=== PATIENT | male | born 1940 | race Caucasian/White ===

== ENCOUNTER 2017-10-19 13:46 | Observation (INO) ==
[2017-10-19 14:10] LABS: Basophils % 0.5 % (0.1-2.0); Eosinophils # 0.3 K/mm3 (0.0-0.4); Eosinophils % 3.2 % (0.1-12.0); Hematocrit 46.6 % (42.0-52.0); Hemoglobin 15.2 g/dL (14.1-18.0); Lymphocytes # 2.1 K/mm3 (0.7-4.5); Lymphocytes % 26.7 K/mm3 (10-50); Mean Corpuscular HGB Conc 32.6 g/dL (31.8-35.4); Mean Corpuscular Hemoglobin 28.9 pg (27.0-31.2); Mean Corpuscular Volume 88.7 fl (80-94); Mean Platelet Volume 7.9 fl (7.4-10.4); Monocytes # 0.4 K/mm3 (0.1-1.0); Neutrophils # 5.1 K/mm3 (1.8-7.8); Neutrophils % 64.7 % (37.0-80.0); Platelet Count 182 K/mm3 (142-424); Red Blood Count 5.26 M/mm3 (4.60-6.20); Red Cell Distribution Width 13.3 % (11.5-17.5); White Blood Count 7.8 K/mm3 (4.8-10.8)
[2017-10-19 14:19] LABS: Albumin Level 4.1 gm/dL (3.4-5.0); Albumin/Globulin Ratio 1.2 (1.1-1.8); Anion Gap 14.8 mEq/L (5-15); Bilirubin,Total 0.5 mg/dL (0.2-1.0); Globulin 3.3 gm/dl (1.3-3.2); Potassium 3.8 mmoL/L (3.5-5.1); Total Protein,Serum 7.4 gm/dL (6.4-8.2)
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
[2017-10-19 14:46] LABS: Creatine Kinase 159 U/L (39-308)
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
--- NOTE | 2017-10-20 07:27 | Pharmacy Consult Notes ---
[facility] Pharmacy VTE Monitoring - Patient Demographics Admission date: 10/19/17 Report Date: 10/20/17 Time: 07:27 Allergies/Adverse Reactions: Patient Allergies No Known Allergies Allergy (Verified 10/18/17 16:04) Height: 1.78 m Weight: 73.567 kg Patient Problems: Current Active Problems Labyrinthitis (Acute) Vomiting (Acute) Renal insufficiency (Acute) Coronary artery disease (Chronic) - VTE Risk Labs: VTE Related Lab Results Hgb 15.2 g/dL (14.1-18.0) 10/19/17 13:55 Hct 46.6 % (42.0-52.0) 10/19/17 13:55 Plt Count 182 K/mm3 (142-424) 10/19/17 13:55 BUN 25 mg/dL (7-18) H 10/19/17 13:55 Creatinine 1.52 mg/dL (0.70-1.30) H 10/19/17 13:55 Estimated Creat Clear 42 mL/min (0-300) 10/19/17 13:55 Was VTE Risk Assessment Performed: Yes VTE Score: 2 VTE Risk Level: Low Risk Clinical Trial Participant: No - Prophylaxis VTE Prophylaxis Ordered?: Yes Types of VTE Prophylaxis: TEDS Knee High
[2017-10-20 07:51] LABS: Basophils % 0.5 % (0.1-2.0); Eosinophils # 0.2 K/mm3 (0.0-0.4); Eosinophils % 3.5 % (0.1-12.0); Hematocrit 40.4 % (42.0-52.0); Lymphocytes # 1.6 K/mm3 (0.7-4.5); Lymphocytes % 33.5 K/mm3 (10-50); Mean Corpuscular HGB Conc 32.1 g/dL (31.8-35.4); Mean Corpuscular Hemoglobin 29.1 pg (27.0-31.2); Mean Corpuscular Volume 90.8 fl (80-94); Mean Platelet Volume 8.5 fl (7.4-10.4); Monocytes # 0.3 K/mm3 (0.1-1.0); Monocytes % 6.1 % (1.7-9.3); Neutrophils # 2.7 K/mm3 (1.8-7.8); Neutrophils % 56.5 % (37.0-80.0); Platelet Count 128 K/mm3 (142-424); Red Blood Count 4.46 M/mm3 (4.60-6.20); Red Cell Distribution Width 13.5 % (11.5-17.5); White Blood Count 4.7 K/mm3 (4.8-10.8)
--- NOTE | 2017-10-20 07:57 | Progress Note ---
<Reshma Gipson - Last Filed: 10/20/17 08:04> Internal Medicine - PN: Subj *Date: 10/20/17 *Time: 08:04 Interval history: Patient is feeling well today. He denies any pain. States he slept well last night. Did eat all of his breakfast. No dizzy spells. No nausea or vomiting. Exam Vital signs and Labs for Last 24 Hours: Temp Pulse Resp BP Pulse Ox 98.1 F 58 L 20 132/55 97 10/20/17 07:39 10/20/17 07:39 10/20/17 07:39 10/20/17 07:39 10/20/17 07:39 Laboratory Results - last 24 hr 10/19/17 13:55: WBC 7.8, RBC 5.26, Hgb 15.2, Hct 46.6, MCV 88.7, MCH 28.9, MCHC 32.6, RDW 13.3, Plt Count 182, MPV 7.9, Neut % (Auto) 64.7, Lymph % (Auto) 26.7 , Bennett % (Auto) 5.0, Eos % (Auto) 3.2, Baso % (Auto) 0.5, Neut # (Auto) 5.1, Lymph # (Auto) 2.1, Bennett # (Auto) 0.4, Eos # (Auto) 0.3, Baso # (Auto) 0.0 10/19/17 13:55: Sodium 143, Potassium 3.8, Chloride 107, Carbon Dioxide 25, Anion Gap 14.8, BUN 25 H, Creatinine 1.52 H, Estimated Creat Clear 42, Estimated GFR 44 L, Est GFR ( Amer) 54 L, Glucose 101, Calcium 9.0, Total Bilirubin 0.5, AST 26, ALT 32, Alkaline Phosphatase 80, Total Protein 7.4 , Albumin 4.1, Globulin 3.3 H, Albumin/Globulin Ratio 1.2 10/19/17 13:55: Total Creatine Kinase 159, CK-MB (CK-2) 2.9, CK-MB (CK-2) Rel Index 1.8, Troponin I < 0.02 10/20/17 06:04: WBC 4.7 L D, RBC 4.46 L, Hct 40.4 L, MCV 90.8, MCH 29.1, MCHC 32.1, RDW 13.5, Plt Count 128 L D, MPV 8.5, Neut % (Auto) 56.5, Lymph % (Auto) 33.5, Bennett % (Auto) 6.1, Eos % (Auto) 3.5, Baso % (Auto) 0.5, Neut # (Auto) 2.7 , Lymph # (Auto) 1.6, Bennett # (Auto) 0.3, Eos # (Auto) 0.2, Baso # (Auto) 0.0 I & O for Last 24 hours: Intake & Output 10/17/17 10/18/17 10/19/17 10/20/17 11:59 11:59 11:59 11:59 Intake Total 240 / 240 Output Total 200 / 200 Balance 40 / 40 Weight 162 lb 3 oz - Constitutional no acute distress - *Routine Respiratory Exam Present: CTA bilaterally - *Routine Cardiovascular Exam Present: RRR - *Routine Abdominal Exam Present: soft, normoactive bowel sounds. Absent: tenderness - *Routine Extremities Exam Absent: edema Assessment and Plan (1) Labyrinthitis Current visit: Yes Status: Acute Qualifiers: Laterality: bilateral Qualified Code(s): H83.03 - Labyrinthitis, bilateral Category: Medical Code(s): H83.09 - Labyrinthitis, unspecified ear (2) Renal insufficiency Current visit: Yes Status: Acute Category: Medical Code(s): N28.9 - Disorder of kidney and ureter, unspecified (3) Coronary artery disease Current visit: Yes Status: Chronic Category: Medical Code(s): I25.10 - Atherosclerotic heart disease of [place] coronary artery without angina pectoris (4) Vomiting Current visit: Yes Status: Acute Category: Medical Code(s): R11.10 - Vomiting, unspecified (5) Dizzy Current visit: No Status: Acute Category: Medical Code(s): R42 - Dizziness and giddiness - Assessment and plan all Dx Assessment and Plan for all problems:: Patient is doing well this morning has had no more dizzy spells. Possible discharge home today will discuss with Dr. Newby. <Ney Newby - Last Filed: 10/20/17 10:26> Internal Medicine - PN: Subj *Date: 10/20/17 *Time: 10:25 Exam Vital signs and Labs for Last 24 Hours: Temp Pulse Resp BP Pulse Ox 98.1 F 58 L 20 132/55 97 10/20/17 07:39 10/20/17 07:39 10/20/17 07:39 10/20/17 07:39 10/20/17 07:39 Laboratory Results - last 24 hr 10/19/17 13:55: WBC 7.8, RBC 5.26, Hgb 15.2, Hct 46.6, MCV 88.7, MCH 28.9, MCHC 32.6, RDW 13.3, Plt Count 182, MPV 7.9, Neut % (Auto) 64.7, Lymph % (Auto) 26.7 , Bennett % (Auto) 5.0, Eos % (Auto) 3.2, Baso % (Auto) 0.5, Neut # (Auto) 5.1, Lymph # (Auto) 2.1, Bennett # (Auto) 0.4, Eos # (Auto) 0.3, Baso # (Auto) 0.0 10/19/17 13:55: Sodium 143, Potassium 3.8, Chloride 107, Carbon Dioxide 25, Anion Gap 14.8, BUN 25 H, Creatinine 1.52 H, Estimated Creat Clear 42, Estimated GFR 44 L, Est GFR ( Amer) 54 L, Glucose 101, Calcium 9.0, Total Bilirubin 0.5, AST 26, ALT 32, Alkaline Phosphatase 80, Total Protein 7.4 , Albumin 4.1, Globulin 3.3 H, Albumin/Globulin Ratio 1.2 10/19/17 13:55: Total Creatine Kinase 159, CK-MB (CK-2) 2.9, CK-MB (CK-2) Rel Index 1.8, Troponin I < 0.02 10/20/17 06:04: WBC 4.7 L D, RBC 4.46 L, Hgb 13.1 L D, Hct 40.4 L, MCV 90.8, MCH 29.1, MCHC 32.1, RDW 13.5, Plt Count 128 L D, MPV 8.5, Neut % (Auto) 56.5, Lymph % (Auto) 33.5, Bennett % (Auto) 6.1, Eos % (Auto) 3.5, Baso % (Auto) 0.5, Neut # (Auto) 2.7, Lymph # (Auto) 1.6, Bennett # (Auto) 0.3, Eos # (Auto) 0.2, Baso # (Auto) 0.0 10/20/17 06:04: Sodium 144, Potassium 4.5, Chloride 112 H, Carbon Dioxide 24, Anion Gap 12.5, BUN 22 H, Creatinine 1.35 H, Estimated Creat Clear 46, Estimated GFR 51 L, Est GFR ( Amer) 62, Glucose 72 L D I & O for Last 24 hours: Intake & Output 10/17/17 10/18/17 10/19/17 10/20/17 11:59 11:59 11:59 11:59 Intake Total 240 / 240 Output Total 200 / 200 Balance 40 / 40 Weight 162 lb 3 oz Assessment and Plan (1) Labyrinthitis Current visit: Yes Status: Acute Qualifiers: Laterality: bilateral Qualified Code(s): H83.03 - Labyrinthitis, bilateral Category: Medical Code(s): H83.09 - Labyrinthitis, unspecified ear (2) Renal insufficiency Current visit: Yes Status: Acute Category: Medical Code(s): N28.9 - Disorder of kidney and ureter, unspecified (3) Coronary artery disease Current visit: Yes Status: Chronic Category: Medical Code(s): I25.10 - Atherosclerotic heart disease of [place] coronary artery without angina pectoris (4) Vomiting Current visit: Yes Status: Acute Category: Medical Code(s): R11.10 - Vomiting, unspecified (5) Dizzy Current visit: No Status: Acute Category: Medical Code(s): R42 - Dizziness and giddiness - Assessment and plan all Dx Assessment and Plan for all problems:: Patient seen and examined. He is stable for discharge.
[2017-10-20 08:01] LABS: Anion Gap 12.5 mEq/L (5-15); Potassium 4.5 mmoL/L (3.5-5.1)
[2017-10-20 08:07] LABS: Hemoglobin 13.1 g/dL (14.1-18.0)
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
== END 2017-10-20 11:38 | disposition home or self-care (01) ==
LOC: ER 13:46 → 2ND 13:46
PROVIDERS: ADMIT Family Medicine; ATTEND Family Medicine
CPT/HCPCS: 36415; 70450; 72125; 80048; 80053; 82550; 82553; 84484; 85025; 93005; 96365; 99284; G0378; J2405

== ENCOUNTER → 2019-12-14 09:14 | Outpatient (CLI) | payer MEDICARE, SELFPAY ==
[2019-12-14 10:42] LABS: Hemoglobin A1C 5.4 % (4.0-6.0)
[2019-12-14 12:03] LABS: Alanine Aminotransferase 24 U/L (12-78); Albumin Level 4.1 g/dl (3.5-5.0); Albumin/Globulin Ratio 1.5 (1.1-1.8); Alkaline Phosphatase 101 U/L (38-126); Anion Gap 11.9 mEq/L (5-15); Aspartate Amino Transferase 37 U/L (17-59); Bilirubin,Total 0.3 mg/dl (0.2-1.3); Blood Urea Nitrogen 31 mg/dl (9-20); Calcium 9.3 mg/dl (8.4-10.2); Carbon Dioxide 28 mmol/L (22.0-30.0); Chloride 105 mmol/L (98-107); Chol/HDL Ratio 1.5 (1-3.5); Cholesterol 95 mg/dl (140-200); Estimated Glomerular Filt Rate 45 ml/min (>60); GFR (African American) 54 ML/MIN (>60); Globulin 2.7 g/dL (1.3-3.2); Glucose 97 mg/dl (74-100); HDL Cholesterol 63 mg/dl (40-60); Magnesium 1.9 mg/dl (1.6-2.3); Potassium 4.9 mmoL/L (3.5-5.1); Sodium 140 mmol/L (136-145); Total Protein,Serum 6.8 g/dl (6.3-8.2); Triglycerides 38 mg/dl (30-150); VLDL Cholesterol 8 mg/dL (0-40)
[2019-12-14 12:13] LABS: Direct LDL Cholesterol 39.36 mg/dL (100-129)
[2019-12-14 12:36] LABS: Prostate Specific Ag Screen 5.6 ng/ml (0.0-4.0); Thyroid Stimulating Hormone 3.53 uIU/mL (0.465-4.68)
== END ==
PROVIDERS: Visit Provider Family Medicine
DX: I10 Essential (primary) hypertension (principal); E78.5 Hyperlipidemia, unspecified; R25.2 Cramp and spasm; N40.1 Benign prostatic hyperplasia with lower urinary tract symptoms; Z12.5 Encounter for screening for malignant neoplasm of prostate; Z79.899 Other long term (current) drug therapy
CPT/HCPCS: 36415; 80053; 80061; 83036; 83735; 84443; G0103

== ENCOUNTER → 2020-01-31 09:40 | Outpatient (CLI) | payer MEDICARE, SELFPAY ==
--- NOTE | 2020-01-31 09:59 | ECG_ITS ---
APPROVED REPORT Exam: Resting ECG HR:54 bpm ECG Measurements Heart Rate 54 AXES WY 150 P 65 QRSd 76 QRS 22 QT 400 T 14 QTc 379 <Conclusion> Sinus bradycardia Otherwise normal ECG Electronically signed by : Ethan Deleon, 02/03/2020 08:35:20
[2020-01-31 10:15] LABS: Basophils % 0.8 % (0.1-2.0); Eosinophils # 0.2 K/mm3 (0.0-0.4); Eosinophils % 4.5 % (0.1-12.0); Hematocrit 41.3 % (42.0-52.0); Hemoglobin 14.1 g/dL (14.1-18.0); Lymphocytes # 1.3 K/mm3 (0.7-4.5); Lymphocytes % 23.8 % (10-50); Mean Corpuscular HGB Conc 34.1 g/dL (31.8-35.4); Mean Platelet Volume 7.6 fl (7.4-10.4); Monocytes # 0.3 K/mm3 (0.1-1.0); Monocytes % 5.7 % (1.7-9.3); Neutrophils # 3.6 K/mm3 (1.8-7.8); Neutrophils % 65.3 % (37.0-80.0); Platelet Count 150 K/mm3 (142-424); Red Blood Count 4.69 M/mm3 (4.60-6.20); Red Cell Distribution Width 13.7 % (11.5-17.5); White Blood Count 5.5 K/mm3 (4.8-10.8)
[2020-01-31 10:37] LABS: Chloride 109 mmol/L (98-107); Potassium 4.8 mmoL/L (3.5-5.1); Sodium 142 mmol/L (136-145)
[2020-01-31 10:40] LABS: Alanine Aminotransferase 26 U/L (12-78); Albumin Level 3.9 g/dl (3.5-5.0); Albumin/Globulin Ratio 1.6 (1.1-1.8); Alkaline Phosphatase 73 U/L (38-126); Anion Gap 11.8 mEq/L (5-15); Aspartate Amino Transferase 35 U/L (17-59); Bilirubin,Total 0.6 mg/dl (0.2-1.3); Blood Urea Nitrogen 27 mg/dl (9-20); Carbon Dioxide 26 mmol/L (22.0-30.0); Estimated Glomerular Filt Rate 45 ml/min (>60); GFR (African American) 54 ML/MIN (>60); Globulin 2.5 g/dL (1.3-3.2); Total Protein,Serum 6.4 g/dl (6.3-8.2)
[2020-01-31 10:41] LABS: Calcium 8.8 mg/dl (8.4-10.2); Glucose 89 mg/dl (74-100)
[2020-01-31 10:58] LABS: Coronavirus 19 IgG Antibody Negative (Negative); Coronavirus 19 IgM Antibody Negative (Negative)
== END ==
PROVIDERS: Visit Provider Otolaryngology
DX: Z01.818 Encounter for other preprocedural examination (principal); C44.02 Squamous cell carcinoma of skin of lip
CPT/HCPCS: 36415; 80053; 85025; 86328; 93005

== ENCOUNTER 2020-02-01 07:44 | Day surgery (SDC) | payer MEDICARE, SELFPAY ==
[2020-01-30 11:37] VITALS: BMI 23.6
[2020-02-01 08:02] VITALS: BP 180/96; PULSE 83; RESP 18; TEMP 36.1; O2SAT 93
--- NOTE | 2020-02-01 08:25 | P.PN_ITS ---
[facility] Anesthesia Checklist - Patient Identification Patient Identification: Arm Band - Structural Data Admitted From: Home Planned Operative Procedure/s: excision lip lesion Consent for Planned Operative Procedure(s) Verified: Yes Verified Documents: Surgical Consent, History and Physical - NPO Status Verified Time NPO: 00:00 - Additional verifications Anesthesia Reactions: No Hx Blood Transfusions: No Blood Transfusion Reaction: No - Airway Assessment C-Spine Mobility Assessed: Yes (mp2) TMJ Mobility Assessed: Yes Dentition: Edentulous - Neurological Assessment Level of Consciousness: Awake, Alert - Anesthesia Plan Anesthesia Risk discussed: Yes Anesthesia Plan: Verified ASA Class: II Anesthesia Type: MAC [facility] History I have reviewed the patient's past medical history: Yes Medical History: Reports:: Atherosclerotic Heart Disease, Coronary Artery Disease, Gastroesophageal Reflux Disease(GERD), Palpitations Denies:: Cancer, Diabetes Mellitus Type 1, Diabetes Mellitus Type 2, Internal Pacemaker, MRSA, Seizures *Have you ever received a pneumonia vaccine?: No *Have you received a flu vaccine this season?: No Other Medical History: Denies: Blood Transfusion Reaction Anesthesia experience/problems:: nac Other Surgeries: Yes: CABG, Colonoscopy, Open Heart Surgery. No: Pacemaker Amputation: No Fractures: No - *Social History Last grade of school completed: High school graduate Smoking Status: Never smoker Tobacco Type: smokeless tobacco Alcohol Intake: never Substance Use Type: denies use *Occupational Status:: retired Housing: house Household Members: spouse *Travel in the last 8 weeks: None Family Hx:: Coronary Artery Disease
--- NOTE | 2020-02-01 10:26 | P.OP_ITS ---
Date of procedure: 02/01/20 Pre-op Diagnosis:: 1. 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 Excision Of leukoplakia mucosa of left lower lip 2.5 cm with tissue rearrangement repair 2. Excision of leukoplakia left lower red lip 2.5 cm with tissue rearrangement repair Surgeon:: Raheem Jo MD MICROBIOLOGY SOIL SCIENTIST:: Kevin Quan Anesthesia: MAC Estimated blood loss (mL): 9 Operative findings:: same Operative note:: The face was prepped and draped, the eyes were protected with Steri-Strips. The perilesional areas on the lower left lip were infiltrated with a total of 6 cc of 2% lidocaine containing epinephrine. The lesion involving the mucosa of the lower lip on the left side was incised, and excised, it measured 2.5 cm it was submitted. Bleeding was stopped with bipolar cautery. The defect was then repaired with 2-0 Vicryl after superior and inferior incisions were made to provide for adequate tissue for repair. The lesion on the lower left red lip also measured 2.5 cm. The jeramy out was incised and the lesion was excised and submitted. Bleeding was stopped with bipolar cautery, blood loss for all the procedure was less than 10 cc. Superior and inferior incisions were made and a tissue rearrangement geometric plastic repair was done with interrupted Vicryl sutures. Blood loss for all the procedure was less than was 10 cc or less it was stopped completely. The patient tolerated the procedure well and was sent to recovery in good general condition. No dressings were used but Vaseline was applied to the lower lip. There were no complications. Condition: stable Disposition: PACU Complications:: none
[2020-02-01 10:30] VITALS: BP 175/91; PULSE 57; RESP 18; TEMP 36.4; O2SAT 97
[2020-02-01 10:45] VITALS: BP 165/93; PULSE 57; RESP 18; O2SAT 98
[2020-02-01 11:00] VITALS: BP 158/84; PULSE 56; RESP 18; O2SAT 97
== END 2020-02-01 11:00 | disposition home or self-care (01) ==
LOC: OR 07:45
PROVIDERS: PCP Family Medicine; Visit Provider Otolaryngology
PROC: (CPT 14060; principal; 2020-02-01 09:30)
DX: C44.02 Squamous cell carcinoma of skin of lip (principal); L57.0 Actinic keratosis; I25.10 Atherosclerotic heart disease of native coronary artery without angina pectoris; K21.9 Gastro-esophageal reflux disease without esophagitis; R00.2 Palpitations; Z95.1 Presence of aortocoronary bypass graft; M10.9 Gout, unspecified; N28.9 Disorder of kidney and ureter, unspecified; Z79.82 Long term (current) use of aspirin; Z79.899 Other long term (current) drug therapy
CPT/HCPCS: 14060 ×2; 88305; 96374; 96375

== ENCOUNTER → 2020-02-15 09:44 | Outpatient (CLI) | payer MEDICARE, SELFPAY ==
--- NOTE | 2020-02-15 09:46 | CA_ITS ---
APPROVED REPORT EXAM: Comprehensive 2D, Doppler, and color-flow Echocardiogram Auto Striper: Bertha Nation RDCS Ht: 5 ft 8 in Wt: 156lbs BSA: 1.84 BP: 143/52 mmHg Indications: Pre-Op Clearance, Shortness of Breath, CAD 2D Dimensions LVOT 2.13 cm (M/F) 1.5-2.5 M-Mode Dimensions RVDd 2.90 cm (0.9-2.6) LVDd 5.94 cm (3.5-5.7) LVDs 4.79 cm (3.5-5.7) IVSd 0.72 cm (0.6-1.1) PWd 0.93 cm (0.6-1.1) EF (Teich) 39.20% FS 19.40% EDV (Teich) 175.90 mL ESV (Teich) 107.00 mL LV Diastology E/A Ratio 1.37 Mitral Valve MV A Velocity 51.00 (40-130 cm/s) Left Ventricle Left atrium is mildly enlarged, left ventricle is normal size, mild concentric left ventricular hypertrophy, visually estimated ejection fraction 55% with no regional wall motion abnormality, grade 1 diastolic dysfunction seen without tissue Doppler evidence of raise left atrial pressure. Right Ventricle Right atrium and right ventricle are mildly enlarged with normal contractility. Aortic Valve Aortic valve is minimally thickened and fibrosed, there is no aortic stenosis, there is mild aortic insufficiency. Mitral Valve Mitral valve leaflets are minimally thickened, there is mild mitral regurgitation. Tricuspid Valve Tricuspid valve is grossly normal, there is mild tricuspid regurgitation, tricuspid regurgitation jet velocity is inadequate for calculation of the right ventricular systolic pressure. Pulmonic Valve Pulmonic valve is poorly visualized. Great Vessels Aortic root is normal size. Pericardium No significant pericardial effusion noted. Conclusion 1. Mildly enlarged left atrium, normal left ventricular size, mild concentric left ventricular hypertrophy, visually estimated ejection fraction 55% with no regional wall motion abnormality, grade 1 diastolic dysfunction seen without tissue Doppler evidence of raise left atrial pressure. 2. Mildly enlarged right ventricle with normal contractility. 3. Mild aortic, mild mitral and tricuspid regurgitation. 4. No significant pericardial effusion noted. Electronically signed by : Levi Lambert, 02/15/2020 15:50:56
--- NOTE | 2020-02-15 09:49 | US_ITS ---
APPROVED REPORT Exam Type: Lower Extremity Segmental Pressures Marine Resource Economist: Bertha Nation RDCS Indications Rest Pain: History of Smoking CAD Risk Factors Hypertension Hyperlipidemia Cardiac Disease H/O CABG Pressures/Indices Right Indices Left Indices Brachial 165.00 mmHg Brachial 159.00 mmHg Low Thigh 166.00 mmHg 1.01 Low Thigh 188.00 mmHg 1.14 Calf 156.00 mmHg 0.95 Calf 214.00 mmHg 1.30 Ankle(PT) 188.00 mmHg 1.14 Ankle(PT) 231.00 mmHg 1.40 Ankle(DP) 173.00 mmHg 1.05 Ankle(DP) 205.00 mmHg 1.24 Digit 162.00 mmHg 0.98 Digit 172.00 mmHg 1.04 Findings DIMINISHED PULSES AND WAVEFORMS, FEET COLD TO TOUCH R JOHN 1.1 L JOHN 1.4 RTBI 1.0 L TBI 1.0 Conclusion DIMINISHED PULSES AND WAVEFORMS, FEET COLD TO TOUCH R JOHN 1.1 L JOHN 1.4 RTBI 1.0 L TBI 1.0 Elevated left JOHN suggesting vessel hardening Electronically signed by : Gregory Quiñonez MD 02/15/2020 16:51:32
== END ==
PROVIDERS: PCP Family Medicine; Visit Provider Urology
DX: E78.5 Hyperlipidemia, unspecified (principal); I10 Essential (primary) hypertension; I25.10 Atherosclerotic heart disease of native coronary artery without angina pectoris; R06.00 Dyspnea, unspecified; Z01.810 Encounter for preprocedural cardiovascular examination; Z95.1 Presence of aortocoronary bypass graft; I70.213 Atherosclerosis of native arteries of extremities with intermittent claudication, bilateral legs
CPT/HCPCS: 93306; 93923

== ENCOUNTER → 2020-09-06 08:15 | Outpatient (CLI) | payer MEDICARE, SELFPAY ==
[2020-09-06 08:32] LABS: Basophils % 0.7 % (0.1-2.0); Eosinophils # 0.3 K/mm3 (0.0-0.4); Hematocrit 41.4 % (42.0-52.0); Hemoglobin 13.4 g/dL (14.1-18.0); Lymphocytes # 1.3 K/mm3 (0.7-4.5); Mean Corpuscular HGB Conc 32.4 g/dL (31.8-35.4); Mean Corpuscular Hemoglobin 28.7 pg (27.0-31.2); Mean Corpuscular Volume 88.4 fl (80-94); Mean Platelet Volume 7.7 fl (7.4-10.4); Monocytes # 0.4 K/mm3 (0.1-1.0); Monocytes % 7.2 % (1.7-9.3); Neutrophils # 3.3 K/mm3 (1.8-7.8); Neutrophils % 62.1 % (37.0-80.0); Platelet Count 145 K/mm3 (142-424); Red Blood Count 4.68 M/mm3 (4.60-6.20); Red Cell Distribution Width 13.4 % (11.5-17.5); White Blood Count 5.3 K/mm3 (4.8-10.8)
--- NOTE | 2020-09-06 08:36 | ECG_ITS ---
APPROVED REPORT Exam: Resting ECG HR:52 bpm ECG Measurements Heart Rate 52 AXES OR 162 P 61 QRSd 74 QRS 50 QT 398 T 72 QTc 370 Conclusion Sinus bradycardia with sinus arrhythmia RSR' or QR pattern in V1 suggests right ventricular conduction delay Anteroseptal infarct, age undetermined Abnormal ECG Electronically signed by : Ethan Deleon, 09/06/2020 08:50:26
[2020-09-06 09:12] LABS: Chloride 112 mmol/L (98-107); Sodium 141 mmol/L (136-145)
[2020-09-06 09:13] LABS: Potassium 4.6 mmoL/L (3.5-5.1)
[2020-09-06 09:15] LABS: Alanine Aminotransferase 24 U/L (12-78); Anion Gap 9.6 mEq/L (5-15); Aspartate Amino Transferase 37 U/L (17-59); Blood Urea Nitrogen 26 mg/dl (9-20); Carbon Dioxide 24 mmol/L (22.0-30.0); Estimated Glomerular Filt Rate 39 ml/min (>60); GFR (African American) 47 ML/MIN (>60)
[2020-09-06 09:16] LABS: Albumin Level 3.9 g/dl (3.5-5.0); Albumin/Globulin Ratio 1.4 (1.1-1.8); Alkaline Phosphatase 71 U/L (38-126); Bilirubin,Total 0.8 mg/dl (0.2-1.3); Calcium 9.1 mg/dl (8.4-10.2); Globulin 2.8 g/dL (1.3-3.2); Glucose 102 mg/dl (74-100); Total Protein,Serum 6.7 g/dl (6.3-8.2)
== END ==
PROVIDERS: Visit Provider Otolaryngology
DX: Z01.818 Encounter for other preprocedural examination (principal)
CPT/HCPCS: 36415; 80053; 85025; 93005

== ENCOUNTER 2020-09-17 23:18 | Emergency (ER) | payer MEDICARE, SELFPAY ==
[2020-09-17 23:19] VITALS: BP 202/101; PULSE 79; RESP 14; TEMP 36.8; O2SAT 96; BMI 29.2
[2020-09-17 23:38] LABS: Microscopic, Urine URINE MICROSCOPIC (MICROSCOPIC)
[2020-09-17 23:39] LABS: Appearance,Urine CLEAR (Clear); Bilirubin,Urine Negative (Negative); Blood, Urine 1+ (Negative); Color,Urine YELLOW (Yellow); Glucose,Urine (UA) Negative (Negative); Ketones,Urine Negative (Negative); Leukocyte Esterase,Urine Negative (Negative); Nitrate,Urine Negative (Negative); Protein,Urine 1+ (Negative); Specific Gravity, Urine 1.025 (1.005-1.030); Urobilinogen,Urine 0.2 EU/dl (0.2)
--- NOTE | 2020-09-17 23:39 | HMH.EDUROGM ---
ED Disposition Clinical Impression: Acute retention of urine Disposition: Home, Self-Care Condition on Discharge: Good Instructions: How to Care for Your Cervantes Catheter -- Male, DI for Urinary Retention in Men Additional Instructions: call pcp and urologist for follow up Referrals: Milind Corona MD [Primary Care Provider] - - Critical Care Critical Care Time: No Attestation: On , the high probability of a clinically significant, sudden or life threatening deterioration of the following system(s) required my full and direct attention, intervention and personal management. The time I documented below is in addition to time spent performing reported procedures but includes the following listed in this critical care notation. Medical Decision Making - Medical Records Medical records reviewed: Yes: I reviewed the patient's medical records. - Mayito Inquiry Pt receiving controlled substance: No Vital Signs: 09/17/20 23:19 Temperature 98.3 F Temperature Source Oral Pulse Rate [Right] 79 Respiratory Rate 14 Blood Pressure [Right Arm] 202/101 H Blood Pressure Mean [Right Arm] 134 02 Sat by Pulse Oximetry 96 - Lab Data Lab results reviewed: Yes: I reviewed the patient's lab results. Orders (Tests/Meds): ORDERS Category Date Time Status Urinalysis and Microscopic Stat Lab 09/17/20 23:30 Received Medical Decision Narrative: acute urinary retention after surg with hx of prostate dis Male Urogenital HPI - General Chief complaint: Urogenital-Male Stated complaint: Has surgery today,unable to urinate Time Seen by Provider: 09/17/20 23:30 Mode of Arrival: Ambulatory Source of Information: Patient, Medical Record Limitations: No Limitations Description of Symptoms (Recalled from ER Triage Doc. by RN): pt states had surgery for a biposy on face today and has been unable to urinate since then - History of Present Illness HPI Narrative: unable to urinate after surg today Complaint: other (urinary retention ) Onset (ago): hour(s) Location: abdomen Severity: moderate Reports: urinary retention - Related Data Home Medications Medication Instructions Recorded Confirmed Aspirin [Aspir 81] 81 mg PO DAILY 10/18/17 02/13/20 Atorvastatin Calcium [Lipitor 20mg 20 mg PO HS 10/18/17 02/13/20 Tab] Metoprolol Tartrate [Lopressor 25 mg PO BID 10/18/17 02/13/20 25mg tablet] lisinopriL [Lisinopril 2.5mg Tab] 2.5 mg PO HS 10/18/17 02/13/20 Tamsulosin HCl 0.4 mg PO DAILY 01/02/19 02/13/20 famotidine 40 mg tablet 40 mg PO DAILY tab 09/10/20 09/10/20 Allergies Allergy/AdvReac Type Severity Reaction Status Date / Time No Known Allergies Allergy Verified 09/10/20 13:25 [facility] History - Hepatitis A Screen Drug use history?: No High risk sexual behaviors?: No History of sexually transmitted infection?: No Currently employed?: No Childcare worker?: No Do you have indoor plumbing?: Yes Do you have electricity?: Yes Attestation statement:: This patient has been screened for Hepatitis A risk factors. I have reviewed the patient's past medical history: Yes Medical History: Reports:: Atherosclerotic Heart Disease, Cancer, Coronary Artery Disease, Gastroesophageal Reflux Disease(GERD), Hyperlipidemia, Hypertension, Palpitations Denies:: Diabetes Mellitus Type 1, Diabetes Mellitus Type 2, Internal Pacemaker, MRSA, Seizures Other Medical History: Denies: Blood Transfusion Reaction Other Surgeries: Yes: CABG, Colonoscopy, Open Heart Surgery. No: Pacemaker Amputation: No Fractures: No Comment: Colonoscopy with polypectomy with negative path in 2003; circumcision per Dr. Agustin in 2012; CABG in 04/2013 - Social History Smoking Status: Never smoker Tobacco Type: smokeless tobacco Alcohol Intake: never Substance Use Type: denies use Occupational Status: disabled Housing: house Household Members: spouse Family Hx:: Coronary Artery Disease ROS Obtained: Yes All systems reviewed &
[2020-09-17 23:53] VITALS: BP 186/84; PULSE 76; RESP 18; TEMP 36.8; O2SAT 97
[2020-09-17 23:56] LABS: Bacteria,Urine 1+ /lpf; Mucus,Urine 1+ /lpf; Squamous Epithelial Cell,Urine Occasional #/hpf (0-5); WBC,Urine Occasional #/hpf (0-3)
== END 2020-09-17 23:55 | disposition home or self-care (01) ==
LOC: ER 23:52
PROVIDERS: Emergency Provider Emergency Medicine; PCP Family Medicine
DX: R33.0 Drug induced retention of urine (principal); I25.10 Atherosclerotic heart disease of native coronary artery without angina pectoris; I10 Essential (primary) hypertension; K21.9 Gastro-esophageal reflux disease without esophagitis; E78.5 Hyperlipidemia, unspecified; R00.2 Palpitations; Z79.899 Other long term (current) drug therapy
CPT/HCPCS: 81001; 99282

== ENCOUNTER → 2020-09-25 15:58 | Outpatient (CLI) | payer MEDICARE, SELFPAY | LOC: COVID.OUT 16:02 → LAB 16:08 | PROVIDERS: PCP Family Medicine; Visit Provider Otolaryngology | DX: Z01.812 Encounter for preprocedural laboratory examination (principal); Z20.822 Contact with and (suspected) exposure to COVID-19; C44.02 Squamous cell carcinoma of skin of lip; T81.30XA Disruption of wound, unspecified, initial encounter | CPT/HCPCS: U0003 ==

== ENCOUNTER → 2020-11-01 07:55 | Outpatient (CLI) | payer MEDICARE, SELFPAY | PROVIDERS: Visit Provider Urology | DX: Z20.822 Contact with and (suspected) exposure to COVID-19 (principal) | CPT/HCPCS: U0003 ==

== ENCOUNTER 2020-11-04 09:05 | Day surgery (SDC) | payer MEDICARE, SELFPAY ==
[2020-11-04 10:15] VITALS: BP 169/68; PULSE 72; RESP 18; TEMP 36.2; O2SAT 97
--- NOTE | 2020-11-04 10:40 | P.PN_ITS ---
[facility] Anesthesia Checklist - Patient Identification Patient Identification: Arm Band - Structural Data Admitted From: Home Planned Operative Procedure/s: Prostate Bx Consent for Planned Operative Procedure(s) Verified: Yes Verified Documents: Surgical Consent, History and Physical - NPO Status Verified Time NPO: 00:00 - Additional verifications Anesthesia Reactions: No (states difficulty s/p recieving gas after dental procedure) Hx Blood Transfusions: No Blood Transfusion Reaction: No - Airway Assessment C-Spine Mobility Assessed: Yes (mp2) TMJ Mobility Assessed: Yes Dentition: Good Dentition - Neurological Assessment Level of Consciousness: Awake, Alert - Anesthesia Plan Anesthesia Risk discussed: Yes Anesthesia Plan: Verified ASA Class: III Anesthesia Type: MAC [facility] History I have reviewed the patient's past medical history: Yes Medical History: Reports:: Atherosclerotic Heart Disease, BPH, Cancer (LIP/MOUTH), Coronary Artery Disease, Gastroesophageal Reflux Disease(GERD), Hyperlipidemia, Hypertension, Kidney Stones, Palpitations Denies:: Diabetes Mellitus Type 1, Diabetes Mellitus Type 2, Internal Pacemaker, MRSA, Seizures *Have you ever received a pneumonia vaccine?: No *Have you received a flu vaccine this season?: No Other Medical History: Denies: Blood Transfusion Reaction Anesthesia experience/problems:: nac Other Surgeries: Yes: CABG, Colonoscopy, Open Heart Surgery. No: Pacemaker Amputation: No Fractures: No - *Social History Last grade of school completed: High school graduate Smoking Status: Never smoker Tobacco Type: smokeless tobacco Alcohol Intake: never Alcohol Intake Frequency:: holidays/special occasions only Substance Use Type: denies use *Occupational Status:: retired Housing: house Household Members: spouse *Travel in the last 8 weeks: None Family Hx:: Coronary Artery Disease, Cancer
[2020-11-04 12:00] VITALS: BP 110/57; PULSE 67; RESP 20; TEMP 36.6; O2SAT 94
[2020-11-04 12:10] VITALS: BP 121/73; PULSE 59; RESP 20; TEMP 36.6; O2SAT 94
[2020-11-04 12:20] VITALS: BP 139/83; PULSE 61; RESP 20; TEMP 36.6; O2SAT 95
[2020-11-04 12:35] VITALS: BP 136/74; PULSE 53; RESP 20; TEMP 36.6; O2SAT 96
--- NOTE | 2020-11-04 12:54 | HMH.OPNOTE ---
Date of procedure: 11/04/20 Pre-op Diagnosis:: Elevated PSA Post-op Diagnosis:: Elevated PSA Procedure performed:: Prostate biopsy with transrectal ultrasound guidance Surgeon:: Vincenzo Tellez MD ASSOCIATE PROFESSOR OF MEDICINE:: Wilber Inman Anesthesia: MAC Estimated blood loss (mL): 0 Clinical Note:: Patient is an 80-year-old white male with with elevated PSA to 8. CLEMENTINA shows some firmness at the prostate apex bilaterally. Patient presents for prostate biopsy. Operative findings:: Prostate measured at 39.6 cm. There was a hypoechoic lesion noted in the left side of the prostate laterally. No calcifications were noted. 13 biopsies were taken. Operative note:: Patient taken to the operating room after informed consent was obtained. He was placed on the operating table in the left lateral decubitus position and monitored anesthesia care administered. His legs were placed in the position. The transrectal ultrasound probe was placed into the rectum and the prostate easily visualized. Was measured at 39.6 cm. There was a hypoechoic area noted in the left side of the prostate. Local anesthetic placed into each neurovascular bundle and 13 biopsies then taken with 2 through the left lateral apex. The probe removed and patient tolerated procedure well. Condition: stable Disposition: same day Specimens:: Prostate biopsy x13 Complications:: None
[2020-11-04 13:10] VITALS: BP 163/76; PULSE 60; RESP 20; TEMP 36.6; O2SAT 96
== END 2020-11-04 13:10 | disposition home or self-care (01) ==
LOC: OR 09:06
PROVIDERS: PCP Family Medicine; Visit Provider Urology
DX: C61 Malignant neoplasm of prostate (principal); N42.32 Atypical small acinar proliferation of prostate; Z85.819 Personal history of malignant neoplasm of unspecified site of lip, oral cavity, and pharynx; I25.10 Atherosclerotic heart disease of native coronary artery without angina pectoris; K21.9 Gastro-esophageal reflux disease without esophagitis; E78.5 Hyperlipidemia, unspecified; I10 Essential (primary) hypertension; R00.2 Palpitations; Z87.442 Personal history of urinary calculi; Z82.49 Family history of ischemic heart disease and other diseases of the circulatory system; Z80.9 Family history of malignant neoplasm, unspecified; Z79.899 Other long term (current) drug therapy
CPT/HCPCS: 55700; 76942; 88305

== ENCOUNTER → 2020-11-21 09:26 | Outpatient (CLI) | payer MEDICARE, SELFPAY ==
--- NOTE | 2020-11-21 09:27 | CT_ITS ---
PROCEDURE: CT ABDOMEN PELVIS WO CON CLINICAL INDICATION: prostate cancer No symptoms COMPARISON: CT ABDPELW/O CT ABD PELVIS W/O CONTRAST from 12/30/[address] abdomen pelvis wo con from 01/02/2019 TECHNIQUE: Axial images obtained with sagittal and coronal reformats. All CT scans at the facility use one or more dose reduction, viz: automated exposure control, ma/kV adjustment per patient size (including targeted exams where dose is matched to indication, i.e. head), or iterative reconstruction technique. FINDINGS: LOWER THORAX: Coronary artery calcifications are noted. There has been a prior CABG. ABDOMEN & PELVIS: The liver, spleen, adrenal glands, pancreas, and kidneys have an unremarkable appearance. There is a small left renal cyst at 12 mm. Cholelithiasis noted. No intestinal obstruction or free air. No evidence of appendicitis. There is colonic diverticulosis but no evidence of diverticulitis. There is mild thickening of the GE junction which is nonspecific. There is a tiny umbilical hernia containing fat. The prostate gland is enlarged at 4.6 x 4.6 cm not significantly changed. There is sclerosis of the SI joints superiorly on both sides. The sclerotic area in the left ilium medially at the SI joint is slightly more prominent.. IMPRESSION: Slight increase in sclerosis involving the medial aspect of the left ilium at the SI joint area superiorly. This may merely be related to worsening sacroiliitis. One cannot exclude the possibility of a bony metastatic focus. Suggest correlation with PSA levels. Short-term CT follow-up may also be of further value. Cholelithiasis. Otherwise negative Dictated by: Gregory Quiñonez MD 11/22/2020 09:28 Gregory Quiñonez MD in [place] 11/22/2020 09:28
== END ==
PROVIDERS: PCP Family Medicine; Visit Provider Urology
DX: C61 Malignant neoplasm of prostate (principal)
CPT/HCPCS: 74176

== ENCOUNTER → 2020-11-26 08:59 | Outpatient (CLI) | payer MEDICARE, SELFPAY ==
--- NOTE | 2020-11-26 08:59 | NM_ITS ---
PROCEDURE: NM BONE SCAN WHOLE BODY CLINICAL INDICATION: prostate cancer COMPARISON: CT CT ABDOMEN PELVIS WO CON from 11/21/2020 TECHNIQUE: Dose 25.7 mCi technetium MDP FINDINGS: Focal increased activity involves the right 9th rib laterally and left 10th rib laterally. Review of previous CT shows old rib fractures at these areas. The CT also demonstrated increasing sclerosis involving the medial aspect of the left ilium. There is some asymmetric increased activity at the left SI joint region but not as intense as 1 would expect for a blastic metastatic focus. Sacroiliitis is considered. Slight increased activity involves the right aspect of the T10 vertebral body. There is a mildly prominent osteophyte in this region on the previous CT scan. No other significant abnormalities are evident. IMPRESSION: No convincing evidence of metastatic disease. Increased activity in the right 9th and left 10th ribs consistent with old fractures. There is slight increased activity in the left SI joint not as intense as what 1 would expect for metastatic disease. Sacroiliitis is considered. Dictated by: Gregory Quiñonez MD 11/28/2020 07:50 Gregory Quiñonez MD in [place] 11/28/2020 07:50
== END ==
PROVIDERS: PCP Family Medicine; Visit Provider Urology
DX: C61 Malignant neoplasm of prostate (principal); Z03.89 Encounter for observation for other suspected diseases and conditions ruled out
CPT/HCPCS: 78306; A9503

== ENCOUNTER → 2021-01-01 13:16 | Outpatient (CLI) | payer MEDICARE, SELFPAY | PROVIDERS: Visit Provider Urology | DX: C61 Malignant neoplasm of prostate (principal); Z01.812 Encounter for preprocedural laboratory examination; Z20.822 Contact with and (suspected) exposure to COVID-19 | CPT/HCPCS: U0003 ==

== ENCOUNTER 2021-01-03 09:40 | Day surgery (SDC) | payer MEDICARE, SELFPAY ==
[2020-12-31 11:47] VITALS: BMI 22.9
[2021-01-03 10:04] VITALS: BP 111/54; PULSE 56; RESP 18; TEMP 36.8; O2SAT 99
[2021-01-03 11:35] VITALS: BP 136/70; PULSE 63; RESP 18; TEMP 36.5; O2SAT 97
[2021-01-03 11:50] VITALS: BP 136/70; PULSE 63; RESP 18; O2SAT 97
--- NOTE | 2021-01-03 13:53 | HMH.OPNOTE ---
Date of procedure: 01/03/21 Pre-op Diagnosis:: Prostate cancer Post-op Diagnosis:: Prostate cancer Procedure performed:: Gold fiducial placement with transrectal ultrasound Surgeon:: Vincenzo Tellez MD Anesthesia: local Estimated blood loss (mL): 0 Clinical Note:: Patient is an 80-year-old white male with recently diagnosed prostate cancer. Imaging is shown no evidence of metastatic disease. He is going to undergo radiation therapy Buddhismlinda Lackey presents today for placement of gold fiducials. Operative findings:: 4 gold fiducials were placed without difficulty. Operative note:: Patient taken to the operating suite and placed on the operating table in the left lateral decubitus position. Had performed preoperative oral antibiotic and enema. The transrectal ultrasound probe was placed into the rectum and the prostate was easily visualized. Local anesthetic was placed into each neurovascular bundle and 4 gold markers were then placed 1 at the right base left base right apex and left apex. There is good visualization of the seeds after placement. Patient tolerated the procedure well no complications. Condition: stable Disposition: same day Specimens:: None Complications:: None
== END 2021-01-03 11:50 | disposition home or self-care (01) ==
LOC: OR 09:42
PROVIDERS: PCP Family Medicine; Visit Provider Urology
DX: C61 Malignant neoplasm of prostate (principal); I25.10 Atherosclerotic heart disease of native coronary artery without angina pectoris; I10 Essential (primary) hypertension
CPT/HCPCS: 55876

== ENCOUNTER 2021-03-13 03:42 | Emergency (ER) | payer MEDICARE, SELFPAY ==
[2021-03-13 03:43] VITALS: BP 172/62; PULSE 56; RESP 22; TEMP 36.4; O2SAT 97; BMI 22.9
--- NOTE | 2021-03-13 03:55 | XR_ITS ---
PROCEDURE INFORMATION: Exam: XR Chest Exam date and time: 03/13/2021 3:55 AM Age: 80 years old Clinical indication: Shortness of breath; Prior surgery; Surgery type: Open heart-2012; Patient HX: SOA, open hearts SX 2012 TECHNIQUE: Imaging protocol: XR of the chest. Views: 2 views. COMPARISON: CR CXR CHEST(2 VIEWS-NOT PORTABLE) 03/03/2017 2:56 PM FINDINGS: Lungs: Unremarkable. No consolidation. Pleural spaces: Unremarkable. No pleural effusion. No pneumothorax. Heart/Mediastinum: Unremarkable. No cardiomegaly. Bones/joints: There are median sternotomy wires in place. IMPRESSION: No acute findings.
--- NOTE | 2021-03-13 03:58 | ECG_ITS ---
APPROVED REPORT Exam: Resting ECG HR:48 bpm ECG Measurements Heart Rate 48 AXES AK 162 P 94 QRSd 70 QRS 16 QT 402 T 38 QTc 359 Conclusion Marked sinus bradycardia with premature supraventricular complexes Septal infarct, age undetermined Abnormal ECG Electronically signed by : Ethan Deleon MD 03/14/2021 16:47:08
--- NOTE | 2021-03-13 03:58 | HMH.EDGENADL ---
ED Disposition Clinical Impression: Nasal congestion, Diaphoresis Chronic kidney disease Qualifiers: Chronic kidney disease stage: unspecified stage Qualified Code(s): N18.9 - Chronic kidney disease, unspecified Disposition: Home, Self-Care Condition on Discharge: Good Additional Instructions: You may use Afrin spray, 1 spray in each nostril every 12 hours for a maximum of 3 days for nasal congestion. See Dr. Corona today as scheduled. Have Dr. Corona review your labs from your emergency department visit tonight. Drink 2 large glasses of water when you go home tonight. Make sure that you drink adequate fluids every day, 6 to 8 glasses of water. Referrals: Milind Corona MD [Primary Care Provider] - - Critical Care Critical Care Time: No Attestation: On , the high probability of a clinically significant, sudden or life threatening deterioration of the following system(s) required my full and direct attention, intervention and personal management. The time I documented below is in addition to time spent performing reported procedures but includes the following listed in this critical care notation. Medical Decision Making - Mayito Inquiry Pt receiving controlled substance: No Vital Signs: 03/13/21 03:43 Temperature 97.6 F Temperature Source Oral Pulse Rate [Right] 56 L Respiratory Rate 22 Blood Pressure [Right Arm] 172/62 H Blood Pressure Mean [Right Arm] 98 02 Sat by Pulse Oximetry 97 Oxygen Delivery Method Room Air - Lab Data Lab Results 03/13/21 03:50: WBC 4.3 L, RBC 4.52 L, Hgb 13.0 L, Hct 42.0, MCV 92.8, MCH 28.7, MCHC 31.0 L, RDW 13.4, Plt Count 136 L, MPV 7.9, Neut % (Auto) 47.3, Lymph % (Auto) 35.4, [place] % (Auto) 9.1, Eos % (Auto) 7.4, Baso % (Auto) 0.8, Neut # (Auto) 2.0, Lymph # (Auto) 1.5, [place] # (Auto) 0.4, Eos # (Auto) 0.3, Baso # (Auto) 0.0 03/13/21 03:50: Sodium 144, Potassium 4.9, Chloride 110 H, Carbon Dioxide 25, Anion Gap 13.9, BUN 42 H, Creatinine 2.10 H, Estimated Creat Clear 28, Estimated GFR 30 L, Est GFR ( Amer) 37 L, Glucose 93, Calcium 8.8, Total Bilirubin 0.3, AST 32, ALT 26, Alkaline Phosphatase 108, Troponin I < 0.01, C-Reactive Protein < 0.3, Total Protein 6.8, Albumin 4.1, Globulin 2.7, Albumin/Globulin Ratio 1.5 03/13/21 03:50: Lactate < 0.5 L 03/13/21 03:50: SARS-CoV-2 (PCR) Not detected, Influenza A Untype (PCR) Not detected, Influenza Type B (PCR) Not detected Result diagrams: 03/13/21 03:50 03/13/21 03:50 Orders (Tests/Meds): ED MEDICATIONS Discontinued Medications Generic Name Dose Route Start Last Admin Trade Name Freq PRN Reason Stop Dose Admin Oxymetazoline HCl 1 ml 03/13/21 04:20 03/13/21 04:24 Oxymetazoline Nasal [place] 0.05% 15ml NS 03/13/21 04:21 1 ml ONCE ONE Administration ORDERS Category Date Time Status Chest XR 2 view (NOT portable) [XR chest 2V] Stat Exams 03/13/21 03:55 Taken Troponin I Q3H Lab 03/13/21 07:00 Ordered Troponin I Q3H Lab 03/13/21 10:00 Ordered Blood Culture Stat Micro 03/13/21 03:59 Received - Radiology Data #1 Image(s): Chest Image Reviewed: Yes I reviewed the patient's radiology image Prior sternotomy/CABG, no acute process - ECG Data Tracing #1 EKG interpreted by Ricky Kee MD: Rhythm: sinus bradycardia Rate: 48 [place]: normal Ectopy: none Conduction: normal ST Segment Changes: none T Wave Changes: none Q Waves: none No evidence of acute ischemia or injury Prior electrocardiagrams reviewed. No significant change from prior tracings. - Reevaluation(s) Time: 05:20 Reevaluation #1: States he feels great. The Afrin spray opened up his nares and he can breathe great now. Ready to go home. Discussed BUN and creatinine results. He admits he does not drink enough fluids. Offered to give him IV fluids, but he says he will just drink some fluids when he goes home. General Adult HPI - General Chief complaint: Shortness of Breath/Dyspnea Stated c
[2021-03-13 04:30] LABS: Coronavirus 19, PCR Not Detected (NotDetected); Influenza A, PCR Not Detected (NotDetected); Influenza B, PCR Not Detected (NotDetected)
[2021-03-13 04:34] LABS: Basophils % 0.8 % (0.1-2.0); Eosinophils # 0.3 K/mm3 (0.0-0.4); Eosinophils % 7.4 % (0.1-12.0); Lymphocytes # 1.5 K/mm3 (0.7-4.5); Lymphocytes % 35.4 % (10-50); Mean Corpuscular Hemoglobin 28.7 pg (27.0-31.2); Mean Corpuscular Volume 92.8 fl (80-94); Mean Platelet Volume 7.9 fl (7.4-10.4); Monocytes # 0.4 K/mm3 (0.1-1.0); Monocytes % 9.1 % (1.7-9.3); Neutrophils % 47.3 % (37.0-80.0); Platelet Count 136 K/mm3 (142-424); Red Blood Count 4.52 M/mm3 (4.60-6.20); Red Cell Distribution Width 13.4 % (11.5-17.5); White Blood Count 4.3 K/mm3 (4.8-10.8)
[2021-03-13 04:41] LABS: Alanine Aminotransferase 26 U/L (12-78); Albumin Level 4.1 g/dl (3.5-5.0); Albumin/Globulin Ratio 1.5 (1.1-1.8); Alkaline Phosphatase 108 U/L (38-126); Anion Gap 13.9 mEq/L (5-15); Aspartate Amino Transferase 32 U/L (17-59); Bilirubin,Total 0.3 mg/dl (0.2-1.3); Blood Urea Nitrogen 42 mg/dl (9-20); Calcium 8.8 mg/dl (8.4-10.2); Carbon Dioxide 25 mmol/L (22.0-30.0); Chloride 110 mmol/L (98-107); Creatinine Clearance Estimated 28 mL/min (50-200); Estimated Glomerular Filt Rate 30 ml/min (>60); GFR (African American) 37 ML/MIN (>60); Globulin 2.7 g/dL (1.3-3.2); Glucose 93 mg/dl (74-100); Potassium 4.9 mmoL/L (3.5-5.1); Sodium 144 mmol/L (136-145); Total Protein,Serum 6.8 g/dl (6.3-8.2)
[2021-03-13 04:44] LABS: Lactic Acid < 0.5 mmol/L (0.7-2.1)
[2021-03-13 05:01] LABS: C-Reactive Protein < 0.3 mg/L (0-4); Troponin I < 0.01 ng/ml (0.00-0.034)
[2021-03-13 05:33] VITALS: BP 151/76; PULSE 61; RESP 18; TEMP 36.4; O2SAT 97
== END 2021-03-13 05:34 | disposition home or self-care (01) ==
PROVIDERS: Emergency Provider Emergency Medicine; PCP Family Medicine
DX: R09.81 Nasal congestion (principal); R61 Generalized hyperhidrosis; N18.9 Chronic kidney disease, unspecified
CPT/HCPCS: 71046; 80053; 83605; 84484; 85025; 86140; 87040; 93005; 99284; C9803; U0003; U0005

== ENCOUNTER → 2021-03-15 09:12 | Outpatient (CLI) | payer MEDICARE, SELFPAY ==
[2021-03-15 10:22] LABS: Anion Gap 12.2 mEq/L (5-15); Blood Urea Nitrogen 27 mg/dl (9-20); Calcium 8.7 mg/dl (8.4-10.2); Carbon Dioxide 24 mmol/L (22.0-30.0); Chloride 110 mmol/L (98-107); Estimated Glomerular Filt Rate 39 ml/min (>60); GFR (African American) 47 ML/MIN (>60); Glucose 137 mg/dl (74-100); Phosphorous 3.3 mg/dl (2.5-4.5); Potassium 5.2 mmoL/L (3.5-5.1); Sodium 141 mmol/L (136-145)
[2021-03-15 10:33] LABS: Intact Parathyroid Hormone 104.7 pg/mL (7.5-53.5)
[2021-03-15 10:49] LABS: Basophils % 0.8 % (0.1-2.0); Eosinophils # 0.2 K/mm3 (0.0-0.4); Eosinophils % 5.3 % (0.1-12.0); Lymphocytes # 1.1 K/mm3 (0.7-4.5); Lymphocytes % 24.5 % (10-50); Mean Corpuscular HGB Conc 31.6 g/dL (31.8-35.4); Mean Corpuscular Hemoglobin 29.3 pg (27.0-31.2); Mean Corpuscular Volume 92.9 fl (80-94); Mean Platelet Volume 7.8 fl (7.4-10.4); Monocytes # 0.2 K/mm3 (0.1-1.0); Monocytes % 4.7 % (1.7-9.3); Neutrophils # 2.9 K/mm3 (1.8-7.8); Neutrophils % 64.7 % (37.0-80.0); Platelet Count 136 K/mm3 (142-424); Red Blood Count 4.42 M/mm3 (4.60-6.20); Red Cell Distribution Width 13.4 % (11.5-17.5); White Blood Count 4.5 K/mm3 (4.8-10.8)
== END ==
PROVIDERS: Visit Provider Family Medicine
DX: N18.32 Chronic kidney disease, stage 3b (principal)
CPT/HCPCS: 36415; 80048; 83970; 84100; 85025

== ENCOUNTER → 2021-04-08 08:50 | Outpatient (CLI) | payer MEDICARE, SELFPAY ==
--- NOTE | 2021-04-08 09:13 | ECG_ITS ---
APPROVED REPORT Exam: Resting ECG HR:61 bpm ECG Measurements Heart Rate 61 AXES UT 174 P 25 QRSd 78 QRS 8 QT 398 T 35 QTc 400 Conclusion Poor data quality, interpretation may be adversely affected Sinus rhythm with occasional premature ventricular complexes Otherwise normal ECG Electronically signed by : Ethan Deleon MD 04/09/2021 21:21:44
== END ==
PROVIDERS: PCP Family Medicine; Visit Provider Otolaryngology
DX: Z01.818 Encounter for other preprocedural examination (principal); I10 Essential (primary) hypertension
CPT/HCPCS: 93005

== ENCOUNTER → 2021-04-21 10:13 | Outpatient (CLI) | payer MEDICARE, SELFPAY | PROVIDERS: Visit Provider Otolaryngology | DX: Z01.818 Encounter for other preprocedural examination (principal); Z11.52 Encounter for screening for COVID-19 | CPT/HCPCS: C9803; U0003; U0005 ==

== ENCOUNTER 2021-04-22 16:11 | Emergency (ER) | payer MEDICARE, SELFPAY ==
[2021-04-22 16:12] VITALS: BP 162/95; PULSE 79; RESP 16; TEMP 36.7; O2SAT 96; BMI 25.2
--- NOTE | 2021-04-22 16:49 | HMH.EDGENADL ---
ED Disposition Clinical Impression: Acute urinary obstruction Disposition: Home, Self-Care Condition on Discharge: Good Referrals: Milind Corona MD [Primary Care Provider] - Vincenzo Tellez MD [Staff Physician] - - Critical Care Critical Care Time: No Attestation: On 04/22/21, the high probability of a clinically significant, sudden or life threatening deterioration of the following system(s) required my full and direct attention, intervention and personal management. The time I documented below is in addition to time spent performing reported procedures but includes the following listed in this critical care notation. Medical Decision Making - Medical Records Medical records reviewed: Yes: I reviewed the patient's medical records. - Mayito Inquiry Pt receiving controlled substance: No Vital Signs: 04/22/21 16:12 04/22/21 17:02 Temperature 98.1 F Temperature Source Oral Pulse Rate 61 Pulse Rate [Right Radial] 79 Respiratory Rate 16 16 Blood Pressure 124/60 Blood Pressure [Right Arm] 162/95 H Blood Pressure Mean [Right Arm] 117 Blood Pressure Source [Right Arm] Automatic Cuff Blood Pressure Position [Right Arm] Sitting 02 Sat by Pulse Oximetry 96 94 L Oxygen Delivery Method Room Air Room Air - Lab Data Lab Results 04/22/21 16:37: Urine Color Yellow, Urine Appearance Clear, Urine pH 5.5, Ur Specific [place] 1.025, Urine Protein Negative, Urine Glucose (UA) Negative, Urine Ketones Negative, Urine Blood Trace-i, Urine Nitrate Negative, Urine Bilirubin Negative, Urine Urobilinogen 0.2, Ur Leukocyte Esterase Negative Orders (Tests/Meds): ORDERS Category Date Time Status Urinalysis and Microscopic Stat Lab 04/22/21 16:37 Results Medical Decision Narrative: Patient is an 80-year-old male presenting to the ED today for urinary obstruction. Patient is well-appearing on initial evaluation in no acute distress and vital signs are stable. Patient has had a Cervantes placed by nursing staff, with over 500 mL out, this is consistent with acute urinary obstruction, there is no blood obvious in the urine but will test for urinary tract infection as this is a common cause of urinary obstruction, although patient did receive anesthesia which is also a nidus for obstruction. Urinalysis no evidence of infection, have ordered follow-up with urology, patient also can follow-up with his primary care. Given a leg bag pillow precautions, return precautions return to the ED with any new or worsening symptoms is verbalized understanding this plan. General Adult HPI - General Stated complaint: post op [facility] 04/22/21, unable to urinate Time Seen by Provider: 04/22/21 16:30 - History of Present Illness HPI narrative: Patient is an 80-year-old male presents the ED today with urinary obstruction. 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 Patient follows with Dr. Tellez and Dr. Corona as his primary. Patient has suprapubic abdominal tenderness on initial evaluation, states that he takes medicine for an enlarged prostate at home, states that he wore a Cervantes last time for 1 day took it out at home and did not have any problems after that. - Related Data Home Medications Medication Instructions Recorded Confirmed Aspirin [Aspir 81] 81 mg PO DAILY 10/18/17 03/13/21 Atorvastatin Calcium [Lipitor 20mg 20 mg PO HS 10/18/17 03/13/21 Tab] Metoprolol Tartrate [Lopressor 25 mg PO BID 10/18/17 03/13/21 25mg tablet] lisinopriL [Lisinopril 2.5mg Tab] 2.5 mg PO HS 10/18/17 03/13/21 Tamsulosin HCl 0.4 mg PO DAILY 01/02/19 03/13/21 famotidine 40 mg tablet 40 mg PO DAILY tab 09/10/20 03/13/21 Meloxicam 7.5 mg PO DAILY 03/13/21 03/13/21 Allergies Allergy/AdvReac Type Severity Reaction Status Date / Jerry
[2021-04-22 17:02] VITALS: BP 124/60; PULSE 61; RESP 16; O2SAT 94
[2021-04-22 17:03] LABS: Microscopic, Urine URINE MICROSCOPIC (MICROSCOPIC)
[2021-04-22 17:05] LABS: Appearance,Urine CLEAR (Clear); Bilirubin,Urine Negative (Negative); Blood, Urine TRACE-I (Negative); Color,Urine YELLOW (Yellow); Glucose,Urine (UA) Negative (Negative); Ketones,Urine Negative (Negative); Leukocyte Esterase,Urine Negative (Negative); Nitrate,Urine Negative (Negative); PH,Urine 5.5 (5.0-8.5); Protein,Urine Negative (Negative); Specific Gravity, Urine 1.025 (1.005-1.030); Urobilinogen,Urine 0.2 EU/dl (0.2)
[2021-04-22 17:22] LABS: Bacteria,Urine Trace /lpf; RBC,Urine Occasional #/hpf (0-3)
[2021-04-22 17:39] VITALS: BP 124/60; PULSE 71; RESP 17; TEMP 36.7; O2SAT 96
== END 2021-04-22 17:39 | disposition home or self-care (01) ==
PROVIDERS: Emergency Provider Student in an Organized Health Care Education/Training Program; PCP Family Medicine
DX: N13.9 Obstructive and reflux uropathy, unspecified (principal); I10 Essential (primary) hypertension; K21.9 Gastro-esophageal reflux disease without esophagitis; Z87.442 Personal history of urinary calculi; E78.5 Hyperlipidemia, unspecified; I25.10 Atherosclerotic heart disease of native coronary artery without angina pectoris; Z79.899 Other long term (current) drug therapy
CPT/HCPCS: 81001; 99283

== ENCOUNTER → 2021-05-06 10:54 | Outpatient (CLI) | payer MEDICARE, SELFPAY ==
[2021-05-06 13:48] LABS: Prostate Specific Ag, Diagnost 4.41 ng/ml (0.0-4.0)
== END ==
PROVIDERS: Visit Provider Urology
DX: C61 Malignant neoplasm of prostate (principal)
CPT/HCPCS: 36415; 84153

== ENCOUNTER → 2021-05-26 08:33 | Outpatient (CLI) | payer MEDICARE, SELFPAY ==
[2021-05-26 08:36] LABS: Microscopic, Urine URINE MICROSCOPIC (MICROSCOPIC)
[2021-05-26 09:20] LABS: Basophils % 0.7 % (0.1-2.0); Eosinophils # 0.2 K/mm3 (0.0-0.4); Eosinophils % 5.3 % (0.1-12.0); Hemoglobin 12.9 g/dL (14.1-18.0); Lymphocytes # 1.2 K/mm3 (0.7-4.5); Lymphocytes % 31.7 % (10-50); Mean Corpuscular Hemoglobin 29.3 pg (27.0-31.2); Mean Corpuscular Volume 88.8 fl (80-94); Mean Platelet Volume 7.9 fl (7.4-10.4); Monocytes # 0.3 K/mm3 (0.1-1.0); Neutrophils # 2.1 K/mm3 (1.8-7.8); Neutrophils % 55.3 % (37.0-80.0); Platelet Count 158 K/mm3 (142-424); Red Blood Count 4.39 M/mm3 (4.60-6.20); Red Cell Distribution Width 13.5 % (11.5-17.5); White Blood Count 3.7 K/mm3 (4.8-10.8)
[2021-05-26 09:22] LABS: Appearance,Urine CLEAR (Clear); Bilirubin,Urine Negative (Negative); Blood, Urine 1+ (Negative); Color,Urine YELLOW (Yellow); Glucose,Urine (UA) Negative (Negative); Ketones,Urine Negative (Negative); Leukocyte Esterase,Urine Negative (Negative); Nitrate,Urine Negative (Negative); Protein,Urine Negative (Negative); Urobilinogen,Urine 0.2 EU/dl (0.2)
[2021-05-26 09:40] LABS: Albumin Level 3.9 g/dl (3.5-5.0); Blood Urea Nitrogen 33 mg/dl (9-20); Carbon Dioxide 26 mmol/L (22.0-30.0); Chloride 112 mmol/L (98-107); Estimated Glomerular Filt Rate 39 ml/min (>60); GFR (African American) 47 ML/MIN (>60); Phosphorous 3.3 mg/dl (2.5-4.5)
[2021-05-26 09:41] LABS: Anion Gap 9.9 mEq/L (5-15); Calcium 8.7 mg/dl (8.4-10.2); Glucose 105 mg/dl (74-100); Potassium 4.9 mmoL/L (3.5-5.1); Sodium 143 mmol/L (136-145)
[2021-05-26 09:45] LABS: Creatinine,Urine Random 100 mg/dL (Not Estab.)
[2021-05-26 09:52] LABS: Intact Parathyroid Hormone 120.5 pg/mL (7.5-53.5)
[2021-05-26 09:57] LABS: 25-OH Vitamin D, Total 51.5 ng/mL (30-100)
== END ==
PROVIDERS: Visit Provider Internal Medicine Nephrology
DX: N18.30 Chronic kidney disease, stage 3 unspecified (principal)
CPT/HCPCS: 36415; 80069; 81001; 82306; 82570; 83970; 84155; 85025

== ENCOUNTER → 2021-06-02 15:10 | Outpatient (POV) | payer MEDICARE, SELFPAY | PROVIDERS: Visit Provider Internal Medicine Nephrology | DX: Z00.00 Encounter for general adult medical examination without abnormal findings (principal) ==

== ENCOUNTER → 2021-08-25 08:33 | Outpatient (CLI) | payer MEDICARE, SELFPAY ==
[2021-08-25 08:41] LABS: Microscopic, Urine URINE MICROSCOPIC (MICROSCOPIC)
[2021-08-25 08:57] LABS: Hematocrit 40.5 % (42.0-52.0); Mean Corpuscular HGB Conc 32.2 g/dL (31.8-35.4); Mean Corpuscular Hemoglobin 28.7 pg (27.0-31.2); Mean Corpuscular Volume 89.1 fl (80-94); Platelet Count 205 K/mm3 (142-424); Red Blood Count 4.54 M/mm3 (4.60-6.20); Red Cell Distribution Width 13.3 % (11.5-17.5); White Blood Count 5.9 K/mm3 (4.8-10.8)
[2021-08-25 10:25] LABS: Chloride 104 mmol/L (98-107); Sodium 134 mmol/L (136-145)
[2021-08-25 10:26] LABS: Albumin Level 4.1 g/dl (3.5-5.0); Potassium 4.9 mmoL/L (3.5-5.1)
[2021-08-25 10:28] LABS: Blood Urea Nitrogen 33 mg/dl (9-20); Estimated Glomerular Filt Rate 36 ml/min (>60); GFR (African American) 44 ML/MIN (>60)
[2021-08-25 10:29] LABS: Anion Gap 10.9 mEq/L (5-15); Calcium 8.3 mg/dl (8.4-10.2); Carbon Dioxide 24 mmol/L (22.0-30.0); Glucose 93 mg/dl (74-100); Phosphorous 2.9 mg/dl (2.5-4.5)
[2021-08-25 10:35] LABS: Appearance,Urine CLEAR (Clear); Bilirubin,Urine Negative (Negative); Blood, Urine 1+ (Negative); Color,Urine YELLOW (Yellow); Glucose,Urine (UA) Negative (Negative); Ketones,Urine Negative (Negative); Leukocyte Esterase,Urine Negative (Negative); Nitrate,Urine Negative (Negative); PH,Urine 5.5 (5.0-8.5); Protein,Urine Negative (Negative); Specific Gravity, Urine 1.015 (1.005-1.030); Urobilinogen,Urine 0.2 EU/dl (0.2)
[2021-08-25 10:46] LABS: Creatinine,Urine Random 94 mg/dL (Not Estab.)
[2021-08-25 10:50] LABS: Bacteria,Urine Trace /lpf; RBC,Urine Occasional #/hpf (0-3); Squamous Epithelial Cell,Urine Occasional #/hpf (0-5); WBC,Urine Occasional #/hpf (0-3)
== END ==
PROVIDERS: Visit Provider Internal Medicine Nephrology
DX: N18.30 Chronic kidney disease, stage 3 unspecified (principal)
CPT/HCPCS: 36415; 80069; 81001; 82570; 84155; 85014; 85018; 85048; 85049

== ENCOUNTER → 2021-08-28 15:42 | Outpatient (POV) | payer MEDICARE, SELFPAY | PROVIDERS: Visit Provider Internal Medicine Nephrology | DX: Z00.00 Encounter for general adult medical examination without abnormal findings (principal) ==

== ENCOUNTER 2021-10-01 19:57 | Emergency (ER) | payer MEDICARE, SELFPAY ==
[2021-10-01 20:05] VITALS: BP 141/86; PULSE 62; RESP 22; TEMP 36.8; O2SAT 96; BMI 24.3
--- NOTE | 2021-10-01 20:23 | HMH.EDUTC ---
[facility] Disposition Clinical Impression: Upper respiratory infection Qualifiers: URI type: unspecified URI Qualified Code(s): J06.9 - Acute upper respiratory infection, unspecified Disposition: Home, Self-Care Condition on Discharge: Good Instructions: Sore Throat, DI for Sinusitis, DI for Cough -- Adult Additional Instructions: *Monitor Temp, Over the counter Motrin or Tylenol as directed/as needed Tylenol every 4 hours and Motrin every 6 hours (as long as your family doctor has told you that you can take it) for fever or pain. and straight to ER if unable to lower temp less than 101.0 after medication given *Warm salt water gargles may help to soothe the throat *Throat Lozenges *Warm fluids like tea with honey may help to soothe the throat *Sleep elevated *Humidifier/Vaporizer Take your Antacid medication as you was prescribed Follow up with your Family Doctor if no improvement or any worsening of symptoms Follow up IMMEDIATELY for new or worsening symptoms or no Noticeable improvement over the next 48-72 hours. 911 for difficulty breathing or swallowing Straight to ER if any life threating symptoms like chest pain, shortness of breath etc Prescriptions: Benzonatate [Benzonatate 100mg cap] 100 mg PO Q8HP PRN #15 cap PRN Reason: Cough Transmission Status: Received by [facility] Cefdinir [Omnicef 300mg Capsule] 300 mg PO BID #6 cap Transmission Status: Received by [facility] Referrals: Milind Corona MD [Primary Care Provider] - As needed Time of Disposition: 20:54 Medical Decision Making - Mayito Inquiry Pt receiving controlled substance: No Mayito was queried for this patient: No Vital Signs: 10/01/21 20:05 10/01/21 20:58 Temperature 98.3 F 98.3 F Temperature Source Oral Pulse Rate 62 Pulse Rate [Right Brachial] 62 Respiratory Rate 22 22 Blood Pressure 141/86 H Blood Pressure [Right Arm] 141/86 H Blood Pressure Mean [Right Arm] 104 Blood Pressure Source [Right Arm] Automatic Cuff Blood Pressure Position [Right Arm] Sitting 02 Sat by Pulse Oximetry 96 Oxygen Delivery Method Room Air Orders (Tests/Meds): ED MEDICATIONS Discontinued Medications Generic Name Dose Route Start Last Admin Trade Name Freq PRN Reason Stop Dose Admin Belladonna Alkaloids 60 ml 10/01/21 20:48 10/01/21 20:52 Gi Cocktail 60ml Udc PO 10/01/21 20:49 60 ml ONCE ONE Administration Medical Decision Narrative: Medication discussed and dosed per pharmacy [facility] HPI - General Stated complaint: COUGH FOR 5 DAYS Time Seen by Provider: 10/01/21 20:23 Mode of Arrival: Ambulatory Source of Information: Patient Limitations: No Limitations Description of Symptoms (Recalled from Triage Doc. by RN): PATEINT C/O COUGH X 1 MONTH. RECENTLY JUST FINISHED CEFDINIR HEENT Symptoms (Recalled from RN notes): No Resp Symptoms (Recalled from RN notes): Yes Skin Symptoms (Recalled from RN notes): No MS Symptoms (Recalled from RN notes): No Functional Status (Recalled from RN notes): WNL - History of Present Illness Provider Complaint: Patient states that he has had cough on and off for about a month States that he was recently on Cefdinir and it was helping with cough and infection but he is out of it and still having pressure in his sinuses and cough States that he wanted to get a little more antibiotic because it was working States htat also he has a history of GERD and he eat a [employer] earlier and has belly rumbling and burning a little and worried that when he lays down tonight it will cause heart burn States that he is on medcation for that but not been taking like he is suppose to - Related Data Home Medications Medication Instructions Recorded Confirmed Aspirin [Aspir 81] 81 mg PO DAILY 10/18/17 05/06/21 Atorvastatin Calcium [Lipitor 20mg 20 mg PO HS 10/18/17 05/06/21 Tab] Metoprolol Tartrate [Lopressor 25 mg PO BID 10/18/17 05/06/21 25mg tablet] lisinopr
[2021-10-01 20:58] VITALS: BP 141/86; PULSE 62; RESP 22; TEMP 36.8; O2SAT 96
== END 2021-10-01 21:03 | disposition home or self-care (01) ==
PROVIDERS: Emergency Provider Nurse Practitioner; PCP Family Medicine
DX: J06.9 Acute upper respiratory infection, unspecified (principal); R00.2 Palpitations; I25.10 Atherosclerotic heart disease of native coronary artery without angina pectoris; K21.9 Gastro-esophageal reflux disease without esophagitis; E78.5 Hyperlipidemia, unspecified; C80.1 Malignant (primary) neoplasm, unspecified; N40.0 Benign prostatic hyperplasia without lower urinary tract symptoms; F17.290 Nicotine dependence, other tobacco product, uncomplicated; Z79.51 Long term (current) use of inhaled steroids; Z79.52 Long term (current) use of systemic steroids; Z79.82 Long term (current) use of aspirin; Z79.899 Other long term (current) drug therapy; Z95.1 Presence of aortocoronary bypass graft; Z85.46 Personal history of malignant neoplasm of prostate; Z87.442 Personal history of urinary calculi; Z87.898 Personal history of other specified conditions; Z82.49 Family history of ischemic heart disease and other diseases of the circulatory system
CPT/HCPCS: 99213; G0463

== ENCOUNTER 2022-02-01 17:53 | Emergency (ER) | payer MEDICARE, SELFPAY ==
[2022-02-01] VITALS (10 sets, daily range): BP systolic 118–162; BP diastolic 57–84; PULSE 54–74; RESP 14–24; TEMP 36.6–36.8; O2SAT 92–100; BMI 23.9
--- NOTE | 2022-02-01 18:15 | ECG_ITS ---
APPROVED REPORT Exam: Resting ECG HR:65 bpm ECG Measurements Heart Rate 65 AXES QRSd 78 QRS 28 QT 385 T 40 QTc 397 Conclusion ATRIAL FIBRILLATION ABNORMAL RHYTHM ECG UNCONFIRMED REPORT Electronically signed by : Ethan Deleon MD 02/02/2022 13:59:32
--- NOTE | 2022-02-01 18:15 | XR_ITS ---
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 Very hot outside. ; Additional info: SOB TECHNIQUE: Imaging protocol: Radiologic exam of the chest. Views: 1 view. COMPARISON: CR XR CHEST 2V 03/13/21 03:55 AM FINDINGS: Lungs: Unremarkable. No consolidation. Pleural spaces: Unremarkable. No pleural effusion. No pneumothorax. Heart/Mediastinum: CABG. Bones/joints: Unremarkable. IMPRESSION: No acute cardiopulmonary findings.
[2022-02-01 18:40] LABS: Coronavirus 19, PCR Not Detected (NotDetected); Influenza A, PCR Not Detected (NotDetected); Influenza B, PCR Not Detected (NotDetected)
[2022-02-01 18:43] LABS: Basophils % 0.7 % (0.1-2.0); Eosinophils # 0.3 K/mm3 (0.0-0.4); Eosinophils % 5.9 % (0.1-12.0); Hematocrit 37.6 % (42.0-52.0); Hemoglobin 11.6 g/dL (14.1-18.0); Lymphocytes % 23.5 % (10-50); Mean Corpuscular Hemoglobin 29.4 pg (27.0-31.2); Mean Platelet Volume 8.2 fl (7.4-10.4); Monocytes # 0.3 K/mm3 (0.1-1.0); Monocytes % 6.8 % (1.7-9.3); Neutrophils # 2.8 K/mm3 (1.8-7.8); Neutrophils % 63.1 % (37.0-80.0); Platelet Count 151 K/mm3 (142-424); Red Blood Count 3.96 M/mm3 (4.60-6.20); Red Cell Distribution Width 15.1 % (11.5-17.5); White Blood Count 4.4 K/mm3 (4.8-10.8)
[2022-02-01 18:52] LABS: Alanine Aminotransferase 39 U/L (12-78); Albumin Level 3.6 g/dl (3.5-5.0); Albumin/Globulin Ratio 1.3 (1.1-1.8); Alkaline Phosphatase 115 U/L (38-126); Aspartate Amino Transferase 41 U/L (17-59); Blood Urea Nitrogen 43 mg/dl (9-20); Calcium 8.4 mg/dl (8.4-10.2); Carbon Dioxide 21 mmol/L (22.0-30.0); Chloride 114 mmol/L (98-107); Creatinine Clearance Estimated 29 mL/min (50-200); Estimated Glomerular Filt Rate 32 ml/min (>60); GFR (African American) 39 ML/MIN (>60); Globulin 2.8 g/dL (1.3-3.2); Glucose 99 mg/dl (74-100); Sodium 142 mmol/L (136-145); Total Protein,Serum 6.4 g/dl (6.3-8.2)
[2022-02-01 18:55] LABS: Bilirubin,Total < 0.1 mg/dl (0.2-1.3)
[2022-02-01 19:00] LABS: NT Pro Brain Natriuretic Pep. 5090 pg/mL (0-450)
[2022-02-01 19:04] LABS: Troponin I 0.03 ng/ml (0.00-0.034)
--- NOTE | 2022-02-01 20:27 | PC.NURSE ---
Patient sitting at the side of the bed. Advised patient I was going to be giving him a steroid injection. Patient verbalized understanding. Patient tolerated IV injection well.
[2022-02-01 22:08] LABS: Troponin I 0.02 ng/ml (0.00-0.034)
--- NOTE | 2022-02-01 22:35 | PC.NURSE ---
Pt ambulatory to bathroom with no assistance.
--- NOTE | 2022-02-01 23:11 | PC.NURSE ---
currently speaking to for pt.
--- NOTE | 2022-02-01 23:54 | PC.NURSE ---
Itzel paged for ED doctor
--- NOTE | 2022-02-01 23:55 | HMH.EDGENADL ---
ED Disposition Clinical Impression: COPD exacerbation Afib Qualifiers: Atrial fibrillation type: unspecified chronic Qualified Code(s): I48.20 - Chronic atrial fibrillation, unspecified Chest pain Qualifiers: Chest pain type: unspecified Qualified Code(s): R07.9 - Chest pain, unspecified Disposition: Left Against Medical Advice Condition on Discharge: Undetermined Additional Instructions: Follow-up with Dr. Bergeron for atrial fibrillation and for high risk chest pain seen in the emergency department and please take Eliquis as prescribed in the interim. Please also follow-up with your primary care physician and take doxycycline as prescribed and use albuterol as needed for shortness of breath. Return to the emergency department with new or worsening symptoms including fainting, chest pain, persistent shortness of breath or any other new or concerning symptoms. Prescriptions: Albuterol Sulfate [Proventil-HFA 90mcg/puff Inh] 1 - 2 puffs IH Q4HP PRN #1 each PRN Reason: Shortness Of Breath Or Wheezing Transmission Status[facility] Doxycycline Hyclate [Doxycycline Hyclate 100mg Tablet] 100 mg PO BID #10 tab Transmission Status: Pending to [facility] Apixaban [Eliquis 2.5mg tab] 2.5 mg PO BID 30 Days #60 tab Transmission Status: Pending to [facility] Referrals: Ney Newby MD [Primary Care Provider] - - Critical Care Critical Care Time: No Attestation: On 02/01/22, the high probability of a clinically significant, sudden or life threatening deterioration of the following system(s) required my full and direct attention, intervention and personal management. The time I documented below is in addition to time spent performing reported procedures but includes the following listed in this critical care notation. Medical Decision Making - Mayito Inquiry Pt receiving controlled substance: No Vital Signs: 02/01/22 17:53 02/01/22 18:20 02/01/22 19:00 Temperature 98 F Temperature Source Oral Pulse Rate 70 60 Pulse Rate [Radial] 61 Respiratory Rate 22 21 Blood Pressure 152/77 H 155/84 H Blood Pressure [Right Arm] 138/67 Blood Pressure Mean 127 107 Blood Pressure Mean [Right Arm] 90 Blood Pressure Position [Right Arm] Sitting 02 Sat by Pulse Oximetry 96 97 100 Oxygen Delivery Method Room Air 02/01/22 19:31 02/01/22 20:01 02/01/22 20:31 Temperature Temperature Source Pulse Rate 74 57 L 55 L Pulse Rate [Radial] Respiratory Rate 14 15 21 Blood Pressure 162/80 H 148/65 H 118/68 Blood Pressure [Right Arm] Blood Pressure Mean Blood Pressure Mean [Right Arm] Blood Pressure Position [Right Arm] 02 Sat by Pulse Oximetry 94 L 92 L 96 Oxygen Delivery Method Room Air Room Air Room Air 02/01/22 21:00 02/01/22 21:31 02/01/22 22:01 Temperature Temperature Source Pulse Rate 54 L 58 L 68 Pulse Rate [Radial] Respiratory Rate 22 17 24 Blood Pressure 128/57 L 149/71 H 162/75 H Blood Pressure [Right Arm] Blood Pressure Mean Blood Pressure Mean [Right Arm] Blood Pressure Position [Right Arm] 02 Sat by Pulse Oximetry 98 97 95 Oxygen Delivery Method Room Air Room Air Room Air - Lab Data Lab Results 02/01/22 18:30: WBC 4.4 L, RBC 3.96 L, Hgb 11.6 L, Hct 37.6 L, MCV 95.0 H, MCH 29.4, MCHC 31.0 L, RDW 15.1, Plt Count 151, MPV 8.2, Neut % (Auto) 63.1, Lymph % (Auto) 23.5, [place] % (Auto) 6.8, Eos % (Auto) 5.9, Baso % (Auto) 0.7, Neut # (Auto) 2.8, Lymph # (Auto) 1.0, [place] # (Auto) 0.3, Eos # (Auto) 0.3, Baso # (Auto) 0.0 02/01/22 18:30: Sodium 142, Potassium 5.0, Chloride 114 H, Carbon Dioxide 21 L, Anion Gap 12.0, BUN 43 H, Creatinine 2.00 H, Estimated Creat Clear 29, Estimated GFR 32 L, Est GFR ( Amer) 39 L, Glucose 99, Calcium 8.4, Total Bilirubin < 0.1 L, AST 41, ALT 39, Alkaline Phosphatase 115, Troponin I 0.03, Total Protein 6.4, Albumin 3.6, Globulin 2.8, Albumin/Globulin Ratio 1.3 02/01
--- NOTE | 2022-02-01 23:57 | PC.NURSE ---
Md on phone with nightwatch related to dosing of eliquis and renal function.
--- NOTE | 2022-02-02 00:15 | PC.NURSE ---
Called patient and informed him that three prescriptions have been called in to [facility] for him and he should pick them up tomorrow and start them.
== END 2022-02-01 23:57 | disposition left against medical advice (07) ==
PROVIDERS: Emergency Provider Student in an Organized Health Care Education/Training Program; PCP Family Medicine
DX: J44.1 Chronic obstructive pulmonary disease with (acute) exacerbation (principal); I48.20 Chronic atrial fibrillation, unspecified; Z53.29 Procedure and treatment not carried out because of patient's decision for other reasons; I25.2 Old myocardial infarction; I12.9 Hypertensive chronic kidney disease with stage 1 through stage 4 chronic kidney disease, or unspecified chronic kidney disease; N18.9 Chronic kidney disease, unspecified; Z95.1 Presence of aortocoronary bypass graft; Z20.822 Contact with and (suspected) exposure to COVID-19
CPT/HCPCS: 71045; 80053; 83880; 84484; 85025; 93005; 99284; C9803; U0003; U0005

== ENCOUNTER → 2022-02-11 06:05 | Outpatient (CLI) | payer MEDICARE, SELFPAY ==
--- NOTE | 2022-02-11 06:06 | CA_ITS ---
APPROVED REPORT Exam: Pharmacologic Technologist: Mary Jo Lyle, Ht: 5 ft 8 in Wt: 165 lbs BSA: 1.88 m2 HR: 53 bpm BP: 130/54 mmHg Rhythm: AFIB, SLOW VENT RESPONSE Indications: Afib, CAD Medical History Medical History: HTN, Hyperlipidemia Medications: Lisinopril,,,,, Asa,,,,, Atorvastatin,,,,, Albuterol,,,,, MeLOXICAM,,,,, Famotidine,,,,, TAMUSULOSIN,,,,, DOxycycline,,,,, Apixaban,,,,, CaNAGLIFLOZIN,,,,, Maetoprolol,,,,, Allergies: No known drug allergies Cardiac Risk Factors: HTN, Hyperlipidemia Stress Test Details Test: LEXISCAN HR Resting HR: 57 bpm Max Heart Rate (APMHR): 137.800347 bpm Max HR Achieved: 85 bpm Target HR (85% APMHR): 116.937323 bpm % of APMHR: 62.04 Recovery HR: 72 bpm BP Resting BP: 130/54 mmHg Max BP: 152/56 mmHg Recovery BP: 152.0/56.0 mmHg ECG Resting ECG: AFIB, SLOW VENT RESPONSE Clinical Exercise duration: 04:01 min Highest Stage Achieved: Exercise capacity: 1.0 METs Stress ECG Conclusion PT HAD MILD SOA, DIZZINESS, MILD STOMACH DISCOMFORT. NO CP. AFIB THROUGH OUT NO SIGNIFICANT CHANGES. UNREMARKABLE LEXISCAN STRESS. MYOVIEW IMAGES REPORTED SEPARATELY. Electronically signed by : Levi Lambert MD 02/12/2022 06:41:08
--- NOTE | 2022-02-11 06:06 | NM_ITS ---
APPROVED REPORT Exam: Nuclear Stress Test Indication: SOB, CAD, CABG, HTN, High cholesterol, Family history Patient Location: Outpatient Stress Tech: Mary Jo Lyle [place] Tech:Carol Patrick, ARRT, RT (R)(N) Ht: 5 ft 10 in Wt: 160 lbs HR: 57 bpm BP: 130/54 mmHg BSA: 1.90 m2 TID: 1.01 BMI: 22.9 History: SOB, CAD, CABG, HTN, High cholesterol, Family history Procedure: Patient received a 0.4 mg of intravenous Lexiscan, resting heart rate 57 bpm, resting blood pressure 130/54 mmHg, with Lexiscan maximum heart rate achived was PHYSICAL EXAMINATION: VITAL SIGNS: Reviewed. GENERAL: Nontoxic. Well developed and well nourished. Appears well hydrated. No respiratory distress. HEAD: No signs of head trauma. EYES: Pupils are equal. Extraocular motions intact. EARS: Hearing grossly intact, external ears normal. MOUTH: Oropharynx normal. NECK: Supple, nontender, no masses. Full range of motion without pain. No meningismus. CHEST: Chest nontender to palpation, with clear breath sounds bilaterally and no wheezes, rales, or rhonchi. CARDIOVASCULAR: Regular rate and rhythm. S1 and S2, without murmurs or extra heart sounds. Peripheral pulses normal and equal in all extremities. Central capillary refill normal. ABDOMEN: Soft without detectable tenderness or masses. No signs of distention. No rebound or guarding. Bowel Sounds normal MUSCULOSKELETAL: Normal Range of motion. No deformity. NEUROLOGIC EXAM: Alert. No focal sensory or strength deficits. Age appropriate, active, moving all extremities well. SKIN: No rash or lesions. Palpation normal. No petechiae. 85 bpm which is % of the maximum predicted heart rate and blood pressure was 152/56 mmHg. With Lexiscan, patient denied any complaint of chest pain. Electrocardiogram Resting electrocardiogram shows atrial fibrillation, with Lexiscan there is less than 1.[address] segment depression noted from the baseline EKG. The EKG portion of the Lexiscan is nondiagnostic. Cardiac Stress and Resting SPECT Images: Cardiac Stress and Resting SPECT images were obtained using technetium 99m Myoview 32.1 mCi stress and 10.33 mCi at rest. Gated SPECT for analysis of segmental wall motion and calculation of the ejection fraction also done. Prone images were also obtained. Cardiac stress analysis potential uniform myocardial activity without segmental perfusion abnormality, computer derived ejection fraction is 64% with no regional wall motion abnormality, right ventricle is normal size and contractility. Conclusion: 1. The EKG portion of the Lexiscan is nondiagnostic. 2. No scintigraphic evidence of reversible ischemia seen, computer derived ejection fraction is 64% with no regional wall motion abnormality, right ventricle is normal size and contractility. 3. Normal Lexiscan Myoview study. Electronically signed by : Levi Lambert MD 02/12/2022 06:44:12
--- NOTE | 2022-02-11 06:06 | CA_ITS ---
APPROVED REPORT EXAM: Comprehensive 2D, Doppler, and color-flow Echocardiogram Mold Repairer: Irene Jackson RT(R) Ht: 5 ft 8 in Wt: 165lbs BSA: 1.88 BP: 153/84 mmHg Indications: atypical CP, CAD, AFIB, palpitations, HALL, hyperlipidemia, hx CABG. 2D Dimensions LVOT 1.97 cm (M/F) 1.5-2.5 LA Volume 39.50 mL LA Volume Index 21.01 mL/m2 (M/F) 16-34 M-Mode Dimensions RVDd 4.28 cm (0.9-2.6) LA Diam 4.41 cm (1.9-4.0) LVDd 4.21 cm (3.5-5.7) Ao Diam 3.12 cm (2.0-3.7) LVDs 3.03 cm (3.5-5.7) IVSd 0.86 cm (0.6-1.1) PWd 1.00 cm (0.6-1.1) EF (Teich) 54.60% FS 28.00% EDV (Teich) 79.00 mL ESV (Teich) 35.90 mL Left Ventricle Left atrium is mildly enlarged left ventricle is normal size mild concentric left ventricular hypertrophy, estimated ejection fraction 55% with no regional wall motion abnormality, diastolic parameters are inconclusive. Right Ventricle Right atrium and right ventricle are mildly enlarged with normal contractility. Aortic Valve Aortic valve is minimally thickened and fibrosed, there is no aortic stenosis, there is mild aortic insufficiency. Mitral Valve Mitral valve is minimally thickened, there is mild mitral regurgitation. Tricuspid Valve Tricuspid valve grossly normal, there is mild tricuspid regurgitation, tricuspid regurgitation jet velocity is inadequate for calculation of the right ventricular systolic pressure. Pulmonic Valve Pulmonic valve is poorly visualized. Great Vessels Aortic root is normal size. Inferior vena cava is poorly visualized. Pericardium No significant pericardial effusion noted. Conclusion 1. Biatrial enlargement, normal left ventricular size, mild concentric left ventricular hypertrophy, estimated ejection fraction 55% with no regional wall motion abnormality, diastolic parameters are inconclusive. 2. Mildly enlarged right ventricle with normal contractility. 3. Mild aortic, mitral and tricuspid regurgitation. 4. No significant pericardial effusion. 5. Inferior vena cava is poorly visualized. Electronically signed by : Levi Lambert MD 02/12/2022 06:37:58
--- NOTE | 2022-02-11 08:20 | HMH.ITSHM ---
Current Home Medications as stated by this patient [place] or international account representative. []SPIRONOLACTONE LISINOPRIL FUROSEMIDE FAMOTIDINE DAPAGLIFLOZIN CANAGLIFLOZIN ALBUTEROL TAMSULOSIN METOPROLOL MELOXICAM ASA DOXYCYCLINE ATORVASTATIN APIXABAN
[2022-02-11 10:34] LABS: Anion Gap 10.8 mEq/L (5-15); Blood Urea Nitrogen 45 mg/dl (9-20); Calcium 8.7 mg/dl (8.4-10.2); Carbon Dioxide 23 mmol/L (22.0-30.0); Chloride 111 mmol/L (98-107); Estimated Glomerular Filt Rate 26 ml/min (>60); GFR (African American) 31 ML/MIN (>60); Glucose 121 mg/dl (74-100); Potassium 4.8 mmoL/L (3.5-5.1); Sodium 140 mmol/L (136-145)
== END ==
PROVIDERS: PCP Family Medicine; Visit Provider Physician Assistant
DX: E78.2 Mixed hyperlipidemia (principal); I10 Essential (primary) hypertension; I48.20 Chronic atrial fibrillation, unspecified; R06.00 Dyspnea, unspecified; Z95.1 Presence of aortocoronary bypass graft; I25.708 Atherosclerosis of coronary artery bypass graft(s), unspecified, with other forms of angina pectoris
CPT/HCPCS: 36415; 78452; 80048; 93017; 93306; A9502; J2785

== ENCOUNTER → 2022-02-23 08:28 | Outpatient (CLI) | payer MEDICARE, SELFPAY ==
[2022-02-23 08:35] LABS: Microscopic, Urine URINE MICROSCOPIC (MICROSCOPIC)
[2022-02-23 08:50] LABS: Appearance,Urine CLEAR (Clear); Bilirubin,Urine Negative (Negative); Blood, Urine 1+ (Negative); Color,Urine YELLOW (Yellow); Glucose,Urine (UA) 1+ (Negative); Hematocrit 39.1 % (42.0-52.0); Ketones,Urine Negative (Negative); Leukocyte Esterase,Urine Negative (Negative); Mean Corpuscular HGB Conc 30.6 g/dL (31.8-35.4); Mean Corpuscular Hemoglobin 29.6 pg (27.0-31.2); Mean Corpuscular Volume 96.8 fl (80-94); Nitrate,Urine Negative (Negative); Platelet Count 158 K/mm3 (142-424); Protein,Urine TRACE (Negative); Red Blood Count 4.04 M/mm3 (4.60-6.20); Red Cell Distribution Width 14.6 % (11.5-17.5); Urobilinogen,Urine 0.2 EU/dl (0.2); White Blood Count 4.5 K/mm3 (4.8-10.8)
[2022-02-23 09:06] LABS: Creatinine,Urine Random 121 mg/dL (Not Estab.)
[2022-02-23 09:16] LABS: Bacteria,Urine Trace /lpf; Squamous Epithelial Cell,Urine Occasional #/hpf (0-5); WBC,Urine Occasional #/hpf (0-3)
[2022-02-23 10:05] LABS: Albumin Level 3.7 g/dl (3.5-5.0); Anion Gap 7.9 mEq/L (5-15); Blood Urea Nitrogen 36 mg/dl (9-20); Calcium 8.9 mg/dl (8.4-10.2); Carbon Dioxide 26 mmol/L (22.0-30.0); Chloride 113 mmol/L (98-107); Estimated Glomerular Filt Rate 34 ml/min (>60); GFR (African American) 41 ML/MIN (>60); Glucose 101 mg/dl (74-100); Potassium 4.9 mmoL/L (3.5-5.1); Sodium 142 mmol/L (136-145)
== END ==
PROVIDERS: PCP Family Medicine; Visit Provider Internal Medicine Nephrology
DX: N18.32 Chronic kidney disease, stage 3b (principal)
CPT/HCPCS: 36415; 80069; 81001; 82570; 84155; 85014; 85018; 85048; 85049

== ENCOUNTER → 2022-02-26 15:34 | Outpatient (POV) | payer MEDICARE, SELFPAY | PROVIDERS: Visit Provider Internal Medicine Nephrology | DX: Z00.00 Encounter for general adult medical examination without abnormal findings (principal) ==

== ENCOUNTER → 2022-03-04 16:47 | Outpatient (CLI) | payer MEDICARE, SELFPAY | PROVIDERS: PCP Family Medicine; Visit Provider Internal Medicine Pulmonary Disease | DX: R06.02 Shortness of breath (principal) ==

== ENCOUNTER → 2022-03-05 09:06 | Outpatient (CLI) | payer MEDICARE, SELFPAY ==
[2022-03-11 18:24] LABS: D001-IgE D pteronyssinus 4.08 kU/L (Class IV); D002-IgE D farinae 4.01 kU/L (Class IV); E001-IgE Cat Dander <0.10 kU/L (Class 0); E005-IgE Dog Dander 0.69 kU/L (Class II); E072-IgE Mouse Urine <0.10 kU/L (Class 0); G002-IgE Bermuda Grass <0.10 kU/L (Class 0); G006-IgE Timothy Grass 0.12 kU/L (Class 0/I); I006-IgE Cockroach, German 0.66 kU/L (Class II); Immunoglobulin E, Total 4252 IU/mL (6-495); M001-IgE Penicillium chrysogen 5.55 kU/L (Class IV); M002-IgE Cladosporium herbarum 1.16 kU/L (Class II); M003-IgE Aspergillus fumigatus 0.78 kU/L (Class II); M006-IgE Alternaria alternata 0.36 kU/L (Class I); T001-IgE Maple/Box Elder 0.11 kU/L (Class 0/I); T003-IgE Common Silver Birch <0.10 kU/L (Class 0); T007-IgE Oak, White <0.10 kU/L (Class 0); T008-IgE Elm, American 0.14 kU/L (Class 0/I); T011-IgE Maple Leaf Sycamore 0.25 kU/L (Class 0/I); T014-IgE Cottonwood 0.14 kU/L (Class 0/I); T015-IgE Ash, White 0.11 kU/L (Class 0/I); T022-IgE Pecan, Hickory <0.10 kU/L (Class 0); T070-IgE White Mulberry 0.12 kU/L (Class 0/I); W001-IgE Ragweed, Short 0.12 kU/L (Class 0/I); W018-IgE Sheep Sorrel 0.11 kU/L (Class 0/I)
== END ==
PROVIDERS: PCP Family Medicine; Visit Provider Internal Medicine Pulmonary Disease
DX: J30.89 Other allergic rhinitis (principal)
CPT/HCPCS: 36415; 82785; 86003

== ENCOUNTER → 2022-04-06 12:26 | Outpatient (CLI) | payer MEDICARE, SELFPAY ==
[2022-04-06 13:40] VITALS: PULSE 55; PULSE 57
== END ==
PROVIDERS: PCP Family Medicine; Visit Provider Internal Medicine Pulmonary Disease
DX: R06.09 Other forms of dyspnea (principal)
CPT/HCPCS: 94060; 94618; 94640; 94727; 94729; 94762

== ENCOUNTER 2022-04-13 00:12 | Emergency (ER) | payer MEDICARE, SELFPAY ==
[2022-04-13 00:13] VITALS: BP 167/77; PULSE 54; RESP 18; TEMP 36.2; O2SAT 95; BMI 19.5
--- NOTE | 2022-04-13 00:38 | ECG_ITS ---
APPROVED REPORT Exam: Resting ECG HR:46 bpm ECG Measurements Heart Rate 46 AXES QRSd 79 QRS 49 QT 432 T 39 QTc 393 Conclusion ATRIAL FIBRILLATION WITH SLOW VENTRICULAR RESPONSE SEPTAL MYOCARDIAL INFARCTION , PROBABLY OLD [40+ ms Q WAVE IN V1/V2] ABNORMAL ECG UNCONFIRMED REPORT Electronically signed by : Ethan Deleon MD 04/13/2022 21:23:40
--- NOTE | 2022-04-13 00:51 | HMH.EDSOB ---
Discharge Plan Disposition Patient Disposition: Home, Self-Care Chief Complaint: Shortness of Breath/Dyspnea Prescriptions Prescriptions: No Action albuterol sulfate 90 mcg/actuation HFA aerosol inhaler INHALATION Invokana 100 mg tablet 100 mg PO Farxiga 5 mg tablet 5 mg PO furosemide [Lasix] 20 mg tablet 20 mg PO Q OTHER DAY Qty: 15 3RF spironolactone 25 mg tablet 25 mg PO Q OTHER DAY Qty: 15 3RF azelastine 137 mcg (0.1 %) aerosol,spray 1 spray intranasal BID 90 Days Qty: 90 3RF Rx Instructions: administer into each nostril fluticasone propionate 50 mcg/actuation spray,suspension 1 spray intranasal BID 90 Days Qty: 15.8 3RF Rx Instructions: administer into each nostril famotidine 40 mg tablet 40 mg PO DAILY albuterol sulfate 90 mcg/actuation HFA aerosol inhaler 2 inh IH Q4HP PRN (Reason: Shortness Of Breath Or Wheezing) Qty: 1 6RF fluticasone propion-salmeterol [Wixela Inhub] 250-50 mcg/dose blister with device 1 inh inhalation BID 90 Days Qty: 60 3RF atorvastatin 20 MG tablet 20 mg PO HS aspirin 81 MG tablet,delayed release (DR/EC) 81 mg PO DAILY lisinopril 2.5 MG tablet 2.5 mg PO HS metoprolol tartrate 25 MG tablet 25 mg PO BID tamsulosin 0.4 MG capsule 0.4 mg PO DAILY meloxicam 7.5 MG tablet 7.5 mg PO DAILY apixaban 2.5 MG tablet 2.5 mg PO BID 30 Days Qty: 60 0RF doxycycline hyclate 100 MG tablet,delayed release (DR/EC) 100 mg PO BID Qty: 10 0RF Referrals Follow up/Referrals: Milind Corona MD [Primary Care Provider] - See instructions Clinical Impressions Clinical Impression: History of coronary artery bypass graft, Dyspnea, Chronic kidney disease, Congestive heart failure, Acute exacerbation of chronic obstructive airways disease Instructions Patient Instructions: DI for Shortness of Breath, DI for Chronic Obstructive Pulmonary Disease, Heart Failure Discharge ED Provider: Max Comer Resp/SOB HPI General Chief Complaint: Shortness of Breath/Dyspnea Stated Complaint: SOA Time Seen by Provider: 04/13/22 00:51 Mode of Arrival: Ambulatory Source of Information: Patient, Spouse and Medical Record Limitations: No Limitations Description of Symptoms (Recalled from ER Triage Doc. by RN): pt states short of air the pt stated that he went to a lung dr and he has been able to breathe but now has had a head ache and gotten dizzy since he ran out of his nasal spray. 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 History of Present Illness has sob with hx of chf and copd - has seen card and pul med- MD Complaint: shortness of breath Onset (ago): day(s) Severity: moderate Known history of: COPD and congestive heart failure Associated symptoms: denies other symptoms Related Data Home oxygen amount: none Home Medications Medication Instructions Recorded Confirmed aspirin 81 mg tablet,delayed 81 mg PO DAILY HEART HEALTH 10/18/17 04/01/22 release atorvastatin 20 mg tablet 20 mg PO HS Cholesterol 10/18/17 04/01/22 lisinopril 2.5 mg tablet 2.5 mg PO HS BLOOD PRESSURE 10/18/17 04/01/22 metoprolol tartrate 25 mg tablet 25 mg PO BID Hypertension 10/18/17 04/01/22 tamsulosin 0.4 mg capsule 0.4 mg PO DAILY prostate 01/02/19 04/01/22 famotidine 40 mg tablet 40 mg PO DAILY ACID REFLUX 09/10/20 04/01/22 meloxicam 7.5 mg tablet 7.5 mg PO DAILY . 03/13/21 04/01/22 albuterol sulfate 90 mcg/actuation inhalation 10/09/21 04/01/22 aerosol inhaler canagliflozin 100 mg tablet 100 mg PO 10/09/21 04/01/22 (Invokana) dapagliflozin 5 mg tablet (Farxiga) 5 mg PO 10/09/21 04/01/22 Previous Rx's Medication Instructions Recorded apixaban 2.5 mg tablet 2.5 mg PO BID 30 days #60 tabs 02/02/22 doxycycline hyclate 100 mg 100 mg PO BID #10 tabs 02/02/22 tablet,delayed release furosemide
[2022-04-13 01:29] LABS: Basophils # 0.1 K/mm3 (0-0.2); Basophils % 0.8 % (0.1-2.0); Eosinophils # 0.2 K/mm3 (0.0-0.4); Eosinophils % 4.2 % (0.1-12.0); Hematocrit 37.7 % (42.0-52.0); Hemoglobin 12.2 g/dL (14.1-18.0); Lymphocytes # 1.4 K/mm3 (0.7-4.5); Lymphocytes % 25.5 % (10-50); Mean Corpuscular HGB Conc 32.2 g/dL (31.8-35.4); Mean Corpuscular Hemoglobin 29.2 pg (27.0-31.2); Mean Corpuscular Volume 90.5 fl (80-94); Mean Platelet Volume 8.9 fl (7.4-10.4); Monocytes # 0.4 K/mm3 (0.1-1.0); Monocytes % 7.4 % (1.7-9.3); Neutrophils # 3.5 K/mm3 (1.8-7.8); Neutrophils % 61.9 % (37.0-80.0); Platelet Count 183 K/mm3 (142-424); Red Blood Count 4.17 M/mm3 (4.60-6.20); Red Cell Distribution Width 13.8 % (11.5-17.5); White Blood Count 5.6 K/mm3 (4.8-10.8)
[2022-04-13 01:30] VITALS: BP 160/73; PULSE 54; O2SAT 95
[2022-04-13 01:34] LABS: Alanine Aminotransferase 39 U/L (12-78); Albumin Level 3.5 g/dl (3.5-5.0); Albumin/Globulin Ratio 1.3 (1.1-1.8); Alkaline Phosphatase 101 U/L (38-126); Anion Gap 14.4 mEq/L (5-15); Aspartate Amino Transferase 48 U/L (17-59); Bilirubin,Total 0.5 mg/dl (0.2-1.3); Blood Urea Nitrogen 30 mg/dl (9-20); Calcium 8.2 mg/dl (8.4-10.2); Carbon Dioxide 22 mmol/L (22.0-30.0); Chloride 110 mmol/L (98-107); Creatinine Clearance Estimated 28 mL/min (50-200); Estimated Glomerular Filt Rate 41 ml/min (>60); GFR (African American) 50 ML/MIN (>60); Globulin 2.7 g/dL (1.3-3.2); Glucose 109 mg/dl (74-100); Potassium 4.4 mmoL/L (3.5-5.1); Sodium 142 mmol/L (136-145); Total Protein,Serum 6.2 g/dl (6.3-8.2)
--- NOTE | 2022-04-13 01:44 | CT_ITS ---
PROCEDURE INFORMATION: Exam: CTA Chest With Contrast Exam date and time: 04/13/2022 1:56 AM Age: 81 years old Clinical indication: Shortness of breath; Additional info: SOA TECHNIQUE: Imaging protocol: Computed tomographic angiography of the chest with contrast. 3D rendering (Not supervised by radiologist): MIP and/or 3D reconstructed images were created by the technologist. Radiation optimization: All CT scans at this facility use at least one of these dose optimization techniques: automated exposure control; mA and/or kV adjustment per patient size (includes targeted exams where dose is matched to clinical indication); or iterative reconstruction. Contrast material: ISOVUE; Contrast volume: 70 ml; Contrast route: INTRAVENOUS (IV); COMPARISON: CR XR CHEST PORTABLE 02/01/2022 6:30 PM FINDINGS: Pulmonary arteries: Normal. No pulmonary emboli. Aorta: Unremarkable. No aortic aneurysm. No aortic dissection. Lungs: Mild bronchial wall thickening and interlobular septal thickening at the lung bases. No airspace disease. Pleural spaces: Moderate bilateral pleural effusions without evidence of loculation. Heart: Mediastinal surgical clips and vascular markers suggest prior myocardial revascularization. Heart size is normal. Lymph nodes: Low volume mediastinal lymph nodes are likely reactive. Diaphragm: Small hiatal hernia. Gallbladder and bile ducts: Cholelithiasis. Contracted postprandial gallbladder. Bones/joints: Unremarkable. No acute fracture. Soft tissues: Unremarkable. IMPRESSION: 1. No findings of acute pulmonary embolism. 2. Pleural effusions, interlobular septal thickening, and peribronchial thickening are concerning for mild heart failure and pulmonary edema.
[2022-04-13 01:46] LABS: NT Pro Brain Natriuretic Pep. 4040 pg/mL (0-450); Troponin I 0.01 ng/ml (0.00-0.034)
[2022-04-13 02:04] LABS: Thyroid Stimulating Hormone 5.27 uIU/mL (0.465-4.68)
[2022-04-13 02:45] VITALS: PULSE 86
[2022-04-13 02:55] VITALS: PULSE 87
[2022-04-13 03:06] VITALS: BP 160/61; PULSE 55; RESP 18; TEMP 36.4; O2SAT 97
== END 2022-04-13 03:10 | disposition home or self-care (01) ==
PROVIDERS: Emergency Provider Emergency Medicine; PCP Family Medicine
DX: J44.1 Chronic obstructive pulmonary disease with (acute) exacerbation (principal); I13.10 Hypertensive heart and chronic kidney disease without heart failure, with stage 1 through stage 4 chronic kidney disease, or unspecified chronic kidney disease; N18.9 Chronic kidney disease, unspecified; I50.9 Heart failure, unspecified; Z95.1 Presence of aortocoronary bypass graft; I25.10 Atherosclerotic heart disease of native coronary artery without angina pectoris; C06.9 Malignant neoplasm of mouth, unspecified; Z79.82 Long term (current) use of aspirin; Z79.899 Other long term (current) drug therapy
CPT/HCPCS: 71275; 80053; 83880; 84443; 84484; 85025; 93005; 94640; 99284; Q9967

== ENCOUNTER 2022-05-02 03:24 | Emergency (ER) | payer MEDICARE, SELFPAY ==
[2022-05-02] VITALS (10 sets, daily range): BP systolic 117–155; BP diastolic 65–87; PULSE 68–85; RESP 14–21; TEMP 36.6–36.9; O2SAT 97–100; BMI 25.0
--- NOTE | 2022-05-02 03:23 | ECG_ITS ---
APPROVED REPORT Exam: Resting ECG HR:89 bpm ECG Measurements Heart Rate 89 AXES QRSd 84 QRS 27 QT 336 T 63 QTc 382 Conclusion ATRIAL FIBRILLATION POSSIBLE RIGHT VENTRICULAR CONDUCTION DELAY [RSR (QR) IN V1/V2] ABNORMAL RHYTHM ECG UNCONFIRMED REPORT Electronically signed by : Ethan Deleon MD 05/02/2022 08:42:15
--- NOTE | 2022-05-02 03:34 | XR_ITS ---
PROCEDURE INFORMATION: Exam: XR Chest Exam date and time: 05/02/2022 3:36 AM Age: 81 years old Clinical indication: Sternal or substernal pain; Additional info: Chest pain TECHNIQUE: Imaging protocol: Radiologic exam of the chest. Views: 2 views. COMPARISON: CR XR CHEST PORTABLE 02/01/2022 6:30 PM FINDINGS: Lungs: Unremarkable. No consolidation. Pleural spaces: Unremarkable. No pleural effusion. No pneumothorax. Heart/Mediastinum: Changes of prior CABG. Bones/joints: Unremarkable. IMPRESSION: No acute cardiopulmonary abnormality.
--- NOTE | 2022-05-02 03:41 | PC.NURSE ---
relayed to patient the need to collect urine or stool specimen if he can produce while he is here.
[2022-05-02 03:43] LABS: Basophils # 0.1 K/mm3 (0-0.2); Basophils % 1.1 % (0.1-2.0); Eosinophils # 0.2 K/mm3 (0.0-0.4); Eosinophils % 3.7 % (0.1-12.0); Hematocrit 45.5 % (42.0-52.0); Lymphocytes # 1.9 K/mm3 (0.7-4.5); Lymphocytes % 30.6 % (10-50); Mean Corpuscular HGB Conc 30.9 g/dL (31.8-35.4); Mean Corpuscular Hemoglobin 28.6 pg (27.0-31.2); Mean Corpuscular Volume 92.6 fl (80-94); Mean Platelet Volume 8.2 fl (7.4-10.4); Monocytes # 0.5 K/mm3 (0.1-1.0); Monocytes % 7.4 % (1.7-9.3); Neutrophils # 3.5 K/mm3 (1.8-7.8); Neutrophils % 57.2 % (37.0-80.0); Platelet Count 196 K/mm3 (142-424); Red Blood Count 4.91 M/mm3 (4.60-6.20); Red Cell Distribution Width 13.5 % (11.5-17.5); White Blood Count 6.1 K/mm3 (4.8-10.8)
--- NOTE | 2022-05-02 03:43 | PC.NURSE ---
Pt going to xray at this time
[2022-05-02 03:47] LABS: Chloride 109 mmol/L (98-107)
[2022-05-02 03:48] LABS: Potassium 5.2 mmoL/L (3.5-5.1); Sodium 139 mmol/L (136-145)
--- NOTE | 2022-05-02 03:48 | PC.NURSE ---
pt back in room at this time
[2022-05-02 03:50] LABS: Blood Urea Nitrogen 65 mg/dl (9-20); Creatinine Clearance Estimated 25 mL/min (50-200); Estimated Glomerular Filt Rate 26 ml/min (>60); GFR (African American) 31 ML/MIN (>60)
[2022-05-02 03:51] LABS: Anion Gap 20.2 mEq/L (5-15); Calcium 9.7 mg/dl (8.4-10.2); Carbon Dioxide 15 mmol/L (22.0-30.0); Glucose 99 mg/dl (74-100)
[2022-05-02 04:00] LABS: NT Pro Brain Natriuretic Pep. 1020 pg/mL (0-450)
[2022-05-02 04:19] LABS: Troponin I < 0.01 ng/ml (0.00-0.034)
--- NOTE | 2022-05-02 04:47 | PC.NURSE ---
ER speaking with pt at this time
--- NOTE | 2022-05-02 05:20 | HMH.EDGENADL ---
Discharge Plan Disposition Patient Disposition: Home, Self-Care Condition: Good Prescriptions Prescriptions: New furosemide [Lasix] 20 mg tablet 20 mg PO DAILY Qty: 7 0RF Continued albuterol sulfate 90 mcg/actuation HFA aerosol inhaler 1 inh INHALATION QID Invokana 100 mg tablet 100 mg PO DAILY Farxiga 5 mg tablet 5 mg PO DAILY famotidine 40 mg tablet 40 mg PO DAILY albuterol sulfate 90 mcg/actuation HFA aerosol inhaler 2 inh IH Q4HP PRN (Reason: Shortness Of Breath Or Wheezing) Qty: 1 6RF atorvastatin 20 MG tablet 20 mg PO HS aspirin 81 MG tablet,delayed release (DR/EC) 81 mg PO DAILY lisinopril 2.5 MG tablet 2.5 mg PO HS metoprolol tartrate 25 MG tablet 25 mg PO BID tamsulosin 0.4 MG capsule 0.4 mg PO DAILY meloxicam 7.5 MG tablet 7.5 mg PO DAILY fluticasone propion-salmeterol [Wixela Inhub] 250-50 mcg/dose blister with device 1 inh inhalation BID azelastine 137 mcg (0.1 %) aerosol,spray 1 spray intranasal BID Rx Instructions: administer into each nostril fluticasone propionate 50 mcg/actuation spray,suspension 1 spray intranasal BID Rx Instructions: administer into each nostril apixaban 2.5 MG tablet 2.5 mg PO BID Discontinued spironolactone 25 mg tablet 25 mg PO Q OTHER DAY Referrals Follow up/Referrals: Milind Corona MD [Primary Care Provider] - See instructions Activity Restrictions/Add. Instructions Additional Instructions/Restrictions: Stop taking spironolactone. Take Lasix. Follow-up PCP on Wednesday. Return to ER for chest pain, shortness of breath. Clinical Impressions Clinical Impression: CELSA (acute kidney injury), Acute hyperkalemia Instructions Patient Instructions: Heartburn -- Overview Discharge ED Provider: Dave Chan Adult [facility] General Chief complaint: Chest Pain Stated complaint: Chest Pain Time Seen by Provider: 05/02/22 04:32 Mode of Arrival: Family Vehicle Source of Information: Patient Limitations: No Limitations Description of Symptoms (Recalled from ER Triage Doc. by RN): 81 yo male presents with chief complaint midsternal discomfort that has been ongoing since he developed diarrhea wednesday night. Patient states my whole family is sick . Denies vomiting, but does indicate that he feels pressure in the epigastric area. PMH: 2012 triple bypass by cardiology in [facility] without complication, denies any additional cardiac issues. possible kidney failure secondary to diuretic use ( what i was told ). NKA. Former smoker, denies etoh or street drugs. History of Present Illness HPI narrative: 81yo M with past medical history of CAD status post three-vessel bypass 2012 and CKD presents to the emergency department secondary to subxiphoid pain that has woken him every morning since Wednesday. Reports symptoms improved with sitting up. States he feels as though he needs to belch but is unable to. No fever but notes recent diarrheal illness. States his family has been sick with the same ailment. Has no radiation of his chest pain. Has no worsening shortness of breath beyond his chronic disease. Reports his symptoms have dissipated since arrival. Patient reports he was taking Pepto-Bismol secondary to epigastric pain and upon stopping, he developed these symptoms. Denies history of EGD for further diagnostic work-up. Related Data Home Medications Medication Instructions Recorded Confirmed aspirin 81 mg tablet,delayed 81 mg PO DAILY HEART HEALTH 10/18/17 05/02/22 release atorvastatin 20 mg tablet 20 mg PO HS Cholesterol 10/18/17 05/02/22 lisinopril 2.5 mg tablet 2.5 mg PO HS BLOOD PRESSURE 10/18/17 05/02/22 metoprolol tartrate 25 mg tablet 25 mg PO BID Hypertension 10/18/17 05/02/22 tamsulosin 0.4 mg capsule 0.4 mg PO DAILY prostate 01/02/19 05/02/22 famotidine 40 mg tablet 40 mg PO DAILY ACID REFLUX 09/10/20 05/02/22 meloxicam 7.5 mg tablet 7.
[2022-05-02 06:16] LABS: Appearance,Urine CLEAR (Clear); Bilirubin,Urine Negative (Negative); Blood, Urine 1+ (Negative); Color,Urine YELLOW (Yellow); Glucose,Urine (UA) Negative (Negative); Ketones,Urine Negative (Negative); Leukocyte Esterase,Urine Negative (Negative); Microscopic, Urine URINE MICROSCOPIC (MICROSCOPIC); Nitrate,Urine Negative (Negative); PH,Urine 5.5 (5.0-8.5); Protein,Urine TRACE (Negative); Specific Gravity, Urine 1.025 (1.005-1.030); Urobilinogen,Urine 0.2 EU/dl (0.2)
[2022-05-02 06:19] LABS: Amorphous Sediment,Urine Trace /lpf; Squamous Epithelial Cell,Urine Occasional #/hpf (0-5)
[2022-05-02 07:05] LABS: Troponin I < 0.01 ng/ml (0.00-0.034)
[2022-05-02 07:13] LABS: Albumin Level 4.2 g/dl (3.5-5.0); Anion Gap 18.2 mEq/L (5-15); Blood Urea Nitrogen 64 mg/dl (9-20); Calcium 9.1 mg/dl (8.4-10.2); Carbon Dioxide 14 mmol/L (22.0-30.0); Chloride 113 mmol/L (98-107); Creatinine Clearance Estimated 27 mL/min (50-200); Estimated Glomerular Filt Rate 29 ml/min (>60); GFR (African American) 35 ML/MIN (>60); Glucose 93 mg/dl (74-100); Phosphorous 3.5 mg/dl (2.5-4.5); Potassium 5.2 mmoL/L (3.5-5.1); Sodium 140 mmol/L (136-145)
--- NOTE | 2022-05-02 07:14 | PC.NURSE ---
MD wanted to have RFP completed after 2nd bolus, lab notified of this and asked to collect red top tube. This was completed.
--- NOTE | 2022-05-02 07:29 | PC.NURSE ---
dr. menezes speaking with dr. sandoval
[2022-05-02 07:38] LABS: Albumin Level 3.5 g/dl (3.5-5.0); Anion Gap 16.3 mEq/L (5-15); Blood Urea Nitrogen 64 mg/dl (9-20); Calcium 8.6 mg/dl (8.4-10.2); Carbon Dioxide 14 mmol/L (22.0-30.0); Chloride 114 mmol/L (98-107); Creatinine Clearance Estimated 28 mL/min (50-200); Estimated Glomerular Filt Rate 30 ml/min (>60); GFR (African American) 37 ML/MIN (>60); Glucose 86 mg/dl (74-100); Phosphorous 3.5 mg/dl (2.5-4.5); Potassium 5.3 mmoL/L (3.5-5.1); Sodium 139 mmol/L (136-145)
== END 2022-05-02 08:10 | disposition home or self-care (01) ==
PROVIDERS: Emergency Provider Family Medicine; PCP Family Medicine
DX: N17.9 Acute kidney failure, unspecified (principal); E87.5 Hyperkalemia; Z79.82 Long term (current) use of aspirin; Z79.899 Other long term (current) drug therapy; I10 Essential (primary) hypertension; K21.9 Gastro-esophageal reflux disease without esophagitis; J45.909 Unspecified asthma, uncomplicated; I25.10 Atherosclerotic heart disease of native coronary artery without angina pectoris
CPT/HCPCS: 71046; 80048; 80069; 81001; 83880; 84484; 85025; 93005; 96365; 99284; C9803; U0003; U0005

== ENCOUNTER → 2022-05-14 09:13 | Outpatient (CLI) | payer MEDICARE, SELFPAY ==
--- NOTE | 2022-05-14 09:16 | CA_ITS ---
FINAL REPORT CLINICAL HISTORY: .Afib, Bruit, Blurred vision, dizziness FINDINGS: An ultrasound of the carotid arteries was performed. Duplex Doppler evaluation with spectral analysis was performed. The peak systolic velocity of the right common carotid artery is 89 cm/s. The peak systolic velocity of the right internal carotid artery is 121 cm/s and end diastolic velocity 31 cm/s. A xbos-[id number] amount of plaque is present. The right external carotid artery is patent. The right vertebral artery is patent with antegrade flow. ICA/CCA ratio: 1.68 The peak systolic velocity of the left common carotid artery is 90 cm/s. The peak systolic velocity of the left internal carotid artery is 120 cm/s and end diastolic velocity 27 cm/s. A moderate amount of plaque is present. The left external carotid artery is patent. The left vertebral artery is patent with antegrade flow. ICA/CCA ratio: 1.43 Bilateral patent vertebral arteries with antegrade flow. IMPRESSION: Less than 50% bilateral carotid stenosis. Reviewed, Interpreted and Dictated by Mykel Chambers MD Transcribed by Jos Garvin Authenticated and [facility]
== END ==
PROVIDERS: PCP Family Medicine; Visit Provider Nurse Practitioner Family
DX: R09.89 Other specified symptoms and signs involving the circulatory and respiratory systems (principal)
CPT/HCPCS: 93880

== ENCOUNTER → 2022-08-14 09:11 | Outpatient (CLI) | payer MEDICARE, SELFPAY ==
[2022-08-14 09:19] LABS: MANUAL DIFFERENTIAL MANUAL DIFFERENTIAL (MANUAL DIFF)
[2022-08-14 10:01] LABS: Basophils # 0.1 K/mm3 (0-0.2); Basophils % 1.2 % (0.1-2.0); Eosinophils # 0.3 K/mm3 (0.0-0.4); Eosinophils % 5.7 % (0.1-12.0); Hemoglobin 13.1 g/dL (14.1-18.0); Lymphocytes # 1.4 K/mm3 (0.7-4.5); Mean Corpuscular HGB Conc 32.7 g/dL (31.8-35.4); Mean Corpuscular Hemoglobin 29.4 pg (27.0-31.2); Mean Corpuscular Volume 89.8 fl (80-94); Mean Platelet Volume 8.4 fl (7.4-10.4); Monocytes # 0.3 K/mm3 (0.1-1.0); Monocytes % 5.9 % (1.7-9.3); Neutrophils # 2.4 K/mm3 (1.8-7.8); Neutrophils % 55.3 % (37.0-80.0); Platelet Count 167 K/mm3 (142-424); Red Blood Count 4.45 M/mm3 (4.60-6.20); Red Cell Distribution Width 14.4 % (11.5-17.5); White Blood Count 4.4 K/mm3 (4.8-10.8)
[2022-08-14 10:27] LABS: Alanine Aminotransferase 19 U/L (12-78); Albumin/Globulin Ratio 1.6 (1.1-1.8); Alkaline Phosphatase 80 U/L (38-126); Anion Gap 9.1 mEq/L (5-15); Aspartate Amino Transferase 27 U/L (17-59); Bilirubin,Total 0.7 mg/dl (0.2-1.3); Blood Urea Nitrogen 41 mg/dl (9-20); Calcium 8.4 mg/dl (8.4-10.2); Carbon Dioxide 23 mmol/L (22.0-30.0); Chloride 117 mmol/L (98-107); Estimated Glomerular Filt Rate 34 ml/min (>60); GFR (African American) 41 ML/MIN (>60); Globulin 2.5 g/dL (1.3-3.2); Glucose 97 mg/dl (74-100); Potassium 5.1 mmoL/L (3.5-5.1); Sodium 144 mmol/L (136-145); Total Protein,Serum 6.5 g/dl (6.3-8.2)
[2022-08-14 10:40] LABS: Eosinophils % 5 % (0-3); Lymphocytes % 40 % (10-50); Monocytes % 7 % (2-9); Neutrophils % 48 % (42-76); Platelet Estimate Normal; RBC Morphology Normal; Total Cells Counted 100
== END ==
PROVIDERS: PCP Family Medicine; Visit Provider Otolaryngology
DX: K13.70 Unspecified lesions of oral mucosa (principal); Z01.812 Encounter for preprocedural laboratory examination
CPT/HCPCS: 36415; 80053; 85007; 85014; 85018; 85048; 85049

== ENCOUNTER 2022-08-19 06:55 | Day surgery (SDC) | payer MEDICARE, SELFPAY ==
[2022-08-19] VITALS (9 sets, daily range): BP systolic 130–158; BP diastolic 52–79; PULSE 50–96; RESP 16–18; TEMP 36.1–43; O2SAT 95–98; BMI 25.0
--- NOTE | 2022-08-19 08:25 | ECG_ITS ---
APPROVED REPORT Exam: Resting ECG HR:48 bpm ECG Measurements Heart Rate 48 AXES QRSd 81 QRS 17 QT 438 T 23 QTc 404 Conclusion ATRIAL FIBRILLATION WITH SLOW VENTRICULAR RESPONSE POSSIBLE RIGHT VENTRICULAR CONDUCTION DELAY [RSR (QR) IN V1/V2] ABNORMAL RHYTHM ECG UNCONFIRMED REPORT Electronically signed by : Ethan Deleon MD 08/19/2022 14:12:32
--- NOTE | 2022-08-19 09:33 | P.PN_ITS ---
[facility] Disclaimer: The information contained in this section may have been updated after the patient was seen, as this information can be updated by other users. Medical History Allergic rhinitis Chronic cough Coronary artery disease Cough variant asthma Dyspnea on exertion Dyspnea on exertion History of lip cancer History of smoking 30 or more pack years HTN (hypertension) Mouth lesion Shortness of Breath Stopped smoking with greater than 30 pack year history Surgical History History of open heart surgery History of prostate surgery Family History Family/Other Heart disease Social History Smoking Status: Former smoker second hand exposure: No alcohol intake: never substance use type: denies use current occupational status: other Travel in the last 8 weeks: None household members: spouse housing: house marital status: education level: high school service: Yes current occupational exposures/hazards: No caffeine: Yes special elizabeth needs: No agree to transfusion: No do you feel safe at home: Yes victim of physical abuse: No victim of emotional abuse: No victim of sexual abuse: No would you like helpful sources: No [facility] Anesthesia Checklist Patient Identification Patient Identification: Arm Band Structural Data Admitted From: Home Planned Operative Procedure/s: Excision of Right Alveolar Ridge Lesion Consent for Planned Operative Procedure(s) Verified: Yes Verified Documents: Surgical Consent and History and Physical NPO Status Verified Time NPO: 00:00 Additional verifications Anesthesia Reactions: No (states difficulty s/p recieving gas after dental procedure) Hx Blood Transfusions: No Blood Transfusion Reaction: No Airway Assessment C-Spine Mobility Assessed: Yes TMJ Mobility Assessed: Yes Dentition: Edentulous Neurological Assessment Level of Consciousness: Awake and Alert Anesthesia Plan Anesthesia Risk discussed: Yes Anesthesia Plan: Verified ASA Class: III Anesthesia Type: General Preoperative Comments Pre-Operative Comments: Pt has known hx of Afib and is on superintendent container terminal anticoagulation with Eliquis. Last seen cardiology ~6 months ago. Normal EF on Echo. Pt states that he was cleared for surgery by Dr. Corona ~ 1 week ago and has held [employer] for 3-4 days.
--- NOTE | 2022-08-19 10:43 | SUR.OPER ---
1043- Dr aRymundo speaking to Dr Fu, path at this time
--- NOTE | 2022-08-19 11:04 | EXP.OP.NOTE ---
Date of procedure: 08/19/22 Pre-op Diagnosis:: Right floor of mouth and alveolar lesion Post-op Diagnosis:: Right floor of mouth and alveolar lesion Procedure performed:: Wide excision of 2-1/2 x 1 and half centimeter right floor of mouth and alveolar lesion with frozen section and complex multilayer closure Surgeon:: Sam Raymundo MD SALES PLANNING MANAGER:: Other Anesthesia: GETA Estimated blood loss (mL): 10 Operative findings:: 2-1/2 x 1-1/2 cm hypertrophic squamous lesion on frozen section with no definitive evidence of malignancy Operative note:: The patient was brought to the operating room and after adequate general anesthesia, 1% lidocaine with epinephrine was used to locally infiltrate the right floor of mouth and alveolus and then the 2-1/2 x 1 and half centimeter verrucous looking lesion was excised with 2 mm margins down to the underlying periosteum of the alveolus. Hemostasis was established with electrocautery. The wound was infiltrated with half percent Marcaine with epinephrine. Frozen section showed no definitive cancer. Closure was then accomplished by repeat right summating the subcutaneous layer with 3-0 chromic and the mucosal edges with 4-0 chromic and the procedure concluded. All counts correct. Blood loss minimal and patient was sent recovery in stable condition. Condition: stable Disposition: PACU Complications:: None
--- NOTE | 2022-08-20 12:47 | EXP.ANES.II ---
[facility] Anesthesia Record Part II Anesthesia Record Part II Discharge Time: 11:34 Destination: Surgical Day Care (OP Surgery) PACU nurse assessment reviewed?: Yes Patient Condition:: Good Anesthesia Complications:: None Swallowing reflex intact?: Yes Cyanosis?: No Blood Pressure: 152/79 Pulse Rate: 96 Temperature: 97.8 F Mental Status: Alert & Oriented Pain level:: 0 Nausea and/or vomitting:: None Intake, IV Amount: 0
[2022-08-20 12:48] VITALS: BP 152/79; PULSE 96; TEMP 36.6
== END 2022-08-19 12:15 | disposition home or self-care (01) ==
PROVIDERS: PCP Family Medicine; Visit Provider Otolaryngology
DX: C04.9 Malignant neoplasm of floor of mouth, unspecified (principal); Z79.899 Other long term (current) drug therapy
CPT/HCPCS: 41116; 88305; 88331; 93005; 96374; J2405

== ENCOUNTER → 2022-08-31 09:34 | Outpatient (CLI) | payer MEDICARE, SELFPAY ==
[2022-08-31 10:06] LABS: Microscopic, Urine URINE MICROSCOPIC (MICROSCOPIC)
[2022-08-31 10:30] LABS: Appearance,Urine CLEAR (Clear); Bilirubin,Urine Negative (Negative); Blood, Urine 2+ (Negative); Color,Urine YELLOW (Yellow); Glucose,Urine (UA) Negative (Negative); Ketones,Urine Negative (Negative); Leukocyte Esterase,Urine Negative (Negative); Nitrate,Urine Negative (Negative); PH,Urine 5.5 (5.0-8.5); Protein,Urine TRACE (Negative); Specific Gravity, Urine 1.025 (1.005-1.030); Urobilinogen,Urine 0.2 EU/dl (0.2)
[2022-08-31 10:43] LABS: Creatinine,Urine Random 102 mg/dL (Not Estab.)
[2022-08-31 10:50] LABS: Hematocrit 42.1 % (42.0-52.0); Hemoglobin 13.4 g/dL (14.1-18.0); Mean Corpuscular HGB Conc 31.9 g/dL (31.8-35.4); Mean Corpuscular Hemoglobin 28.6 pg (27.0-31.2); Mean Corpuscular Volume 89.7 fl (80-94); Platelet Count 183 K/mm3 (142-424); White Blood Count 5.3 K/mm3 (4.8-10.8)
[2022-08-31 11:04] LABS: Albumin Level 3.8 g/dl (3.5-5.0); Anion Gap 9.4 mEq/L (5-15); Blood Urea Nitrogen 42 mg/dl (9-20); Calcium 8.7 mg/dl (8.4-10.2); Carbon Dioxide 23 mmol/L (22.0-30.0); Chloride 113 mmol/L (98-107); Estimated Glomerular Filt Rate 32 ml/min (>60); GFR (African American) 39 ML/MIN (>60); Glucose 101 mg/dl (74-100); Phosphorous 3.4 mg/dl (2.5-4.5); Potassium 5.4 mmoL/L (3.5-5.1); Sodium 140 mmol/L (136-145)
[2022-08-31 11:08] LABS: Bacteria,Urine Trace /lpf; Squamous Epithelial Cell,Urine Occasional #/hpf (0-5); WBC,Urine Occasional #/hpf (0-3)
[2022-08-31 11:16] LABS: Intact Parathyroid Hormone 82.2 pg/mL (7.5-53.5)
[2022-08-31 11:21] LABS: Free T4 (Free Thyroxine) 0.91 ng/dl (0.78-2.19)
[2022-08-31 11:22] LABS: 25-OH Vitamin D, Total 35.5 ng/mL (30-100)
[2022-08-31 11:35] LABS: Thyroid Stimulating Hormone 3.35 uIU/mL (0.465-4.68)
== END ==
PROVIDERS: PCP Family Medicine; Visit Provider Internal Medicine Nephrology
DX: N18.32 Chronic kidney disease, stage 3b (principal); R79.89 Other specified abnormal findings of blood chemistry; Z79.899 Other long term (current) drug therapy
CPT/HCPCS: 36415; 80069; 81001; 82306; 82570; 83970; 84155; 84439; 84443; 85014; 85018; 85048; 85049

== ENCOUNTER → 2022-12-01 09:12 | Outpatient (CLI) | payer MEDICARE, SELFPAY ==
[2022-12-01 10:46] LABS: Anion Gap 15.3 mEq/L (5-15); Blood Urea Nitrogen 42 mg/dl (9-20); Calcium 8.9 mg/dl (8.4-10.2); Carbon Dioxide 22 mmol/L (22.0-30.0); Chloride 111 mmol/L (98-107); Estimated Glomerular Filt Rate 34 ml/min (>60); GFR (African American) 41 ML/MIN (>60); Glucose 89 mg/dl (74-100); Phosphorous 3.4 mg/dl (2.5-4.5); Potassium 5.3 mmoL/L (3.5-5.1); Sodium 143 mmol/L (136-145)
[2022-12-06 04:10] LABS: D001-IgE D pteronyssinus 6.58 kU/L (Class IV); D002-IgE D farinae 4.99 kU/L (Class IV); E001-IgE Cat Dander <0.10 kU/L (Class 0); E005-IgE Dog Dander <0.10 kU/L (Class 0); E072-IgE Mouse Urine <0.10 kU/L (Class 0); G002-IgE Bermuda Grass <0.10 kU/L (Class 0); G006-IgE Timothy Grass 0.15 kU/L (Class 0/I); Immunoglobulin E, Total 3762 IU/mL (6-495); M001-IgE Penicillium chrysogen 4.66 kU/L (Class IV); M002-IgE Cladosporium herbarum 2.06 kU/L (Class III); M003-IgE Aspergillus fumigatus 2.14 kU/L (Class III); M006-IgE Alternaria alternata 0.42 kU/L (Class I); T001-IgE Maple/Box Elder 0.14 kU/L (Class 0/I); T003-IgE Common Silver Birch <0.10 kU/L (Class 0); T006-IgE Cedar, Mountain 0.34 kU/L (Class I); T007-IgE Oak, White 0.14 kU/L (Class 0/I); T008-IgE Elm, American 0.14 kU/L (Class 0/I); T010-IgE Walnut 0.23 kU/L (Class 0/I); T011-IgE Maple Leaf Sycamore 0.14 kU/L (Class 0/I); T014-IgE Cottonwood 0.16 kU/L (Class 0/I); T015-IgE Ash, White 0.11 kU/L (Class 0/I); T022-IgE Pecan, Hickory 0.15 kU/L (Class 0/I); T070-IgE White Mulberry 0.11 kU/L (Class 0/I); W001-IgE Ragweed, Short 0.14 kU/L (Class 0/I); W011-IgE Thistle, Russian 0.14 kU/L (Class 0/I); W014-IgE Pigweed, Common <0.10 kU/L (Class 0); W018-IgE Sheep Sorrel <0.10 kU/L (Class 0)
== END ==
PROVIDERS: Internal Medicine Pulmonary Disease; PCP Family Medicine; Visit Provider Internal Medicine Nephrology
DX: J30.9 Allergic rhinitis, unspecified (principal)
CPT/HCPCS: 36415; 80069; 82785; 86003

== ENCOUNTER → 2022-12-07 16:45 | Outpatient (POV) | payer MEDICARE, SELFPAY | PROVIDERS: Visit Provider Internal Medicine Nephrology | DX: Z00.00 Encounter for general adult medical examination without abnormal findings (principal) ==

== ENCOUNTER → 2023-04-30 08:09 | Outpatient (CLI) | payer MEDICARE, SELFPAY ==
--- NOTE | 2023-04-30 | CA_ITS ---
APPROVED REPORT EXAM: Comprehensive 2D, Doppler, and color-flow Echocardiogram First Breaker Feeder: Irene Jackson RT(R) Ht: 5 ft 8 in Wt: 163lbs BSA: 1.87 BP: 93/49 mmHg Indications: CP, palpitations, HTN, SOB, hyperlipidemia, CABG, CAD, AFIB 2D Dimensions LVOT 1.96 cm (M/F) 1.5-2.5 LA Volume 65.60 mL LA Volume Index 34.89 mL/m2 (M/F) 16-34 M-Mode Dimensions RVDd 3.93 cm (0.9-2.6) LA Diam 4.54 cm (1.9-4.0) LVDd 5.03 cm (3.5-5.7) Ao Diam 2.71 cm (2.0-3.7) LVDs 3.71 cm (3.5-5.7) IVSd 0.64 cm (0.6-1.1) PWd 0.61 cm (0.6-1.1) EF (Teich) 51.20% FS 26.20% EDV (Teich) 119.90 mL ESV (Teich) 58.50 mL Tricuspid Valve TR P. Velocity 323.00 cm/s RAP Estimate 10.00 mmHg RVSP 51.60 mmHg Left Ventricle The left ventricle is normal size. The left ventricular systolic function is normal. The left ventricular ejection fraction is within the normal range. There is increased LV wall thickness. There is normal LV segmental wall motion. Diastolic function is indeterminate due to atrial fibrillation. LVEF is 60%. Right Ventricle Right ventricle is mildly dilated. The right ventricular systolic function is normal. Atria Left atrium is mildly dilated. Right atrium is mildly dilated. There is no Doppler evidence of interatrial shunt. Aortic Valve The aortic valve is mildly thickened. There is no aortic valvular stenosis. Mild aortic regurgitation. Mitral Valve The mitral valve leaflets are mildly thickened. No evidence of mitral valve stenosis. Moderate to severe mitral regurgitation. The MR jet is eccentric and is posteriorly directed. Tricuspid Valve The tricuspid valve leaflets are thin and pliable. Mild tricuspid regurgitation. RVSP is 41 mmHg + RA pressure. Pulmonic Valve The pulmonary valve is normal in structure. Mild pulmonic regurgitation. Great Vessels The aortic root is normal in size. The ascending aorta is normal in size. The IVC is not well visualized. Pericardium There is no pericardial effusion. Other Information Study Quality: Fair Conclusion Normal biventricular systolic function. Mildly dilated RV Biatrial dilation. Moderate to severe MR. Mild AI, mild TR Elevated RVSP 41 mmHg + RA pressure. Further evaluation of moderate to severe MR is recommended with HUGO. Electronically signed by : Lita Santillan MD 05/02/2023 22:00:21
== END ==
PROVIDERS: PCP Family Medicine; Visit Provider Physician Assistant
DX: R06.02 Shortness of breath (principal)
CPT/HCPCS: 93306

== ENCOUNTER 2023-06-30 13:26 | Outpatient (CLI) | payer MEDICARE, SELFPAY ==
[2023-06-30 13:35] LABS: Microscopic, Urine URINE MICROSCOPIC (MICROSCOPIC)
[2023-06-30 13:59] LABS: Appearance,Urine CLEAR (Clear); Bilirubin,Urine Negative (Negative); Blood, Urine TRACE-I (Negative); Color,Urine YELLOW (Yellow); Glucose,Urine (UA) 3+ (Negative); Ketones,Urine Negative (Negative); Leukocyte Esterase,Urine Negative (Negative); Nitrate,Urine Negative (Negative); PH,Urine 5.5 (5.0-8.5); Protein,Urine Negative (Negative); Urobilinogen,Urine 0.2 EU/dl (0.2)
[2023-06-30 14:15] LABS: Bacteria,Urine Trace /lpf; RBC,Urine Occasional #/hpf (0-3)
[2023-06-30 14:15] LABS: Albumin Level 3.6 g/dl (3.5-5.0); Anion Gap 8.8 mEq/L (5-15); Blood Urea Nitrogen 43 mg/dl (9-20); Carbon Dioxide 22 mmol/L (22.0-30.0); Chloride 113 mmol/L (98-107); Estimated Glomerular Filt Rate 27 ml/min (>60); GFR (African American) 33 ML/MIN (>60); Glucose 114 mg/dl (74-100); Phosphorous 3.7 mg/dl (2.5-4.5); Potassium 4.8 mmoL/L (3.5-5.1); Sodium 139 mmol/L (136-145)
[2023-06-30 14:16] LABS: Amorphous Sediment,Urine Trace /lpf; Sperm,Urine OCC /lpf; Yeast,Urine Occasional /lpf
[2023-06-30 14:26] LABS: Hematocrit 42.2 % (42.0-52.0); Hemoglobin 13.6 g/dL (14.1-18.0); Intact Parathyroid Hormone 116.9 pg/mL (7.5-53.5); Mean Corpuscular HGB Conc 32.1 g/dL (31.8-35.4); Mean Corpuscular Hemoglobin 29.8 pg (27.0-31.2); Mean Corpuscular Volume 92.9 fl (80-94); Platelet Count 163 K/mm3 (142-424); Red Blood Count 4.55 M/mm3 (4.60-6.20); White Blood Count 4.8 K/mm3 (4.8-10.8)
[2023-06-30 14:32] LABS: 25-OH Vitamin D, Total 37.4 ng/mL (30-100)
[2023-06-30 19:05] LABS: Creatinine,Urine Random 146 mg/dL (Not Estab.)
== END 2023-06-30 23:59 ==
LOC: LAB 13:28
PROVIDERS: PCP Family Medicine; Visit Provider Internal Medicine Nephrology
DX: N18.32 Chronic kidney disease, stage 3b (principal)
CPT/HCPCS: 36415; 80069; 81001; 82306; 82570; 83970; 84155; 85014; 85018; 85048; 85049

== ENCOUNTER 2023-09-06 10:26 | Outpatient (CLI) | payer MEDICARE, SELFPAY ==
[2023-09-06 10:35] LABS: Microscopic, Urine URINE MICROSCOPIC (MICROSCOPIC)
[2023-09-06 10:59] LABS: Hemoglobin 12.9 g/dL (14.1-18.0); Mean Corpuscular HGB Conc 32.3 g/dL (31.8-35.4); Mean Corpuscular Hemoglobin 30.1 pg (27.0-31.2); Mean Corpuscular Volume 93.3 fl (80-94); Platelet Count 178 K/mm3 (142-424); Red Blood Count 4.28 M/mm3 (4.60-6.20); Red Cell Distribution Width 13.9 % (11.5-17.5); White Blood Count 4.9 K/mm3 (4.8-10.8)
[2023-09-06 11:01] LABS: Appearance,Urine CLEAR (Clear); Bilirubin,Urine Negative (Negative); Blood, Urine 1+ (Negative); Color,Urine YELLOW (Yellow); Glucose,Urine (UA) 3+ (Negative); Ketones,Urine Negative (Negative); Leukocyte Esterase,Urine Negative (Negative); Nitrate,Urine Negative (Negative); PH,Urine 5.5 (5.0-8.5); Protein,Urine TRACE (Negative); Urobilinogen,Urine 0.2 EU/dl (0.2)
[2023-09-06 11:07] LABS: Creatinine,Urine Random 82 mg/dL (Not Estab.)
[2023-09-06 11:16] LABS: Bacteria,Urine Trace /lpf; WBC,Urine Occasional #/hpf (0-3)
[2023-09-06 11:17] LABS: Squamous Epithelial Cell,Urine Occasional #/hpf (0-5)
[2023-09-06 11:39] LABS: Alanine Aminotransferase 20 U/L (12-78); Albumin Level 3.8 g/dl (3.5-5.0); Albumin/Globulin Ratio 1.4 (1.1-1.8); Alkaline Phosphatase 95 U/L (38-126); Anion Gap 11.3 mEq/L (5-15); Aspartate Amino Transferase 27 U/L (17-59); Bilirubin,Total 0.4 mg/dl (0.2-1.3); Blood Urea Nitrogen 47 mg/dl (9-20); Calcium 8.5 mg/dl (8.4-10.2); Carbon Dioxide 24 mmol/L (22.0-30.0); Chloride 112 mmol/L (98-107); Chol/HDL Ratio 2.3 (1-3.5); Cholesterol 97 mg/dl (140-200); Estimated Glomerular Filt Rate 27 ml/min (>60); GFR (African American) 33 ML/MIN (>60); Globulin 2.7 g/dL (1.3-3.2); Glucose 97 mg/dl (74-100); HDL Cholesterol 43 mg/dl (40-60); Phosphorous 4.1 mg/dl (2.5-4.5); Potassium 5.3 mmoL/L (3.5-5.1); Sodium 142 mmol/L (136-145); Total Protein,Serum 6.5 g/dl (6.3-8.2); Triglycerides 39 mg/dl (30-150); VLDL Cholesterol 8 mg/dL (0-40)
[2023-09-06 11:50] LABS: Direct LDL Cholesterol 43.97 mg/dL (100-129); Intact Parathyroid Hormone 212.9 pg/mL (7.5-53.5)
[2023-09-06 12:09] LABS: Thyroid Stimulating Hormone 4.25 uIU/mL (0.465-4.68)
[2023-09-06 14:03] LABS: 25-OH Vitamin D, Total 33.2 ng/mL (30-100)
== END 2023-09-06 23:59 ==
LOC: LAB 10:27
PROVIDERS: PCP Family Medicine; Visit Provider Internal Medicine Nephrology
DX: N18.32 Chronic kidney disease, stage 3b (principal); E78.5 Hyperlipidemia, unspecified; I10 Essential (primary) hypertension; Z79.899 Other long term (current) drug therapy
CPT/HCPCS: 36415; 80053; 80061; 81001; 82043; 82306; 82570; 83970; 84100; 84155; 84443; 85014; 85018; 85048; 85049

== ENCOUNTER 2023-09-30 12:39 | Outpatient (POV) | payer MEDICARE, SELFPAY | END 2023-09-30 23:59 | disposition home or self-care (01) | LOC: SC 12:39 | PROVIDERS: Visit Provider Internal Medicine Nephrology | DX: Z00.00 Encounter for general adult medical examination without abnormal findings (principal) ==

== ENCOUNTER 2023-10-26 10:29 | Outpatient (CLI) | payer MEDICARE, SELFPAY ==
--- NOTE | 2023-10-26 10:59 | ECG_ITS ---
APPROVED REPORT Exam: Resting ECG HR:35 bpm ECG Measurements Heart Rate 35 AXES QRSd 80 QRS 43 QT 420 T 3 QTc 323 Conclusion ATRIAL FIBRILLATION WITH SLOW VENTRICULAR RESPONSE POSSIBLE RIGHT VENTRICULAR CONDUCTION DELAY [RSR (QR) IN V1/V2] CRITICAL TEST RESULT UNCONFIRMED REPORT Electronically signed by : Ethan Deleon MD 10/26/2023 20:38:04
[2023-10-26 11:02] LABS: Basophils # 0.1 K/mm3 (0-0.2); Basophils % 1.6 % (0.1-2.0); Eosinophils # 0.2 K/mm3 (0.0-0.4); Eosinophils % 6.4 % (0.1-12.0); Hematocrit 42.1 % (42.0-52.0); Hemoglobin 13.2 g/dL (14.1-18.0); Lymphocytes # 1.1 K/mm3 (0.7-4.5); Lymphocytes % 28.3 % (10-50); Mean Corpuscular HGB Conc 31.3 g/dL (31.8-35.4); Mean Corpuscular Hemoglobin 29.5 pg (27.0-31.2); Mean Corpuscular Volume 94.5 fl (80-94); Mean Platelet Volume 8.9 fl (7.4-10.4); Monocytes # 0.3 K/mm3 (0.1-1.0); Monocytes % 8.3 % (1.7-9.3); Neutrophils % 55.3 % (37.0-80.0); Platelet Count 129 K/mm3 (142-424); Red Blood Count 4.46 M/mm3 (4.60-6.20); Red Cell Distribution Width 14.5 % (11.5-17.5); White Blood Count 3.7 K/mm3 (4.8-10.8)
[2023-10-26 11:48] LABS: Alanine Aminotransferase 19 U/L (12-78); Albumin Level 3.8 g/dl (3.5-5.0); Albumin/Globulin Ratio 1.5 (1.1-1.8); Alkaline Phosphatase 77 U/L (38-126); Anion Gap 8.3 mEq/L (5-15); Aspartate Amino Transferase 28 U/L (17-59); Bilirubin,Total 0.7 mg/dl (0.2-1.3); Blood Urea Nitrogen 39 mg/dl (9-20); Calcium 8.7 mg/dl (8.4-10.2); Carbon Dioxide 25 mmol/L (22.0-30.0); Chloride 114 mmol/L (98-107); Estimated Glomerular Filt Rate 27 ml/min (>60); GFR (African American) 33 ML/MIN (>60); Globulin 2.5 g/dL (1.3-3.2); Glucose 91 mg/dl (74-100); Potassium 5.3 mmoL/L (3.5-5.1); Sodium 142 mmol/L (136-145); Total Protein,Serum 6.3 g/dl (6.3-8.2)
== END 2023-10-26 23:59 | disposition home or self-care (01) ==
PROVIDERS: PCP Family Medicine; Visit Provider Otolaryngology
DX: K13.70 Unspecified lesions of oral mucosa (principal); C04.9 Malignant neoplasm of floor of mouth, unspecified; Z01.818 Encounter for other preprocedural examination
CPT/HCPCS: 36415; 80053; 85025; 93005

== ENCOUNTER 2023-11-05 06:44 | Outpatient (CLI) | payer MEDICARE, SELFPAY ==
--- NOTE | 2023-11-05 | CA_ITS ---
APPROVED REPORT Exam: Pharmacologic Technologist: Mary Jo Lyle, Ht: 5 ft 8 in Wt: 161 lbs BSA: 1.86 m2 HR: 40 bpm BP: 128/62 mmHg Rhythm: AFIB, MARKED BRADYCARDIA, INFERIOR T WAVE ABN, CANNOT R/O OLD ANTERIOR MO Indications: PreOp, CAD Medical History Medical History: HTN, Hyperlipidemia, Smoking Medications: Lisinopril,,,,, Metoprolol,,,,, Atorvastatin,,,,, XaRELTO,,,,, MeLOXICAM,,,,, Famotidine,,,,, OxYbutynin,,,,, INvOKANA,,,,, JaRDiance,,,,, CHloride,,,,, Furosemide,,,,, Allergies: No known drug allergies Cardiac Risk Factors: HTN, Hyperlipidemia, FHX of CAD, Smoking Stress Test Details Test: LEXISCAN HR Resting HR: 49 bpm Max Heart Rate (APMHR): 135 bpm Max HR Achieved: 73 bpm Target HR (85% APMHR): 115 bpm % of APMHR: 54 Recovery HR: 52 bpm BP Resting BP: 128/62 mmHg Max BP: 148/71 mmHg Recovery BP: 148.0/71.0 mmHg ECG Resting ECG: AFIB, MARKED BRADYCARDIA, INFERIOR T WAVE ABN, CANNOT R/O OLD ANTERIOR MO Stress ECG: No significant ST changes Arrhythmia: None Clinical Exercise duration: 04:01 min Highest Stage Achieved: Exercise capacity: 1.0 METs Stress ECG Conclusion PT HAD SOA, HEAD DISCOMFORT AND STOMACH CRAMPS NO CP 2.4 SECOND PAUSE POST LEXISCAN INJECTION AFIB THROUGHOUT NO SIGNIFICANT ST CHANGES CONCLUSION INCIDENTAL OBSERVATION OF BRADYCARDIA PRETEST UNREMARKABLE LEXISCAN STRESS MYOVIEW IMAGES REPORTED SEPARATELY Test Summary REST 05:42 . . 49 . 128/ 62 . . Stage 1 01:00 . . 54 . . . . Stage 2 01:00 . . 67 . 124/ 64 . . Stage 3 01:00 . . 62 . . . . Stage 4 01:00 . . 49 . 127/ 64 . . Stage 4 01:01 . . 55 . 127/ 64 . Stop exercise at 04:01 RECOVERY 01:00 . . 50 . 145/ 74 . . RECOVERY 02:00 . . 50 . 145/ 74 . . RECOVERY 02:45 . . 52 . 148/ 71 . . Electronically signed by : Lita Santillan MD 11/08/2023 12:57:07
--- NOTE | 2023-11-05 06:53 | NM_ITS ---
APPROVED REPORT Exam: Nuclear Stress Test Indication: CAD, H/O OH, CABG X3, HTN, HYPERLIPIDEMIA, FM HX, SOB Patient Location: Outpatient Stress Tech: [facility] Tech:Rukhsana RivasDENILSON RT (R)(N)(M) Ht: 5 ft 8 in Wt: 161 lbs HR: 40 bpm BP: 128/62 mmHg BSA: 1.86 m2 TID: 1.12 BMI: 24.4 History: CAD, H/O OH, CABG X3, HTN, HYPERLIPIDEMIA, FM HX, SOB Procedure: Patient received 0.0 mg of intravenous Lexiscan, resting heart rate 40 bpm, resting blood pressure 128/62 mmHg, with Lexiscan maximum heart rate achieved was 64 bpm which is % of the maximum predicted heart rate and blood pressure was 124/64 mmHg. With Lexiscan, patient denied any complaint of chest pain. Cardiac Stress and Resting SPECT Images: Cardiac Stress and Resting SPECT images were obtained using technetium 99m Myoview 10.82 mCi stress and 32.9 mCi at rest. Resting and stress imaging in supine and prone positions demonstrate a medium sized, moderate, partially reversible perfusion defect in the basal to mid inferior LV wall. Gated imaging demonstrates low normal global LV systolic function. There is mild hypokinesis of the basal LV wall. LVEF is calculated at 52%. Conclusion: Medium sized, moderate, partially reversible perfusion defect in the basal to mid inferior LV wall. Findings are suggestive of partial reversible ischemia. Gated imaging demonstrates low normal global LV systolic function. There is mild hypokinesis of the basal LV wall. LVEF is calculated at 52%. Electronically signed by : Lita Santillan MD 11/08/2023 12:58:28
[2023-11-05] MEDS: SODIUM CHLORIDE 0.9% 10ML SYR (RAD ONLY) 10 ML IV ×2 (07:00→08:20)
[2023-11-05] MEDS: REGADENOSON 0.4MG/5ML SYRINGE 0.400000000000000022 MG IV (08:20)
[2023-11-05] MEDS: ISOTOPE MYOVIEW (PER STUDY) 1 DOSE IV (10:07)
== END 2023-11-05 23:59 | disposition home or self-care (01) ==
PROVIDERS: PCP Family Medicine; Visit Provider Nurse Practitioner Family
DX: R06.09 Other forms of dyspnea (principal); R93.1 Abnormal findings on diagnostic imaging of heart and coronary circulation; I34.0 Nonrheumatic mitral (valve) insufficiency; I10 Essential (primary) hypertension; I48.20 Chronic atrial fibrillation, unspecified; Z01.810 Encounter for preprocedural cardiovascular examination; Z95.1 Presence of aortocoronary bypass graft; E78.2 Mixed hyperlipidemia; I25.708 Atherosclerosis of coronary artery bypass graft(s), unspecified, with other forms of angina pectoris
CPT/HCPCS: 78452; 93017; 93018; A9502; J2785

== ENCOUNTER 2023-11-10 07:40 | Day surgery (SDC) | payer MEDICARE, SELFPAY ==
[2023-11-10] VITALS (8 sets, daily range): BP systolic 80–152; BP diastolic 43–64; PULSE 47–64; RESP 18; TEMP 36.3–36.4; O2SAT 95–96; BMI 24.5
--- NOTE | 2023-11-10 08:16 | CA_ITS ---
APPROVED REPORT EXAM: Comprehensive 2D, Doppler, and color-flow Echocardiogram Smelting Engineer: RT Orlin(R) Ht: 5 ft 8 in Wt: 161lbs BSA: 1.86 BP: 157/98 mmHg Indications: AFIB, CAD, HALL, ex smoker, hx oral cancer Left Ventricle The left ventricle is normal size. The left ventricular systolic function is normal. The left ventricular ejection fraction is within the normal range. There is increased LV wall thickness. There is normal LV segmental wall motion. LVEF is 55%. Right Ventricle The right ventricle is mildly dilated. The right ventricular systolic function is normal. Atria The left atrium is mildly dilated. No thrombus is visualized in the left atrium or appendage. The right atrium is mildly dilated. Interatrial septum is intact without evidence of ASD or PFO. Aortic Valve The aortic valve is mildly thickened. There is no aortic valvular stenosis. Mild aortic regurgitation. Mitral Valve The mitral valve is normal in structure. No evidence of mitral valve stenosis. Mild mitral regurgitation. Tricuspid Valve The tricuspid valve leaflets are thin and pliable. Mild tricuspid regurgitation. RVSP is 15 mmHg + RA pressure. Pulmonic Valve The pulmonary valve is normal in structure. Trace pulmonic regurgitation. Great Vessels The aortic root is normal in size. The ascending aorta is normal in size. Pericardium There is no pericardial effusion. Other Information Study Quality: Fair Conclusion Normal biventricular systolic function. Mild RV dilation. Mild biatrial dilation. Mild MR, mild TR, mild AI. Once HUGO demonstrated no thrombus, the patient underwent successful DCCV with 150 J, after which he converted successfully to normal sinus rhythm after 1 shock. Post procedurally, he recovered well, and was eventually discharged in stable condition. Electronically signed by : Lita Santillan MD 11/11/2023 00:32:54
--- NOTE | 2023-11-10 08:38 | ECG_ITS ---
APPROVED REPORT Exam: Resting ECG HR:43 bpm ECG Measurements Heart Rate 43 AXES QRSd 79 QRS 16 QT 426 T 32 QTc 370 Conclusion ATRIAL FIBRILLATION WITH SLOW VENTRICULAR RESPONSE POSSIBLE RIGHT VENTRICULAR CONDUCTION DELAY [RSR (QR) IN V1/V2] PROBABLE SEPTAL MYOCARDIAL INFARCTION , PROBABLY OLD [35 ms Q WAVE IN V1/V2] ABNORMAL ECG UNCONFIRMED REPORT Electronically signed by : Ethan Deleon MD 11/12/2023 12:25:34
[2023-11-10 09:01] LABS: Basophils # 0.1 K/mm3 (0-0.2); Basophils % 0.8 % (0.1-2.0); Eosinophils # 0.3 K/mm3 (0.0-0.4); Eosinophils % 5.4 % (0.1-12.0); Hematocrit 47.6 % (42.0-52.0); Lymphocytes # 1.7 K/mm3 (0.7-4.5); Lymphocytes % 27.6 % (10-50); Mean Corpuscular HGB Conc 31.5 g/dL (31.8-35.4); Mean Corpuscular Hemoglobin 29.6 pg (27.0-31.2); Mean Platelet Volume 8.8 fl (7.4-10.4); Monocytes # 0.4 K/mm3 (0.1-1.0); Neutrophils # 3.7 K/mm3 (1.8-7.8); Neutrophils % 60.1 % (37.0-80.0); Platelet Count 145 K/mm3 (142-424); Red Blood Count 5.06 M/mm3 (4.60-6.20); Red Cell Distribution Width 14.3 % (11.5-17.5); White Blood Count 6.1 K/mm3 (4.8-10.8)
[2023-11-10 09:11] LABS: Activated Partial Thrombo Time 28.7 seconds (22.8-30.6); Prothrombin Time 11.8 seconds (10.1-12.5)
[2023-11-10 09:18] LABS: Anion Gap 15.3 mEq/L (5-15); Blood Urea Nitrogen 53 mg/dl (9-20); Calcium 9.4 mg/dl (8.4-10.2); Carbon Dioxide 22 mmol/L (22.0-30.0); Chloride 110 mmol/L (98-107); Creatinine Clearance Estimated 24 mL/min (50-200); Estimated Glomerular Filt Rate 27 ml/min (>60); GFR (African American) 33 ML/MIN (>60); Glucose 98 mg/dl (74-100); Potassium 5.3 mmoL/L (3.5-5.1); Sodium 142 mmol/L (136-145)
--- NOTE | 2023-11-10 09:48 | P.PNANES_ITS ---
[facility] Disclaimer: The information contained in this section may have been updated after the patient was seen, as this information can be updated by other users. Medical History Chronic kidney disease Afib Coronary artery disease HLD (hyperlipidemia) Bradycardia Verrucous carcinoma of floor of mouth Difficulty swallowing Stopped smoking with greater than 30 pack year history Dyspnea on exertion Cough variant asthma Shortness of Breath Chronic cough Allergic rhinitis History of smoking 30 or more pack years History of lip cancer Dyspnea on exertion Coronary artery disease HTN (hypertension) Surgical History History of coronary artery bypass graft History of prostate surgery History of open heart surgery Family History Family/Other Heart disease Social History (Updated 11/10/23 @ 08:46 by Lana Wan) Smoking Status: Former smoker tobacco type: smokeless tobacco second hand exposure: No alcohol intake: never substance use type: denies use current occupational status: retired and other Travel in the last 8 weeks: None household members: spouse housing: house marital status: education level: high school service: Yes current occupational exposures/hazards: No caffeine: No special elizabeth needs: No agree to transfusion: No do you feel safe at home: Yes victim of physical abuse: No victim of emotional abuse: No victim of sexual abuse: No would you like helpful sources: No [facility] Anesthesia Checklist Patient Identification Patient Identification: Arm Band Structural Data Admitted From: Home Planned Operative Procedure/s: HUGO/Cardioversion Consent for Planned Operative Procedure(s) Verified: Yes Verified Documents: Surgical Consent and History and Physical NPO Status Verified Time NPO: 00:00 Additional verifications Anesthesia Reactions: No (states difficulty s/p recieving gas after dental procedure) Hx Blood Transfusions: No Blood Transfusion Reaction: No Airway Assessment Mallampati Score:: Class II C-Spine Mobility Assessed: Yes TMJ Mobility Assessed: Yes Dentition: Edentulous Neurological Assessment Level of Consciousness: Awake and Alert Anesthesia Plan Anesthesia Risk discussed: Yes Anesthesia Plan: Verified ASA Class: III Anesthesia Type: MAC
[2023-11-10] MEDS: RIVAROXABAN 15MG TABLET 15 MG PO (09:59)
--- NOTE | 2023-11-10 11:05 | SUR.OPER ---
1105- cardioversion-shock delivered at 150jules, pt shocked into sinus rhythm complete at 1106
--- NOTE | 2023-11-10 11:27 | ECG_ITS ---
APPROVED REPORT Exam: Resting ECG HR:53 bpm ECG Measurements Heart Rate 53 AXES MD 230 P 105 QRSd 83 QRS 18 QT 423 T 41 QTc 407 Conclusion SINUS BRADYCARDIA WITH FIRST DEGREE AV BLOCK ABNORMAL ECG UNCONFIRMED REPORT Electronically signed by : Ethan Deleon MD 11/12/2023 12:25:28
--- NOTE | 2023-11-10 12:01 | SUR.PHASEII ---
1123 RT at bedside for Post HUGO EKG and Duoneb.
[2023-11-10 14:23] LABS: POC Glucose,Bedside 88 (70-110)
== END 2023-11-10 12:06 | disposition home or self-care (01) ==
PROVIDERS: PCP Family Medicine; Visit Provider Internal Medicine
DX: I48.20 Chronic atrial fibrillation, unspecified (principal); Z95.1 Presence of aortocoronary bypass graft; E78.2 Mixed hyperlipidemia; I25.708 Atherosclerosis of coronary artery bypass graft(s), unspecified, with other forms of angina pectoris; I34.0 Nonrheumatic mitral (valve) insufficiency; R93.1 Abnormal findings on diagnostic imaging of heart and coronary circulation; Z79.899 Other long term (current) drug therapy; Z79.01 Long term (current) use of anticoagulants; I25.118 Atherosclerotic heart disease of native coronary artery with other forms of angina pectoris; I10 Essential (primary) hypertension
CPT/HCPCS: 80048; 82962; 85025; 85610; 85730; 92960; 93005; 93270; 93312; 93319

== ENCOUNTER 2023-11-25 15:33 | Outpatient (CLI) | payer MEDICARE, SELFPAY ==
[2023-11-25 16:09] LABS: Basophils # 0.1 K/mm3 (0-0.2); Basophils % 1.4 % (0.1-2.0); Eosinophils # 0.4 K/mm3 (0.0-0.4); Eosinophils % 7.3 % (0.1-12.0); Hematocrit 41.3 % (42.0-52.0); Hemoglobin 13.1 g/dL (14.1-18.0); Lymphocytes # 1.7 K/mm3 (0.7-4.5); Lymphocytes % 29.1 % (10-50); Mean Corpuscular HGB Conc 31.8 g/dL (31.8-35.4); Mean Corpuscular Hemoglobin 29.6 pg (27.0-31.2); Mean Corpuscular Volume 93.1 fl (80-94); Mean Platelet Volume 8.5 fl (7.4-10.4); Monocytes # 0.4 K/mm3 (0.1-1.0); Monocytes % 6.8 % (1.7-9.3); Neutrophils # 3.2 K/mm3 (1.8-7.8); Neutrophils % 55.4 % (37.0-80.0); Platelet Count 165 K/mm3 (142-424); Red Blood Count 4.43 M/mm3 (4.60-6.20); Red Cell Distribution Width 14.2 % (11.5-17.5); White Blood Count 5.8 K/mm3 (4.8-10.8)
[2023-11-25 17:55] LABS: Alanine Aminotransferase 22 U/L (12-78); Albumin Level 3.8 g/dl (3.5-5.0); Alkaline Phosphatase 83 U/L (38-126); Aspartate Amino Transferase 29 U/L (17-59); Bilirubin,Direct 0.2 mg/dl (0.0-0.4); Bilirubin,Indirect 0.2 mg/dL (0.0-0.9); Bilirubin,Total 0.4 mg/dl (0.2-1.3); Bilirubin,Unconjugated 0.3 mg/dL (0.0-1.1); Blood Urea Nitrogen 45 mg/dl (9-20); Calcium 8.8 mg/dl (8.4-10.2); Carbon Dioxide 21 mmol/L (22.0-30.0); Chloride 111 mmol/L (98-107); Chol/HDL Ratio 1.9 (1-3.5); Cholesterol 104 mg/dl (140-200); Estimated Glomerular Filt Rate 26 ml/min (>60); GFR (African American) 31 ML/MIN (>60); Glucose 83 mg/dl (74-100); HDL Cholesterol 55 mg/dl (40-60); Magnesium 1.7 mg/dl (1.6-2.3); Sodium 143 mmol/L (136-145); Total Protein,Serum 6.5 g/dl (6.3-8.2); Triglycerides 92 mg/dl (30-150); VLDL Cholesterol 18 mg/dL (0-40)
[2023-11-25 18:08] LABS: Direct LDL Cholesterol 47.96 mg/dL (100-129)
[2023-11-25 18:16] LABS: Free T4 (Free Thyroxine) 1.06 ng/dl (0.78-2.19)
[2023-11-25 18:29] LABS: Thyroid Stimulating Hormone 2.96 uIU/mL (0.465-4.68)
== END 2023-11-25 23:59 | disposition home or self-care (01) ==
LOC: LAB 15:34
PROVIDERS: PCP Family Medicine; Visit Provider Internal Medicine
DX: E78.2 Mixed hyperlipidemia (principal); R93.1 Abnormal findings on diagnostic imaging of heart and coronary circulation; N18.9 Chronic kidney disease, unspecified; I25.708 Atherosclerosis of coronary artery bypass graft(s), unspecified, with other forms of angina pectoris; R00.1 Bradycardia, unspecified; R53.83 Other fatigue; Z79.899 Other long term (current) drug therapy
CPT/HCPCS: 36415; 80048; 80061; 80076; 83735; 84439; 84443; 85025

== ENCOUNTER 2023-12-20 05:33 | Emergency (ER) | payer MEDICARE, SELFPAY ==
[2023-12-20] VITALS (11 sets, daily range): BP systolic 121–185; BP diastolic 63–84; PULSE 49–62; RESP 16–20; TEMP 36.7; O2SAT 95–97; BMI 23.9
--- NOTE | 2023-12-20 05:35 | ECG_ITS ---
APPROVED REPORT Exam: Resting ECG HR:56 bpm ECG Measurements Heart Rate 56 AXES ME 215 P 8 QRSd 89 QRS 12 QT 390 T 15 QTc 381 Conclusion SINUS BRADYCARDIA WITH FIRST DEGREE AV BLOCK ABNORMAL ECG UNCONFIRMED REPORT Electronically signed by : PAVEL SEN, 12/20/2023 06:49:19
--- NOTE | 2023-12-20 05:40 | XR_ITS ---
PROCEDURE INFORMATION: Exam: XR Chest Exam date and time: 12/20/2023 5:46 AM Age: 83 years old Clinical indication: Shortness of breath; Additional info: SOA TECHNIQUE: Imaging protocol: Radiologic exam of the chest. Views: 1 view. COMPARISON: CR XR CHEST 2V 05/02/2022 3:36 AM FINDINGS: Lungs: Lungs are well aerated without a focal area of consolidation. Pleural spaces: Unremarkable. No pleural effusion. No pneumothorax. Heart/Mediastinum: Unremarkable. No cardiomegaly. Bones/joints: prior sternotomy. IMPRESSION: Lungs are well aerated without a focal area of consolidation.
--- NOTE | 2023-12-20 05:40 | ED_ITS ---
Discharge Plan Disposition Patient Disposition: Home, Self-Care Chief Complaint: Shortness of Breath/Dyspnea Prescriptions Prescriptions: No Action Invokana 100 mg tablet 100 mg PO DAILY Jardiance 25 mg tablet 25 mg PO DAILY oxybutynin chloride 10 mg tablet extended release 24hr 10 mg PO DAILY Patient Comments: TAKE 1 TABLET BY MOUTH ONCE DAILY famotidine 40 mg tablet 40 mg PO BID Qty: 60 2RF furosemide 20 mg tablet 20 mg PO DAILY Xarelto 15 mg tablet 15 mg PO DAILY Qty: 90 2RF Rx Instructions: must administer with evening meal atorvastatin 20 MG tablet 20 mg PO HS lisinopril 2.5 MG tablet 2.5 mg PO HS metoprolol tartrate 25 MG tablet 25 mg PO BID tamsulosin 0.4 MG capsule 0.4 mg PO DAILY meloxicam 7.5 MG tablet 7.5 mg PO DAILY Referrals Follow up/Referrals: Milind Corona MD [Primary Care Provider] - See instructions Activity Restrictions/Add. Instructions Additional Instructions/Restrictions: Follow-up with cardiology regarding this visit to the emergency department. Call your family doctor to establish care for this visit to the emergency department and schedule follow-up within 48 hours to ensure improvement. If you have any worsening of your condition or any other concerning signs or symptoms, return to the emergency department or your primary care doctor for further evaluation. Clinical Impressions Clinical Impression: Shortness of breath Discharge ED Provider: Aime Ludwig General Adult HPI <Mychal Doran MD - Last Filed: 12/20/23 06:48> General Chief complaint: Shortness of Breath/Dyspnea Stated complaint: Dyspnea Time Seen by Provider: 12/20/23 05:40 History of Present Illness HPI narrative: 83-year-old male with history of chronic kidney disease, heart failure, A-fib, coronary artery disease, hypertension hyperlipidemia presents for shortness of breath. He reports it was relatively sudden onset, approximately 1 hour prior to arrival. He reports he felt normal yesterday. He used to smoke but quit several decades ago. He denies any recent fever or illness, denies any cough. Denies any chest pain at this time. Denies any lung history. No recent weight gain. Related Data Home Medications Medication Instructions Recorded Confirmed atorvastatin 20 mg tablet 20 mg PO HS Cholesterol 10/18/17 11/25/23 lisinopril 2.5 mg tablet 2.5 mg PO HS BLOOD PRESSURE 10/18/17 11/25/23 metoprolol tartrate 25 mg tablet 25 mg PO BID Hypertension 10/18/17 11/25/23 tamsulosin 0.4 mg capsule 0.4 mg PO DAILY prostate 01/02/19 11/25/23 meloxicam 7.5 mg tablet 7.5 mg PO DAILY Pain 03/13/21 11/25/23 canagliflozin 100 mg tablet 100 mg PO DAILY heart health 10/09/21 11/25/23 (Invokana) empagliflozin 25 mg tablet 25 mg PO DAILY 09/22/23 11/25/23 (Jardiance) oxybutynin chloride 10 mg 10 mg PO DAILY 09/22/23 11/25/23 tablet,extended release 24 hr furosemide 20 mg tablet 20 mg PO DAILY 11/01/23 11/25/23 Previous Rx's Medication Instructions Recorded famotidine 40 mg tablet 40 mg PO BID #60 tabs 09/22/23 rivaroxaban 15 mg tablet (Xarelto) 15 mg PO DAILY #90 tabs 11/25/23 Allergies Allergy/AdvReac Type Severity Reaction Status Date / Time No Known Allergies Allergy Verified 11/25/23 14:42 [facility] <Mychal Doran MD - Last Filed: 12/20/23 06:48> [facility] Disclaimer: The information contained in this section may have been updated after the patient was seen, as this information can be updated by other users. Medical History (Updated 12/20/23 @ 09:43 by Aime Ludwig MD) Fatigue Abnormal findings on diagnostic imaging of heart and coronary circulation Chronic kidney disease Afib Coronary artery disease HLD (hyperlipidemia) Bradycardia Verrucous carcinoma of floor of mouth Difficulty swallowing Stopped smoking with greater than 30 pack year history Dyspnea on exertion Cough variant asthma Shortness of Breath Chronic cough Allergic rhinitis History of smoking 30 or more pack years History of lip cancer Dyspnea on exertion Coronary artery disease HTN (hypertension) Surgical History History of coronary artery bypass graft History of prostate surgery History of open heart surgery Family History Family/Other Heart disease Social History Smoking Status: Former smoker tobacco type: smokeless tobacco second hand exposure: No alcohol intake: never substance use type: denies use current occupational status: retired and other Travel in the last 8 weeks: None household members: spouse housing: house marital status: education level: high school service: Yes current occupational exposures/hazards: No caffeine: No special elizabeth needs: No agree to transfusion: No do you feel safe at home: Yes victim of physical abuse: No victim of emotional abuse: No victim of sexual abuse: No would you like helpful sources: No <Mychal Doran MD - Last Filed: 12/20/23 06:48> ROS Obtained: Yes All systems reviewed & no additional complaints except as documented Physical Exam <Mychal Doran MD - Last Filed: 12/20/23 06:48> General General appearance: alert and in no apparent distress Head Head exam: atraumatic and normocephalic Eye Eye exam: Present normal appearance, PERRL and EOMI ENT ENT exam: Present normal oropharynx and normal external ear exam Neck Neck exam: Present normal inspection and full ROM Chest Chest inspection: Present normal inspection and symmetric chest wall rise; Absent tenderness Respiratory Respiratory exam: Present normal lung sounds bilaterally; Absent respiratory distress Cardiovascular Cardiovascular exam: Present regular rate and normal rhythm Abdominal Exam Abdominal exam: Present soft; Absent distention, tenderness or guarding Extremities Exam Extremities exam: Present normal inspection; Absent edema or joint swelling Back Exam Back exam: Present normal inspection; Absent tenderness Neurological Exam Neurological exam: Present alert and oriented X3; Absent motor sensory deficit Psychiatric Psychiatric exam: Present normal affect and normal mood Skin Skin exam: Present warm, dry and normal color Lymphatic Lymphatic Findings: no adenopathy Medical Decision Making <Mychal Doran MD - Last Filed: 12/20/23 06:48> Medical Records Medical records reviewed: Yes I reviewed the patient's medical records. Mayito Inquiry Pt receiving controlled substance: No Mayito was queried for this patient: No Vital Signs: 12/20/23 05:33 12/20/23 05:35 12/20/23 06:01 Temperature 98.1 F Temperature Source Oral Pulse Rate 55 L 54 L Pulse Rate [Left] 56 L Respiratory Rate 16 20 18 Blood Pressure 185/84 H 141/71 H Blood Pressure [Right Arm] 185/84 H Blood Pressure Mean Blood Pressure Mean [Right Arm] 117 02 Sat by Pulse Oximetry 96 97 97 Oxygen Delivery Method Room Air Room Air Room Air 12/20/23 06:30 12/20/23 07:01 12/20/23 07:30 Temperature Temperature Source Pulse Rate 62 49 L 51 L Pulse Rate [Left] Respiratory Rate Blood Pressure 132/63 Blood Pressure [Right Arm] Blood Pressure Mean 86 Blood Pressure Mean [Right Arm] 02 Sat by Pulse Oximetry 95 96 95 Oxygen Delivery Method 12/20/23 08:00 12/20/23 08:30 Temperature Temperature Source Pulse Rate 53 L 51 L Pulse Rate [Left] Respiratory Rate Blood Pressure 121/65 127/65 Blood Pressure [Right Arm] Blood Pressure Mean Blood Pressure Mean [Right Arm] 02 Sat by Pulse Oximetry 96 95 Oxygen Delivery Method Room Air Room Air Lab Data Lab results reviewed: Yes I reviewed the patient's lab results. Lab Results 12/20/23 05:45: WBC 4.2 L, RBC 4.50 L, Hgb 13.3 L, Hct 42.6, MCV 94.7 H, MCH 29.5, MCHC 31.1 L, RDW 14.0, Plt Count 122 L, MPV 8.2, Neut % (Auto) 51.7, Lymph % (Auto) 32.9, Cavalier % (Auto) 6.6, Eos % (Auto) 7.8, Baso % (Auto) 1.1, Neut # (Auto) 2.2, Lymph # (Auto) 1.4, [place]alier # (Auto) 0.3, Eos # (Auto) 0.3, Baso # (Auto) 0.1, D-Dimer < 0.25, Sodium 141, Potassium 5.6 H, Chloride 112 H, Carbon Dioxide 21 L, Anion Gap 13.6, BUN 59 H, Creatinine 2.30 H, Estimated Creat Clear 24, Estimated GFR 27 L, Est GFR ( Amer) 33 L, Glucose 94, Calcium 9.0, Total Bilirubin 0.6, AST 38, ALT 19, Alkaline Phosphatase 79, Troponin I < 0.01, Total Protein 7.0, Albumin 4.1, Globulin 2.9, Albumin/Globulin Ratio 1.4 12/20/23 08:31: Troponin I < 0.01 12/20/23 05:45 12/20/23 05:45 Orders (Tests/Meds): ED MEDICATIONS Discontinued Medications Generic Name Dose Route Start Last Admin Trade Name Zen PRN Reason Stop Dose Admin Lactated Ringer's 500 mls @ 999 mls/hr 12/20/23 07:49 12/20/23 08:42 Lactated Ringer's 500ml IV 12/20/23 08:19 999 mls/hr .Q31M ONE Administration ORDERS Category Date Time Status CXR --portable [XR chest portable] Stat Exams 12/20/23 05:40 Taken CBC w/Auto Diff [Complete Blood Count Auto Diff] Stat Lab 12/20/23 05:45 Completed CMP [Comprehensive Metabolic Panel] Stat Lab 12/20/23 05:45 Completed D-Dimer Stat Lab 12/20/23 05:45 Completed Troponin I Q3H Lab 12/20/23 05:45 Completed Troponin I Q3H Lab 12/20/23 08:31 Completed ECG Data Tracing #1: I reviewed this ECG and interpreted as documented below: Sinus rhythm, bradycardia with rate of 56, first-degree AV block noted, no significant ST or T wave changes. ECG initial impression date: 12/20/23 ECG initial impression time: 05:35 HEART Score History (anamnesis): Moderately suspicious ECG: Normal Age: >65 years Risk factors: Atherosclerosis history Troponin: </= normal limit HEART Score: 5 Medical Decision Narrative: 83-year-old male with history of hypertension hyperlipidemia coronary artery disease status post CABG and stents presents for shortness of breath. History was obtained interactive discussion with patient, family, chart review. On arrival, patient is [afebrile, hemodynamically stable, satting appropriately, alert, oriented x4, GCS 15], moving all extremities spontaneously. Full physical exam performed and significant for no significant physical exam abnormalities, clear lungs bilaterally. Differential includes but is not limited to pneumothorax, pneumonia, PE, ACS, heart failure. Workup initiated including CBC CMP troponin D-dimer chest x-ray EKG. On re-evaluation, patient [remains afebrile, HD stable.] Reports complete symptomatic resolution without intervention. Laboratory workup independently interpreted by me and significant for negative D-dimer, negative initial troponin, mild pancytopenia, creatinine 2.3, stable from baseline. Mild hyperkalemia. Imaging independently interpreted by me and significant for clear lungs bilaterally without focal opacity or pneumothorax. See radiology read for full review of final results. EKG independently interpreted by me and significant for sinus bradycardia with first-degree AV block, consistent with prior. At this time care was handed off to oncoming physician pending repeat troponin. <Aime Ludwig MD - Last Filed: 12/20/23 09:44> Vital Signs: 12/20/23 05:33 12/20/23 05:35 12/20/23 06:01 Temperature 98.1 F Temperature Source Oral Pulse Rate 55 L 54 L Pulse Rate [Left] 56 L Respiratory Rate 16 20 18 Blood Pressure 185/84 H 141/71 H Blood Pressure [Right Arm] 185/84 H Blood Pressure Mean Blood Pressure Mean [Right Arm] 117 02 Sat by Pulse Oximetry 96 97 97 Oxygen Delivery Method Room Air Room Air Room Air 12/20/23 06:30 12/20/23 07:01 12/20/23 07:30 Temperature Temperature Source Pulse Rate 62 49 L 51 L Pulse Rate [Left] Respiratory Rate Blood Pressure 132/63 Blood Pressure [Right Arm] Blood Pressure Mean 86 Blood Pressure Mean [Right Arm] 02 Sat by Pulse Oximetry 95 96 95 Oxygen Delivery Method 12/20/23 08:00 12/20/23 08:30 Temperature Temperature Source Pulse Rate 53 L 51 L Pulse Rate [Left] Respiratory Rate Blood Pressure 121/65 127/65 Blood Pressure [Right Arm] Blood Pressure Mean Blood Pressure Mean [Right Arm] 02 Sat by Pulse Oximetry 96 95 Oxygen Delivery Method Room Air Room Air Lab Data Lab Results 12/20/23 05:45: WBC 4.2 L, RBC 4.50 L, Hgb 13.3 L, Hct 42.6, MCV 94.7 H, MCH 29.5, MCHC 31.1 L, RDW 14.0, Plt Count 122 L, MPV 8.2, Neut % (Auto) 51.7, Lymph % (Auto) 32.9, [place] % (Auto) 6.6, Eos % (Auto) 7.8, Baso % (Auto) 1.1, Neut # (Auto) 2.2, Lymph # (Auto) 1.4, [place] # (Auto) 0.3, Eos # (Auto) 0.3, Baso # (Auto) 0.1, D-Dimer < 0.25, Sodium 141, Potassium 5.6 H, Chloride 112 H, Carbon Dioxide 21 L, Anion Gap 13.6, BUN 59 H, Creatinine 2.30 H, Estimated Creat Clear 24, Estimated GFR 27 L, Est GFR ( Amer) 33 L, Glucose 94, Calcium 9.0, Total Bilirubin 0.6, AST 38, ALT 19, Alkaline Phosphatase 79, Troponin I < 0.01, Total Protein 7.0, Albumin 4.1, Globulin 2.9, Albumin/Globulin Ratio 1.4 12/20/23 08:31: Troponin I < 0.01 Orders (Tests/Meds): ED MEDICATIONS Discontinued Medications Generic Name Dose Route Start Last Admin Trade Name Freq PRN Reason Stop Dose Admin Lactated Ringer's 500 mls @ 999 mls/hr 12/20/23 07:49 12/20/23 08:42 Lactated Ringer's 500ml IV 12/20/23 08:19 999 mls/hr .Q31M ONE Administration ORDERS Category Date Time Status CXR --portable [XR chest portable] Stat Exams 12/20/23 05:40 Taken CBC w/Auto Diff [Complete Blood Count Auto Diff] Stat Lab 12/20/23 05:45 Completed CMP [Comprehensive Metabolic Panel] Stat Lab 12/20/23 05:45 Completed D-Dimer Stat Lab 12/20/23 05:45 Completed Troponin I Q3H Lab 12/20/23 05:45 Completed Troponin I Q3H Lab 12/20/23 08:31 Completed HEART Score HEART Score: 5 Medical Decision Narrative: 83-year-old male with history of hypertension hyperlipidemia coronary artery disease status post CABG and stents presents for shortness of breath. History was obtained interactive discussion with patient, family, chart review. On arrival, patient is afebrile, hemodynamically stable, satting appropriately, alert, oriented x4, GCS 15, moving all extremities spontaneously. Full physical exam performed and significant for no significant physical exam abnormalities, clear lungs bilaterally. Differential includes but is not limited to pneumothorax, pneumonia, PE, ACS, heart failure. Workup initiated including CBC CMP troponin D-dimer chest x-ray EKG. On re-evaluation, patient remains afebrile, HD stable. Reports complete symptomatic resolution without intervention. Laboratory workup independently interpreted by me and significant for negative D-dimer, negative initial troponin, mild pancytopenia, creatinine 2.3, stable from baseline. Mild hyperkalemia. Imaging independently interpreted by me and significant for clear lungs bilaterally without focal opacity or pneumothorax. See radiology read for full review of final results. EKG independently interpreted by me and significant for sinus bradycardia with first-degree AV block, consistent with prior. At this time care was handed off to oncoming physician pending repeat troponin. Vani: I assumed primary responsibility for this patient after signout from previous physician. Independent interpretation of workup demonstrates mild leukopenia thrombocytopenia both new from about a month prior. Stable anemia about 13.3. CMP with hyperkalemia 5.6, CELSA in setting of CKD with creatinine 2.3 and BUN 59. Patient given 500 mL LR bolus for this. D-dimer negative and undetectable. Initial troponin undetectably low. Chest x-ray without acute cardiopulmonary airspace disease. Patient was placed in observation beginning at 7 AM in order to rule out evolving CT with delta troponin and determine need for admission versus home-going. The patient was provided cardiac monitoring, serial exams while awaiting results. Initial blood pressure on media monitor 132/63, pulse 51, oxygen saturation 95% on room air on continuous pulse oximetry. Independent interpretation of follow-up results demonstrated negative delta troponin. On reevaluation, patient still asymptomatic. At this time, I feel patient is appropriate for discharge and outpatient management. Total observation time 3 hours. Because patient at baseline without signs or symptoms of clinical decompensation, deemed appropriate for discharge. Results were relayed to patient who voiced understanding and were agreeable to outpatient management and follow up. I discussed my clinical impression with patient and answered all questions. At this time, the evidence for any other entities in the differential is insufficient to warrant any further testing or ED observation. This was explained as well. Advisory was given that persistent or worsening symptoms require further evaluation. I confirmed the understanding of this discussion. Procedures <Mychal Doran MD - Last Filed: 12/20/23 06:48> Risk/Benefits of Procedure(s) Were Explained: Yes Critical Care <Mychal Doran MD - Last Filed: 12/20/23 06:48> Critical Care Time Critical Care Time: No
[2023-12-20 06:00] LABS: Basophils # 0.1 K/mm3 (0-0.2); Basophils % 1.1 % (0.1-2.0); Eosinophils # 0.3 K/mm3 (0.0-0.4); Eosinophils % 7.8 % (0.1-12.0); Hematocrit 42.6 % (42.0-52.0); Hemoglobin 13.3 g/dL (14.1-18.0); Lymphocytes # 1.4 K/mm3 (0.7-4.5); Lymphocytes % 32.9 % (10-50); Mean Corpuscular HGB Conc 31.1 g/dL (31.8-35.4); Mean Corpuscular Hemoglobin 29.5 pg (27.0-31.2); Mean Corpuscular Volume 94.7 fl (80-94); Mean Platelet Volume 8.2 fl (7.4-10.4); Monocytes # 0.3 K/mm3 (0.1-1.0); Monocytes % 6.6 % (1.7-9.3); Neutrophils # 2.2 K/mm3 (1.8-7.8); Neutrophils % 51.7 % (37.0-80.0); Platelet Count 122 K/mm3 (142-424); White Blood Count 4.2 K/mm3 (4.8-10.8)
[2023-12-20 06:01] LABS: Chloride 112 mmol/L (98-107); Potassium 5.6 mmoL/L (3.5-5.1); Sodium 141 mmol/L (136-145)
[2023-12-20 06:04] LABS: Alanine Aminotransferase 19 U/L (12-78); Albumin Level 4.1 g/dl (3.5-5.0); Albumin/Globulin Ratio 1.4 (1.1-1.8); Alkaline Phosphatase 79 U/L (38-126); Anion Gap 13.6 mEq/L (5-15); Aspartate Amino Transferase 38 U/L (17-59); Bilirubin,Total 0.6 mg/dl (0.2-1.3); Blood Urea Nitrogen 59 mg/dl (9-20); Carbon Dioxide 21 mmol/L (22.0-30.0); Creatinine Clearance Estimated 24 mL/min (50-200); Estimated Glomerular Filt Rate 27 ml/min (>60); GFR (African American) 33 ML/MIN (>60); Globulin 2.9 g/dL (1.3-3.2)
[2023-12-20 06:05] LABS: Glucose 94 mg/dl (74-100)
[2023-12-20 06:14] LABS: D-Dimer < 0.25 ug/mL (0.0-0.5)
[2023-12-20 06:17] LABS: Troponin I < 0.01 ng/ml (0.00-0.034)
[2023-12-20] MEDS: RINGERS SOLUTION,LACTATED 500 ML 999 ML IV (08:42)
[2023-12-20 09:38] LABS: Troponin I < 0.01 ng/ml (0.00-0.034)
--- NOTE | 2023-12-20 09:42 | PC.NURSE ---
Dr. Ludwig notified of negative 2nd troponin
== END 2023-12-20 10:06 | disposition home or self-care (01) ==
PROVIDERS: Emergency Medicine; Emergency Provider Emergency Medicine; PCP Family Medicine
DX: R06.02 Shortness of breath (principal); E87.6 Hypokalemia; I44.0 Atrioventricular block, first degree; R00.1 Bradycardia, unspecified; N18.9 Chronic kidney disease, unspecified; E78.5 Hyperlipidemia, unspecified; I11.9 Hypertensive heart disease without heart failure; I25.10 Atherosclerotic heart disease of native coronary artery without angina pectoris; Z87.891 Personal history of nicotine dependence; Z95.1 Presence of aortocoronary bypass graft
CPT/HCPCS: 71045; 80053; 84484; 85025; 85378; 93005; 99284; J7120

== ENCOUNTER 2024-01-03 08:47 | Day surgery (SDC) | payer MEDICARE, SELFPAY ==
[2024-01-03] VITALS (19 sets, daily range): BP systolic 140–169; BP diastolic 66–89; PULSE 51–67; RESP 14–20; TEMP 36.6; O2SAT 93–99; BMI 24.3
--- NOTE | 2024-01-03 07:17 | IR_ITS ---
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 COMPLICATIONS NONE Estimated Blood Loss: LESS THAN 10 ML TECHNIQUE One percent lidocaine was used to anesthetize the right groin. The right femoral artery was accessed via the Seldinger technique. A 5 Kyrgyz and 7 egyptian sheath was placed in the right femoral artery and vein respectfully. A 7 Kyrgyz sheath was introduced and a Bauxite-Adam catheter was floated using hemodynamic waveforms in the pulmonary artery, right ventricle , and right atrium. Saturations were obtained in the pulmonary artery and the right atrium. The JR-4 and JL-4 catheter was also used to perform left heart catheterization, left ventriculography and selective coronary angiogram. JR4 catheter was used to perform left internal mammary angiography as well as selective engagement of the saphenous vein graft to the right coronary artery and saphenous vein graft to the circumflex artery. Because the creatinine was 2.6 patient had vascular disease bilateral selective renal angiography was performed. At the end of the procedure the patient was transferred to the post-op holding area in stable condition for arterial sheath removal. ANGIOGRAPHIC RESULTS The left main artery Normal The left anterior descending artery Is proximally patent with 30% stenoses in the mid vessel 50% stenosis. A large first diagonal artery has a concentric proximal 50% stenosis The circumflex artery Proximally occluded The right coronary artery Proximally occluded The BURNS ventriculogram reveals Preserved at 55% The left ventricular end-diastolic pressure Less than 10 mmHg LINDSAY is small with slow flow but appears to be patent to the left coronary artery which was not specifically identified Saphenous to obtuse marginal artery patent Saphenous to right coronary arteries posterior descending artery patent Right renal artery singular normal Left renal artery singular normal Right atrial pressure 7 mmHg Pulmonary pressure 28/15 mmHg Pulmonary artery occlusion pressure 10 mmHg Right atrial saturation 76% Pulmonary artery saturation 79% Hemoglobin 14.2 Cardiac output 2.8 Cardiac index 1.5 IMPRESSION Adequate surgical revascularization as described above Inferior basal defect is not explained by the above anatomy Preserved ejection fraction Effectively normal pulmonary pressures Normal renal arteries PLAN 1. Continue medical management with risk factor modification Electronically signed by : Rishi Bergeron MD 01/03/2024 11:12:36
[2024-01-03 09:20] LABS: Basophils # 0.1 K/mm3 (0-0.2); Eosinophils # 0.4 K/mm3 (0.0-0.4); Eosinophils % 6.5 % (0.1-12.0); Hematocrit 43.5 % (42.0-52.0); Hemoglobin 14.2 g/dL (14.1-18.0); Lymphocytes # 1.8 K/mm3 (0.7-4.5); Lymphocytes % 30.7 % (10-50); Mean Corpuscular HGB Conc 32.8 g/dL (31.8-35.4); Mean Corpuscular Volume 91.6 fl (80-94); Mean Platelet Volume 8.4 fl (7.4-10.4); Monocytes # 0.4 K/mm3 (0.1-1.0); Monocytes % 7.8 % (1.7-9.3); Neutrophils # 3.1 K/mm3 (1.8-7.8); Platelet Count 148 K/mm3 (142-424); Red Blood Count 4.75 M/mm3 (4.60-6.20); Red Cell Distribution Width 14.3 % (11.5-17.5); White Blood Count 5.7 K/mm3 (4.8-10.8)
[2024-01-03 09:25] LABS: Chloride 117 mmol/L (98-107); Potassium 5.5 mmoL/L (3.5-5.1); Sodium 141 mmol/L (136-145)
[2024-01-03 09:28] LABS: Anion Gap 8.5 mEq/L (5-15); Blood Urea Nitrogen 60 mg/dl (9-20); Carbon Dioxide 21 mmol/L (22.0-30.0); Creatinine Clearance Estimated 21 mL/min (50-200); Estimated Glomerular Filt Rate 24 ml/min (>60); GFR (African American) 29 ML/MIN (>60)
[2024-01-03 09:29] LABS: Calcium 9.3 mg/dl (8.4-10.2); Glucose 98 mg/dl (74-100)
[2024-01-03] MEDS: diphenhydrAMINE 50MG/ML VIAL 50 MG IV (10:28)
[2024-01-03] MEDS: LIDOCAINE 1% 10ML MDV 20 ML IJ (10:28)
[2024-01-03] MEDS: MIDAZOLAM HCL 1MG/1ML 5ML VIAL 1 MG IV (10:29)
[2024-01-03] MEDS: 0.9 % SODIUM CHLORIDE 500 ML 25 ML IV (10:29)
[2024-01-03] MEDS: FENTANYL 100MCG/2ML VIAL 50 MCG IV (10:29)
[2024-01-03] MEDS: HEPARIN 1,000 UNITS/500ML NS (CATH LAB) 3000 UNIT IV (10:29)
--- NOTE | 2024-01-03 11:06 | SUR.PHASEII ---
spoke with Meka regarding getting pt a sleep study per Dr. Bergeron request.
[2024-01-03] MEDS: IOPAMIDOL-370 (76%);100ML BOTTLE 30 ML IV (11:19)
[2024-01-03 11:26] LABS: CATHL Arterial O2 SAT 79 % (90-100); CATHL Venous O2 SAT 76 % (75-80)
--- NOTE | 2024-01-03 14:18 | SUR.PHASEII ---
spoke with sleep lab, pt's information has been faxed for preauthorization. Informed to let patient know he will get a call from a [employer] code in the next couple of days.
== END 2024-01-03 14:35 | disposition home or self-care (01) ==
PROVIDERS: PCP Family Medicine; Visit Provider Internal Medicine
DX: R06.02 Shortness of breath (principal); R93.1 Abnormal findings on diagnostic imaging of heart and coronary circulation; Z95.1 Presence of aortocoronary bypass graft; I70.1 Atherosclerosis of renal artery; N18.9 Chronic kidney disease, unspecified; I27.20 Pulmonary hypertension, unspecified; Z79.899 Other long term (current) drug therapy; I48.91 Unspecified atrial fibrillation; I12.9 Hypertensive chronic kidney disease with stage 1 through stage 4 chronic kidney disease, or unspecified chronic kidney disease; Z87.891 Personal history of nicotine dependence; I34.0 Nonrheumatic mitral (valve) insufficiency; E78.5 Hyperlipidemia, unspecified; I25.10 Atherosclerotic heart disease of native coronary artery without angina pectoris
CPT/HCPCS: 36252; 80048; 82810; 85025; 93461; 99152; 99153; C1725; C1769; C1894; J1644; J2250; J3010; Q9967

== ENCOUNTER 2024-01-05 07:46 | Day surgery (SDC) | payer MEDICARE, SELFPAY ==
[2023-10-29 11:21] VITALS: BMI 23.3
[2024-01-05] VITALS (9 sets, daily range): BP systolic 118–170; BP diastolic 55–94; PULSE 57–90; RESP 16–18; TEMP 36.2–36.3; O2SAT 95–99
[2024-01-05] MEDS: LACTATED RINGERS 1000ML 1,000 ML 25 ML IV (09:06)
[2024-01-05 09:11] LABS: POC Glucose,Bedside 101 (70-110)
[2024-01-05] MEDS: CEFAZOLIN SODIUM 1GM ADV 1 GM IV (09:49)
[2024-01-05] MEDS: LIDOCAINE 1% W/EPI 1:100,000 20ML VIAL 20 ML (10:10)
--- NOTE | 2024-01-05 10:20 | EXP.OP.NOTE ---
Date of procedure: 01/05/24 Pre-op Diagnosis:: Floor of mouth lesion right side Post-op Diagnosis:: Floor of mouth lesion right side Procedure performed:: Excision of floor of mouth lesion Surgeon:: Sam Raymundo MD WILDLIFE REMOVAL SPECIALIST:: Wilber Inman Anesthesia: GETA Estimated blood loss (mL): 0 Operative findings:: 1.5 cm verrucous lesion on the floor of mouth right side over the alveolar ridge with no obvious invasion of underlying tissue Operative note:: The patient was brought to the operating room and after adequate general anesthesia the mouth was draped in the usual sterile fashion and a self-retaining retractor applied. 1% lidocaine with epinephrine was then used to locally infiltrate the area surrounding the verruca's lesion. Then the lesion was elliptically excised down to the underlying periosteum leaving a 2 cm elliptical defect. The specimen was sent for permanent section analysis. The wound was closed in simple interrupted fashion with 4-0 chromic and the procedure concluded. All counts correct and blood loss was minimal Condition: stable Disposition: PACU Complications:: No complications
--- NOTE | 2024-01-05 10:25 | EXP.ANES.CKL ---
[facility] Disclaimer: The information contained in this section may have been updated after the patient was seen, as this information can be updated by other users. Medical History Fatigue Abnormal findings on diagnostic imaging of heart and coronary circulation Chronic kidney disease Afib Coronary artery disease HLD (hyperlipidemia) Bradycardia Verrucous carcinoma of floor of mouth Difficulty swallowing Stopped smoking with greater than 30 pack year history Dyspnea on exertion Cough variant asthma Shortness of Breath Chronic cough Allergic rhinitis History of smoking 30 or more pack years History of lip cancer Dyspnea on exertion Coronary artery disease HTN (hypertension) Surgical History History of coronary artery bypass graft History of prostate surgery History of open heart surgery Family History Family/Other Heart disease Social History Smoking Status: Former smoker tobacco type: smokeless tobacco second hand exposure: No alcohol intake: never substance use type: denies use current occupational status: other Travel in the last 8 weeks: None household members: spouse housing: house marital status: education level: high school service: Yes current occupational exposures/hazards: No caffeine: No special elizabeth needs: No agree to transfusion: No do you feel safe at home: Yes victim of physical abuse: No victim of emotional abuse: No victim of sexual abuse: No would you like helpful sources: No [facility] Anesthesia Checklist Patient Identification Patient Identification: Arm Band Structural Data Admitted From: Home Planned Operative Procedure/s: Excision of Floor of Mouth Lesion Consent for Planned Operative Procedure(s) Verified: Yes Verified Documents: Surgical Consent and History and Physical NPO Status Verified Time NPO: 00:00 Additional verifications Anesthesia Reactions: No (states difficulty s/p recieving gas after dental procedure) Hx Blood Transfusions: No Blood Transfusion Reaction: No Airway Assessment Mallampati Score:: Class II C-Spine Mobility Assessed: Yes TMJ Mobility Assessed: Yes Dentition: Edentulous Neurological Assessment Level of Consciousness: Awake, Alert and Appropriate Anesthesia Plan Anesthesia Risk discussed: Yes Anesthesia Plan: Verified ASA Class: III Anesthesia Type: General
--- NOTE | 2024-01-05 10:26 | P.PNANES_ITS ---
[facility] Anesthesia Record Part I Anesthesia Record I Intake, IV Amount: 200 Hydration: Adequate Estimated blood loss (mL): 5 Urine output (mL): 0 Blood Products used (#): none Blood Pressure: 133/60 SaO2: 96 Pulse Rate: 60 Airway Patency: Patent Respiratory Rate: 16 Temperature: 97.3 F Patient is:: Drowsy and Stable Stable to PACU at:: 10:20
--- NOTE | 2024-01-06 07:24 | EXP.ANES.II ---
[facility] Anesthesia Record Part II Anesthesia Record Part II Discharge Time: 10:50 Destination: Surgical Day Care (OP Surgery) PACU nurse assessment reviewed?: Yes Patient Condition:: Good Anesthesia Complications:: None Swallowing reflex intact?: Yes Airway Patency: Patent Cyanosis?: No Blood Pressure: 119/57 SaO2: 62 Respiratory Rate: 16 Pulse Rate: 62 Temperature: 97.3 F Mental Status: Alert & Oriented Pain level:: 0 Nausea and/or vomitting:: None Intake, IV Amount: 0 Hydration: Adequate
[2024-01-06 07:25] VITALS: BP 119/57; PULSE 62; RESP 16; TEMP 36.3; O2SAT 62
== END 2024-01-05 11:21 | disposition home or self-care (01) ==
PROVIDERS: PCP Family Medicine; Visit Provider Otolaryngology
PROC: (CPT 41116; principal; 2024-01-05 09:30)
DX: C04.9 Malignant neoplasm of floor of mouth, unspecified (principal); Z87.891 Personal history of nicotine dependence
CPT/HCPCS: 41116; 82962; 88305; 96374; J3490; J0690; J1100; J2405; J3010; J7120

== ENCOUNTER → 2024-02-07 10:48 | Outpatient (CLI) | payer MEDICARE, SELFPAY | LOC: SL 02-08 10:49 | PROVIDERS: PCP Family Medicine; Visit Provider Internal Medicine | DX: G47.33 Obstructive sleep apnea (adult) (pediatric) (principal) | CPT/HCPCS: G0399 ==

== ENCOUNTER 2024-02-14 07:36 | Outpatient (CLI) | payer MEDICARE, SELFPAY ==
[2024-02-14 08:35] VITALS: PULSE 68; PULSE 70
[2024-02-14] MEDS: ALBUTEROL 0.083% 2.5 MG/3 ML NEB IH (08:35)
== END 2024-02-14 23:59 | disposition home or self-care (01) ==
LOC: RT 07:36
PROVIDERS: PCP Family Medicine; Visit Provider Physician Assistant
DX: R06.02 Shortness of breath (principal)
CPT/HCPCS: 94060; 94640; 94727; 94729; J7613

== ENCOUNTER 2024-03-03 08:10 | Outpatient (CLI) | payer MEDICARE, SELFPAY ==
[2024-03-03 08:21] LABS: Microscopic, Urine URINE MICROSCOPIC (MICROSCOPIC)
[2024-03-03 08:35] LABS: Hematocrit 38.8 % (42.0-52.0); Hemoglobin 12.2 g/dL (14.1-18.0); Mean Corpuscular HGB Conc 31.5 g/dL (31.8-35.4); Mean Corpuscular Hemoglobin 30.7 pg (27.0-31.2); Mean Corpuscular Volume 97.6 fl (80-94); Platelet Count 149 K/mm3 (142-424); Red Blood Count 3.98 M/mm3 (4.60-6.20); Red Cell Distribution Width 14.4 % (11.5-17.5)
[2024-03-03 10:40] LABS: Albumin Level 3.8 g/dl (3.5-5.0); Chloride 116 mmol/L (98-107); Potassium 5.2 mmoL/L (3.5-5.1); Sodium 143 mmol/L (136-145)
[2024-03-03 10:43] LABS: Anion Gap 10.2 mEq/L (5-15); Blood Urea Nitrogen 43 mg/dl (9-20); Carbon Dioxide 22 mmol/L (22.0-30.0); Estimated Glomerular Filt Rate 26 ml/min (>60); GFR (African American) 31 ML/MIN (>60); Phosphorous 3.3 mg/dl (2.5-4.5)
[2024-03-03 10:44] LABS: Calcium 8.4 mg/dl (8.4-10.2); Glucose 98 mg/dl (74-100)
[2024-03-03 13:24] LABS: Appearance,Urine CLEAR (Clear); Bilirubin,Urine Negative (Negative); Blood, Urine TRACE-I (Negative); Color,Urine YELLOW (Yellow); Glucose,Urine (UA) 3+ (Negative); Ketones,Urine Negative (Negative); Leukocyte Esterase,Urine Negative (Negative); Nitrate,Urine Negative (Negative); Protein,Urine Negative (Negative); Urobilinogen,Urine 0.2 EU/dl (0.2)
[2024-03-03 13:34] LABS: Bacteria,Urine Trace /lpf; Squamous Epithelial Cell,Urine Occasional #/hpf (0-5); WBC,Urine Occasional #/hpf (0-3)
[2024-03-03 13:43] LABS: Creatinine,Urine Random 95 mg/dL (Not Estab.)
== END 2024-03-03 23:59 | disposition home or self-care (01) ==
LOC: LAB 08:12
PROVIDERS: PCP Family Medicine; Visit Provider Internal Medicine Nephrology
DX: N18.32 Chronic kidney disease, stage 3b (principal)
CPT/HCPCS: 36415; 80069; 81001; 82570; 84156; 85027

== ENCOUNTER 2024-03-03 13:35 | Outpatient (POV) | payer MEDICARE, SELFPAY | END 2024-03-03 23:59 | disposition home or self-care (01) | LOC: SC 13:36 | PROVIDERS: Visit Provider Student in an Organized Health Care Education/Training Program | DX: Z00.00 Encounter for general adult medical examination without abnormal findings (principal) ==

== ENCOUNTER 2024-06-12 10:10 | Outpatient (CLI) | payer MEDICARE, SELFPAY ==
[2024-06-12 10:24] LABS: Microscopic, Urine URINE MICROSCOPIC (MICROSCOPIC)
[2024-06-12 10:56] LABS: Hematocrit 36.2 % (42.0-52.0); Hemoglobin 11.9 g/dL (14.1-18.0); Mean Corpuscular Hemoglobin 30.2 pg (27.0-31.2); Mean Corpuscular Volume 91.7 fl (80-94); Platelet Count 130 K/mm3 (142-424); Red Blood Count 3.95 M/mm3 (4.60-6.20); Red Cell Distribution Width 13.8 % (11.5-17.5); White Blood Count 3.7 K/mm3 (4.8-10.8)
[2024-06-12 11:27] LABS: Appearance,Urine CLEAR (Clear); Bilirubin,Urine Negative (Negative); Blood, Urine 1+ (Negative); Color,Urine YELLOW (Yellow); Glucose,Urine (UA) Negative (Negative); Ketones,Urine Negative (Negative); Leukocyte Esterase,Urine Negative (Negative); Nitrate,Urine Negative (Negative); Protein,Urine 1+ (Negative); Urobilinogen,Urine 0.2 EU/dl (0.2)
[2024-06-12 11:58] LABS: Creatinine,Urine Random 96 mg/dL (Not Estab.)
[2024-06-12 12:01] LABS: Bacteria,Urine Trace /lpf; RBC,Urine Occasional #/hpf (0-3); Squamous Epithelial Cell,Urine Occasional #/hpf (0-5); WBC,Urine Occasional #/hpf (0-3)
[2024-06-12 16:19] LABS: 25-OH Vitamin D, Total 33.2 ng/mL (30-100)
[2024-06-12 16:37] LABS: Albumin Level 3.8 g/dl (3.5-5.0); Anion Gap 11.5 mEq/L (5-15); Blood Urea Nitrogen 50 mg/dl (9-20); Calcium 8.9 mg/dl (8.4-10.2); Carbon Dioxide 22 mmol/L (22.0-30.0); Chloride 113 mmol/L (98-107); Estimated Glomerular Filt Rate 32 ml/min (>60); GFR (African American) 39 ML/MIN (>60); Glucose 114 mg/dl (74-100); Potassium 5.5 mmoL/L (3.5-5.1); Sodium 141 mmol/L (136-145)
[2024-06-12 16:49] LABS: Intact Parathyroid Hormone 121.5 pg/mL (7.5-53.5)
== END 2024-06-12 23:59 | disposition home or self-care (01) ==
LOC: LAB 10:11
PROVIDERS: PCP Family Medicine; Visit Provider Student in an Organized Health Care Education/Training Program
DX: N18.32 Chronic kidney disease, stage 3b (principal); E83.9 Disorder of mineral metabolism, unspecified; M89.9 Disorder of bone, unspecified
CPT/HCPCS: 36415; 80069; 81001; 82306; 82570; 83970; 84156; 85027

== ENCOUNTER 2024-09-25 09:53 | Outpatient (CLI) | payer MEDICARE, SELFPAY ==
[2024-09-25 09:58] LABS: Microscopic, Urine URINE MICROSCOPIC (MICROSCOPIC)
[2024-09-25 10:12] LABS: Hemoglobin 12.7 g/dL (14.1-18.0); Mean Corpuscular HGB Conc 31.8 g/dL (31.8-35.4); Mean Corpuscular Hemoglobin 28.9 pg (27.0-31.2); Mean Corpuscular Volume 91.1 fl (80-94); Platelet Count 130 K/mm3 (142-424); Red Blood Count 4.39 M/mm3 (4.60-6.20); Red Cell Distribution Width 13.7 % (11.5-17.5); White Blood Count 4.3 K/mm3 (4.8-10.8)
[2024-09-25 10:22] LABS: Appearance,Urine CLEAR (Clear); Bilirubin,Urine Negative (Negative); Blood, Urine 1+ (Negative); Color,Urine YELLOW (Yellow); Glucose,Urine (UA) Negative (Negative); Ketones,Urine Negative (Negative); Leukocyte Esterase,Urine Negative (Negative); Nitrate,Urine Negative (Negative); Protein,Urine 1+ (Negative); Urobilinogen,Urine 0.2 EU/dl (0.2)
[2024-09-25 10:27] LABS: Albumin Level 3.9 g/dl (3.5-5.0); Chloride 108 mmol/L (98-107); Potassium 4.9 mmoL/L (3.5-5.1); Sodium 139 mmol/L (136-145)
[2024-09-25 10:30] LABS: Anion Gap 8.9 mEq/L (5-15); Blood Urea Nitrogen 34 mg/dl (9-20); Carbon Dioxide 27 mmol/L (22.0-30.0); Estimated Glomerular Filt Rate 38 ml/min (>60); GFR (African American) 46 ML/MIN (>60); Phosphorous 2.7 mg/dl (2.5-4.5)
[2024-09-25 10:31] LABS: Calcium 8.6 mg/dl (8.4-10.2); Glucose 103 mg/dl (74-100)
[2024-09-25 10:46] LABS: WBC,Urine Occasional #/hpf (0-3)
[2024-09-25 10:50] LABS: Creatinine,Urine Random 66 mg/dL (Not Estab.)
== END 2024-09-25 23:59 | disposition home or self-care (01) ==
LOC: LAB 09:54
PROVIDERS: PCP Family Medicine; Visit Provider Student in an Organized Health Care Education/Training Program
DX: N18.32 Chronic kidney disease, stage 3b (principal); E87.5 Hyperkalemia
CPT/HCPCS: 36415; 80069; 81001; 82570; 84156; 85027

== ENCOUNTER 2024-11-06 07:18 | Emergency (ER) | payer MEDICARE, SELFPAY ==
[2024-11-06] VITALS (9 sets, daily range): BP systolic 109–148; BP diastolic 57–97; PULSE 48–64; RESP 12–20; TEMP 36.6; O2SAT 94–96; BMI 24.3
--- NOTE | 2024-11-06 07:28 | ECG_ITS ---
APPROVED REPORT Exam: Resting ECG HR:59 bpm ECG Measurements Heart Rate 59 AXES QRSd 85 QRS 30 QT 389 T 45 QTc 389 Conclusion ATRIAL FIBRILLATION WITH SLOW VENTRICULAR RESPONSE POSSIBLE RIGHT VENTRICULAR CONDUCTION DELAY [RSR (QR) IN V1/V2] POSSIBLE SEPTAL MYOCARDIAL INFARCTION , PROBABLY OLD [30 ms Q WAVE IN V1/V2] ABNORMAL RHYTHM ECG UNCONFIRMED REPORT Electronically signed by : PAVEL SEN, 11/07/2024 01:45:48
--- NOTE | 2024-11-06 07:28 | PC.NURSE ---
DR WYNN AT BEDSIDE
--- NOTE | 2024-11-06 07:35 | XR_ITS ---
FINAL REPORT CLINICAL HISTORY: cough COMPARISON: 12/20/2023 FINDINGS: 2 views of the chest were obtained . Patient is status post median sternotomy. The heart is normal in size. The mediastinum is within normal limits. There are mild chronic changes. The lungs are otherwise clear. There is no pneumothorax. Osseous structures are unremarkable. IMPRESSION: No acute cardiopulmonary process. Reviewed, Interpreted and Dictated by Mykel Chambers MD Transcribed by Una Cristina Authenticated and [facility]
[2024-11-06 07:45] LABS: Basophils % 0.4 % (0.1-2.0); Eosinophils # 0.1 Kmm3 (0.0-0.4); Eosinophils % 2.5 % (0.1-12.0); Hematocrit 39.7 % (42.0-52.0); Hemoglobin 12.9 g/dL (14.1-18.0); Immature Granulocytes # 0.01 10^3uL; Immature Granulocytes % 0.2 %; Lymphocytes # 1.5 K/mm3 (0.7-4.5); Lymphocytes % 28.7 % (10-50); Mean Corpuscular HGB Conc 32.5 g/dL (31.8-35.4); Mean Corpuscular Hemoglobin 28.8 pg (27.0-31.2); Mean Corpuscular Volume 88.6 fl (80-94); Mean Platelet Volume 9.8 fl (7.4-10.4); Monocytes # 0.6 K/mm3 (0.1-1.0); Monocytes % 11.1 % (1.7-9.3); Neutrophils # 2.9 K/mm3 (1.8-7.8); Neutrophils % 57.1 % (37.0-80.0); Nucleated Red Blood Cells # 0 10^3/uL; Nucleated Red Blood Cells % 0 %; Platelet Count 148 K/mm3 (142-424); Red Blood Count 4.48 M/mm3 (4.60-6.20); Red Cell Distribution Width 14.1 % (11.5-17.5); Red Cell Distribution Width-SD 45.9 fL; White Blood Count 5.2 K/mm3 (4.8-10.8)
[2024-11-06 07:46] LABS: Coronavirus 19, PCR Not Detected (NotDetected); Influenza A, PCR Not Detected (NotDetected); Influenza B, PCR Not Detected (NotDetected)
--- NOTE | 2024-11-06 07:54 | ED_ITS ---
Discharge Plan Disposition Patient Disposition: Home, Self-Care Chief Complaint: Upper Respiratory Infection Prescriptions Prescriptions: No Action Invokana 100 mg tablet 100 mg PO DAILY Jardiance 25 mg tablet 25 mg PO DAILY famotidine 40 mg tablet 40 mg PO BID Qty: 60 2RF furosemide 20 mg tablet 20 mg PO DAILY Xarelto 15 mg tablet 15 mg PO DAILY Trelegy Ellipta 100-62.5-25 mcg blister with device inhalation fluticasone propionate 50 mcg/actuation spray,suspension intranasal Patient Comments: USE 1 SPRAY(S) IN EACH NOSTRIL ONCE DAILY albuterol sulfate 90 mcg/actuation HFA aerosol inhaler inhalation Patient Comments: INHALE 1 PUFF BY MOUTH EVERY 4 HOURS NEEDED atorvastatin 20 MG tablet 20 mg PO HS lisinopril 2.5 MG tablet 2.5 mg PO HS metoprolol tartrate 25 MG tablet 25 mg PO BID tamsulosin 0.4 MG capsule 0.4 mg PO DAILY Referrals Follow up/Referrals: Milind Corona MD [Primary Care Provider] - See instructions Activity Restrictions/Add. Instructions Additional Instructions/Restrictions: Follow-up with your primary care physician. If you develop any new or worsening symptoms, or if you become concerned for your health for any reason, return to the emergency department for evaluation Clinical Impressions Clinical Impression: Cough Print Language Print Language: Gibraltarian Discharge ED Provider: [place] Adult HPI General Chief complaint: Upper Respiratory Infection Stated complaint: Cough, SOB, Fainting, Dizzy Time Seen by Provider: 11/06/24 07:27 Mode of Arrival: Wheelchair Source of Information: Patient Description of Symptoms (Recalled from ER Triage Doc. by RN): PT REPORTS COUGH X 5 DAYS, COUGHING CAUSING NEAR SYNCOPE. NON-PRODUCTIVE. DENIES FEVER. REPORTS SHORTNESS OF BREATH History of Present Illness HPI narrative: 83-year-old male with history of chronic kidney disease, heart failure, A-fib, coronary artery disease, hypertension hyperlipidemia who presents to the emergency department for complaints of shortness of breath and cough. Patient states that over the last week, he has had a dry cough and some shortness of breath associated with it. 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 He also reports feeling weak and like he nearly passed out. He denies any chest pain. His notes that when he is sleeping in his chair, he will oftentimes mumble in his sleep and they describe this as hallucinating. Patient denies any leg swelling or fever. Related Data Home Medications ?Medication ?Instructions ?Recorded ?Confirmed atorvastatin 20 mg tablet 20 mg PO HS Cholesterol 10/18/17 10/04/24 lisinopril 2.5 mg tablet 2.5 mg PO HS BLOOD PRESSURE 10/18/17 10/04/24 metoprolol tartrate 25 mg tablet 25 mg PO BID Hypertension 10/18/17 10/04/24 tamsulosin 0.4 mg capsule 0.4 mg PO DAILY prostate 01/02/19 10/04/24 canagliflozin 100 mg tablet 100 mg PO DAILY heart health 10/09/21 10/04/24 (Invokana) empagliflozin 25 mg tablet 25 mg PO DAILY 09/22/23 10/04/24 (Jardiance) furosemide 20 mg tablet 20 mg PO DAILY 11/01/23 10/04/24 albuterol sulfate 90 mcg/actuation inhalation 03/22/24 10/04/24 aerosol inhaler fluticasone fur. 100 mcg-umeclid inhalation 03/22/24 10/04/24 62.5 mcg-vilant 25 mcg inhalat.powder (Trelegy Ellipta) fluticasone propionate 50 intranasal 03/22/24 10/04/24 mcg/actuation nasal spray,suspension rivaroxaban 15 mg tablet (Xarelto) 15 mg PO DAILY 03/22/24 10/04/24 Previous Rx's ?Medication ?Instructions ?Recorded famotidine 40 mg tablet 40 mg PO BID #60 tabs 09/22/23 Allergies Allergy/AdvReac Type Severity Reaction Status Date / Time No Known Allergies Allergy Verified 10/04/24 13:31 [facility] Disclaimer: The information contained in this section may have been updated after the patient was seen, as this information can be updated by other users. Medical History Hyperkeratotic oral lesion Fatigue Abnormal findings on diagnostic imaging of heart and coronary circulation Chronic kidney disease Afib Coronary artery disease HLD (hyperlipidemia) Bradycardia Verrucous carcinoma of floor of mouth Difficulty swallowing Stopped smoking with greater than 30 pack year history Dyspnea on exertion Cough variant asthma Shortness of Breath Chronic cough Allergic rhinitis History of smoking 30 or more pack years History of lip cancer Dyspnea on exertion Coronary artery disease HTN (hypertension) Surgical History History of oral surgery History of coronary artery bypass graft History of prostate surgery History of open heart surgery Family History Family/Other Heart disease Social History Smoking Status: Former smoker tobacco type: smokeless tobacco second hand exposure: No alcohol intake: never substance use type: denies use current occupational status: other Travel in the last 8 weeks?: None household members: spouse housing: house marital status: education level: high school service: Yes current occupational exposures/hazards: No caffeine: No special elizabeth needs: No agree to transfusion: No do you feel safe at home: Yes victim of physical abuse: No victim of emotional abuse: No victim of sexual abuse: No would you like helpful sources: No Have you lived/traveled outside [place] in past 30 days?: No Contact w/someone who lives/traveled outside US past 30 days?: No Exposure to someone with infectious disease in past 14 days?: No Do you have a fever (greater than 100.4 F or 38 C)?: No Have you tested positive for COVID-19?: No Exposed to someone with COVID-19 in past 14 days?: No Do you have a sore throat?: No Do you have a cough?: Yes Do you have any weakness?: No Do you have any diarrhea?: No Are you experiencing any unusual bleeding?: No Do you have any muscle aches/pain?: No Do you have any abdominal pain?: No Are you experiencing loss of taste or smell?: No Other Medical History Have you received the Flu Vaccine for this season: No Have you received the Pneumonia Vaccine: No ROS Obtained: Yes Systems reviewed as appropriate & no additional complaints except as documented Physical Exam General General appearance: alert and in no apparent distress Head Head exam: atraumatic Eye Eye exam: Present normal appearance ENT ENT exam: Present normal external ear exam Neck Neck exam: Present full ROM Chest Chest inspection: Present symmetric chest wall rise Respiratory Respiratory exam: Present normal lung sounds bilaterally and other (Active dry cough); Absent respiratory distress, wheezes or stridor Cardiovascular Cardiovascular exam: Present regular rate and normal rhythm Abdominal Exam Abdominal exam: Present soft; Absent tenderness or guarding exam: Present deferred Extremities Exam Extremities exam: Present normal inspection; Absent edema Back Exam Back exam: Present normal inspection Neurological Exam Neurological exam: Present alert and oriented X3 Psychiatric Psychiatric exam: Present normal affect Skin Skin exam: Present warm and dry Medical Decision Making Medical Records Screening: Per USPSTF and CDC recommendations, given the prevalence of disease in our region, it is our hospital?s policy to screen for HIV and viral Hepatitis for all patients aged 18 and over and those with ongoing risk factors. Mayito Inquiry Pt receiving controlled substance: No Vital Signs: 11/06/24 07:28 11/06/24 08:01 11/06/24 08:31 Temperature 97.8 F Temperature Source Oral Pulse Rate 54 L 64 Pulse Rate [Apical] 64 Respiratory Rate 18 20 14 Blood Pressure 135/97 H 109/57 L Blood Pressure [Left Arm] 148/76 H Blood Pressure Mean [Left Arm] 100 Blood Pressure Source [Left Arm] Automatic Cuff Blood Pressure Position [Left Arm] Sitting 02 Sat by Pulse Oximetry 96 96 94 L Oxygen Delivery Method Room Air Room Air Room Air 11/06/24 09:00 11/06/24 09:30 11/06/24 10:01 Temperature Temperature Source Pulse Rate 53 L 50 L 48 L Pulse Rate [Apical] Respiratory Rate 20 12 20 Blood Pressure 116/61 129/74 119/87 Blood Pressure [Left Arm] Blood Pressure Mean [Left Arm] Blood Pressure Source [Left Arm] Blood Pressure Position [Left Arm] 02 Sat by Pulse Oximetry 96 95 94 L Oxygen Delivery Method Room Air Room Air 11/06/24 10:31 11/06/24 11:00 Temperature Temperature Source Pulse Rate Pulse Rate [Apical] Respiratory Rate 18 16 Blood Pressure 115/70 Blood Pressure [Left Arm] Blood Pressure Mean [Left Arm] Blood Pressure Source [Left Arm] Blood Pressure Position [Left Arm] 02 Sat by Pulse Oximetry Oxygen Delivery Method Lab Data Lab Results 11/06/24 07:39: WBC 5.2, RBC 4.48 L, Hgb 12.9 L, Hct 39.7 L, MCV 88.6, MCH 28.8, MCHC 32.5, RDW 14.1, Plt Count 148, MPV 9.8, Neut % (Auto) 57.1, Lymph % (Auto) 28.7, [place] % (Auto) 11.1 H, Eos % (Auto) 2.5, Baso % (Auto) 0.4, Neut # (Auto) 2.9, Lymph # (Auto) 1.5, [place] # (Auto) 0.6, Eos # (Auto) 0.1, Baso # (Auto) 0.0, D-Dimer 0.71 H, Sodium 137, Potassium 4.8, Chloride 111 H, Carbon Dioxide 21 L, Anion Gap 9.8, BUN 37 H, Creatinine 2.00 H, Estimated Creat Clear 27, Estimated GFR 32 L, Est GFR ( Amer) 39 L, Glucose 98, Calcium 8.5, Total Bilirubin 0.8, AST 36, ALT 18, Alkaline Phosphatase 89, Troponin I 0.02, Total Protein 6.7, Albumin 3.8, Globulin 2.9, Albumin/Globulin Ratio 1.3, HCV Ab NISHA w/Rflx PCR Qn Negative, HIV Ag/Ab Combo Qual Negative 11/06/24 07:42: SARS-CoV-2 (PCR) Not detected, Influenza A Untype (PCR) Not detected, Influenza Type B (PCR) Not detected 11/06/24 09:53: Troponin I 0.02 11/06/24 07:39 11/06/24 07:39 Orders (Tests/Meds): ORDERS Category Date Time Status CXR 2 view (NOT portable) [XR chest 2V] Stat Exams 11/06/24 07:35 Completed CBC w/Auto Diff [Complete Blood Count Auto Diff] Stat Lab 11/06/24 07:39 Completed CMP [Comprehensive Metabolic Panel] Stat Lab 11/06/24 07:39 Completed D-Dimer Stat Lab 11/06/24 07:39 Completed HIV Combo Stat Lab 11/06/24 07:39 Completed Hepatitis C Ab Qual. W/ RFX Stat Lab 11/06/24 07:39 Completed Rapid PCR Covid and Flu A/B Stat Lab 11/06/24 07:42 Completed Troponin I Q3H Lab 11/06/24 09:53 Completed Troponin I Q3H Lab 11/06/24 13:45 Ordered Troponin I Stat Lab 11/06/24 07:39 Completed ECG Data Tracing #1: I reviewed this ECG and interpreted as documented below: EKG interpreted by me at 07 35. Atrial fibrillation with ventricular rate of 59 bpm. Patient is noted to have A-fib and bradycardia on previous documentation and EKGs. No ST elevation or depression. No T wave inversions. QTc normal at 389 Medical Decision Narrative: 83-year-old male with history of chronic kidney disease, heart failure, A-fib, coronary artery disease, hypertension hyperlipidemia who presents to the emergency department for complaints of shortness of breath and cough. Patient states that over the last week, he has had a dry cough and some shortness of breath associated with it. 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 He also reports feeling weak and like he nearly passed out. He denies any chest pain. His notes that when he is sleeping in his chair, he will oftentimes mumble in his sleep and they describe this as hallucinating. Patient denies any leg swelling or fever. On arrival, patient is mildly hypertensive with blood pressure 148/76, heart rate within normal limits at 64 bpm, breathing 18 times a minute with oxygen saturation at 96% on room air. Afebrile. Physical exam, stated above, reveals an overall well-appearing male in no distress. He is alert and oriented and answering my questions appropriately. He has an active dry cough but lung sounds are clear bilaterally. No murmurs are appreciated. Abdomen is soft, nontender nondistended. He does not have any peripheral edema in his lower extremities. Chart review reports that he has a history of chronic shortness of breath and had a right heart cath that was overall reassuring approximately 1 year ago. Differential diagnosis includes, but is not limited to: Pneumonia, bronchitis, pulmonary embolism, pneumothorax, ACS, viral respiratory illness, dehydration, among others. Patient's workup in the emergency department included: 2 view chest x-ray, EKG, troponin, D-dimer, CBC, CMP, COVID/flu swab Patient's workup showed D-dimer mildly elevated at 0.71, however when adjusted for age, this is negative. No leukocytosis. Mild anemia with hemoglobin 12.9 and hematocrit of 39.7 (this appears to be patient's baseline). Platelets normal at 148. Patient's creatinine and BUN are elevated at 2.0 and 37 respectively, however this appears to be patient's baseline based on previous labs. No significant electrolyte derangement. Liver enzymes within normal limits. Negative flu and COVID testing. Repeat troponin unchanged at 0.02 X-ray interpreted by me personally. No focal consolidation, no pneumothorax, no widening of the mediastinum. Unremarkable chest x-ray. See radiology report for details. On reassessment, patient remains stable condition. He has continued to be bradycardic but has chronic bradycardia according to chart review. Ch[place]is that no additional workup is indicated at this time as this seems to be a chronic issue that patient states that has not been solved. Will have patient follow-up with his primary care physician. All questions were answered. He demonstrated understanding and was in agreement with this plan. He was then discharged from the emergency department in stable condition. Critical Care Critical Care Time Critical Care Time: No
--- NOTE | 2024-11-06 08:00 | PC.NURSE ---
PT RETURNED FROM XR
[2024-11-06 08:07] LABS: Alanine Aminotransferase 18 U/L (12-78); Albumin Level 3.8 g/dl (3.5-5.0); Albumin/Globulin Ratio 1.3 (1.1-1.8); Alkaline Phosphatase 89 U/L (38-126); Anion Gap 9.8 mEq/L (5-15); Aspartate Amino Transferase 36 U/L (17-59); Bilirubin,Total 0.8 mg/dl (0.2-1.3); Blood Urea Nitrogen 37 mg/dl (9-20); Calcium 8.5 mg/dl (8.4-10.2); Carbon Dioxide 21 mmol/L (22.0-30.0); Chloride 111 mmol/L (98-107); Creatinine Clearance Estimated 27 mL/min (50-200); Estimated Glomerular Filt Rate 32 ml/min (>60); GFR (African American) 39 ML/MIN (>60); Globulin 2.9 g/dL (1.3-3.2); Glucose 98 mg/dl (74-100); Potassium 4.8 mmoL/L (3.5-5.1); Sodium 137 mmol/L (136-145); Total Protein,Serum 6.7 g/dl (6.3-8.2)
[2024-11-06 08:11] LABS: D-Dimer 0.71 ug/mL (0.0-0.5)
[2024-11-06 08:20] LABS: Troponin I 0.02 ng/ml (0.00-0.034)
--- NOTE | 2024-11-06 08:38 | PC.NURSE ---
ROUNDED ON PT, RESTING WITH EYES CLOSED. CALL LIGHT WITHIN REACH. NO NEEDS AT THIS TIME
[2024-11-06 09:08] LABS: HIV Combo NEGATIVE (Negative)
[2024-11-06 09:15] LABS: Hepatitis C Ab Qual. W/ RFX NEGATIVE (Negative)
--- NOTE | 2024-11-06 09:55 | PC.NURSE ---
Patients 2nd Troponin was just sent to lab.
[2024-11-06 10:53] LABS: Troponin I 0.02 ng/ml (0.00-0.034)
== END 2024-11-06 11:41 | disposition home or self-care (01) ==
PROVIDERS: Emergency Provider Student in an Organized Health Care Education/Training Program; PCP Family Medicine
DX: R06.02 Shortness of breath (principal); I48.91 Unspecified atrial fibrillation; R05.1 Acute cough; I25.10 Atherosclerotic heart disease of native coronary artery without angina pectoris; I10 Essential (primary) hypertension; E78.5 Hyperlipidemia, unspecified; Z87.891 Personal history of nicotine dependence; Z11.59 Encounter for screening for other viral diseases; Z11.4 Encounter for screening for human immunodeficiency virus [HIV]
CPT/HCPCS: 71046; 80053; 84484; 85025; 85378; 86803; 87389; 87636; 93005; 99284

== ENCOUNTER 2024-11-06 17:55 | Outpatient (CLI) | payer MEDICARE, SELFPAY | END 2024-11-06 23:59 | disposition home or self-care (01) | LOC: LAB.DROPOF 11-07 13:47 | PROVIDERS: PCP Student in an Organized Health Care Education/Training Program; Visit Provider Student in an Organized Health Care Education/Training Program | DX: N39.0 Urinary tract infection, site not specified (principal) | CPT/HCPCS: 87086 ==

== ENCOUNTER 2024-11-08 12:32 | Outpatient (CLI) | payer MEDICARE, SELFPAY ==
[2024-11-08 12:36] LABS: Adenovirus,PCR Not Detected (NotDetected); Bordetella Pertussis Not Detected (NotDetected); Chlamydophila Pneumoniae, PCR Not Detected (NotDetected); Coronavirus 19, PCR Not Detected (NotDetected); Coronavirus 229E Not Detected (NotDetected); Coronavirus NL63 Not Detected (NotDetected); Coronavirus OC43 Not Detected (NotDetected); Coronovirus HKU1,PCR Not Detected (NotDetected); Human Metapneumovirus Not Detected (NotDetected); Influenza A, PCR Not Detected (NotDetected); Influenza AH1, 2009 Not Detected (NotDetected); Influenza AH1, PCR Not Detected (NotDetected); Influenza AH3,PCR Not Detected (NotDetected); Influenza B, PCR Not Detected (NotDetected); Mycoplasma Pneumoniae, PCR Not Detected (NotDetected); Parainfluenza 1, PCR Not Detected (NotDetected); Parainfluenza 2, PCR Not Detected (NotDetected); Parainfluenza 4, PCR Not Detected (NotDetected); Respiratory Syncytial Virus Not Detected (NotDetected); Rhinovirus/Enterovirus Not Detected (NotDetected)
[2024-11-08 16:37] LABS: Parainfluenza 3, PCR Detected (NotDetected)
== END 2024-11-08 23:59 | disposition home or self-care (01) ==
LOC: LAB 12:33
PROVIDERS: PCP Physician Assistant; Visit Provider Physician Assistant
DX: J40 Bronchitis, not specified as acute or chronic (principal); Z87.891 Personal history of nicotine dependence
CPT/HCPCS: 87633

== ENCOUNTER 2025-04-04 06:46 | Emergency (ER) | payer MEDICARE, SELFPAY ==
--- OUTSIDE RECORDS SUMMARY | 2024-02-03 09:15 | XMS_ITS ---
Author Organization [facility] Address [address] [place] [id number] Care Team Providers Care Control Systems Developer Name Role Phone Milind Corona Primary Care Provider [phone] Reshma Gipson Unavailable [phone] Allergies No Known Allergies Results Component Value [...] 25 Performing Lab: Notes/Report: Test performed by [facility], [facility] [address] [place] [address] , [address], [place] [address] Bob Boone MD, Poultry Tender CLIA: [id number] Sodium 137 135-145 mmol/L Potassium 5.1 3.5-5.3 [...] Interpretation:Normal Performing Lab: Notes/Report: Test performed by [facility], [address] , [facility], [place] [address] Bob Boone MD, Poultry Tender CLIA: [id number] Magnesium 1.9 1.6-2.4 mg/dL Pulmonary Function Complete [...] times a day 02/03/2024 Active Vital Signs Weight 156.2 lbs 02/03/2024 Blood pressure systolic 116 mm Hg 02/03/20 24 Blood pressure diastolic 64 mm Hg 024 Heart Rate 64 /min 02/03/2024 Height 70 in 02/03/2024 BMI 22.41 kg/m2 02/03/2024 Encounters Encounter Location Date Provider Diagnosis [facility] 1210 [facility] [address] [place] [id number] 02/03/2024 Reshma Crowdy Bronchitis J40 ; Non-recurrent [...] test results, Reason: Provider Name:Milind Hanley ry, 04/05/2025 11:15:00 AM, [address], [address], [place], [id number], Progress Notes * JOANA CORTESDOB: 8 (84 yo M)Acc No.[id number]:02/03/2024 Progress Notes Patient: JOANA BORREGO Provider: SILVA Luque :1940 A ge:83 Y S ex:Male Date:02/03/2024 Address:[address] [place] [address] [place], [id number] Pcp:Milind Corona Subjective: * Chief Complaints: * [...] Hospitalization/Major Diagno stic Procedure: B ack Pain- [facility] 04/09/2012, Heart Attack- [place] 05/08/2013, Kidney Stones , Dizziness- [facility] 10/18/2017, Dizziness- [facility] 10/19-, Unable to Urinate- Foly Cath- [facility] 08/20/2020, Unable to Urinate- Foly Fath- [facility] 04/22/2021. * Family History: F [...] AM > no auth required; CPT code 44061; faxed to Reshma Gonzalez 03/01/2024 8:53:38 AM > see TE * Procedure Codes: 9 4760 [place], [address] CAPILLARY BLOOD DRAW, 86[address] CBC WITH AUTO DIFF * Follow Up: v ia phone to report test results * Images: Billing Information: * Visit Code: 44093 Office Visit, Est Pt., Level 3. * Procedure Codes: [address] [place]. [address] CAPILLARY BLOOD DRAW. 15900 CBC WITH AUTO DIFF. * Electronic signature of SILVA Elizabeth on 04/04/2025 at 06:59 AM EDT Sign off status: Pending * Provider: SILVA Luque Date: 0 02/03/2024 Generated for Printi ng/Faxing/eTransmitting on: 1 06:59 AM EDT History and Physical Notes * [...]
--- OUTSIDE RECORDS SUMMARY | 2024-03-08 05:00 | XMS_ITS ---
Author Organization [facility] Address [address] [facility] [address] [facility] [address] [place] [phone] Care Team Providers Care Motor Vehicle Clerk Name Role Phone Milind Corona Primary Care Provider Allergies No Known Allergies REASON FOR VISIT 6 month check Encounters Encounter Location Date Provider Diagnosis [place] [address] [facility] [address] [place] [phone] 03/08/2024 Milind Corona Plan Of Treatment Next Appt Details Provider Name:Milind Hanley ry, 04/05/2025 11:15:00 AM, [address], [address], [place], [phone], Progress Notes * HERMINIA COYSinDOB: 8 (84 yo M)Acc No.[id number]:03/08/2024 Progress Notes Patient: JOANA BORREGO Provider: Gonzalo Corona M.D. :1940 A ge:83 Y S ex:Male Date:03/08/2024 Address:[place], [id number] Subjective: * Chief Complaints: * 1 . 6 month check. * HPI: C ardiology: 83 year old male presents with c/o Blood Pressure Elevated P t here for 6 mo f/u on hypertension, states he is doing well and does not have any concerns. c/o Hyperlipidemia P t is fasting today. * ROS: D ERMATOLOGY: no R sohpy. n o H alex. G ASTROENTEROLOGY: no [...] C-Scope, Normal/ Dr. Rm 11/2010, Circumcision- Dr. gAustin 09/2012, Coronary Artery Bypass Graft - 3 Vessels 04/2013, Lip Skin Cancer Biopsy Biopsy 09/17/2020, Buccal Mass Removal 04/22/2021, Cyst removal from mouth 08/19/2022. * Hospitalization/Major Diagno stic Procedure: B ack Pain- [facility] 04/09/2012, Heart Attack- [place] 05/08/2013, Kidney Stones , Dizziness- [facility] 10/18/2017, Dizziness- [facility] 10/19-, Unable to Urinate- Foly Cath- [facility] 08/20/2020, Unable to Urinate- Foly Fath- [facility] 04/22/2021. * Family History: F [...] Electronic signature of Janeth Corona MD on 04/04/2025 at 07:00 AM EDT Sign off status: Pending * Provider: Gonzalo Corona M.D. Date: 0 03/08/2024 Generated for Mehdi brown/Ramsey/Abdirahman on: 1 07:00 AM EDT History and Physical Notes * HPI (History of Present Illness) Category Sub-Category Detail Notes Category Not es Cardiology Blood Pressure Elevated Pt here for 6 mo f/u on hypertension, states he is doing well and does not have any concerns Hyperlipidemia Pt is fasting today
--- OUTSIDE RECORDS SUMMARY | 2024-08-28 07:00 | XMS_ITS ---
Author Organization [facility] Address [address] [facility] [address] [place] [phone] Care Team Providers Care Physical Director Name Role Phone Milind Corona Primary Care [...] orally once a day Active Vital Signs Weight 156.4 lbs 08/28/2024 Blood pressure systolic 90 mm Hg 08/29/19 25 Blood pressure diastolic 60 mm Hg 025 Heart Rate 91 /min 08/28/2024 Height 70 in 08/28/2024 BMI 22.44 kg/m2 08/28/2024 Encounters Encounter Location Date Provider Diagnosis [facility] [address] [facility] [address] [place], [place] [phone] 08/28/2024 Milind Corona Acute URI J06.9 Assessments [...] Up: prn, Reason: Provider Name:Milind Hanley ry, 04/05/2025 11:15:00 AM, [address], [address] , [place], [place], [phone], Progress Notes * JOANA COYDOB: [birth year] (84 yo M)Acc No.[id number]:08/28/2024 Progress Notes Patient: JOANA BORREGO Provider: Gonzalo Corona M.D. :1940 A ge:84 Y S ex:Male Date:08/28/2024 Address:[address] [place], [place] [address]-[id number] Subjective: * Chief Complaints: * 1 . [...] Diagno stic Procedure: B ack Pain- [facility] 04/09/2012, Heart Attack- [place] 05/08/2013, Kidney Stones , Dizziness- [facility] 10/18/2017, Dizziness- [facility] 10/19-, Unable to Urinate- Foly Cath- [facility] 08/20/2020, Unable to Urinate- Foly Fath- [facility] 04/22/2021. * Family History: F [...] G 2211 Complex e/[place], [address] [place], [address] CAPILLARY BLOOD DRAW, 322[address] CBC WITH AUTO DIFF, 3074F SYST BP LT 130 MM HG, 3078F DIAST BP < 80 MM HG * Follow Up: p rn * Images: Billing Information: * Visit Code: 03669 Office Visit, Est Pt., Level 3. * Procedure Codes: G2211 Complex e/[place]. [address] [place]. [address] CAPILLARY BLOOD DRAW. 89250 CBC WITH AUTO DIFF. 3074F SYST BP LT 130 MM HG. 3078F DIAST BP < 80 MM HG. * Electronic signature of Janeth Corona MD on 04/04/2025 at 06:59 AM EDT Sign off status: Pending * Provider: Gonzalo Corona M.D. Date: 0 08/28/2024 Generated for Mehdi brown/Ramsey/eTransmitting on: 1 06:59 AM EDT History and [...]
--- OUTSIDE RECORDS SUMMARY | 2024-11-08 07:30 | XMS_ITS ---
Author Organization [facility] Address [address] [facility] [address] [place] [address] [place] [id number] Care Team Providers Care Electronic Publisher Name Role Phone Milind Corona Primary Care Provider Reshma Gipson Unavailable [phone] Allergies No Known Allergies Results Component Value [...] employed in healthcare? No Is patient an [facility] employee? N Is patient currently hospitalized? No Is patient currently in ICU? No Date of Symptom onset Is patient a resident in a congregate care setting? No ADENOQIA Not Detected NotDetected CORONAHKU1 Not Detected NotDetected MSZEKMTS12 Not Detected NotDetected QSHUP580C Not Detected NotDetected CLXFLEY06 Not Detected NotDetected METAPNEUMO Not Detected NotDetected RHINOENTER Not Detected NotDetected INFLUAPCR Not Detected NotDetected FLUAH1 Not Detected NotDetected NLIIPIX20114 Not Detected NotDetected INFLUAH3 Not Detected NotDetected [...] Not Detected NotDetected MYCOPLASM Not Detected NotDetected P-Comprehensive Metabolic Pa keaton (CMP) Reviewed date:11/09/2024 03:25:45 PM Interpretation:K 5.4, CO2 21, BUN 50, Creat 2.49, eGFR 24 Performing Lab: Notes/Report: Test performed by [employer] [address] [place] [address] , [address], [place] [address] Bob Boone MD, Principal Java Software Engineer CLIA: [id number] Sodium 139 135-145 mmol/L Potassium 5.4 3.5-5.3 [...] Growth Performing Lab: Notes/Report: Test performed by [employer] [address] [place] [address] , [place] [address] Bob Boone MD, Principal Java Software Engineer CLIA: [id number] Specimen Source Urine - Void Culture, Urine See Below Final Report : No growth B-Type Natriuretic Peptide Reviewed date:11/09/2024 03:25:45 PM Interpretation:245.0 Performing Lab: Notes/Report: Test performed by [employer] [address] [place] [address] , [address], [place] [address] Bob Boone MD, Principal Java Software Engineer CLIA: [id number] B-Type Natriuretic Peptide 245.0 <2.0-100.0 pg/ mL REASON FOR VISIT f/u [facility] er Medications Medication SIG (Take, [...] Orally every 4 hrs Active Vital Signs Weight 149.6 lbs 11/08/2024 Blood pressure systolic 118 mm Hg 11/09/19 25 Blood pressure diastolic 50 mm Hg 025 Heart Rate 49 /min 11/08/2024 Height 70 in 11/08/2024 BMI 21.46 kg/m2 11/08/2024 Encounters Encounter Location Date Provider Diagnosis [facility] [address] [facility] [address] [place], [place] [id number] 11/08/2024 Reshma Gipson Bronchitis J40 ; Confusion R41.0 ; [...] as needed Inhalation every 4 hrs, prn Pending Test Test Name Order Date P-BNP (Brain Natriuretic Peptide) 2024 Next Appt Details Follow Up: via phone to repo rt test results, Reason: Provider Name:Milind Hanley , 04/05/2025 11:15:00 AM, [address] [facility] [address] [facility], [address] , [place], [id number], Progress Notes * JOANA COYDOB: [birth year] (84 yo M)Acc No.[id number]:11/08/2024 Patient: JOANA BORREGO Provider: SILVA Luque :1940 A ge:84 Y S ex:Male Date:11/08/2024 Address:[address] [place] [address] [place], [id number] Pcp:Milind Corona Subjective: * Chief Complaints: * 1 . F/u [facility] er. * HPI: H PI: HPI narrative from [facility] ER visit: 11/06/2024: 83-year-old male with history [...] has chronic bradycardia according to chart review. [place] that no additional workup is indicated at this time as this seems to be a chronic issue that patient states that has not been solved. Will have patient follow-up with his primary care physician. All questions were answered. He demonstrated understanding and was in agreement with this plan. He was then discharged from the emergency department in stable condition. Lab results from [facility] ER visit: 11/06/24 07:39: WBC 5.2, RBC 4.48 L, Hgb 12.9 L, Hct 39.7 L, MCV 88.6, MCH 28.8, MCHC 32.5, RDW 14.1, Plt Count 148, MPV 9.8, Neut % (Auto) 57.1, Lymph % (Auto) 28.7, [place] % (Auto) 11.1 H, Eos % (Auto) 2.5, Baso % (Auto) 0.4, Neut # (Auto) 2.9, Lymph # (Auto) 1.5, [place] # (Auto) 0.6, Eos # (Auto) 0.1, [...] Troponin I 0.02 CXR FINDINGS : from [facility] ER visit 2 views of the chest [...] is here today for a f/u from [facility] ER. Pt was seen at the ER [...] Hospitalization/Major Diagno stic Procedure: B ack Pain- [facility] ER 04/09/2012, Heart Attack- [place] 05/08/2013, Kidney Stones , Dizziness- [facility] 10/18/2017, Dizziness- [facility] 10/19-, Unable to Urinate- Foly Cath- [facility] ER 08/20/2020, Unable to Urinate- Foly Fath- [facility] ER 04/22/2021. * Family History: F ather: [...] ssential hypertension - I10 9 . B [place] 21.0-21.9, adult - Z68.21 ? Plan: * Treatment: Value Reference Range A DENOQIA Not Detected NotDetected - * C ORONAHKU1 Not Detected NotDetected - * C YFPFRWW13 Not Detected NotDetected - * C HVKH656M Not Detected NotDetected - * C WOJMWG81 Not Detected NotDetected - * M ETAPNEUMO Not Detected NotDetected - * R HINOENTER Not Detected NotDetected - * I NFLUAPCR Not Detected NotDetected - * F LUAH1 Not Detected NotDetected - * I [id number] Not Detected NotDetected - * I NFLUAH3 [...] encounter 3.?Shortness of breath?LAB: P-BNP (Brain Natriuretic Peptide)4.?Hematuria?LAB: P-Culture, Urine (Collection Date & Time - 11/08/2024 11:27 AM)?No Growth* Value Reference Range C ulture, Urine See Below - * S pecimen Source Urine - Void - * Reshma Gipson 11/12/2024 11 :25:10 PM > Please let patient know this showed no growth. Will need to recheck in a week to make sure the blood has resolvedGoprakash Madhavi 11/17/2024 01:21:28 PM > left message for return callGoMadhavi randall 11/29/2024 04:39:12 PM EDT > pt informed * Labs: * L ab: B-Type Natriuretic Peptide (Collection Date & Time - 11/08/2024 11:27 AM) 2 45.0 Value Reference Range B -Type Natriuretic Peptide 245.0 H <2.0-100.0 - p g/mL * [facility], IT support 11/09/2024 07:25:05 : This order was created by the Interface. KevMadhavi 11/09/2024 03:25:38 PM > See phone encounter * Procedure Codes: G 2211 Complex e/[place], [address] CAPILLARY BLOOD DRAW, 22071 CBC WITH AUTO DIFF, 25547 Urinalysis, no micro, 3074F SYST BP LT 130 MM HG, 3078F DIAST BP < 80 MM HG * Follow Up: v ia phone to report test results * Images: Billing Information: * Visit Code: 37013 Office Visit, Est Pt., Level 4. * Procedure Codes: G2211 Complex e/[place]. [address] CAPILLARY BLOOD DRAW. 57959 CBC WITH AUTO DIFF. 24035 Urinalysis, no micro. 3074F SYST BP LT 130 MM HG. 3078F DIAST BP < 80 MM HG. * Electronic signature of SILVA Elizabeth on 04/04/2025 at 06:59 AM EDT Sign off status: Pending * Provider: SILVA Luque Date: 0 11/08/2024 Generated for Gildai ng/Fadestinyg/eTransmitting on: 1 06:59 AM EDT History and Physical Notes * HPI (History of Present Illness) Category Sub-Category Detail Notes Category Not es ENT/respiratory Short of Breath Pts daughter als o sts that pt has had SOB HPI Here for follow up on: Pt is her e today for a f/u from [facility] ER. Pt was seen at the ER [...]
--- OUTSIDE RECORDS SUMMARY | 2024-11-10 11:45 | XMS_ITS ---
Author Organization [facility] Address [address] [place] [id number] Care Team Providers Care Translator And Interpreter Name Role Phone Milind Corona Primary Care Provider Reshma Gipson Unavailable [phone] Allergies No Known Allergies REASON FOR VISIT [...] every 4 hrs, prn Active Vital Signs Weight 149.4 lbs 11/10/2024 Blood pressure systolic 130 mm Hg 11/11/19 25 Blood pressure diastolic 70 mm Hg 025 Heart Rate 62 /min 11/10/2024 Height 70 in 11/10/2024 BMI 21.43 kg/m2 11/10/2024 Encounters Encounter Location Date Provider Diagnosis A-Arnaud 1210 [facility] [address] [place] [id number] 11/10/2024 Reshma Gipson Acute URI J06.9 and [...] [address], [address], [place], [id number], Progress Notes * JOANA CORTESDOB: 8 (84 yo M)Acc No.[id number]:11/10/2024 Patient: JONAA BORREGO Provider: SILVA Luque :1940 A ge:84 Y S ex:Male Date:11/10/2024 Address:[facility] [place], [id number] Pcp:Milind Corona Subjective: * Chief Complaints: * [...] stic Procedure: B ack Pain- [facility] ER 04/09/2012, Heart Attack- [place] 05/08/2013, Kidney Stones , Dizziness- [facility] 10/18/2017, Dizziness- [facility] 10/19-, Unable to Urinate- Foly Cath- [facility] ER 08/20/2020, Unable to Urinate- Foly Fath- [facility] ER 04/22/2021. * Family History: [...] * Images: Billing Information: * Visit Code: 77621 Office Visit, Est Pt., Level 3. * Procedure Codes: G2211 Complex e/m visit add on. * Electronic signature of SILAV Elizabeth on 04/04/2025 at 06:59 AM EDT Sign off status: Pending * Provider: SILVA Luque Date: 0 11/10/2024 Generated for Mehdi brown/Ramsey/Amyitting on: 1 06:59 AM EDT History and [...]
[2025-04-04] VITALS (7 sets, daily range): BP systolic 123–172; BP diastolic 67–103; PULSE 56–65; RESP 15–23; TEMP 36.6–36.7; O2SAT 93–98; BMI 22.0
--- OUTSIDE RECORDS SUMMARY | 2025-04-04 06:59 | XMS_ITS | Patient Health Record ---
[facility] [address] [place] [id number] Care Team Providers Care Correctional Officer Chief Name Role Phone Cj Milind Primary Care Provider [phone] Reshma Gipson Unavailable [phone] Allergies No Known Allergies Results Component Value [...] - 38 plat 123 100 - 400 Urinalysis - Inhouse Reviewed date:11/09/2024 03:25:45 PM [...] patient currently hospitalized? No Is patient an [facility] employee? N Is the patient employed in healthcare? No Does the patient have COVID symptoms? Yes Is this the 1st COVID test for the patient? No No ADENOQIA Not Detected NotDetected CORONAHKU1 Not Detected NotDetected [id number] Not Detected NotDetected [id number] Not Detected NotDetected QXCMEJN16 Not Detected NotDetected METAPNEUMO Not Detected NotDetected RHINOENTER Not Detected NotDetected INFLUAPCR Not Detected NotDetected FLUAH1 Not Detected NotDetected [id number] Not Detected NotDetected INFLUAH3 Not Detected NotDetected [...] 2.49, eGFR 24 Performing Lab: Notes/Report: CLIA: [id number] Bob Boone MD, [employer] [address] [place] [address] [place] [address] Test performed by [facility] Sodium 139 135-145 mmol/L Potassium 5.4 3.5-5.3 [...] PM Interpretation:No Growth Performing Lab: Notes/Report: CLIA: [id number] Bob Boone MD, [employer] [address] [place] [address] [place] [address] Test performed by [facility]utta Specimen Source Urine - Void Culture, Urine See Below Final Report : No growth B-Type Natriuretic Peptide Reviewed date:11/09/2024 03:25:45 PM Interpretation:245.0 Performing Lab: Notes/Report: Test performed by [facility] [address] [place] [address] [place] [address] Bob Boone MD, [employer] Consult[employer] CLIA: [id number] B-Type Natriuretic Peptide 245.0 <2.0-100.0 pg/ mL Reason For Referral No Information Medications Medication SIG (Take, Route, Frequency, Duration) Notes Start Date End Date Status Jardiance 25 MG 1 tablet Orally Once a day; Duration: 7 days 04/21/2023 Active Metamucil Smooth Texture 58.6 % as directed orally once a day OTC 08/18/2021 Not-Taking Xarelto 15 MG 1 tablet with food Orally Once a day; Duration: 7 days 07/21/2023 Active Loratadine 10 MG 1 tablet Orally Once a day; Duration: 30 day(s) 04/21/2023 Not-Taking Lisinopril 2.5 MG 1 tab(s) orally once a day; Duration: 90 days Active Trelegy Ellipta 100-62.5-25 MCG/ACT 1 puff Inhalation Once a day 03/01/2024 Active Montelukast Sodium 10 MG 1 tablet Orally Once a day; Duration: 30 day(s) 04/21/2023 Not-Taking Atorvastatin Calcium 20 MG 1 tablet Orally Once a day; Duration: 90 days Active oxyBUTYnin Chloride ER 10 MG 1 tablet Orally Once a day; Duration: 90 days 07/16/2023 Not-Takin g Benzonatate 200 MG 1 capsule Orally Thr ee times a day, prn for cough; Duration: 30 days Active Metoprolol Tartrate 25 MG 1 tab(s) orall y 2 times a day; Duration: 90 days Active Furosemide 20 MG 1 tab(s) orally once a day as needed; Duration: 90 days Active guaiFENesin 400 MG 1 tablet as needed Orally every 4 hrs Active Famotidine 40 MG 1 tab(s) orally once a day (at bedtime); Duration: 90 days Active Tamsulosin HCl 0.4 MG 1 cap(s) orally tw ice a day; Duration: 90 days Active Albuterol Sulfate 108 (90 Base) MCG/ACT 1 puff as needed Inhalation every 4 hrs Active Fluticasone Propionate 50 MCG/ACT 1 spray in each nostril Nasally Twice a day Active Invokana 100 MG 1 tablet before the first meal of the day Orally Once a day Active Multiple Vitamin - 1 cap(s) orally once a day Active Albuterol Sulfate HFA 108 (90 Base) MCG/ACT 1 puff as needed Inhalation every 4 hrs, prn Active Immunizations Vaccine Route Administration Date Status Comme nts Prevnar (PCV13) IM Intramuscular 11/06/2014 Administered PNEUMOVAX 23 VACCINE IM Intramuscular 04/28/2016 Administe red Fluzone High Dose (65yr and older) IM Intramuscular 04/06/2014 Administered Fluzone High Dose (65yr and older) IM Intramuscular 04/29/2015 Administered Fluzone High Dose (65yr and older) IM Intramuscular 04/28/2016 Administered DT, 7 YEARS OR OLDER Unknown 08/29/1996 Administered COVID 19 Moderna Unknown 08/07/2020 Administered COVID 19 Moderna Unknown 09/04/2020 Administered Problems Problem Type SNOMED Code ICD Code Onset Dates Problem Status W/U Status Risk Notes Problem Gastroesophageal reflux disease (068799201) GERD (gastroesophageal reflux disease) (K21.9) Active confirmed Problem Essential hypertension (29588151) Essential hypertension (I10) Active confirmed Problem Cramp in lower leg associated with rest (765288379) Nocturnal leg cramps (G47.62) Active confirmed Problem Congestive heart failure (57826465) CHF (congestive heart failure) (I50.9) Active confirmed Problem Constipation (90947865) Constipation, unspecified constipation type (K59.00) Active confirmed Problem Hyperlipidemia (32575178) Hyperlipidemia, unspecified hyperlipidemia (E78.5) Active confirmed Problem Renal insufficiency (578704680) Renal insufficiency (N28.9) Active confirmed Problem Atherosclerotic heart disease of alutiiq coronary artery without angina pectoris (041432241426105) Coronary artery disease involving alutiiq coronary artery of alutiiq heart without angina pectoris (I25.10) Active confirmed Problem Gastroesophageal reflux disease (767226815) Gastroesophageal reflux disease, esophagitis presence not specified (K21.9) Active confirmed Problem Atrial fibrillation (12758404) Atrial fibrillation, unspecified type (I48.91) Active confirmed Problem Seasonal allergic rhinitis (916226327) Seasonal rhinitis (J30.2) Active confirmed Problem Long-term current use of anticoagulant (850814586) Current use of jail anticoagulation (Z79.01) Active confirmed Problem Nephrolithiasis (61877894) Nephrolithiasis (N20.0) Active confirmed Problem Chronic gouty arthritis (65366232) Idiopathic chronic gout without tophus, unspecified site (M1A.00X0) Active confirmed Problem Lower urinary tract symptoms due to benign prostatic hypertrophy (79217000097059) Benign prostatic hyperplasia with lower urinary tract symptoms (N40.1) Active confirmed Problem Urge incontinence of urine (66597671) Urge incontinence of urine (N39.41) Active confirmed Problem Allergic rhinitis (74878999) Allergic rhinitis, unspecified seasonality, unspecified trigger (J30.9) Active confirmed Problem Persistent atrial fibrillation (070561976) Persistent atrial fibrillation (I48.19) Active confirmed Problem Chronic kidney disease stage 3B (disorder) (149327892) 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) Active confirmed Problem Chronic kidney disease stage 3A (652667628) Stage 3a chronic kidney disease (N18.31) Active confirmed Problem 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, 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 Vital Signs Heart Rate 62 /min 11/10/2024 Blood pressure diastolic 70 mm Hg 11/10/2024 Height 70 in 11/10/2024 Blood pressure systolic 130 mm Hg 11/10/2024 Weight 149.4 lbs 11/10/2024 BMI 21.43 kg/m2 11/10/2024 Encounters Encounter Location Date Provider Diagnosis [facility] [address] [facility] [place], [place] [id number] 08/28/2024 Milind [place] Acute URI J06.9 [facility] [address] [place], [place] [id number] 11/08/2024 Reshma Crowdy Bronchitis J40 ; Confusion R41.0 ; Shortness of breath R06.02 ; Hematuria R31.9 ; Persistent atrial fibrillation I48.19 ; Stage 3b chronic kidney disease N18.32 ; Hyperlipidemia, unspecified hyperlipidemia E78.5 ; Essential hypertension I10 and BMI 21.0-21.9, adult Z68.21 [facility] [address] [facility] [place], [place] [id number] 11/10/2024 Reshma Crowdy Acute URI J06.9 and Bronchitis J40 [facility] [address] [facility] [place] [id number] 04/05/2024 Milind [place] [facility] [address] [facility] [place] [id number] 05/18/2024 Milind [place] Benign prostatic hyperplasia with lower urinary tract symptoms N40.1 [facility] [address] [facility] [place] [id number] 07/25/2024 Milind [place] [facility] [address] [facility] [place] [id number] 09/25/2024 Milind [place] [facility] [address] [facility] [place] [id number] 11/09/2024 Reshma Gipson [facility] [address] [place], [place] [id number] 11/13/2024 Milind [place] Benign prostatic hyperplasia with lower urinary tract symptoms N40.1 [facility] [address] [place] [id number] 12/01/2024 Milind [place] Bronchitis J40 [facility] [address] [place] [id number] 12/15/2024 Milind [place] [facility] [address] [place] [id number] 12/27/2024 Milind [place] [facility] [address] [place] [id number] 12/27/2024 Milind [place] [facility] [address] [place], [place] [id number] 04/03/2025 Milind [place] Assessments Encounter Date Diagnosis (ICD Code) Assessment Notes Treatment Notes Treatment Clinical Notes Section Notes 12/01/2024 Bronchitis (ICD-10 - J40) 11/13/2024 Benign prostatic hyperplasia with lower urinary tract symptoms (ICD-10 - N40.1) 11/10/2024 Bronchitis (ICD-10 - J40) Much improved. He still has some wheezing. Will continue inhaler and tessalon. He is monitoring his oxygen at home and it has been in the mid to upper 90's. 11/10/2024 Acute URI (ICD-10 - J06.9) 11/08/2024 Confusion (ICD-10 - R41.0) 11/08/2024 Bronchitis (ICD-10 - J40) 08/28/2024 Acute URI (ICD-10 - J06.9) 05/18/2024 Benign prostatic hyperplasia with lower urinary tract symptoms (ICD-10 - N40.1) 11/08/2024 Shortness of breath (ICD-10 - R06.02) 11/08/2024 Hematuria (ICD-10 - R31.9) 11/08/2024 Persistent atrial fibrillation (ICD-10 - I48.19) 11/08/2024 Stage 3b chronic kidney disease (ICD-10 - N18.32) 11/08/2024 Hyperlipidemia, unspecified hyperlipidemia (ICD-10 - E78.5) 11/08/2024 Essential hypertension (ICD-10 - I10) 11/08/2024 BMI 21.0-21.9, adult (ICD-10 - Z68.21) Plan Of Treatment Pending Test Test Name Order Date P-BNP (Brain Natriuretic Peptide) 2024 Next Appt Details Provider Name:Milind Hanley ry, 04/05/2025 11:15:00 AM, [address], [place], [place], [id number], Insurance Providers Payer Name Payer Address Payer Phone Subscriber Number Group Number Insured Name Patient Relationship to Insured Coverage Start Date Coverage End Date [employer] (MEDICAR E) [address] [address] [place] [address] [id number] JOANA CORTES Self - patient is the insured Medications Administered Medication Instructions Date of Administration Dosage Notes Depo- Medrol 40 mg/ml 01/06/2022 1.5 mL Dexamethasone 06/18/2008 1 mL Medical (General) History Medical History History ICD Code Coronary Artery Disease, s/p CABG, 05/17 13 Myocardial Infarction, 04/2013 GERD Gout RA Factor Positive, 12/2009 BPH Elevated PSA, 2011 Squamous cell carcinoma, lip C44.02 Prostate Cancer, 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 Rm 11/2010 Circumcision- Dr. Agustin 09/2012 Coronary Artery Bypass Graft - 3 Vessels 04/2013 Lip Skin Cancer Biopsy Biopsy 09/17/2020 Buccal Mass Removal 04/22/2021 Cyst removal from mouth 08/19/2022 Hospitalization History Reason Date(Month/Year) Back Pain- [facility] ER 04/09/2012 Unable to Urinate- Foly Fath- [facility] ER Unable to Urinate- Foly Cath- [facility] ER Dizziness- UTC 10/19- Dizziness- UTC 10/18/2017 Kidney Stones Heart Attack- [facility] 05/08/2013
--- OUTSIDE RECORDS SUMMARY | 2025-04-04 07:00 | XMS_ITS | Clinical Summary ---
Author Organization [facility] Address [address] [place] [address] Care Team Providers Care Religious Ritual Slaughterer Name Role Phone Milind Corona MD Primary Care Provider [phone] Allergies No known active allergies Medications metoprolol tartrate (LOPRESSOR) 25 MG tablet 09/07/19 21 Active lisinopril (PRINIVIL,ZESTRIL) 2.5 MG tablet 10/06/19 21 Active atorvastatin (LIPITOR) 20 MG tablet TAKE 1 TABLET BY MOUTH ONCE DAILY AT BEDTIME FOR 7 DAYS 10/15/19 21 Active tamsulosin (FLOMAX) 0.4 MG capsule 24 hr capsule 11/29/19 21 Active aspirin (aspirin) 81 MG EC tablet aspirin Acti ve meloxicam (MOBIC) 7.5 MG tablet 10/09/19 21 Active famotidine (PEPCID) 40 MG tablet 10/06/19 21 Active IBU 600 MG tablet 09/18/19 21 Active triamcinolone (KENALOG) 0.1 % cream Apply topically to the appropriate area as directed 2 (Two) Times a Day. 08/30/19 21 Active multivitamin with minerals tablet tablet Take 1 tablet by mouth Daily. Active Calcium-Magnesium- Vitamin D 185-50-100 MG-MG-UNIT capsule Take by mouth. Active acetaminophen (TYLENOL) 500 MG tablet Tylenol Extra Strength 500 mg tablet Take 2 TABS Q 6 HOURS PRN PAIN DO NOT EXCEED 2000 MG IN 24 HOURS Active ondansetron ODT (ZOFRAN-ODT) 4 MG disintegrating tablet ondansetron 4 mg disintegrating tablet TAKE ONE TAB PO Q8 HOURS PRN NAUSEA Active Active Problems Problem Noted Date Diagnosed Date Prostate cancer Cancer Staging:Clinical stage from 11/04/2020:Stage IIB(cT2c, cN0, cM0, PSA: 8.1, Grade Group: 2) - Signed by Owen Farah MD on 12/05/2020 Family History Medical History Relation Name Comments Prostate cancer Brother Heart disease Father Heart disease Mother Relation Name Status Comments Brother Father Mother Social History Tobacco Use Types Packs/Day Years Used Date Smoking Tobacco: Never Smokeless Tobacco: Former Snuff Quit: 1979 Alcohol Use Standard Drinks/Week Comments Never 0 (1 standard drink = 0.6 oz pur e alcohol) AUDIT-C Answer Date Recorded Q1: How often do you have a drink containing alc ohol? Never 12/05/2020 Average Number of Drinks Not on file 021 Frequency of Binge Drinking Not on file 11/26 Abuse Screen Answer Date Recorded Unsafe at Home or Work/School Not on file Feels Threatened by Someone? Not on file 05/2023 Does Anyone Keep You from Co ntacting Others or Doint Things Outside the Home? Not on file 04/08/2023 Physical Sign of Abuse Present Not on file 1 Housing Stability Answer Date Recorded Current Living Arrangements Not on file 03/28 Potentially Unsafe Housing Conditions Not on jessica e 04/08/2023 Family and Community Support Answer Remy e Recorded Help with Day-to-Day Activities Not on file 04/08/2023 Lonely or Isolated Not on file 04/08/2023 Employment Answer Date Recorded Do you want help finding or keeping work or a corrine b? Not on file 04/08/2023 Disabilities Answer Date Recorded Concentrating, Remembering, or Making Decisions Difficulty Not on file 04/08/2023 Doing Errands Independently Difficulty Not on fi le 04/08/2023 Education Answer Date Recorded Help with school or training? Not on file Preferred Language Not on file 04/08/2023 Sex and Gender Information Value Date Recorded Sex Assigned at Not on file Legal Sex Male 4:26 PM EST Gender Identity Not on file Sexual Orientation Not on file Last Filed Vital Signs Vital Sign Reading Time Taken Comments Blood Pressure 168/74 01/09/2021 8:05 AM EDT Pulse 52 01/09/2021 8:05 AM EDT Temperature 36.7 C (98 F) 01/09/2021 8:05 AM EDT Respiratory Rate 16 01/09/2021 8:05 AM EDT Oxygen Saturation 94% 01/09/2021 8:05 AM EDT RA Inhaled Oxygen Concentration - - Weight 74.3 kg (163 lb 12.8 oz) 01/09/2021 8:05 AM EDT Height 172.7 cm (5' 8 ) 01/09/2021 8:05 AM EDT Body Mass Index 24.91 01/09/2021 8:05 AM EDT Plan of Treatment Health Maintenance Due Date Last Done Comments Pneumococcal Vaccine 50+ (1 of 1 - PCV) 1988 ZOSTER VACCINE (1 of 2) 1988 RSV Vaccine - Adults (1 - 1- dose 75+ series) 2013 ANNUAL WELLNESS VISIT 12/05/2020 INFLUENZA VACCINE 01/26/2025 COVID-19 Vaccine ( - season) 2025 TDAP/TD VACCINES (3 - Tdap) 01/19/2028 01/18/2018, 0 08/29/1996 Insurance [place]ER [place] [id number] [id number] MED[employer] ADVANTAGE Care Teams Religious Ritual Slaughterer Relationship Specialty Start Date End Date Milind Corona MD [address] [facility] [address] [place] [id number] PCP - General Family Medicine 12/05/20
--- OUTSIDE RECORDS SUMMARY | 2025-04-04 07:00 | XMS_ITS ---
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 Past Treatment and Therapy Plans No past plan information found. Treatment Summaries Prostate cancer* Images from the original note were not included. Prostate Cancer Survivorship Plan General Information Patient name Young Coy Date of 1940 Phone Email No e-mail address on record Cancer Treatment Team Patient Care Team: Vincenzo Tellez MD as Referring Physician (Urology) Owen Farah MD as Consulting Physician (Radiation Oncology) Provider Phone numbers Care Team Provider: Vincenzo Tellez MD, ([phone]) Care Team Provider: Owen Farah MD, ([phone]) Care Team Provider: Sam Raymundo MD, ([phone]) Post Treatment Care Team Primary Care Physician Milind Corona MD [phone] [address] [facility] [address] [place] [address] Background Information Medical history Past Medical History: Coronary artery disease GERD (gastroesophageal reflux disease) Hypertension Myocardial infarction (CMS/HCC) Prostate cancer (CMS/HCC) Skin cancer Surgical history Past Surgical History: COLONOSCOPY CORONARY ARTERY BYPASS GRAFT PROSTATE BIOPSY PROSTATE FIDUCIAL MARKER PLACEMENT SKIN CANCER EXCISION Tobacco use Social History Tobacco Use Smoking Status Never Smoker Smokeless Tobacco Former User Types: Snuff Family oncology history Cancer-related family history includes Prostate cancer in his brother. Oncology Information Oncology/Hematology History Prostate cancer (CMS/HCC) 11/04/2020 Cancer Staged Staging form: Prostate, AJCC 8th Edition - Clinical stage from 11/04/2020: Stage IIB (cT2c, cN0, cM0, PSA: 8.1, Grade Group: 2) - Signed by Owen Farah MD on 12/05/2020 12/05/2020 Initial Diagnosis Prostate cancer (CMS/HCC) 01/28/2021 - 02/07/2021 Radiation Radiation OncologyTreatment Course: Young Coy received 3500 cGy in 5 fractions to prostate andseminal vesicles via Stereotactic Radiation Therapy - SRT. Complications during Therapy: No concerns stated Modification to Treatment Plan: No Modifications Lifetime Dose Tracking No doses have been documented on this patient for the following tracked chemicals: Doxorubicin, Epirubicin, Idarubicin, Daunorubicin, Mitoxantrone, Bleomycin, Mitomycin, Doxorubicin Liposomal [No treatment plan] Persistent Treatment-Associated Adverse Effects at Completion of Therapy It is important to recognize that not every person experiences the following adverse events after treatment. You may not have any of these issues, a few or many adverse effects. Experiences are highly variable. Please discuss any adverse effects of cancer treatment with your cancer care team. After Surgical Therapy No Surgery Performed After Chemotherapy N/A After Radiation Therapy After External Beam Radiation Therapy or Cyberknife Radiation therapy can cause early and late side effects. Early side effects are those that happen during or shortly after treatment and are usually gone within a few weeks after treatment ends. Late side effects may take months or years to develop. The most common early side effects are fatigue (feeling tired) and skin changes. Other early side effects are usually related to the area being treated. If you continue to have some skin problems after treatment ends, be gentle with the skin in the treatment area until all signs of irritation are gone and continue to care for your skin as your doctors and nurses have advised. If you continue to have fatigue, you may need to plan your activities to maximize energy, get extra rest while your bodyis still recovering and follow other instructions from your doctors and 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 termite technician effects of radiation therapy vary greatly depending on the areas included in the field ofradiation and the radiation techniques that were used. Normal tissue in the body that is close to the prostate such as the bowel, rectum and bladder may be exposed to some radiation during treatment. Exposure of the bowel to radiation may result in bowel changes such as diarrhea or frequent loose stools. Ulceration and bleeding may also occur. Any bright red blood or black, tarry stools or abnormal passage of stool should be reported to your doctor. Stay hydrated by drinking water and fluids with electrolytes. Chronic diarrhea may put you at risk for weight loss and malnutrition. Talk to yourdoctor or nurse - there may medications and special instructions that can help. There are also other specialists like gastroenterologists and dietitians who can help. If the lymph nodes were in the radiation field, there may be an increased risk of developing lymphedema. Lymphedema is a condition in which fluid collects and may cause swelling. Exposure of the bladder to radiation may result in bladder scarring and may increase the risk of urinary tract infections. Blood in the urine or signs of urinary tract infections such as pain in the bladder, groin, lower abdomen or lower back, frequent urination, bladder spasm, cloudy, dark and/or foul-smelling urine, frequent urge to urinate and fever should be reported to your doctor. Radiation to the pelvis may cause erectile dysfunction (inability to get and keep an erection firm enough for sexual penetration). If there was erectile dysfunction before treatment and if there are other risk factors for erectile dysfunction (such as advanced age), the risk may be higher. Each man???s situation is different. Medications to treat erectile dysfunction may be given. There are also other treatments and devices that can help. Having trouble with erections is a very personal concern. It???s important to communicate with your partner and to talk with your doctor or nurse about it. Treatments and referrals to other specialists may help. In rare cases, radiation therapy can increase the risk of a second cancer. Other N/A Care of your Venous Access Device No Venous Access Device currently in place General After Cancer Treatment It is not uncommon for cancer to impact other areas of your life such as relationships, work and mental health. If you develop financial concerns, resources are sometimes available to assist in theseareas. Depression and anxiety can present either during or after cancer diagnosis and treatment. Itis important to discuss with your physician any of these concerns so these resources can be made available to you. General Cancer Support & Resources [facility] [address], [address] [place] [address] Med Onc: Crew Dispatcher Onc: Cafeteria Assistant: Alicia Garrett - Psychiatric Nurse Practitioner: Carole Christian APRN - Kick It! (A free smoking cessation program) Financial Counselor and Contact Information: [facility] Financial Counseling [phone] Plastic Panel Installer Contact Information: Ilana White - Local Cancer Support Group and Contact Information: Nayan Boyle: This support group is open to anyone that has been diagnosed with cancer of any type. Meets at 6:30pm on the last Wednesday of each month. Location: [facility]; [address] [place] [address]. For more information call Sonia Hood @ . Prostate Cancer Support & Resources Local Resources [facility] Prostate Support Group: The mission of [facility] is to provide hope and improve the lives of of those affected by prostate cancer through support, education, and advocacy/ awareness. The group meets the of each month at 6:30 p.m. [address] [facility], [address] [place], [place] [id number] Surveillance How Frequent? Medical Oncology visits 1 month, 6 months later, 1 year later Lab tests PSA 3 months after CyberKnife completion, then every 6 months until PSA valentine (PSA <0.5), then yearly Imaging exams As indicated Immunizations Influenza Herpes Zoster Pneumococcal Yearly Once As appropriate Tobacco Cessation The patient is not currently a tobacco user. Counseling given: Not Answered Monitor for ongoing toxicities: None Specified Call your doctor if you have any of these signs or symptoms New or worsening symptoms. Pain that is new, unrelieved or bothersome. Difficulty with your emotions, anxiety, and/or depression. Physical problems that affect your abilities in your daily life or those that are bothersome (for example, continued fatigue, trouble sleeping, sexual problems, or edema). Referrals provided There are no referral needs at this time. Self Care Plan Self Care Plan: What You Can Do to Stay Healthy after Treatment for Cancer Cancer treatments may increase your chance of developing other health problems years after you havecompleted treatment. The purpose of this self care plan is to inform you about what steps you can take to maintain good health after cancer treatment. Keep in mind that every person treated for cancer is different and that these recommendations are not intended to be a substitute for the advice of a doctor or other health point of care technician. Please use these recommendations to talk with your health care provider about an appropriate follow up care plan for you. Surveillance for Your Cancer Recommendation Frequency Comments Cancer surveillance visit with medical provider that is focused on detecting signs of recurrence ofyour cancer. For additional information, visit www.livesFitlyg.org or www.cancer.net/patient/Survivorship Frequency depends on type and stage of cancer you had. (If you had a higher risk cancer, you may be seen more often). Your doctor has provided you with a personalized cancer treatment summary and survivorship care plan. If you need another copy, ask your doctor. General Cancer Screening for Men Cancer screening tests are designed to find cancer or pre-cancerous areas before there are any symptoms and, generally, when treatments are most successful. Various organizations have developed guidelines for cancer screening for men. While these guidelines vary slightly between different organizations, they cover the same basic screening tests for prostate and colorectal cancers. In addition, during routine health examinations (at any age) your health care provider may also evaluate for cancers of the skin, mouth and thyroid. Not all screening tests are right for everyone. Your personal and family cancer history, and/or the presence of a known genetic predisposition, can affect which tests are right for you, and at what age you begin them. Therefore, you should discuss these with your health care provider. Your care plan will also include a section on follow up care foryour type of cancer, and these recommendations override the general screening recommendations for that particular type of cancer in the general population. The [place] [employer] (ACS) recommends these screening guidelines for men: Recommendation Frequency Comments Colon and Rectal Cancer Screening For more information see the ACS document Colorectal Cancer: Early Detection. www.cancer.org/ssLINK/glzczngnnx-svqofc-ucggu-detection-rhiannon Options for colon cancer screening can be divided into those that screen for both cancer and polyps, and those that just screen for cancer.Screening should begin at age 45 (unless you are considered high risk (see comments), using one of the following testing schedules: Tests that find polyps and cancer (Preferred over those that find cancer alone. If any of these tests are positive, a colonoscopy should be done.) Flexible sigmoidoscopy every five years, or Colonoscopy every 10 years, or Double-contrast barium enema every five years, or CT colonography (virtual colonoscopy) every five years Tests that primarily test for cancer Yearly fecal occult blood test (FOBT)*, or Yearly fecal immunochemical test (FIT) *, or Stool DNA test (sDNA), interval uncertain* * The multiple stool take-home test should be used. One test done by the doctor in the office is not adequate. A colonoscopy should be done if the test is positive. Talk with your doctor about your medical history, and what colorectal cancer screening test and schedule is best for you. Individuals at higher risk of colon cancer should have screening earlier and potentially more frequently. Those at higher risk of colon and rectal cancer: Individuals with a family history of colon or rectal cancer in a relative who was diagnosed before the age of 60 Individuals with a history of polyps Individuals with inflammatory bowel disease (Crohn's disease or ulcerative colitis) Individuals with a genetic predisposition to colon or rectal cancer, such as hereditary non-polyposis colon cancer (HNPCC) syndrome or familial adenomatous polyposis (FAP) syndrome Prostate Cancer Screening For more information, see the ACS Document Prostate Cancer Prevention and Early Detection: http://www.cancer.org/cancer/prostatecancer/moreinformation/prostatecancerearlyd etection/index Starting at age 50 (unless you are considered high risk ), men should talk to their doctor about the pros and cons of prostate cancer testing, and then decide if they want to be tested. Tests that can be used to detect for prostate cancer include Prostate-specific antigen (PSA) or digital rectal exam (CLEMENTINA). ndividuals are considered higher risk if they are and/or have a family history of prostate cancer. Those who are considered high risk should have this talk at age 40 or 45. Testicular Screening For more information, see the ACS Document Testicular Cancer Detection: http://www.cancer.org/cancer/testicularcancer/detailedguide/kbgcsezaik-myabrv-pj tection Men of any age can develop testicular cancer; however, about half of all cases occur in men between the ages of20 and 34. A testicular self- exam is recommended monthly after a man has gone through puberty. In doing so, gray should look and feel for any hard lumps, rounded bumps, or any change in the size, shape, or consistency of his testicles. If something appears abnormal, see a health care provider for further evaluation. Sun Exposure and Skin Cancer Risk Skin cancer is the most commonly diagnosed type of cancer, and rates are on the rise. However, thisis one cancer that in most cases can be prevented or detected early. While you may hear that you need the sun to make vitamin D, in reality you only need a few minutes a day to do this. Exposure to ultraviolet (UV) rays, either by natural sunlight or tanning beds, can lead to skin cancer. In additio n, UV rays lead to other forms of skin damage, including wrinkles, loss of skin elasticity, dark patches (sometimes called age spots or liver spots), and pre- cancerous skin changes (such as dry, scaly, rough patches). Although dark- skinned people are less likely to develop skin cancer, they can anddo develop skin cancers, most often in areas that are not exposed to sun (on the soles of the feet,under nails, and genitals). You can do a lot to protect yourself from damaging UV rays and to detect skin cancer early. Start by practicing sun safety, including using a broad spectrum sunscreen (which protects against UVA and UVB rays) with an SPF of at least 30 every day, avoiding peak sun times (10 a.m. to 4 p.m., when therays are strongest) and wearing protective clothing such as hats, sunglasses and long- sleeved shirts. Examine your skin regularly so you become familiar with any moles or birthmarks. If a mole has changed in any way, you should have a health care provider examine the area. This includes a change in size, shape or color; the development of scaliness, bleeding, oozing, itchiness or pain; or the development of a sore that will not heal. If you have a lot of moles, it may be helpful to make note of moles using photographs or a mole map . For a guide to performing a skin exam, visit www.skincarephysicians.com/skincancernet/skin_examinations.html. Healthy Lifestyle For some cancer survivors, the experience is the motivation to making healthy lifestyle changes. Itmay seem insignificant, but these changes have been shown to reduce the risk of the cancer coming back or a new cancer developing. Below are some tips on adopting a healthier lifestyle. Maintaining ahealthy weight is important in cancer prevention, as is physical activity and eating a healthy diet. Strive to incorporate all three pieces of the puzzle: healthy weight, balanced diet and regular exercise. Recommendation Goal Comments Maintain a healthy weight. For more information, visit http://www.nhlbi.nih.gov/health/public/heart/obesity/lose_wt/index.htm www.win.niddk.nih.gov Call the [place] [employer] Talk to your health care team about what a healthy weight is for you, and take stepsto reach and maintain that weight. For many people reaching their ideal weight can be a challenge; however, losing even 5 to 10 poundscan lower blood pressure, blood sugar and cholesterol levels. Weigh yourself weekly to monitor for weight gain/loss Being overweight can increase your chance of your cancer coming back. Maintaining a healthy weight, physical activity and eating a healthy diet are all important in cancer prevention. Being overweight can increase your chance of having high blood pressure, high blood sugar and/or high cholesterol, which can lead to heart disease, diabetes and stroke. If you would like more information about your blood sugar, cholesterol or blood pressure, talk with your primary care provider. Eat a healthy diet, mostly from plant sources. For more information, visit http://www.choosemyplate.gov/food-groups/ Eat healthy, including plenty of fruits and vegetables daily. Drink more water, less soda and juice. Limit how much alcohol you drink (if you drink at all). Strive to have two- thirds of your plate be vegetables, fruits, whole grains and beans, while one- third or less should be an animal product. Choose fish and chicken and limit red meat and processed meats. Limit intake of alcohol to two drinks per day. Exercise. To learn more about recommendations for diet, activity and weight, visit AICR???s Guidelines for Survivors http://preventcancer.aicr.org/site/PageServer?pagename=patients_survivors_guidel vinnie ACS Eat Healthy and Get Active www.cancer.org/Healthy/EatHealthyGetActive/index Experts recommend at least 30 minutes of brixfbfh-yp-zvlxuidl activity per day, five days a week. Research shows that exercise can help you control your weight, improve your energy level, and help you sleep at night. The morales is to find a physical activity you enjoy such as walking, dancing or gardening and do it regularly. If you have been inactivefor a while, start out slowly. You can start out by exercising 10 minutes a day several days a week. If you feel dizzy, short of breath, or have chest pain during exercise, stop exercising and talk with your primary care doctor. Do not use tobacco in any form. For more information, visit http://www.cdc.gov/tobacco/campaign/tips/ If you use tobacco, quit as soon as possible. Smoking is the most preventable cause of in the [place] If you would like more information, ask your doctor or you can call a national hotline at 6(597)-QUIT-NOW. Have regular check-ups by a healthcare professional. For more information about healthy screening tests for men visit the U.S. Department of Health and Human Services. http://www.womenshealth.gov/ualduhicx-njpuc-fmu-vaccines/fctqmsbsr-hbjjr-bxo-men / For more information about adult vaccinations visit the CDC: http://www.cdc.gov/vaccines/recs/schedules/adult-schedule.htm Keep up-to-date on general health screening tests, including cholesterol, blood pressure and glucose (blood sugar) levels. Get an annual influenza vaccine (flu shot). Get vaccinated with the pneumococcal vaccine, which prevents a type of pneumonia, and re-vaccinatedas determined by your health care team. Don???t forget dental and eye health! The [employer] recommends adults have their eyes examined every two years until age 60, then annually. People who wear glasses or correctivelenses or are at high risk for eye problems (i.e., diabetics, family history of eye disease) shouldbe seen more frequently. The [employer] recommends adults see their dentist at least once a year. No information on file. No information on file.
--- OUTSIDE RECORDS SUMMARY | 2025-04-04 07:00 | XMS_ITS | Clinical Summary ---
Author Organization [facility] Address [address] [place] [address] Care Team Providers Care Medical Practice Assistant Name Role Phone Milind Corona MD Primary Care Provider [phone] Allergies No known active allergies Medications aspirin 81 MG EC tablet Take 1 tablet (81 mg) by mouth 1 (one) time each day. Active MULTIPLE VITAMIN PO Take by mouth 1 (one) time each day. Active tamsulosin (Flomax) 0.4 MG 24 hr capsule Take 1 capsule (0.4 mg) by mouth 1 (one) time each day. Active metoprolol tartrate (Lopressor) 25 MG tablet Take by mouth 2 (two) times a day. Active atorvastatin (Lipitor) 20 MG tablet Take 1 tablet (20 mg) by mouth 1 (one) time each day. Active famotidine (Pepcid) 40 MG tablet Take by mouth 1 (one) time each day. Active albuterol 108 (90 Base) MCG/ACT inhaler INHALE 1 TO 2 PUFFS BY MOUTH EVERY 4 HOURS NEEDED FOR SHORTNESS OF BREATH OR WHEEZING 2 Active furosemide (Lasix) 20 MG tablet 3 Active lisinopril 2.5 MG tablet 3 Active magnesium 30 MG tablet Take 2 tablets (60 mg) by mouth 2 (two) times a day. 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 06/02/2021 BPH (benign prostatic hyperplasia) 06/02/2021 Prostate cancer 06/02/2021 Essential hypertension 06/02/2021 Resolved Problems Problem Noted Date Diagnosed Date Resolved Date 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 08/03/2020 Immunizations Immunization Administration Dates Next Due TD (adult), 2 Lf tetanus tox oid, preservative free, adsorbed 08/29/1996 Td (adult) 01/18/2018 Family History Medical History Relation Name Comments Heart disease Mother Relation Name Status Comments Mother Social History Tobacco Use Types Packs/Day Years Used Date Smoking Tobacco: Former Passive Smoke Exposure: Past Smokeless Tobacco: Never Tobacco Cessation:Counseling Given: Not Answered Sex and Gender Information Value Date Recorded Sex Assigned at Not on file Legal Sex Male 6:56 PM EDT Gender Identity Not on file Sexual Orientation Not on file Last Filed Vital Signs Vital Sign Reading Time Taken Comments Blood Pressure 138/78 09/29/2024 10:01 AM EDT Pulse 67 09/29/2024 10:01 AM EDT Temperature 36.6 C (97.9 F) 06/16/2024 12:59 PM EST Respiratory Rate 18 09/29/2024 10:01 AM EDT Oxygen Saturation 98% 09/29/2024 10:01 AM EDT Inhaled Oxygen Concentration - - Weight 69.4 kg (153 lb) 09/29/2024 10:01 AM EDT Height 172.7 cm (5' 8 ) 09/29/2024 10:01 AM EDT Body Mass Index 23.26 09/29/2024 10:01 AM EDT Plan of Treatment Upcoming Encounters Date Type Department Care Team (Late st Contact Info) Description 05/04/2025 10:40 AM EST Office Visit [facility] [address] [place] [phone] Vishal Boogie MD [address] [place] [id number] Health Maintenance Due Date Last Done Comments [facility]-Depression Screening 1938 [facility]-Medicare Annual Wellness (AWV) 1938 [facility]-/Child/Adol SDOH Screenings 1938 [facility]- SDOH Screenings 1956 [facility]-Adult SDOH Screenings 1956 [facility]-Zoster Vaccines (1 of 2) 1957 [facility]-RSV Vaccine: 60+ Years or (1 - 1-dose 75+ series) 2013 [facility]-DTaP,Tdap,and Td Vaccines (1 - Tdap) 01/19/2018 01/18/2018, 08/29/1996 [id number] Vaccine (3 - Moderna risk series) 10/02/2020 09/04/2020, 08/07/2020 [facility]-Influenza Vaccine (#1) 02/26/202504/28, 04/29/2015, 04/06/2014 [facility]-Pneumococcal Vaccine: 50+ Years Completed 04/28/2016, 11/06/2014 HPV Vaccines Aged Out No longer eligi ble based on patient's age to complete this topic [facility]-HIB Vaccines Aged Out No longer e ligible based on patient's age to complete this topic [facility]-Hepatitis A Vaccines Aged Out No longer eligible based on patient's age to complete this topic [facility]-IPV Vaccines Aged Out No longer e ligible based on patient's age to complete this topic [facility]-Rotavirus Vaccines Aged Out No lo nger eligible based on patient's age to complete this topic Insurance [employer] Care Teams Medical Practice Assistant Relationship Specialty Start Date End Date Milind Corona MD [id number] [place] [id number] PCP - General 03/20/21
--- NOTE | 2025-04-04 07:03 | XR_ITS ---
FINAL REPORT TECHNIQUE: Single view chest CLINICAL HISTORY: cough COMPARISON: 02/01/2022 FINDINGS: A single view of the chest was obtained. The heart and mediastinum are within normal limits. The lungs are clear. There is no pneumothorax. IMPRESSION: No acute cardiopulmonary process. Reviewed, Interpreted and Dictated by India Olivo MD Transcribed by Una Cristina Authenticated and [facility]
--- NOTE | 2025-04-04 07:03 | CT_ITS ---
FINAL REPORT TECHNIQUE: Thin section axial images were obtained from the aortic arch to the skull base after intravenous contrast injection per CTA protocol. Multiplanar reconstruction images were obtained. Exam was performed using dose reduction techniques and the ALARA principle. CLINICAL HISTORY: dizzy FINDINGS: CTA NECK: Aortic arch: There is a normal three-vessel configuration to the aortic arch. There is no significant stenosis of the great vessels at their origins. Right carotid artery: The right common carotid artery is patent without stenosis. There is calcified plaque at the carotid bulb. Remaining right carotid is patent to the skull base. Less than 50 % stenosis per NASCET criteria. Left carotid artery: The left common carotid artery is patent without stenosis. There is calcified plaque at the carotid bulb. 40-50 % stenosis per NASCET criteria. Vertebral arteries: The vertebral arteries are patent. No significant stenosis. Other soft tissues: Unremarkable. IMPRESSION: Less than 50% stenosis of the right ICA. 40-50% stenosis of the proximal left ICA. Reviewed, Interpreted and Dictated by India Olivo MD Transcribed by Una Cristina Authenticated and [facility]
--- NOTE | 2025-04-04 07:03 | CT_ITS ---
FINAL REPORT TECHNIQUE: Thin section axial images were obtained from skull base to vertex without contrast. Coronal reconstruction images were obtained from the axial data. Exam was performed using dose reduction techniques such as automated exposure control, adjustment of the mA and kV according to patient size, and use of iterative reconstruction technique. CLINICAL HISTORY: dizzy, r/o stroke COMPARISON: 10/19/2017 FINDINGS: There is atrophy which has progressed from prior exam. No mass effect or midline shift. No intracranial hemorrhage. No hydrocephalus. Periventricular low density is likely related to changes of chronic small vessel ischemia. The basilar cisterns are preserved. The posterior fossa is without acute abnormality. The soft tissues are without acute abnormality. No acute osseous abnormality is identified. IMPRESSION: No acute intracranial abnormality. Atrophy and changes suggesting chronic small vessel ischemia. Reviewed, Interpreted and Dictated by India Olivo MD Transcribed by Una Cristina Authenticated and [facility]
--- NOTE | 2025-04-04 07:03 | CT_ITS ---
FINAL REPORT TECHNIQUE: Thin section axial images are obtained through the brain after intravenous contrast injection. Multiplanar reconstructions were obtained from the axial data. Exam was performed using dose reduction techniques such as automated exposure control, adjustment of the mA and kV according to patient size, and use of iterative reconstruction technique. CLINICAL HISTORY: dizzy FINDINGS: The intracerebral portions of the carotid arteries are patent. The anterior and middle cerebral arteries are patent. The posterior cerebral arteries arise from the basilar artery. They are patent. [place] of [place] is intact. The basilar artery is patent. The vertebral arteries are patent. There is no significant stenosis, aneurysm, or AVM. IMPRESSION: Unremarkable CT angiogram of the intracerebral vasculature. Reviewed, Interpreted and Dictated by India Olivo MD Transcribed by Una Cristina Authenticated and [facility]
--- NOTE | 2025-04-04 07:05 | HMH.EDGENADL ---
Discharge Plan Disposition Patient Disposition: Home, Self-Care Prescriptions Prescriptions: New amoxicillin-pot clavulanate 875-125 mg tablet 1 tab PO BID Qty: 7 0RF azithromycin [Zithromax Z-Bartolo] 250 mg tablet 250 mg PO DAILY 4 Days Qty: 4 0RF Rx Instructions: start on 04/05/25 No Action famotidine 40 mg tablet 40 mg PO BID Qty: 60 2RF furosemide 20 mg tablet 20 mg PO DAILY albuterol sulfate 90 mcg/actuation HFA aerosol inhaler inhalation Patient Comments: INHALE 1 PUFF BY MOUTH EVERY 4 HOURS NEEDED lisinopril 2.5 MG tablet 2.5 mg PO HS metoprolol tartrate 25 MG tablet 25 mg PO BID tamsulosin 0.4 MG capsule 0.4 mg PO DAILY Referrals Follow up/Referrals: Reshma Gipson PA [Primary Care Provider, Medical] - See instructions Activity Restrictions/Add. Instructions Additional Instructions/Restrictions: At this time it was felt you are safe to be discharged home. If new or worsening symptoms please do not hesitate to return the emergency department. Please follow-up with your family doctor early next week to make sure things are headed in the right direction. Come back to the ER if things are getting worse in the meantime. Please take antibiotics as prescribed. Please call and schedule appoint with Dr. Bergeron for further evaluation of your heart as soon as you are able. Clinical Impressions Clinical Impression: Acute exacerbation of chronic obstructive pulmonary disease, Pneumonia, CHF (congestive heart failure) Print Language Print Language: Lithuanian Discharge ED Provider: Jerod Soliman General Adult HPI General Chief complaint: Dizziness Stated complaint: dizzy Time Seen by Provider: 04/04/25 06:56 Mode of Arrival: Family Vehicle Source of Information: Patient and Relative Description of Symptoms (Recalled from ER Triage Doc. by RN): Dizziness Pt presents to the ED accompanied by his daughter with c/o dizziness. Pt's daughter reported that the pt gets hypoxic and reports that he is acting like he is hypoxic . Pt is AO X 4 and only c/o dizziness. History of Present Illness HPI narrative: Patient is 84-year-old male with past medical history of previous dizziness, previous labyrinthitis, COPD, hypertension, smoker, CKD who presents emergency department for evaluation of cough. Patient states that his cough has been present over the last few days and is slightly worse than normal. His daughter became concerned that he was hypoxic and he presents here for continued evaluation. He stated to nurses that he was dizzy earlier this morning however when I ask him to articulate this he states that he is not dizzy, was not dizzy, has chronic left sciatica pain that is not worse than normal. He does not have any chest pain or abdominal pain. No trauma. No other acute complaints at this time. Please note that above description of symptoms, in this electronic medical record under categorization of recalled from ER triage doctor by RN are reflective of an initial nursing assessment, however, is not reflective of my full history and physical exam that was personally taken and clarified. Consequentially, this preceding description of symptoms, which may include the patient's categorized chief complaint in the EMR, do not reflect my personal clinical impression, and the ultimate description of history of present illness and patient stated complaints should be deferred to this section of the note. Unless stated otherwise or congruent with this section of the note, additional signs, symptoms, or incongruence should be interpreted as inaccurate with my clinical impression. Related Data Home Medications ?Medication ?Instructions ?Recorded ?Confirmed lisinopril 2.5 mg tablet 2.5 mg PO HS BLOOD PRESSURE 10/18/17 04/03/25 metoprolol tartrate 25 mg tablet 25 mg PO BID Hypertension 10/18/17 04/03/25 tamsulosin 0.4 mg capsule 0.4 mg PO DAILY prostate 01/02/19 04/03/25 furosemide 20 mg tablet 20 mg PO DAILY 11/01/23 04/03/25 albuterol sulfate 90 mcg/actuation inhalation 03/22/24 04/03/25 aerosol inhaler Previous Rx's ?Medication ?Instructions ?Recorded famotidine 40 mg tablet 40 mg PO BID #60 tabs 09/22/23 amoxicillin 875 mg-potassium 1 tab PO BID pneumonia #7 tabs 04/04/25 clavulanate 125 mg tablet azithromycin 250 mg tablet 250 mg PO DAILY 4 days #4 tabs 04/04/25 (Zithromax Z-Bartolo) Allergies Allergy/AdvReac Type Severity Reaction Status Date / Time No Known Allergies Allergy Verified 04/04/25 07:04 [facility] Disclaimer: The information contained in this section may have been updated after the patient was seen, as this information can be updated by other users. Medical History Lesion of buccal mucosa Hyperkeratotic oral lesion Fatigue Abnormal findings on diagnostic imaging of heart and coronary circulation Chronic kidney disease Afib Coronary artery disease HLD (hyperlipidemia) Bradycardia Verrucous carcinoma of floor of mouth Difficulty swallowing Stopped smoking with greater than 30 pack year history Dyspnea on exertion Cough variant asthma Shortness of Breath Chronic cough Allergic rhinitis History of smoking 30 or more pack years History of lip cancer Dyspnea on exertion Coronary artery disease HTN (hypertension) Surgical History History of oral surgery History of coronary artery bypass graft History of prostate surgery History of open heart surgery Family History Family/Other Heart disease Social History Smoking Status: Never smoker second hand exposure: No alcohol intake: never substance use type: denies use current occupational status: other Travel in the last 8 weeks?: None household members: spouse housing: house marital status: education level: high school service: Yes current occupational exposures/hazards: No caffeine: No special elizabeth needs: No agree to transfusion: No do you feel safe at home: Yes victim of physical abuse: No victim of emotional abuse: No victim of sexual abuse: No would you like helpful sources: No Have you lived/traveled outside [place] in past 30 days?: No Contact w/someone who lives/traveled outside US past 30 days?: No Exposure to someone with infectious disease in past 14 days?: No Do you have a fever (greater than 100.4 F or 38 C)?: No Have you tested positive for COVID-19?: No Exposed to someone with COVID-19 in past 14 days?: No Do you have a sore throat?: No Do you have a cough?: No Do you have any weakness?: No Do you have any diarrhea?: No Are you experiencing any unusual bleeding?: No Do you have any muscle aches/pain?: No Do you have any abdominal pain?: No Are you experiencing loss of taste or smell?: No Other Medical History Have you received the Flu Vaccine for this season: No Have you received the Pneumonia Vaccine: No ROS Obtained: Yes Systems reviewed as appropriate & no additional complaints except as documented Physical Exam General General appearance: alert and in no apparent distress Head Head exam: atraumatic and normocephalic Eye Eye exam: Present PERRL and EOMI ENT ENT exam: Present mucous membranes moist Neck Neck exam: Present normal inspection Chest Chest inspection: Present normal inspection and symmetric chest wall rise Respiratory Respiratory exam: Present normal lung sounds bilaterally; Absent respiratory distress, wheezes or stridor Cardiovascular Cardiovascular exam: Present regular rate and normal rhythm Abdominal Exam Abdominal exam: Present soft; Absent tenderness Extremities Exam Extremities exam: Present normal inspection; Absent edema Neurological Exam Neurological exam: Present alert, oriented X3 and CN II-XII intact; Absent motor sensory deficit Psychiatric Psychiatric exam: Present normal affect Skin Skin exam: Present warm and dry Medical Decision Making Medical Records Screening: Per USPSTF and CDC recommendations, given the prevalence of disease in our region, it is our hospital?s policy to screen for HIV and viral Hepatitis for all patients aged 18 and over and those with ongoing risk factors. [place]ito Inquiry Pt receiving controlled substance: No Vital Signs: 04/04/25 06:56 04/04/25 07:01 04/04/25 07:31 Temperature 97.8 F Temperature Source Oral Pulse Rate 56 L Pulse Rate [Left] 64 Respiratory Rate 16 20 18 Blood Pressure 149/72 H 142/71 H Blood Pressure [Right Arm] 172/74 H Blood Pressure Mean Blood Pressure Mean [Right Arm] 106 Blood Pressure Source [Right Arm] Automatic Cuff Blood Pressure Position [Right Arm] Sitting 02 Sat by Pulse Oximetry 98 94 L 95 Oxygen Delivery Method Room Air 04/04/25 08:01 04/04/25 09:31 04/04/25 10:01 Temperature Temperature Source Pulse Rate 64 65 65 Pulse Rate [Left] Respiratory Rate 20 23 15 Blood Pressure 153/67 H 123/103 H 148/69 H Blood Pressure [Right Arm] Blood Pressure Mean 101 107 95 Blood Pressure Mean [Right Arm] Blood Pressure Source [Right Arm] Blood Pressure Position [Right Arm] 02 Sat by Pulse Oximetry 97 94 L 94 L Oxygen Delivery Method Lab Data Lab Results 04/04/25 07:14: WBC 4.3 L, RBC 4.63, Hgb 13.7 L, Hct 41.9 L, MCV 90.5, MCH 29.6, MCHC 32.7, RDW 13.6, Plt Count 131 L, MPV 10.3, Neut % (Auto) 60.3, Lymph % (Auto) 22.8, [place] % (Auto) 10.1 H, Eos % (Auto) 6.1, Baso % (Auto) 0.5, Neut # (Auto) 2.6, Lymph # (Auto) 1.0, [place] # (Auto) 0.4, Eos # (Auto) 0.3, Baso # (Auto) 0.0, VBG pH 7.32, VBG pCO2 37.2, VBG pO2 30.7, VBG HCO3 18.7 L, VBG Total CO2 19.9 L, VBG O2 Saturation 59.3, VBG Base Excess -7.4 L, VBG Lactic Acid 1.1, Sodium 142, Potassium 4.9, Chloride 108 H, Carbon Dioxide 23, Anion Gap 15.9 H, Glucose 71 L, Calcium 8.9, Magnesium 1.5 L, Total Bilirubin 0.8, AST 31, ALT 22, Alkaline Phosphatase 106, Troponin I 0.02, NT-Pro-B Natriuret Pep 5230 H, Total Protein 7.8, Albumin 4.3, Globulin 3.5 H, Albumin/Globulin Ratio 1.2 04/04/25 07:16: SARS-CoV-2 (PCR) Not detected, Influenza A Untype (PCR) Not detected, Influenza Type B (PCR) Not detected 04/04/25 08:57: Urine Color Yellow, Urine Appearance Clear, Urine pH 5.5, Ur Specific [place] 1.010, Urine Protein Negative, Urine Glucose (UA) Negative, Urine Ketones Negative, Urine Blood 1+ A, Urine Nitrate Negative, Urine Bilirubin Negative, Urine Urobilinogen 0.2, Ur Leukocyte Esterase Negative, Urine RBC None, Urine WBC Occasional, Ur Squamous Epith Cells Occasional, Urine Bacteria None 04/04/25 07:14 04/04/25 07:14 Orders (Tests/Meds): ED MEDICATIONS Discontinued Medications Generic Name Dose Route Start Last Admin Trade Name Freq PRN Reason Stop Dose Admin Amoxicillin/Clavulanate Potassium 1 each 04/04/25 11:01 Amoxicillin/Clavulanate Potassium 875/125mg Tablet PO 04/04/25 11:02 ONCE ONE Azithromycin 500 mg 04/04/25 11:01 Azithromycin 250mg Tablet PO 04/04/25 11:02 ONCE ONE Iopamidol 80 ml 04/04/25 08:22 04/04/25 08:24 Iopamidol-370 (76%);100ml Bottle IV 04/04/25 08:23 80 ml ONCE ONE Administration Sodium Chloride 40 ml 04/04/25 08:22 04/04/25 08:23 0.9 % Sodium Chloride 50 Ml Vial IV 04/04/25 08:23 40 ml ONCE ONE Administration Sodium Chloride 10 ml 04/04/25 08:22 04/04/25 08:23 Sodium Chloride 0.9% 10ml Syr (Rad Only) IV 04/04/25 08:23 10 ml ONCE ONE Administration ORDERS Category Date Time Status CT angio head Stat Cat Scan 04/04/25 07:[address] angio neck Stat Cat Scan 04/04/25 07:[address] head/brain wo con Stat Cat Scan 04/04/25 07:03 Completed CXR --portable [XR chest portable] Stat Exams 04/04/25 07:03 Completed BNP [NT Pro Brain Natriuretic Pep.] Stat Lab 04/04/25 07:14 Completed CBC w/Auto Diff [Complete Blood Count Auto Diff] Stat Lab 04/04/25 07:14 Completed CMP [Comprehensive Metabolic Panel] Stat Lab 04/04/25 07:14 Results MG [Magnesium] Stat Lab 04/04/25 07:14 Results Rapid PCR Covid and Flu A/B Stat Lab 04/04/25 07:16 Completed Trop I [Troponin I] Stat Lab 04/04/25 07:14 Results Troponin I Q3H Lab 04/04/25 10:15 Ordered Troponin I Q3H Lab 04/04/25 13:15 Ordered UA [Urinalysis and Microscopic] Stat Lab 04/04/25 08:57 Completed VBG [Venous Blood Gas] Stat RT 04/04/25 07:14 Completed ECG Data Tracing #1: Independently interpreted by me rate is 56, rhythm is irregular, axis is normal, no ST elevation in anatomical contiguous leads, QTc 391. Medical Decision Narrative: In summary patient is a 84-year-old male past medical history described above presents emergency department for evaluation of cough. Patient is hemodynamically stable nontoxic-appearing upon arrival, afebrile. Differential diagnosis includes pneumonia, CHF, among others. Workup will be conducted with hematologic labs, chest x-ray, VBG, EKG, troponin. With respect to dizziness that was reported to nurses patient has a nonfocal neurologic exam, last known normal in any event would be yesterday evening and he is well outside the stroke window however although he is not particularly dizzy for me making sure he does not have critical stenosis of his posterior circulation will be conducted with noncontrasted CT scan of the head CTA of the head and neck. Initial hematologic labs reviewed by me no significant leukocytosis no anemia, nonactionable thrombocytopenia, compensated acid-base status, no critical electrolyte abnormality however part of the CMP is pending given laboratory problems with the machine currently. Initial troponin 0.02 consistent with his baseline no ongoing chest pain never has had chest pain we will defer second troponin at this time. Elevated BNP consistent with his known CHF but does not have critical volume overload that needs acute intervention. Noncontrasted CT scan of the head informally visualized by me no acute large intra-axial hemorrhage. Urinalysis interpreted by me and not consistent with infection. Formal read CTs nonactionable, noncritical stenosis of the neck. Upon repeat evaluation patient continued to be alert and oriented with a nonfocal normal neurologic exam, ambulatory at bedside. Formal chest x-ray read no acute pulmonary process however upon further questioning patient was coughing and states he has had a cough for 3 days, there appears to be some obscuration of the left hemidiaphragm on my informal interpretation and given cough early pneumonia is on the differential for which we will treat with Augmentin and azithromycin. Steroids were considered however patient is moving air well and do not want to worsen his heart failure will be deferred at this time. Patient is saturating in the high 90s on room air and is appropriate for outpatient management at this time was given return precautions. Patient will follow-up on an outpatient basis for his heart failure. Will follow-up on his kidney function after results when the analyzer is fixed however patient has no critical electrolyte abnormality therefore is appropriate for outpatient management. Critical Care Critical Care Time Critical Care Time: No
--- NOTE | 2025-04-04 07:11 | ECG_ITS ---
APPROVED REPORT Exam: Resting ECG HR:56 bpm ECG Measurements Heart Rate 56 AXES QRSd 91 QRS 17 QT 401 T 38 QTc 391 Conclusion ATRIAL FIBRILLATION WITH SLOW VENTRICULAR RESPONSE ABNORMAL RHYTHM ECG Electronically signed by : ROBBY OVIEDO, 04/04/2025 16:17:45
[2025-04-04 07:22] LABS: Coronavirus 19, PCR Not Detected (NotDetected); Influenza A, PCR Not Detected (NotDetected); Influenza B, PCR Not Detected (NotDetected)
[2025-04-04 07:24] LABS: Lactate Venous 1.1 mmol/L (0.4-2.0); VBG HCO3 18.7 mmol/L (23-30); VBG PCO2 37.2 mmol/L (35-51); VBG PH 7.32 mmol/L (7.31-7.41); VBG PO2 30.7 mmol/L (28-40)
[2025-04-04 07:33] LABS: Hematocrit 41.9 % (42.0-52.0); Hemoglobin 13.7 g/dL (14.1-18.0); Immature Granulocytes % 0.2 %; Mean Corpuscular HGB Conc 32.7 g/dL (31.8-35.4); Mean Corpuscular Hemoglobin 29.6 pg (27.0-31.2); Mean Corpuscular Volume 90.5 fl (80-94); Nucleated Red Blood Cells % 0 %; Platelet Count 131 K/mm3 (142-424); Red Blood Count 4.63 M/mm3 (4.60-6.20); Red Cell Distribution Width-SD 45.7 fL; White Blood Count 4.3 K/mm3 (4.8-10.8)
--- NOTE | 2025-04-04 08:14 | HMH.ITSTN ---
Exams were put in at 7:03am, the description was dizzy. We were waiting for labs to come back before completing the exams. We received a call around 8am stating that this patient was a stroke alert and that he had been waiting for an hour. Radiology was not notified that these exams was for a stroke either by phone call or by the reason for exam.
[2025-04-04 08:19] LABS: Albumin Level 4.3 g/dl (3.5-5.0); Chloride 108 mmol/L (98-107); Potassium 4.9 mmoL/L (3.5-5.1); Sodium 142 mmol/L (136-145)
[2025-04-04 08:22] LABS: Alanine Aminotransferase 22 U/L (12-78); Albumin/Globulin Ratio 1.2 (1.1-1.8); Alkaline Phosphatase 106 U/L (38-126); Anion Gap 15.9 mEq/L (5-15); Aspartate Amino Transferase 31 U/L (17-59); Bilirubin,Total 0.8 mg/dl (0.2-1.3); Calcium 8.9 mg/dl (8.4-10.2); Carbon Dioxide 23 mmol/L (22.0-30.0); Globulin 3.5 g/dL (1.3-3.2); Glucose 71 mg/dl (74-100); Magnesium 1.5 mg/dl (1.6-2.3); Total Protein,Serum 7.8 g/dl (6.3-8.2)
[2025-04-04] MEDS: SODIUM CHLORIDE 0.9% 10ML SYR (RAD ONLY) 10 ML IV (08:23)
[2025-04-04] MEDS: 0.9 % SODIUM CHLORIDE 50 ML VIAL 40 ML IV (08:23)
--- NOTE | 2025-04-04 08:23 | PC.NURSE ---
FS 94
[2025-04-04] MEDS: IOPAMIDOL-370 (76%);100ML BOTTLE 80 ML IV (08:24)
--- NOTE | 2025-04-04 08:25 | PC.NURSE ---
xr at bedside
[2025-04-04 08:32] LABS: NT Pro Brain Natriuretic Pep. 5230 pg/mL (0-450)
[2025-04-04 08:34] LABS: Troponin I 0.02 ng/ml (0.00-0.034)
[2025-04-04 09:02] LABS: Microscopic, Urine URINE MICROSCOPIC (MICROSCOPIC)
[2025-04-04 09:53] LABS: Bilirubin,Urine Negative (Negative); Color,Urine YELLOW (Yellow); Glucose,Urine (UA) Negative (Negative); Ketones,Urine Negative (Negative); Leukocyte Esterase,Urine Negative (Negative); PH,Urine 5.5 (5.0-8.5); Protein,Urine Negative (Negative); Specific Gravity, Urine 1.010 (1.005-1.030); Urobilinogen,Urine 0.2 EU/dl (0.2)
--- NOTE | 2025-04-04 10:28 | PC.NURSE ---
Dylan Jenkins rounded on pt to let them know that the analyzer was down and it was taking awhile for labs to come back
[2025-04-04 10:39] LABS: Squamous Epithelial Cell,Urine Occasional #/hpf (0-5); WBC,Urine Occasional #/hpf (0-3)
[2025-04-04] MEDS: AMOXICILLIN/CLAVULANATE POTASSIUM 875/125MG TABLET 1 EACH PO (11:08)
[2025-04-04] MEDS: AZITHROMYCIN 250MG TABLET 500 MG PO (11:08)
[2025-04-04 12:07] LABS: Blood Urea Nitrogen 41 mg/dl (9-20); Creatinine Clearance Estimated 22 mL/min (50-200); Creatinine,Serum 2.20 mg/dl (0.66-1.25); Estimated Glomerular Filt Rate 29 ml/min (>60); GFR (African American) 35 ML/MIN (>60)
== END 2025-04-04 11:52 | disposition home or self-care (01) ==
PROVIDERS: Emergency Provider Emergency Medicine; PCP Physician Assistant
DX: J44.1 Chronic obstructive pulmonary disease with (acute) exacerbation (principal); J44.0 Chronic obstructive pulmonary disease with (acute) lower respiratory infection; J18.9 Pneumonia, unspecified organism; I11.0 Hypertensive heart disease with heart failure; I50.9 Heart failure, unspecified; Z87.891 Personal history of nicotine dependence
CPT/HCPCS: 70450; 70496; 70498; 71045; 80053; 81001; 82803; 83735; 83880; 84484; 85025; 87636; 93005; 99284; 99285; Q9967

== ENCOUNTER 2025-04-20 11:11 | Outpatient (CLI) | payer MEDICARE, SELFPAY ==
--- OUTSIDE RECORDS SUMMARY | 2023-11-03 07:30 | XMS_ITS ---
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 Name Role Phone Milind Corona Primary Care Provider Allergies No Known Allergies Results Component Value Reference Range Notes CBC Fingerstick (in house) Reviewed date:11/03/2023 03:06:02 PM Interpretation: Performing Lab: Notes/Report: wbc 5.4 3.5 - 10 lym 27.5 15 - 50 mid 5.8 2 - 15 gran 66.7 35 - 80 rbc 4.56 3.5 - 5.5 hgb 13.3 11.5 - 16.5 hct 42.6 35 - 55 mcv 93.4 75 - 100 mch 29.1 25 - 35 mchc 31.2 31 - 38 plat 148 100 - 400 REASON FOR VISIT cough, and refills Medications Medication SIG (Take, Route, Frequency, Duration) Notes Start Date End Date Status Jardiance 25 MG 1 tablet Orally Once a day 04/21/2023 Active Tamsulosin HCl 0.4 MG 1 cap(s) orally tw ice a day; Duration: 90 days Active Furosemide 20 MG 1 tab(s) orally once a day as needed; Duration: 90 days Active Xarelto 15 MG 1 tablet with food O rally Once a day; Duration: 90 days 07/21/2023 Active oxyBUTYnin Chloride ER 10 MG 1 tablet Orally Once a day; Duration: 90 days 07/16/2023 Active Loratadine 10 MG 1 tablet Orally Once a day; Duration: 30 day(s) 04/21/2023 Active Montelukast Sodium 10 MG 1 tablet Orally Once a day; Duration: 30 day(s) 04/21/2023 Active Lisinopril 2.5 MG 1 tab(s) orally once a day; Duration: 90 days Active Metoprolol Tartrate 25 MG 1 tab(s) orall y 2 times a day; Duration: 90 days Active Atorvastatin Calcium 20 MG 1 tab(s) oral ly once a day (at bedtime); Duration: 90 days Active Multiple Vitamin - 1 cap(s) orally once a day Active Metamucil Smooth Texture 58.6 % as directed orally once a day OTC 08/18/2021 Active Vital Signs Blood pressure systolic 108 mm Hg 11/03/19 24 Blood pressure diastolic 60 mm Hg 024 Heart Rate 70 /min 11/03/2023 Height 70 in 11/03/2023 Weight 161 lbs 11/03/2023 BMI 23.10 kg/m2 11/03/2023 Encounters Encounter Location Date Provider Diagnosis [facility] [address] [facility] [address] [facility] [address] [place] [id number] 11/03/2023 Milind Corona URI, acute J06.9 and Stage 3b chronic kidney disease N18.32 Assessments Encounter Date Diagnosis (ICD Code) Assessment Notes Treatment Notes Treatment Clinical Notes Section Notes 11/03/2023 URI, acute (ICD-10 - J06.9) fluids, rest, supportive measures for fever/symptom relief 11/03/2023 Stage 3b chronic kidney disease (ICD-10 - N18.32) Plan Of Treatment Medication Medication Name Sig Start Date Stop Date Notes Jardiance 25 MG 1 tablet Orally Once a day 04/21/2023 Treatment Notes Assessment Notes URI, acute fluids, rest, suppor tive measures for fever/symptom relief Next Appt Details Follow Up: as scheduled,and prn, Reason: Provider Name:Milind Hanley ry, 04/25/2025 10:30:00 AM, [address] [facility], [address], [place], [phone], Progress Notes * JOANA CORTESDOB: [birth year] (84 yo M)Acc No.[id number]:11/03/2023 Progress Notes Patient: JOANA BORREGO Provider: Gonzalo Corona M.D. :1940 A ge:83 Y S ex:Male Date:11/03/2023 Address:[place], [id number] Subjective: * Chief Complaints: * 1 . Cough, and refills. * HPI: E NT/respiratory: 83 year old male presents with c/o cough P t complains of small amount of white sputum cough for about a week. States he feels like his lungs are burning at times. * ROS: D ERMATOLOGY: no R sophy. n o H alex. G ASTROENTEROLOGY: no N ausea. n o V omiting. U ROLOGY: no D ifficulty urinating. n o B lood in urine. 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 * Surgical History: C olonoscopy, Polyps Removal, Neg Path 2003, C-Scope, Normal/ Dr. Rm 11/2010, Circumcision- Dr. Agustin 09/2012, Coronary Artery Bypass Graft - 3 Vessels 04/2013, Lip Skin Cancer Biopsy Biopsy 09/17/2020, Buccal Mass Removal 04/22/2021, Cyst removal from mouth 08/19/2022. * Hospitalization/Major Diagno stic Procedure: B ack Pain- [facility] 04/09/2012, Heart Attack- [place] 05/08/2013, Kidney Stones , Dizziness- [facility] 10/18/2017, Dizziness- [facility] 10/19-, Unable to Urinate- Foly Cath- [facility] 08/20/2020, Unable to Urinate- Foly Fath- [facility] 04/22/2021. * Family History: F ather: . M other: . P aternal Grand Father: . P aternal Grand Mother: . M aternal Grand Father: . M aternal Grand Mother: . Siblings: alive, prostate cancer. C hildren: alive. 4 son(s) , 2 daughter(s) - healthy. . * Social History: C URRENT TOBACCO USE S moking Status: Patient does NOT smoke. C affeine: yes, frequency: 1 cup a day. Exercise: yes. Marital Status: . Past smoking status: no, quit 1973. Alcohol: Yes, occasional. * Medications: T aking Multiple Vitamin - Capsule 1 cap(s) orally once a day , Taking Metamucil Smooth Texture 58.6 % Powder as directed orally once a day , Notes to Pharmacist: OTC, Taking Loratadine 10 MG Tablet 1 tablet Orally Once a day , Taking Montelukast Sodium 10 MG Tablet 1 tablet Orally Once a day , Taking Lisinopril 2.5 MG Tablet 1 tab(s) orally once a day , Taking Metoprolol Tartrate 25 MG Tablet 1 tab(s) orally 2 times a day , Taking Atorvastatin Calcium 20 MG Tablet 1 tab(s) orally once a day (at bedtime) , Taking Xarelto 15 MG Tablet 1 tablet with food Orally Once a day , Taking oxyBUTYnin Chloride ER 10 MG Tablet Extended Release 24 Hour 1 tablet Orally Once a day , Taking Tamsulosin HCl 0.4 MG Capsule 1 cap(s) orally twice a day , Taking Furosemide 20 MG Tablet 1 tab(s) orally once a day as needed , Taking Jardiance 25 MG Tablet 1 tablet Orally Once a day , Medication List reviewed and reconciled with the patient * Allergies: N .K.D.A. Objective: * Vitals: W t:161, Temp:98.0, BP:108/60, HR:70, O2 Sat:97% on RA, Nurse:donta, Ht: 70, BMI:23.10. * Examination: E NT/Respiratory: General Appearance: N AD. O ral cavity : m inimal erythema without exudate on pharynx. H eart : irregularly irregular rhythm. L ungs:?clear to auscultation bilaterally. Assessment: * Assessment: 1. U RI, acute - J06.9 (Primary) 2 . S tage 3b chronic kidney disease - N18.32 Plan: * Treatment: Value Reference Range w bc 5.4 3.5 - 10 * l ym 27.5 15 - 50 * m id 5.8 2 - 15 * g ran 66.7 35 - 80 * r bc 4.56 3.5 - 5.5 * h gb 13.3 11.5 - 16.5 * h ct 42.6 35 - 55 * m cv 93.4 75 - 100 * m ch 29.1 25 - 35 * m chc 31.2 31 - 38 * p lat 148 100 - 400 * Lissette Norman 11/03/2023 11:41:42 AM > , Provider reviewed results while patient in office. Notes: fluids, rest, supportive measures for fever/symptom relief??2.?Stage 3b chronic kidney disease? Continue Jardiance Tablet, 25 MG, 1 tablet, Orally, Once a day.?? * Procedure Codes: 9 [address] [place], [address] CAPILLARY BLOOD DRAW, 87001 CBC WITH AUTO DIFF, G2211 Complex e/m visit add on * Follow Up: a s scheduled,and prn * Images: Billing Information: * Visit Code: 14630 Office Visit, Est Pt., Level 3. * Procedure Codes: [address] [place]. [address] CAPILLARY BLOOD DRAW. 27496 CBC WITH AUTO DIFF. G2211 Complex e/m visit add on. * Electronic signature of Janeth Corona MD on 04/20/2025 at 11:26 AM EDT Sign off status: Pending * Provider: Gonzalo Corona M.D. Date: 0 11/03/2023 Generated for Mehdi brown/[place]sey/eTransmitting on: 1 11:26 AM EDT History and Physical Notes * HPI (History of Present Illness) Category Sub-Category Detail Notes Category Not es ENT/respiratory cough Pt complains of small amount of white sputum cough for about a week. States he feels like his lungs are burning at times Examination Category Sub-Category Detail Notes Category Not es ENT/Respiratory Oral cavity : minimal erythema without exudate on pharynx Heart : irregularly irregula r rhythm Lungs: clear to auscultatio n bilaterally General Appearance: NAD
--- OUTSIDE RECORDS SUMMARY | 2023-12-22 09:45 | XMS_ITS ---
[facility] Address [address] [place] [id number] Care Team Providers Care Servicenow Administrator Developer Name Role Phone Cj Milind Primary Care Provider Allergies No Known Allergies REASON FOR VISIT follow up ER Medications Medication SIG (Take, Route, Frequency, Duration) Notes Start Date End Date Status Xarelto 15 MG 1 tablet with food O rally Once a day; Duration: 7 days 07/21/2023 Active Jardiance 25 MG 1 tablet Orally Once a day; Duration: 7 days 04/21/2023 Active Furosemide 20 MG 1 tab(s) orally once a day as needed; Duration: 90 days Active Tamsulosin HCl 0.4 MG 1 cap(s) orally tw ice a day; Duration: 90 days Active oxyBUTYnin Chloride ER 10 MG 1 tablet Orally Once a day; Duration: 90 days 07/16/2023 Active Atorvastatin Calcium 20 MG 1 tab(s) oral ly once a day (at bedtime); Duration: 90 days Active Metoprolol Tartrate 25 MG 1 tab(s) orall y 2 times a day; Duration: 90 days Active Lisinopril 2.5 MG 1 tab(s) orally once a day; Duration: 90 days Active Montelukast Sodium 10 MG 1 tablet Orally Once a day; Duration: 30 day(s) 04/21/2023 Active Loratadine 10 MG 1 tablet Orally Once a day; Duration: 30 day(s) 04/21/2023 Active Multiple Vitamin - 1 cap(s) orally once a day Active Metamucil Smooth Texture 58.6 % as directed orally once a day OTC 08/18/2021 Active Vital Signs Blood pressure systolic 112 mm Hg 12/22/19 24 Blood pressure diastolic 64 mm Hg 024 Heart Rate 68 /min 12/22/2023 Height 70 in 12/22/2023 Weight 160.8 lbs 12/22/2023 BMI 23.07 kg/m2 12/22/2023 Encounters Encounter Location Date Provider Diagnosis [facility] [address] [facility] [address] [facility] [address] [place] [id number] 12/22/2023 [place]ella [place] SOB (shortness of breath) R06.02 and Coronary artery disease involving [place] coronary artery of [place] heart without angina pectoris I25.10 Assessments Encounter Date Diagnosis (ICD Code) Assessment Notes Treatment Notes Treatment Clinical Notes Section Notes 12/22/2023 SOB (shortness of breath) (ICD-10 - R06.02) Symptoms have improved. Patient is seeing cardiology next week at [facility] to arrange left heart cath due to his abnormal stress test 12/22/2023 Coronary artery disease involving [place] coronary artery of [place] heart without angina pectoris (ICD-10 - I25.10) Plan Of Treatment Treatment Notes Assessment Notes SOB (shortness of breath) Symptoms have improved. Patient is seeing cardiology next week at [facility] to arrange left heart cath due to his abnormal stress test Next Appt Details Follow Up: as scheduled,and prn, Reason: Provider Name:Milind Hanley , 04/25/2025 10:30:00 AM, [address] [facility] [address] [facility], [address], [place], [id number], Progress Notes * JOANA CORTESDOB: [birth year] (84 yo M)Acc No.[id number]:12/22/2023 Progress Notes Patient: JOANA BORREGO Provider: Gonzalo Corona M.D. :1940 A ge:83 Y S ex:Male Date:12/22/2023 [facility] [id number] Subjective: * Chief Complaints: * 1 . follow up ER. * HPI: H PI: 83 year old male presents with c/o Here for follow up on: 0 12/20/2023 [facility] ER visit, see printed and pt docs. Pt went to er because he could not breathe , states he was advised to see cardiology for cath and stents. Pt states he has appt with cardiology 12/27. * ROS: D ERMATOLOGY: no R sophy. [...] Hospitalization/Major Diagno stic Procedure: B ack Pain- [facility] ER 04/09/2012, Heart Attack- [place] 05/08/2013, Kidney Stones , Dizziness- [facility] 10/18/2017, Dizziness- [facility] 10/19-, Unable to Urinate- Foly Cath- [facility] ER 08/20/2020, Unable to Urinate- Foly Fath- [facility] ER 04/22/2021. * Family History: F ather: [...] Status: . Past smoking status: no, quit 1972. Alcohol: Yes, occasional. * Medications: T aking [...] once a day (at bedtime) , Taking oxyBUTYnin Chloride ER 10 MG Tablet Extended Release 24 Hour 1 tablet Orally Once a day , Taking Tamsulosin HCl 0.4 MG Capsule 1 cap(s) orally twice a day , Taking Furosemide 20 MG Tablet 1 tab(s) orally once a day as needed , Taking Jardiance 25 MG Tablet 1 tablet Orally Once a day , Taking Xarelto 15 MG Tablet 1 tablet with food Orally Once a day , Medication List reviewed and reconciled with the patient * Allergies: N .K.D.A. Objective: * Vitals: W t:160.8, Temp:97.8, BP:112/64, HR:68, O2 Sat:97% on RA, Nurse:donta, Ht: 70, BMI:23.07. * Examination: G eneral Examination: General Appearance: N AD. H eart: R SR. L ungs:?clear to auscultation. Assessment: * Assessment: 1. S OB (shortness of breath) - R06.02 (Primary) 2 . C oronary artery disease involving [place] coronary artery of [place] heart without angina pectoris - I25.10 ? Plan: * Treatment: * Procedure Codes: G 2211 Complex e/[place], [address] P[place]SE [place]X * Follow Up: a s scheduled,and prn * Images: Billing Information: * Visit Code: 51479 Office Visit, Est Pt., Level 3. * Procedure Codes: G2211 Complex e/[place]. [address] P[place]SE OX. * Electronic signature of Janeth Corona MD on 04/20/2025 at 11:26 AM EDT Sign off status: Pending * Provider: Gonzalo Corona M.D. Date: 0 12/22/2023 Generated for Mehdi brown/Ramsey/Amyitting on: 1 11:26 AM EDT History and Physical Notes * HPI (History of Present Illness) Category Sub-Category Detail Notes Category Not es HPI Here for follow up on: 4 [facility] ER visit, see printed and pt docs. Pt went to er because he could not breathe , states he was advised to see cardiology for cath and stents. Pt states he has appt with cardiology 12/27 Examination Category Sub-Category Detail Notes Category Not es General Examination Heart: RSR Lungs: clear to auscultatio n General Appearance: NAD
--- OUTSIDE RECORDS SUMMARY | 2024-02-03 09:15 | XMS_ITS ---
Author Organization [facility] Address [address] [place] [id number] Care Team Providers Care Screw Machine Tender Name Role Phone Milind Corona Primary Care Provider Reshma Gipson Unavailable [phone] Allergies No Known Allergies Results Component Value [...] 25 Performing Lab: Notes/Report: Test performed by [facility], [facility] [address] [place] [address] , [address], [place] [address] Bob Boone MD, Radio Installer Automobile CLIA: [id number] Sodium 137 135-145 mmol/L Potassium 5.1 3.5-5.3 [...] Interpretation:Normal Performing Lab: Notes/Report: Test performed by [facility], [address] , [facility], [place] [address] Bob Boone MD, Radio Installer Automobile CLIA: [id number] Magnesium 1.9 1.6-2.4 mg/dL Pulmonary Function Complete [...] 02/03/2024 Encounters Encounter Location Date Provider Diagnosis [facility] 1210 [facility] [address] [place] [id number] 02/03/2024 Reshma Crowdy Bronchitis J40 ; Non-recurrent [...] test results, Reason: Provider Name:Milind Hanley ry, 04/25/2025 10:30:00 AM, [address], [address], [place], [id number], Progress Notes * JOANA COYDOB: [birth year] (84 yo M)Acc No.[id number]:02/03/2024 Progress Notes Patient: JOANA BORREGO Provider: SILVA Luque :1940 A ge:83 Y S ex:Male Date:02/03/2024 Address:[address] [place] [address] [place], [id number] Pcp:Milind Corona Subjective: * Chief Complaints: * [...] Hospitalization/Major Diagno stic Procedure: B ack Pain- [facility] ER 04/09/2012, Heart Attack- [place] 05/08/2013, Kidney Stones , Dizziness- [facility] 10/18/2017, Dizziness- [facility] 10/19-, Unable to Urinate- Foly Cath- [facility] ER 08/20/2020, Unable to Urinate- Foly Fath- [facility] 04/22/2021. * Family History: F ather: [...] AM > no auth required; CPT code 03104; faxed to Reshma Gonzalez 03/01/2024 8:53:38 AM > see TE * Procedure Codes: 9 4760 [place], [address] CAPILLARY BLOOD DRAW, 597[address] CBC WITH AUTO DIFF * Follow Up: v ia phone to report test results * Images: Billing Information: * Visit Code: 77182 Office Visit, Est Pt., Level 3. * Procedure Codes: [address] [place]. [address] CAPILLARY BLOOD DRAW. 12185 CBC WITH AUTO DIFF. * Electronic signature of SILVA Elizabeth on 04/20/2025 at 11:27 AM EDT Sign off status: Pending * Provider: SILVA Luque Date: 0 02/03/2024 Generated for Printi ng/Faxing/eTransmitting on: 1 11:27 AM EDT History and Physical Notes * [...]
--- OUTSIDE RECORDS SUMMARY | 2024-03-08 05:00 | XMS_ITS ---
Author Organization [facility] Address [address] [facility] [address] [facility] [address] [place] [phone] Care Team Providers Care Slice Cutting Machine Operator Name Role Phone Milind Corona Primary Care Provider Allergies No Known Allergies REASON FOR VISIT 6 month check Encounters Encounter Location Date Provider Diagnosis [place] [address] [facility] [address] [place] [phone] 03/08/2024 Milind Corona Plan Of Treatment Next Appt Details Provider Name:Milind Hanley ry, 04/25/2025 10:30:00 AM, [address], [address], [place], [phone], Progress Notes * JOANA COYDOB: [birth year] (84 yo M)Acc No.[id number]:03/08/2024 Progress Notes Patient: JOANA BORREGO Provider: Gonzalo Corona M.D. :1940 A ge:83 Y S ex:Male Date:03/08/2024 Address:[place], [id number] Subjective: * Chief Complaints: * 1 . [...] Hospitalization/Major Diagno stic Procedure: B ack Pain- [facility] 04/09/2012, Heart Attack- [place] 05/08/2013, Kidney Stones , Dizziness- [facility] 10/18/2017, Dizziness- [facility] 10/19-, Unable to Urinate- Foly Cath- [facility] 08/20/2020, Unable to Urinate- Foly Fath- [facility] 04/22/2021. * Family History: [...] of Janeth Corona MD on 04/20/2025 at 11:27 AM EDT Sign off status: Pending * Provider: Gonzalo Corona M.D. Date: 0 03/08/2024 Generated for Mehdi brown/Ramsey/Abdirahman on: 1 11:27 AM EDT History and Physical Notes * HPI (History of Present Illness) Category Sub-Category Detail Notes Category Not es Cardiology Blood Pressure Elevated Pt here for 6 mo f/u on hypertension, states he is doing well and does not have any concerns Hyperlipidemia Pt is fasting today
--- OUTSIDE RECORDS SUMMARY | 2024-08-28 07:00 | XMS_ITS ---
[facility] Organization [facility] Address [address] [facility] [address] [place] [id number] Care Team Providers Care District Director Name Role Phone Milind Corona Primary Care Provider [phone] Allergies No Known Allergies Results Component Value [...] 08/28/2024 Encounters Encounter Location Date Provider Diagnosis [facility] [address] [facility] [address] [place], [place] [id number] 08/28/2024 Milind Corona Acute URI J06.9 Assessments [...] Up: prn, Reason: Provider Name:Milind Hanley ry, 04/25/2025 10:30:00 AM, [address], [address] , [place], [place], [id number], Progress Notes * JOANA COYDOB: [birth year] (84 yo M)Acc No.[id number]:08/28/2024 Progress Notes Patient: JOANA BORREGO Provider: Gonzalo Corona M.D. :1940 A ge:84 Y S ex:Male Date:08/28/2024 Address:[address] [place], [place] [id number] Subjective: * Chief Complaints: * 1 . [...] Hospitalization/Major Diagno stic Procedure: B ack Pain- [facility] ER 04/09/2012, Heart Attack- [place] 05/08/2013, Kidney Stones , Dizziness- [facility] 10/18/2017, Dizziness- [facility] 10/19-, Unable to Urinate- Foly Cath- [facility] ER 08/20/2020, Unable to Urinate- Foly Fath- [facility] ER 04/22/2021. * Family History: [...] G 2211 Complex e/[place], [address] [place], [address] CAPILLARY BLOOD DRAW, 1989[address] CBC WITH AUTO DIFF, 3074F SYST BP LT 130 MM HG, 3078F DIAST BP < 80 MM HG * Follow Up: p rn * Images: Billing Information: * Visit Code: 66188 Office Visit, Est Pt., Level 3. * Procedure Codes: G2211 Complex e/[place]. [address] [place]. [address] CAPILLARY BLOOD DRAW. 20266 CBC WITH AUTO DIFF. 3074F SYST BP LT 130 MM HG. 3078F DIAST BP < 80 MM HG. * Electronic signature of Janeth Corona MD on 04/20/2025 at 11:26 AM EDT Sign off status: Pending * Provider: Gonzalo Corona M.D. Date: 0 08/28/2024 Generated for Mehdi brown/Ramsey/eTransmitting on: 1 11:26 [...]
--- OUTSIDE RECORDS SUMMARY | 2024-11-08 07:30 | XMS_ITS ---
Author Organization [facility] Address [address] [facility] [address] [place] [id number] Care Team Providers Care Extension Forester Name Role Phone Milind Corona Primary Care Provider Reshma Gipson Unavailable [phone] Allergies No Known Allergies Results Component Value [...] employed in healthcare? No Is patient an [facility] employee? N Is patient currently hospitalized? No Is patient currently in ICU? No Date of Symptom onset Is patient a resident in a congregate care setting? No ADENOQIA Not Detected NotDetected CORONAHKU1 Not Detected NotDetected LCRJUBBK55 Not Detected NotDetected FCRDT775O Not Detected NotDetected SZSIBOH91 Not Detected NotDetected METAPNEUMO Not Detected NotDetected RHINOENTER Not Detected NotDetected INFLUAPCR Not Detected NotDetected FLUAH1 Not Detected NotDetected [id number] Not Detected NotDetected INFLUAH3 Not Detected NotDetected [...] MYCOPLASM Not Detected NotDetected P-Comprehensive Metabolic Pa keaotn (CMP) Reviewed date:11/09/2024 03:25:45 PM Interpretation:K 5.4, CO2 21, BUN 50, Creat 2.49, eGFR 24 Performing Lab: Notes/Report: Test performed by [facility] [address] [place] [address] , [address], [place] [address] Bob Boone MD, Preparation Room Manager CLIA: [id number] Sodium 139 135-145 mmol/L Potassium 5.4 3.5-5.3 [...] Growth Performing Lab: Notes/Report: Test performed by [facility] [address] [place] [address] , [place] [address] Bob Boone MD, Preparation Room Manager CLIA: [id number] Specimen Source Urine - Void Culture, Urine See Below Final Report : No growth B-Type Natriuretic Peptide Reviewed date:11/09/2024 03:25:45 PM Interpretation:245.0 Performing Lab: Notes/Report: Test performed by [facility] [address] [place] [address] , [address], [place] [address] Bob Boone MD, Preparation Room Manager CLIA: [id number] B-Type Natriuretic Peptide 245.0 <2.0-100.0 pg/ mL REASON FOR VISIT f/u [facility] er Medications Medication SIG (Take, Route, [...] Encounter Location Date Provider Diagnosis NUBIA-Arnaud [address] [facility] [address] [place], [place] [id number] 11/08/2024 Reshma Gipson Bronchitis J40 ; Confusion [...] test results, Reason: Provider Name:Milind Hanley , 04/25/2025 10:30:00 AM, [address] [facility] [address] [facility], [address] , [place], [id number], Progress Notes * JOANA COYDOB: [birth year] (84 yo M)Acc No.[id number]:11/08/2024 Patient: JOANA BORREGO Provider: SILVA Luque :1940 A ge:84 Y S ex:Male Date:11/08/2024 Address:[address] [place] [address] [place], [id number] Pcp:Milind Corona Subjective: * Chief Complaints: * 1 . F/u [facility] er. 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 [place] that no additional workup is indicated at this time as this seems to be a chronic issue that patient states that has not been solved. Will have patient follow-up with his primary care physician. All questions were answered. He demonstrated understanding and was in agreement with this plan. He was then discharged from the emergency department in stable condition. Lab results from [facility] ER visit: 11/06/24 07:39: WBC 5.2, RBC 4.48 L, Hgb 12.9 L, Hct 39.7 L, MCV 88.6, MCH 28.8, MCHC 32.5, RDW 14.1, Plt Count 148, MPV 9.8, Neut % (Auto) 57.1, Lymph % (Auto) 28.7, [place] % (Auto) 11.1 H, Eos % (Auto) 2.5, Baso % (Auto) 0.4, Neut # (Auto) 2.9, Lymph # (Auto) 1.5, [place] # (Auto) 0.6, Eos # (Auto) 0.1, [...] Troponin I 0.02 CXR FINDINGS : from [facility] ER visit 2 views of the chest [...] is here today for a f/u from [facility] ER. Pt was seen at the ER [...] Hospitalization/Major Diagno stic Procedure: B ack Pain- [facility] ER 04/09/2012, Heart Attack- [place] 05/08/2013, Kidney Stones , Dizziness- [facility] 10/18/2017, Dizziness- [facility] 10/19-, Unable to Urinate- Foly Cath- [facility] ER 08/20/2020, Unable to Urinate- Foly Fath- [facility] ER 04/22/2021. * Family History: [...] ssential hypertension - I10 9 . B MN 21.0-21.9, adult - Z68.21 ? Plan: * Treatment: Value Reference Range A DENOQIA Not Detected NotDetected - * C ORONAHKU1 Not Detected NotDetected - * C TEEXUJK28 Not Detected NotDetected - * C LTOF997T Not Detected NotDetected - * C OVEXET98 Not Detected NotDetected - * M ETAPNEUMO Not Detected NotDetected - * R HINOENTER Not Detected NotDetected - * I NFLUAPCR Not Detected NotDetected - * F LUAH1 Not Detected NotDetected - * I [id number] Not Detected NotDetected - * I NFLUAH3 [...] week to make sure the blood has resolvedGopraaksh Madhavi 11/17/2024 01:21:28 PM > left message for return callGoMadhavi randall 11/29/2024 04:39:12 PM EDT > pt informed * Labs: * L ab: B-Type Natriuretic Peptide (Collection Date & Time - 11/08/2024 11:27 AM) 2 45.0 Value Reference Range B -Type Natriuretic Peptide 245.0 H <2.0-100.0 - p g/mL * [facility] IT support 11/09/2024 07:25:05 : This order was created by the Interface. KevMadhavi 11/09/2024 03:25:38 PM > See phone encounter * Procedure Codes: G 2211 Complex e/[place], [address] CAPILLARY BLOOD DRAW, 58161 CBC WITH AUTO DIFF, 17676 Urinalysis, no micro, 3074F SYST BP LT 130 MM HG, 3078F DIAST BP < 80 MM HG * Follow Up: v ia phone to report test results * Images: Billing Information: * Visit Code: 41021 Office Visit, Est Pt., Level 4. * Procedure Codes: G2211 Complex e/[place]. [address] CAPILLARY BLOOD DRAW. 65606 CBC WITH AUTO DIFF. 65298 Urinalysis, no micro. 3074F SYST BP LT 130 MM HG. 3078F DIAST BP < 80 MM HG. * Electronic signature of SILVA Elizabeth on 04/20/2025 at 11:27 AM EDT Sign off status: Pending * Provider: SILVA Luque Date: 0 11/08/2024 Generated for Gildai ng/Faxing/eTransmitting on: 1 11:27 AM EDT History and Physical Notes * HPI (History of Present Illness) Category Sub-Category Detail Notes Category Not es ENT/respiratory Short of Breath Pts daughter als o sts that pt has had SOB HPI Here for follow up on: Pt is her e today for a f/u from [facility] ER. Pt was seen at the ER [...]
--- OUTSIDE RECORDS SUMMARY | 2024-11-10 11:45 | XMS_ITS ---
Author Organization [facility] Address [address] [place] [id number] Care Team Providers Care Glass Bulb Silverer Name Role Phone Milind Corona Primary Care Provider Reshma Gipson Unavailable [phone] Allergies No Known Allergies REASON FOR VISIT [...] Location Date Provider Diagnosis A-Arnaud 1210 [facility] [address] [place] [id number] 11/10/2024 Reshma Gipson Acute URI J06.9 and [...] [address], [address], [place], [id number], Progress Notes * JOANA CORTESDOB: [birth year] (84 yo M)Acc No.[id number]:11/10/2024 Patient: JOANA BORREGO Provider: SILVA Luque :1940 A ge:84 Y S ex:Male Date:11/10/2024 Address[facility] [place] [id number] Pcp:Milind Corona Subjective: * Chief Complaints: * [...] Hospitalization/Major Diagno stic Procedure: B ack Pain- [facility] ER 04/09/2012, Heart Attack- [place] 05/08/2013, Kidney Stones , Dizziness- [facility] 10/18/2017, Dizziness- [facility] 10/19-, Unable to Urinate- Foly Cath- [facility] ER 08/20/2020, Unable to Urinate- Foly Fath- [facility] ER 04/22/2021. * Family History: F ather: [...] * Images: Billing Information: * Visit Code: 12620 Office Visit, Est Pt., Level 3. * Procedure Codes: G2211 Complex e/m visit add on. * Electronic signature of SILVA Elizabeth on 04/20/2025 at 11:26 AM EDT Sign off status: Pending * Provider: SILVA Luque Date: 0 11/10/2024 Generated for Mehdi brown/Ramsey/Amyitting on: 1 11:26 [...]
--- OUTSIDE RECORDS SUMMARY | 2025-04-05 07:15 | XMS_ITS ---
Author Organization [facility] Address [address] [facility] [address] [place] [phone] Care Team Providers Care Deputy Coroner Investigator Name Role Phone Milind Corona Primary Care [...] 27 Performing Lab: Notes/Report: Test performed by [facility], [employer] [address] [place] [address] , [address], [place] [address] Bob Boone MD, Glycerin Supervisor CLIA: [id number] Sodium 144 135-145 mmol/L Potassium 5.5 3.5-5.3 [...] Acute exacerbation of chronic obstructive airways disease (351348289) COPD with acute exacerbation (J44.1) Active confirmed Problem Hypertensive heart AND chronic kidney disease with congestive heart failure (33417579670504) Hypertensive heart and chronic kidney disease with [...] Encounter Location Date Provider Diagnosis [facility] [address] [place] [id number] 04/05/2025 Milind [place] COPD with acute exacerbation J44.1 ; Renal [...] 6 days, Reason: Provider Name:Milind Hanley , 04/25/2025 10:30:00 AM, [address] [facility], [address], [phone], Progress Notes * JOANA CORTESDOB: 8 (84 yo M)Acc No.[id number]:04/05/2025 Physical Patient: JOANA BORREGO Provider: Gonzalo Corona M.D. :1940 A ge:84 Y S ex:Male Date:04/05/2025 Address:[address] [place], [place] [address]AR[place] Ontiveros, [id number] Subjective: * Chief Complaints: * 1 . Preop cpx. * HPI: A dult Pre-Op physical: 84 year old male presents with c/o Procedure: r emoval of hyperkeratotic areas from buccal mucosal area and alveolar ridge. c/o Date of Procedure: Sergio Raymundo [facility] ENT. c/o Name of Surgeon: W ill schedule after pt is cleared by PCP and Dr. London. * ROS: R ESPIRATORY: Shortness of breath y es, p da was in the ER at [facility] yesterday and was diagnosed with a [...] Hospitalization/Major Diagno stic Procedure: B ack Pain- [facility] ER 04/09/2012, Heart Attack- [place] 05/08/2013, Kidney Stones , Dizziness- [facility] 10/18/2017, Dizziness- [facility] 10/19-, Unable to Urinate- Foly Cath- [facility] ER 08/20/2020, Unable to Urinate- Foly Fath- [facility] ER 04/22/2021. * Family History: F [...] G 2211 Complex e/[place], [address] CBC WITH AUTO DIFF, 1036F TOBACCO NON-USER, G8420 BMI<30 AND >=22 CALC & DOCU, G8950 PREHTN/HTN BP DOC INDCD F/U DOC, G8752 MOST RECENT SYSTOLIC BP < 140MM HG, G8754 MOST RECENT DIASTOLIC BP < 90MM HG, 3074F SYST BP LT 130 MM HG, 3078F DIAST BP < 80 MM HG * Follow Up: 6 days * Images: Drawin04/05/25 [facility] addendum Billing Information: * Visit Code: 50748 Office Visit, Est Pt., Level 4. * Procedure Codes: G2211 Complex e/[place]. [address] CBC WITH AUTO DIFF. 1036F TOBACCO NON-USER. [...] Gonzalo Corona M.D. Date: Generated for Mehdi brown/Ramsey/Abdirahman on: 11:26 AM EDT History and Physical Notes * HPI (History of Present Illness) Category Sub-Category Detail Notes Category Not es Adult Pre-Op physical Procedure: removal of hyperkeratotic areas from buccal mucosal area and alveolar ridge Date of Procedure: Dr. Raymundo, [facility] EN T Name of Surgeon: Will schedule after pt is cleared by PCP and Dr. London Examination Category Sub-Category Detail Notes Category Not es General Examination Heart: RSR Lungs: clear to auscultatio n General Appearance: NAD
--- OUTSIDE RECORDS SUMMARY | 2025-04-11 07:45 | XMS_ITS ---
Author Organization [facility] Address [address] [place] [id number] Care Team Providers Care Acquisition Cost Estimator Name Role Phone Milind Corona Primary Care [...] 34 Performing Lab: Notes/Report: Test performed by [employer] [address] [place] [address] , [address], [place] [address] Bob Boone MD, Automotive Porter CLIA: [id number] Sodium 141 135-145 mmol/L Potassium 5.8 3.5-5.3 mmol/L Chloride 110 97-108 mmol/L CO2 26 20-32 mmol/L Glucose 88 65-99 mg/dL BUN 34 8-23 mg/dL Creatinine 1.90 0.70-1.30 mg/dL Calcium 8.9 8.6-10.4 mg/dL eGFR by Creatinine 34 >59 mL/min/1.73m2 P-Phosphorus Reviewed date:04/12/2025 11:26:06 AM Interpretation:Normal Performing Lab: Notes/Report: Test performed by [employer] [address] [place] [address] , [address], [place] [address] Bob Boone MD, Automotive Porter CLIA: [id number] Phosphorus 2.7 2.5-4.5 mg/dL REASON FOR VISIT [...] Acute exacerbation of chronic obstructive airways disease (737447604) COPD exacerbation (J44.1) Active confirmed Vital Signs Blood pressure systolic 128 mm Hg 04/11/20 25 Blood pressure diastolic 70 mm Hg 025 Heart Rate 60 /min 04/11/2025 Height 70 in 04/11/2025 Weight 156.4 lbs 04/11/2025 BMI 22.44 kg/m2 04/11/2025 Encounters Encounter Location Date Provider Diagnosis [facility] [address] [place], [place] [id number] 04/11/2025 Milind Corona COPD exacerbation J4 4.1 [...] 2 Weeks, Reason: Provider Name:Milind Hanley , 04/25/2025 10:30:00 AM, [address] [facility] 36 [facility], [address] , [place], [place], [id number], Progress Notes * JOANA COYDOB: [birth year] (84 yo M)Acc No.[id number]:04/11/2025 Patient: JOANA BORREGO Provider: Gonzalo Corona M.D. :1940 A ge:84 Y S ex:Male Date:04/11/2025 Address:[address] [place] [address] [place], [id number] Subjective: * Chief Complaints: * 1 . [...] Hospitalization/Major Diagno stic Procedure: B ack Pain- [facility] 04/09/2012, Heart Attack- [place] 05/08/2013, Kidney Stones , Dizziness- [facility] 10/18/2017, Dizziness- [facility] 10/19-, Unable to Urinate- Foly Cath- [facility] 08/20/2020, Unable to Urinate- Foly Fath- [facility] 04/22/2021. * Family History: F [...] G 2211 Complex e/[place], [address] CBC WITH AUTO DIFF * Follow Up: 2 Weeks * Images: Billing Information: * Visit Code: 39179 Office Visit, Est Pt., Level 4. * Procedure Codes: G2211 Complex e/[place]. [address] CBC WITH AUTO DIFF. * Electronic signature of Janeth Corona MD on 04/20/2025 at 11:27 AM EDT Sign off status: Pending * Provider: Gonzalo Corona M.D. Date: Generated for Mehdi brown/Karsong/eTransmitting on: 11:27 AM EDT History and Physical Notes * HPI (History of Present Illness) Category Sub-Category Detail Notes Category Not es HPI [facility] Pt states he is doing good and has no concerns at this time. Pt needs refills on Lisinopril & Metoprolol Examination Category Sub-Category Detail Notes Category Not es General Examination Heart: RSR Lungs: clear to auscultatio n General Appearance: NAD
--- OUTSIDE RECORDS SUMMARY | 2025-04-12 07:22 | XMS_ITS ---
Author Organization [facility] Address [address] [facility] 36 [facility] [address] [place] [phone] Care Team Providers Care Dressmaker Garment Fitter Name Role Phone Milind Corona Primary Care Provider REASON FOR VISIT Test Results* Encounters Encounter Location Date Provider Diagnosis [place] [address] [facility] 36 [facility] [address] [place] [id number] 04/12/2025 Milind Corona Hyperkalemia E87.5 Assessments Encounter Date Diagnosis (ICD Code) Assessment Notes Treatment Notes Treatment Clinical Notes Section Notes 04/12/2025 Hyperkalemia (ICD-10 - E87.5) Plan Of Treatment Pending Test Test Name Order Date H-BMP 04/12/2025 Next Appt Details Provider Name:Milind Han[place] ry, 04/25/2025 10:30:00 AM, [facility] [facility] [address] [facility], [address], [place], [id number], Progress Notes * JOANA COYDOB: [birth year] (84 yo M)Acc No.[id number]:04/12/2025 Patient: JOANA BORREGO :1940 A ge:84 Y S ex:Male Address:[place] [address] Subjective: * Chief Complaints: * T est Results* * Medical History: * Surgical History: * Hospitalization/Major Diagno stic Procedure: * Medications: Objective: * Vitals: * Physical Examination: Assessment: * Assessment: 1. H yperkalemia - E87.5 Plan: * Treatment: * Procedure Codes: * true * Date: Generated for Mehdi Carl/Abdirahman on: 11:27 AM EDT
--- OUTSIDE RECORDS SUMMARY | 2025-04-20 11:26 | XMS_ITS | Patient Health Record ---
[facility] Address [address] [place] [id number] Care Team Providers Care Lithographing Machine Operator Name Role Phone Milind Corona Primary Care Provider [phone] Reshma Gipson Unavailable [phone] Allergies No Known Allergies Results Component Value [...] patient currently hospitalized? No Is patient an [facility] employee? N Is the patient employed in healthcare? No Does the patient have COVID symptoms? Yes Is this the 1st COVID test for the patient? No No ADENOQIA Not Detected NotDetected CORONAHKU1 Not Detected NotDetected NHGVOFQF04 Not Detected NotDetected [id number] Not Detected NotDetected OFKEJDE19 Not Detected NotDetected METAPNEUMO Not Detected NotDetected RHINOENTER Not Detected NotDetected INFLUAPCR Not Detected NotDetected FLUAH1 Not Detected NotDetected [id number] Not Detected NotDetected INFLUAH3 Not Detected NotDetected [...] 2.49, eGFR 24 Performing Lab: Notes/Report: CLIA: [id number] Bob Boone MD, Supervisor [employer] [address] [facility] , [address], [place] [address] Test performed by [employer], [facility] Sodium 139 135-145 mmol/L Potassium 5.4 3.5-5.3 [...] PM Interpretation:No Growth Performing Lab: Notes/Report: CLIA: [id number] Bob Boone MD, Supervisor [employer] [address] [place] [address] [place] [address] Test performed by [facility] Specimen Source Urine - Void Culture, Urine See Below Final Report : No growth B-Type Natriuretic Peptide Reviewed date:11/09/2024 03:25:45 PM Interpretation:245.0 Performing Lab: Notes/Report: Test performed by [facility] [address] [place] [address] [place] [address] Bob Boone MD, Supervisor [employer] CLIA: [id number] B-Type Natriuretic Peptide 245.0 <2.0-100.0 pg/ mL CBC Venipuncture (in house) Reviewed date:04/06/2025 09:08:00 [...] Creat 2.29, eGFR 27 Performing Lab: Notes/Report: CLIA: [id number] Bob Boone MD, Supervisor [employer] [address] [place] [address] [place] [address] Test performed by [facility] Sodium 144 135-145 mmol/L Potassium 5.5 3.5-5.3 mmol/L Chloride 107 97-108 mmol/L CO2 26 20-32 mmol/L Glucose 77 65-99 mg/dL BUN 38 8-23 mg/dL Creatinine 2.29 0.70-1.30 mg/dL Calcium 9.0 8.6-10.4 mg/dL eGFR by Creatinine 27 >59 mL/min/1.73m2 CBC Venipuncture (in house) Reviewed date:04/12/2025 11:26:06 [...] 1.90, eGFR 34 Performing Lab: Notes/Report: CLIA: [id number] Bob Boone MD, Supervisor [employer] [address] [place] [address] , [place] [address] Test performed by [facility] Sodium 141 135-145 mmol/L Potassium 5.8 3.5-5.3 mmol/L Chloride 110 97-108 mmol/L CO2 26 20-32 mmol/L Glucose 88 65-99 mg/dL BUN 34 8-23 mg/dL Creatinine 1.90 0.70-1.30 mg/dL Calcium 8.9 8.6-10.4 mg/dL eGFR by Creatinine 34 >59 mL/min/1.73m2 P-Phosphorus Reviewed date:04/12/2025 11:26:06 AM Interpretation:Normal Performing Lab: Notes/Report: Test performed by [facility] [address] [place] [address] , [address], [place] [address] Bob Boone MD, Supervisor [employer] CLIA: [id number] Phosphorus 2.7 2.5-4.5 mg/dL CBC Fingerstick (in house) Reviewed date:08/28/2024 11:50:02 [...] - 38 plat 123 100 - 400 Reason For Referral No Information Medications Medication SIG (Take, Route, Frequency, Duration) Notes Start Date End Date Status Tamsulosin HCl 0.4 MG 1 cap(s) orally [...] 1 tablet Orally every 12 hrs Active Furosemide 20 MG 1 tab(s) orally once a day as needed; Duration: 90 days Active Multiple Vitamin - 1 cap(s) orally once a day Active Lisinopril 2.5 MG 1 tab(s) orally once a day; Duration: 90 days Active Azithromycin 250 MG as directed Orally Active Metoprolol Tartrate 25 MG 1 tab(s) orall y 2 times a day; Duration: 90 days Active Immunizations Vaccine Route Administration Date Status [...] Status Risk Notes Problem Gastroesophageal reflux disease (047514444) GERD (gastroesophageal reflux disease) (K21.9) Active confirmed Problem Essential hypertension (05086660) Essential hypertension (I10) Active confirmed Problem Acute exacerbation of chronic obstructive airways disease () COPD with acute exacerbation (J44.1) Active confirmed Problem Acute exacerbation of chronic obstructive airways disease () COPD exacerbation (J44.1) Active confirmed Problem Cramp in lower leg associated with rest (089455987) Nocturnal leg cramps (G47.62) Active confirmed Problem Congestive heart failure (47911377) CHF (congestive heart failure) (I50.9) Active confirmed Problem Hypertensive heart AND chronic kidney disease with congestive heart failure (96294804175307) Hypertensive heart and chronic kidney disease with heart failure and stage 1 through stage 4 chronic kidney disease, or unspecified chronic kidney disease (I13.0) Active confirmed Problem Constipation (30843763) Constipation, unspecified constipation type (K59.00) Active confirmed Problem Hyperlipidemia (77731343) Hyperlipidemia, unspecified hyperlipidemia (E78.5) Active confirmed Problem Renal insufficiency (961922798) Renal insufficiency (N28.9) Active confirmed Problem COPD - Chronic obstructive pulmonary disease (11039870) Chronic obstructive pulmonary disease, unspecified COPD type (J44.9) Active confirmed Problem Atherosclerotic heart disease of [place] coronary artery without angina pectoris (936693377833768) Coronary artery disease involving [place] coronary artery of [place] heart without angina pectoris (I25.10) Active confirmed Problem Gastroesophageal reflux disease (878525918) Gastroesophageal reflux disease, esophagitis presence not specified (K21.9) Active confirmed Problem Atrial fibrillation (80866044) Atrial fibrillation, unspecified type (I48.91) Active confirmed Problem Seasonal allergic rhinitis (800686498) Seasonal rhinitis (J30.2) Active confirmed Problem Long-term current use of anticoagulant (582421599) Current use of custodial anticoagulation (Z79.01) Active confirmed Problem Nephrolithiasis (88045386) Nephrolithiasis (N20.0) Active confirmed Problem Chronic gouty arthritis (77866443) Idiopathic chronic gout without tophus, unspecified site (M1A.00X0) Active confirmed Problem Lower urinary tract symptoms due to benign prostatic hypertrophy (96150368617012) Benign prostatic hyperplasia with lower urinary tract symptoms (N40.1) Active confirmed Problem Urge incontinence of urine (05704911) Urge incontinence of urine (N39.41) Active confirmed Problem Allergic rhinitis (64981941) Allergic rhinitis, unspecified seasonality, unspecified trigger (J30.9) Active confirmed Problem Persistent atrial fibrillation (166311319) Persistent atrial fibrillation (I48.19) Active confirmed Problem Chronic kidney disease stage 3B (disorder) (029319563) 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) Active confirmed Problem Chronic kidney disease stage 3A (953936426) Stage 3a chronic kidney disease (N18.31) Active confirmed Problem 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, 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 Vital Signs Heart Rate 60 /min 04/11/2025 Blood pressure diastolic 70 mm Hg 04/11/2025 Height 70 in 04/11/2025 Blood pressure systolic 128 mm Hg 04/11/2025 Weight 156.4 lbs 04/11/2025 BMI 22.44 kg/m2 04/11/2025 Encounters Encounter Location Date Provider Diagnosis [facility] [address] [place], [place] [id number] 08/28/2024 Milind Newcastle Acute URI J06.9 [facility] [address] [facility] [address], [place] [id number] 11/08/2024 Reshma Crowdy Bronchitis J40 ; Confusion R41.0 ; Shortness of breath R06.02 ; Hematuria R31.9 ; Persistent atrial fibrillation I48.19 ; Stage 3b chronic kidney disease N18.32 ; Hyperlipidemia, unspecified hyperlipidemia E78.5 ; Essential hypertension I10 and BMI 21.0-21.9, adult Z68.21 [facility] [address] [place], [place] [id number] 11/10/2024 Reshma Crowdy Acute URI J06.9 and Bronchitis J40 [facility] [address] [place], [place] [id number] 04/05/2025 Milind Newcastle COPD with acute exacerbation J44.1 ; Renal insufficiency N28.9 ; CHF (congestive heart failure) I50.9 ; Chronic obstructive pulmonary disease, unspecified COPD type J44.9 ; Hypertensive heart and chronic kidney disease with heart failure and stage 1 through stage 4 chronic kidney disease, or unspecified chronic kidney disease I13.0 and BMI 22.0-22.9, adult Z68.22 [facility] [address] [place], [place] [id number] 04/11/2025 Milind Newcastle COPD exacerbation J4 4.1 ; Stage 3b chronic kidney disease N18.32 and Essential hypertension I10 [facility] [address] [place], [place] [id number] 05/18/2024 Milind Newcastle Benign prostatic hyperplasia with lower urinary tract symptoms N40.1 [facility] [address] [place], [place] [id number] 07/25/2024 Milind Newcastle [facility] [address] [place], [place] [id number] 09/25/2024 Milind Newcastle [facility] [address] [place], [place] [id number] 11/09/2024 Reshma Crowdy [facility] [address] [place], [place] [id number] 11/13/2024 Milind [place] Benign prostatic hyperplasia with lower urinary tract symptoms N40.1 [facility] [address] [place], [place] [id number] 12/01/2024 Milind Newcastle Bronchitis J40 [facility] [address] [place], [place] [id number] 12/15/2024 Milind Newcastle [facility] [address] [place], [place] [id number] 12/27/2024 Milind Newcastle [facility] [address] [place], [place] [id number] 12/27/2024 Milind Newcastle [facility] [address] [place], [place] [id number] 04/03/2025 Milind Newcastle [facility] [address] [place], [place] [id number] 04/06/2025 Milind Newcastle [facility] [address] [facility] [address] [place], [place] [id number] 04/12/2025 Milind Corona Hyperkalemia E87.5 Assessments Encounter Date Diagnosis (ICD Code) Assessment Notes Treatment Notes Treatment Clinical Notes Section Notes 11/08/2024 Confusion (ICD-10 - R41.0) 11/08/2024 Bronchitis (ICD-10 - J40) 11/10/2024 Bronchitis (ICD-10 - J40) Much improved. He still has some wheezing. Will continue inhaler and tessalon. He is monitoring his oxygen at home and it has been in the mid to upper 90's. 11/10/2024 Acute URI (ICD-10 - J06.9) 11/13/2024 Benign prostatic hyperplasia with lower urinary tract symptoms (ICD-10 - N40.1) 12/01/2024 Bronchitis (ICD-10 - J40) 04/05/2025 COPD with acute exacerbation (ICD-10 - J44.1) 04/05/2025 Renal insufficiency (ICD-10 - N28.9) 04/11/2025 COPD exacerbation (ICD-10 - J44.1) Clinically improved 04/11/2025 Stage 3b chronic kidney disease (ICD-10 - N18.32) 04/12/2025 Hyperkalemia (ICD-10 - E87.5) 05/18/2024 Benign prostatic hyperplasia with lower urinary tract symptoms (ICD-10 - N40.1) 08/28/2024 Acute URI (ICD-10 - J06.9) 11/08/2024 Shortness of breath (ICD-10 - R06.02) 04/11/2025 Essential hypertension (ICD-10 - I10) 04/05/2025 CHF (congestive heart failure) (ICD-10 - I50.9) 11/08/2024 Hematuria (ICD-10 - R31.9) 04/05/2025 Chronic obstructive pulmonary disease, unspecified COPD type (ICD-10 - J44.9) 04/05/2025 Hypertensive heart and chronic kidney disease with heart failure and stage 1 through stage 4 chronic kidney disease, or unspecified chronic kidney disease (ICD-10 - I13.0) 11/08/2024 Persistent atrial fibrillation (ICD-10 - I48.19) 11/08/2024 Stage 3b chronic kidney disease (ICD-10 - N18.32) 04/05/2025 BMI 22.0-22.9, adult (ICD-10 - Z68.22) 11/08/2024 Hyperlipidemia, unspecified hyperlipidemia (ICD-10 - E78.5) 11/08/2024 Essential hypertension (ICD-10 - I10) 11/08/2024 BMI 21.0-21.9, adult (ICD-10 - Z68.21) Plan Of Treatment Pending Test Test Name Order Date Overnight Oximetry 04/05/2025 H-BMP 04/12/2025 P-BNP (Brain Natriuretic Peptide) 2024 Next Appt Details Provider Name:Milind Hanley ry, 04/25/2025 10:30:00 AM, [address] [facility], [address], [place], [place], [id number], Insurance Providers Payer Name Payer Address Payer Phone Subscriber Number Group Number Insured Name Patient Relationship to Insured Coverage Start Date Coverage End Date [employer] (MEDICAR E) [address] [address] [place] [address] [id number] JOANA COY Self - patient is the insured Medications [...] from mouth 08/19/2022 Hospitalization History Reason Date(Month/Year) Unable to Urinate- Foly Fath- [facility] ER 10/ Unable to Urinate- Foly Cath- [facility] ER Dizziness- [facility] 10/19- Dizziness- [facility] 10/18/2017 Kidney Stones Heart Attack- [facility] 05/08/2013 Back Pain- [facility] ER 04/09/2012
--- OUTSIDE RECORDS SUMMARY | 2025-04-20 11:27 | XMS_ITS ---
Author Organization [facility] Address [address] [place] [address] Care Team Providers Care Deskidding Machine Operator Name Role Phone Milind Corona MD Primary Care Provider [phone] Active Problems Problem Noted Date Diagnosed Date [...] numbers Care Team Provider: Vincenzo Tellez MD, ([phone]) Care Team Provider: Owen Farah MD, ([phone]) Care Team Provider: Sam Raymundo MD, ([phone]) Post Treatment Care Team Primary Care Physician Milind Corona MD [phone] [address] [facility] [address] [place] [address] Background Information Medical history Past Medical History: [...] and 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 General Cancer Support & Resources [facility] ([facility] [address] [facility], [address] [place] [address] Med Onc: Millinery Copyist Onc: Printed Circuit Boards Laminator: Alicia Garrett - Psychiatric Nurse Practitioner: Carole Christian APRN - Kick It! (A free smoking cessation program) Financial Counselor and Contact Information: [facility] Financial Counseling [phone] Viscera Washer Contact Information: Ilana White - Local Cancer Support Group and Contact Information: Nayan Boyle: This support group is open to anyone that has been diagnosed with cancer of any type. Meets at 6:30pm on the last Wednesday of each month. Location: [facility]; [address] [place] [address]. For more information call Sonia Hood @ . Prostate Cancer Support & Resources Local Resources [facility] Prostate Support Group: The mission of TOO is to provide hope and improve the lives of of those affected by prostate cancer through support, education, and advocacy/ awareness. The group meets the of each month at 6:30 p.m. [address] [facility], [address] [place], [place] [id number] Surveillance How Frequent? Medical Oncology visits 1 [...] advice of a doctor or other health career counselor. Please use these recommendations to talk with your health care provider about an appropriate follow up care plan for you. Surveillance for Your Cancer Recommendation Frequency Comments Cancer surveillance visit with medical provider that is focused on detecting signs of recurrence ofyour cancer. For additional information, visit www.livesOKKAMg.org or www.cancer.net/patient/Survivorship Frequency depends on type and [...] of cancer in the general population. The [place] [employer] Society (ACS) recommends these screening guidelines for men: Recommendation Frequency Comments Colon and Rectal Cancer Screening For more information see the ACS document Colorectal Cancer: Early Detection. www.cancer.org/ssLINK/xjvcqvxinz-uqwmqk-vlaxt-detection-rhiannon Options for colon cancer screening can be [...] see the ACS Document Testicular Cancer Detection: http://www.cancer.org/cancer/testicularcancer/detailedguide/bbwscmeyxk-akftzk-ri tection Men of any age can develop [...] more information, visit http://www.nhlbi.nih.gov/health/public/heart/obesity/lose_wt/index.htm www.win.niddk.nih.gov Call the [place] Heart Association Talk to your health care [...] Experts recommend at least 30 minutes of ucqundvc-tw-rmrluljn activity per day, five days a week. [...] you can call a national hotline at 8(695)-QUIT-NOW. Have regular check-ups by a healthcare professional. For more information about healthy screening tests for men visit the U.S. Department of Health and Human Services. http://www.womenshealth.gov/fbahfrltn-wqtsr-tvk-vaccines/xmvyzwore-ygrtp-ntm-men / For more information about adult vaccinations visit the CDC: http://www.cdc.gov/vaccines/recs/schedules/adult-schedule.htm Keep up-to-date on general health screening tests, including cholesterol, blood pressure and glucose (blood sugar) levels. Get an annual influenza vaccine (flu shot). Get vaccinated with the pneumococcal vaccine, which prevents a type of pneumonia, and re-vaccinatedas determined by your health care team. Don???t forget dental and eye health! The [place] [employer] recommends adults have their eyes examined every two years until age 60, then annually. People who wear glasses or correctivelenses or are at high risk for eye problems (i.e., diabetics, family history of eye disease) shouldbe seen more frequently. The [place] Dental Association recommends adults see their dentist at least once a year. No information on file. No information on file.
--- OUTSIDE RECORDS SUMMARY | 2025-04-20 11:27 | XMS_ITS | Clinical Summary ---
Author Organization [facility] Address [address] [place] [address] Care Team Providers Care Yard Person Name Role Phone Milind Corona MD Primary Care Provider [phone] Allergies No known active allergies Medications metoprolol [...] help finding or keeping work or a ocrrine b? Not on file 04/08/2023 Disabilities Answer [...] Health Maintenance Due Date Last Done Comments COVID-19 Vaccine (#1) 1945 Pneumococcal Vaccine 50+ (1 of 1 - PCV) 1988 ZOSTER VACCINE (1 of 2) 1988 RSV Vaccine - Adults (1 - 1- dose 75+ series) 2013 ANNUAL WELLNESS VISIT 12/05/2020 INFLUENZA VACCINE 01/26/2025 TDAP/TD VACCINES (3 - Tdap) 01/19/2028 01/18/2018, 0 08/29/1996 Insurance [place] [id number] [employer] MEDICARE ADVANTAGE Care Teams Yard Person Relationship Specialty Start Date End Date Milind Corona MD [facility] [facility] [address] [place] [address] PCP - General Family Medicine 12/05/20
--- OUTSIDE RECORDS SUMMARY | 2025-04-20 11:28 | XMS_ITS | Clinical Summary ---
Author Organization [facility] Address [address] [place] [address] Care Team Providers Care Clam Bed Laborer Name Role Phone Milind Corona MD Primary Care Provider [phone] Allergies No known active allergies Medications aspirin [...] Description 05/04/2025 10:40 AM EST Office Visit [facility] [address] [place] [address] Vishal Boogie MD [address] [place] [phone] Health Maintenance Due Date Last Done Comments [facility]-Depression Screening 1938 [facility]-Medicare Annual Wellness (AWV) 1938 [facility]-Infant/Child/Adol SDOH Screenings 1938 [facility]- SDOH Screenings 1956 [facility]-Adult SDOH Screenings 1956 [facility]-Zoster Vaccines (1 of 2) 1957 [facility]-RSV Vaccine: 60+ Years or (1 - 1-dose 75+ series) 2013 [facility]-DTaP,Tdap,and Td Vaccines (1 - Tdap) 01/19/2018 01/18/2018, 08/29/1996 [id number] Vaccine (3 - Moderna risk series) 10/02/2020 [...] this topic Insurance [employer] MEDICARE Care Teams Clam Bed Laborer Relationship Specialty Start Date End Date Milind Corona MD [address] [place] [id number] [place] [id number] PCP - General 03/20/21
[2025-04-20 13:36] LABS: Chloride 111 mmol/L (98-107); Potassium 5.3 mmoL/L (3.5-5.1); Sodium 138 mmol/L (136-145)
[2025-04-20 13:39] LABS: Blood Urea Nitrogen 37 mg/dl (9-20); Creatinine,Serum 1.90 mg/dl (0.66-1.25); Estimated Glomerular Filt Rate 34 ml/min (>60); GFR (African American) 41 ML/MIN (>60)
[2025-04-20 13:40] LABS: Calcium 8.4 mg/dl (8.4-10.2); Glucose 103 mg/dl (74-100)
[2025-04-20 13:42] LABS: Anion Gap 8.3 mEq/L (5-15); Carbon Dioxide 24 mmol/L (22.0-30.0)
== END 2025-04-20 23:59 | disposition home or self-care (01) ==
LOC: LAB 11:15
PROVIDERS: PCP Family Medicine; Visit Provider Family Medicine
DX: E87.5 Hyperkalemia (principal)
CPT/HCPCS: 36415; 80048

== ENCOUNTER 2025-04-23 09:41 | Outpatient (CLI) | payer MEDICARE, SELFPAY ==
--- NOTE | 2025-04-23 10:15 | CA_ITS ---
APPROVED REPORT EXAM: Comprehensive 2D, Doppler, and color-flow Echocardiogram Electrical Project Engineer: Usha Dillon CRT Ht: 5 ft 8 in Wt: 154lbs BSA: 1.83 BP: 102/56 mmHg Indications: Shortness of Breath, Atrial Fibrillation, Diabetes, CAD, Hyperlipidemia, Hypertension/HDD, CABG X 3, pre-op 2D Dimensions LA Volume 52.20 mL LA Volume Index 27.90 mL/m2 (M/F) 16-34 M-Mode Dimensions RVDd 2.75 cm (0.9-2.6) LA Diam 4.56 cm (1.9-4.0) LVDd 5.67 cm (3.5-5.7) LVDs 3.72 cm (3.5-5.7) IVSd 1.29 cm (0.6-1.1) PWd 0.76 cm (0.6-1.1) EF (Teich) 62.70% FS 34.40% EDV (Teich) 158.10 mL TAPSE 0.89 (<1.7) ESV (Teich) 58.90 mL LV Diastology E Decel Time 150 (160-240 msec) E/A Ratio 3.25 MED A' 3.10 cm/s LAT A' 3.60 cm/s Aortic Valve AI PHT 1097.00 ms AO Peak GR. 6.20 mmHg Mitral Valve MV E Max Waldemar. 101.0 (40-130 cm/s) MV A Velocity 31.0 (40-130 cm/s) E/A Ratio 3.25 MV PHT 44.0 ms Pulmonary Valve PV Peak Velocity 211.0 (50-150 cm/s) Tricuspid Valve TR P. Velocity 329.00 cm/s RAP Estimate 10.00 mmHg RVSP 53.30 mmHg Left Ventricle The left ventricle is normal size. Left ventricular systolic function is normal. The left ventricular ejection fraction is within the normal range. There is increased left ventricular wall thickness. There is normal LV segmental wall motion. The left ventricular diastolic function is indeterminate. LVEF is 60%. Right Ventricle The right ventricle is mildly dilated. The right ventricular systolic function is normal. Atria The left atrium is moderately dilated. Right atrium is moderately dilated. There is no color Doppler evidence of interatrial shunt. Aortic Valve The aortic valve is mildly thickened. There is no hemodynamically significant aortic valvular stenosis. Mild aortic regurgitation is present. Mitral Valve The mitral valve is normal in structure. No evidence of mitral valve stenosis. Moderate mitral regurgitation is present. Tricuspid Valve The tricuspid valve leaflets are thin and pliable. Moderate tricuspid regurgitation. RVSP is 45-50 mmHg. Pulmonic Valve The pulmonary valve is grossly normal in structure. Mild pulmonic valve regurgitation is present. Great Vessels The aortic root is normal in size. IVC is normal in size and collapses >50% with inspiration. Pericardium There is no pericardial effusion. Other Information Study Quality: Fair Conclusion Normal biventricular systolic function. Mild RV dilation. Moderate biatrial dilation. Moderate MR, moderate TR. Mild AI, mild PI. Elevated RVSP 45-50 mmHg. Electronically signed by : Lita Santillan MD 04/29/2025 00:48:02
== END 2025-04-23 23:59 | disposition home or self-care (01) ==
LOC: RT 09:42
PROVIDERS: PCP Family Medicine; Visit Provider Internal Medicine
DX: Z01.810 Encounter for preprocedural cardiovascular examination (principal); I08.8 Other rheumatic multiple valve diseases; I11.9 Hypertensive heart disease without heart failure; I25.10 Atherosclerotic heart disease of native coronary artery without angina pectoris; Z95.1 Presence of aortocoronary bypass graft; I48.91 Unspecified atrial fibrillation; E11.9 Type 2 diabetes mellitus without complications; E78.5 Hyperlipidemia, unspecified
CPT/HCPCS: 93306

== ENCOUNTER 2025-05-03 11:28 | Outpatient (CLI) | payer MEDICARE, SELFPAY ==
--- OUTSIDE RECORDS SUMMARY | 2024-02-03 08:15 | XMS_ITS ---
Author Organization [facility] Address [address] [place] [id number] Care Team Providers Care Life Skills Consultant Name Role Phone Milind Corona Primary Care Provider Reshma Gipson Unavailable [phone] Allergies No Known Allergies Results Component Value Reference Range Notes CBC Fingerstick (in house) Reviewed date:02/04/2024 08:39:51 AM Interpretation: Performing Lab: Notes/Report: wbc 6.3 3.5 - 10 lym 16.4% 15 - 50 mid 4.5% 2 - 15 gran 79.1% 35 - 80 rbc 4.44 3.5 - 5.5 hgb 12.7 11.5 - 16.5 hct 40.1 35 - 55 mcv 90.2 75 - 100 mch 28.6 25 - 35 mchc 31.7 31 - 38 plat 94 100 - 400 P-Comprehensive Metabolic Pa keaton (CMP) Reviewed date:02/04/2024 11:15:32 AM Interpretation:co2- 21, bun 47, Cr 2.43, gfr 25 Performing Lab: Notes/Report: Test performed by [facility], [facility] [address] [place] [address] , [address], [place] [address] Bob Boone MD, Chest Painting Leader CLIA: [id number] Sodium 137 135-145 mmol/L Potassium 5.1 3.5-5.3 mmol/L Chloride 108 97-108 mmol/L CO2 21 22-32 mmol/L Glucose 98 65-99 mg/dL BUN 47 8-23 mg/dL Creatinine 2.43 0.70-1.30 mg/dL Calcium 8.8 8.6-10.4 mg/dL eGFR by Creatinine 25 >59 mL/min/1.73m2 Protein 6.7 6.0-8.3 g/dL Albumin 4.1 3.5-5.3 g/dL Alkaline Phosphatase 77 40-129 IU/L ALT (SGPT) 15 <5-55 IU/L AST (SGOT) 26 <5-46 IU/L Bilirubin, Total 0.5 <0.2-1.2 mg/dL A/G Ratio 1.6 1.1-2.5 mg/dL P-Magnesium Reviewed date:02/04/2024 11:15:32 AM Interpretation:Normal Performing Lab: Notes/Report: Test performed by [facility], [address] , [facility], [place] [address] Bob Boone MD, Chest Painting Leader CLIA: [id number] Magnesium 1.9 1.6-2.4 mg/dL Pulmonary Function Complete Reviewed date:03/01/2024 08:53:43 AM Interpretation: Performing Lab: Notes/Report: REASON FOR VISIT coughing alot Medications Medication SIG (Take, Route, Frequency, Duration) Notes Start Date End Date Status Albuterol Sulfate HFA 108 (90 Base) MCG/ACT 1 puff as needed Inhalation every 4 hrs, prn 02/03/2024 Active Xarelto 15 MG 1 tablet with food O rally Once a day; Duration: 7 days 07/21/2023 Active Famotidine 40 MG 1 tab(s) orally once a day (at bedtime); Duration: 90 days Active Flonase Allergy Relief 50 MCG/ACT 1 spray in each nostril Nasally Once a day 02/03/2024 Active Jardiance 25 MG 1 tablet Orally Once a day; Duration: 7 days 04/21/2023 Active Metoprolol Tartrate 25 MG 1 tab(s) orall y 2 times a day; Duration: 90 days Active Atorvastatin Calcium 20 MG 1 tab(s) oral ly once a day (at bedtime); Duration: 90 days Active oxyBUTYnin Chloride ER 10 MG 1 tablet Orally Once a day; Duration: 90 days 07/16/2023 Active Tamsulosin HCl 0.4 MG 1 cap(s) orally tw ice a day; Duration: 90 days Active Furosemide 20 MG 1 tab(s) orally once a day as needed; Duration: 90 days Active Multiple Vitamin - 1 cap(s) orally once a day Active Metamucil Smooth Texture 58.6 % as directed orally once a day OTC 08/18/2021 Active Loratadine 10 MG 1 tablet Orally Once a day; Duration: 30 day(s) 04/21/2023 Active Montelukast Sodium 10 MG 1 tablet Orally Once a day; Duration: 30 day(s) 04/21/2023 Active Lisinopril 2.5 MG 1 tab(s) orally once a day; Duration: 90 days Active Benzonatate 200 MG 1 capsule Orally Thr ee times a day 02/03/2024 Active Vital Signs Blood pressure systolic 116 mm Hg 02/03/20 24 Blood pressure diastolic 64 mm Hg 024 Heart Rate 64 /min 02/03/2024 Height 70 in 02/03/2024 Weight 156.2 lbs 02/03/2024 BMI 22.41 kg/m2 02/03/2024 Encounters Encounter Location Date Provider Diagnosis [facility] 12[address] [facility] [address] [place] [id number] 02/03/2024 Reshma Crowdy Bronchitis J40 ; Non-recurrent acute serous otitis media of both ears H65.03 ; Muscle cramps R25.2 and Shortness of breath R06.02 Assessments Encounter Date Diagnosis (ICD Code) Assessment Notes Treatment Notes Treatment Clinical Notes Section Notes 02/03/2024 Bronchitis (ICD-10 - J40) 02/03/2024 Non-recurrent acute serous otitis media of both ears (ICD-10 - H65.03) 02/03/2024 Muscle cramps (ICD-10 - R25.2) 02/03/2024 Shortness of breath (ICD-10 - R06.02) Plan Of Treatment Medication Medication Name Sig Start Date Stop Date Notes Albuterol Sulfate HFA 108 (9 0 Base) MCG/ACT 1 puff as needed Inhalation every 4 hrs, prn 02/03/2024 Flonase Allergy Relief 50 MCG/ACT 1 spray in each nostril Nasally Once a day 02/03/2024 Benzonatate 200 MG 1 capsule Orally Thr ee times a day 02/03/2024 Next Appt Details Follow Up: via phone to repo rt test results, Reason: Provider Name:Milind Hanley ry, 07/26/2025 10:00:00 AM, [address], [address], [place], [id number], Progress Notes * JOANA COYDOB: [birth year] (84 yo M)Acc No.[id number]:02/03/2024 Progress Notes Patient: JOANA BORREGO Provider: SILVA Luque :1940 A ge:83 Y S ex:Male Date:02/03/2024 Address:[address] [place] [address] [place], [id number] Pcp:Milind Corona Subjective: * Chief Complaints: * 1 . Coughing alot. * HPI: E NT/respiratory: The pt is here today with c/o productive cough with white mucus and shortness of breath. Patient states he has had this for a few months now. He had a stress test, HUGO with cardioversion for afib, and then a heart cath about a month ago. He was told he did not need any stents. Nothing has helped his SOA. He denies any swelling. He has been wheezing especially in the heat. 83 year old male presents with c/o cough s mall amount of white sputum. c/o Short of Breath. Denies : Fever. D enies : Chest Pain. * ROS: D ERMATOLOGY: no R sophy. n o H alex. G ASTROENTEROLOGY: no N ausea. n o V omiting. n o D iarrhea.? U ROLOGY: no D ifficulty urinating. n [...] Hospitalization/Major Diagno stic Procedure: B ack Pain- [facility] 04/09/2012, Heart Attack- [place] 05/08/2013, Kidney Stones , Dizziness- [facility] 10/18/2017, Dizziness- [facility] 10/19-, Unable to Urinate- Foly Cath- [facility] 08/20/2020, Unable to Urinate- Foly Fath- [facility] 04/22/2021. * Family History: F ather: [...] food Orally Once a day , Taking Famotidine 40 MG Tablet 1 tab(s) orally once a day (at bedtime) , Medication List reviewed and reconciled with the patient * Allergies: N .K.D.A. Objective: * Vitals: W t:156.2, Temp:98.1, BP:116/64, HR:64, O2 Sat:96% on RA, Nurse:SUMI, Ht: 70, BMI:22.41. * Examination: E NT/Respiratory: General Appearance: N AD. E ars: a uditory canals normal bilaterally, TM's with effusion bilaterally, no erythema. N ose : turbinates red, congested. S inuses : non tender bilaterally. O ral cavity : no erythema or exudate seen on pharynx, PND present. N cally : n o cervical lymphadenopathy. H eart : R RR, normal S1 S2, no murmurs. L ungs: faint expiratory wheezes, no rales. ? Assessment: * Assessment: 1. B ronchitis - J40 (Primary) 2 . N on-recurrent acute serous otitis media of both ears - H65.03 3 . M uscle cramps - R25.2 4 . S hortness of breath - R06.02 Plan: * Treatment: Value Reference Range w bc 6.3 3.5 - 10 * l ym 16.4% 15 - 50 * m id 4.5% 2 - 15 * g ran 79.1% 35 - 80 * r bc 4.44 3.5 - 5.5 * h gb 12.7 11.5 - 16.5 * h ct 40.1 35 - 55 * m cv 90.2 75 - 100 * m ch 28.6 25 - 35 * m chc 31.7 31 - 38 * p lat 94 100 - 400 * Kathie Samson 02/03/2024 1:17 :05 PM > , Provider reviewed results while patient in office. 2.?Non-recurrent acute serous otitis media of both ears? Start Flonase Allergy Relief Suspension, 50 MCG/ACT, 1 spray in each nostril, Nasally, Once a day, 1, Refills 5.??3.?Muscle cramps?LAB: P-Comprehensive Metabolic Panel (CMP) (Collection Date & Time - 02/03/2024 01:05 PM)?co2- 21, bun 47, Cr 2.43, gfr 25* Value Reference Range A /G Ratio 1.6 1.1-2.5 - mg/dL * A lbumin 4.1 3.5-5.3 - g/dL * A lkaline Phosphatase 77 40-129 - IU/L * A LT (SGPT) 15 <5-55 - IU/L * A ST (SGOT) 26 <5-46 - IU/L * B ilirubin, Total 0.5 <0.2-1.2 - mg/dL * B UN 47 H 8-23 - mg/dL * C alcium 8.8 8.6-10.4 - mg/dL * C hloride 108 97-108 - mmol/L * C O2 21 L 22-32 - mmol/L * C reatinine 2.43 H 0.70-1.30 - mg/dL * G lucose 98 65-99 - mg/dL * P otassium 5.1 3.5-5.3 - mmol/L * S odium 137 135-145 - mmol/L * P rotein 6.7 6.0-8.3 - g/dL * e GFR by Creatinine 25 L >59 - mL/min/1.73m2 * Jackie Turk 02/04/2024 11:13 :57 AM >See phone encounter ?LAB: P-Magnesium (Collection Date & Time - 02/03/2024 01:05 PM)?Normal* Value Reference Range M agnesium 1.9 1.6-2.4 - mg/dL * Jackie Turk 02/04/2024 11:13 :57 AM >See phone encounter 4.?Shortness of breath?Imaging: Pulmonary Function Complete (Performed Date - 02/24/2024)* Reshma Gipson 02/03/2024 4:1 7:28 PM >Heena Quan 02/07/2024 10:17:37 AM > no auth required; CPT code 82548; faxed to Reshma Gonzalez 03/01/2024 8:53:38 AM > see TE * Procedure Codes: 9 4760 [place], [address] CAPILLARY BLOOD DRAW, 96592 CBC WITH AUTO DIFF * Follow Up: v ia phone to report test results * Images: Billing Information: * Visit Code: 40481 Office Visit, Est Pt., Level 3. * Procedure Codes: [address] [place]. [address] CAPILLARY BLOOD DRAW. 70974 CBC WITH AUTO DIFF. * Electronic signature of SILVA Elizabeth on 05/03/2025 at 11:33 AM EST Sign off status: Pending * Provider: SILVA Luque Date: 0 02/03/2024 Generated for Printi ng/Faxing/eTransmitting on: 1 07/03/2024 11:33 AM EST History and Physical Notes * HPI (History of Present Illness) Category Sub-Category Detail Notes Category Not es ENT/respiratory Short of Breath Chest Pain cough small amount of whit e sputum Fever Examination Category Sub-Category Detail Notes Category Not es ENT/Respiratory Oral cavity : no erythema or e xudate seen on pharynx, PND present Sinuses : non tender bilateral ly Ears: auditory canals norm al bilaterally, TM's with effusion bilaterally, no erythema Neck : no cervical lymphade nopathy Heart : RRR, normal S1 S2, n o murmurs Lungs: faint expiratory whe ezes, no rales General Appearance: NAD Nose : turbinates red, farhat ested
--- OUTSIDE RECORDS SUMMARY | 2024-03-08 04:00 | XMS_ITS ---
Author Organization [facility] Address [address] [facility] [address] [facility] [facility] [address] [place] [phone] Care Team Providers Care Site Leader Name Role Phone Milind Corona Primary Care Provider Allergies No Known Allergies REASON FOR VISIT 6 month check Encounters Encounter Location Date Provider Diagnosis [place] [address] [facility] [address] [place] [phone] 03/08/2024 Milind Corona Plan Of Treatment Next Appt Details Provider Name:Milind Hanley ry, 07/26/2025 10:00:00 AM, [address], [address], [place], [phone], Progress Notes * JOANA COYDOB: [birth year] (84 yo M)Acc No.[id number]:03/08/2024 Progress Notes Patient: JOANA BORREGO Provider: Gonzalo Corona M.D. :1940 A ge:83 Y S ex:Male Date:03/08/2024 Address:[place], [id number] Subjective: * Chief Complaints: * 1 . 6 month check. * HPI: C ardiology: 83 year old male presents with c/o Blood Pressure Elevated P t here for 6 mo f/u on hypertension, states he is doing well and does not have any concerns. c/o Hyperlipidemia P t is fasting today. * ROS: D ERMATOLOGY: no R sophy. [...] Hospitalization/Major Diagno stic Procedure: B ack Pain- [facility] 04/09/2012, Heart Attack- [place] 05/08/2013, Kidney Stones , Dizziness- [facility] 10/18/2017, Dizziness- [facility] 10/19-, Unable to Urinate- Foly Cath- [facility] 08/20/2020, Unable to Urinate- Foly Fath- [facility] 04/22/2021. * Family History: F [...] no, quit 1973. Alcohol: Yes, occasional. * Allergies: N .K.D.A. Objective: * Vitals: Assessment: Plan: * Treatment: * Images: Billing Information: * Visit Code: * Procedure Codes: * Electronic signature of Janeth Corona MD on 05/03/2025 at 11:32 AM EST Sign off status: Pending * Provider: Gonzalo Corona M.D. Date: 0 03/08/2024 Generated for Mehdi brown/Ramsey/Abdirahman on: 1 07/03/2024 11:32 AM EST History and Physical Notes * HPI (History of Present Illness) Category Sub-Category Detail Notes Category Not es Cardiology Blood Pressure Elevated Pt here for 6 mo f/u on hypertension, states he is doing well and does not have any concerns Hyperlipidemia Pt is fasting today
--- OUTSIDE RECORDS SUMMARY | 2024-08-28 06:00 | XMS_ITS ---
Author [facility] Address [address] [facility] [address] [place] [phone] Care Team Providers Care General Foreman Name Role Phone Milind Corona Primary Care [...] 08/28/2024 Encounters Encounter Location Date Provider Diagnosis [facility] [address] [facility] [address] [place], [place] [phone] 08/28/2024 Milind Corona Acute URI J06.9 Assessments [...] [address], [address] , [place], [place], [phone], Progress Notes * JOANA COYDOB: [birth year] (84 yo M)Acc No.[id number]:08/28/2024 Progress Notes Patient: JOANA BORREGO Provider: Gonzalo Corona M.D. :1940 A ge:84 Y S ex:Male Date:08/28/2024 Address:[address] [place], [place] [address]-[id number] Subjective: * Chief Complaints: * 1 . [...] Hospitalization/Major Diagno stic Procedure: B ack Pain- [facility] 04/09/2012, Heart Attack- [place] 05/08/2013, Kidney Stones , Dizziness- [facility] 10/18/2017, Dizziness- [facility] 10/19-, Unable to Urinate- Foly Cath- [facility] 08/20/2020, Unable to Urinate- Foly Fath- [facility] 04/22/2021. * Family History: F [...] G 2211 Complex e/[place], [address] [place], [address] CAPILLARY BLOOD DRAW, [address]20[address] CBC WITH AUTO DIFF, 3074F SYST BP LT 130 MM HG, 3078F DIAST BP < 80 MM HG * Follow Up: p rn * Images: Billing Information: * Visit Code: 63529 Office Visit, Est Pt., Level 3. * Procedure Codes: G2211 Complex e/[place]. [address] [place]. [address] CAPILLARY BLOOD DRAW. 51759 CBC WITH AUTO DIFF. 3074F SYST BP LT 130 MM HG. 3078F DIAST BP < 80 MM HG. * Electronic signature of Janeth Corona MD on 05/03/2025 at 11:31 AM EST Sign off status: Pending * Provider: Gonzalo Corona M.D. Date: 0 08/28/2024 Generated for Mehdi brown/Ramsey/eTransmitting on: 1 07/03/2024 11:31 AM EST History and Physical Notes * [...]
--- OUTSIDE RECORDS SUMMARY | 2024-11-08 06:30 | XMS_ITS ---
Author Organization [facility] Address [address] [facility] [address] [id number] Care Team Providers Care Recreation Director Name Role Phone Milind Corona Primary Care Provider Reshma Gipson Unavailable [phone] Allergies No Known Allergies Results Component Value Reference Range Notes Urinalysis - Inhouse Reviewed date:11/09/2024 03:25:45 PM Interpretation: Performing Lab: Notes/Report: Color/Clarity yellow/clear Leuk Neg Nitrite Neg Urobili 3.2 Protein 2+ pH 5.5 Blood 1+ Sp. Gr. 1.015 Ketone Neg Bili Neg Gluc Neg CBC Fingerstick (in house) Reviewed date:11/08/2024 12:51:07 PM Interpretation: Performing Lab: Notes/Report: wbc 5.5 3.5 - 10 lym 25.4 15 - 50 mid 5.8 2 - 15 gran 68.8 35 - 80 rbc 4.27 3.5 - 5.5 hgb 12.3 11.5 - 16.5 hct 37.1 35 - 55 mcv 86.9 75 - 100 mch 28.9 25 - 35 mchc 33.2 31 - 38 plat 158 100 - 400 H-COVIDPANEL Reviewed date:11/09/2024 03:25:45 PM Interpretation:PARAINFLU3 Performing Lab: Notes/Report: No Is this the 1st COVID test for the patient? No Does the patient have COVID symptoms? Yes Is the patient employed in healthcare? No Is patient an [facility] employee? N Is patient currently hospitalized? No Is patient currently in ICU? No Date of Symptom onset Is patient a resident in a congregate care setting? No ADENOQIA Not Detected NotDetected CORONAHKU1 Not Detected NotDetected LHYCUQBV28 Not Detected NotDetected [id number] Not Detected NotDetected VNSLLFM46 Not Detected NotDetected METAPNEUMO Not Detected NotDetected RHINOENTER Not Detected NotDetected INFLUAPCR Not Detected NotDetected FLUAH1 Not Detected NotDetected [id number] Not Detected NotDetected INFLUAH3 Not Detected NotDetected INFLUB Not Detected NotDetected PARAINFLU1 Not Detected NotDetected PARAINFLU2 Not Detected NotDetected PARAINFLU3 Detected NotDetected PARAINFLU 4 Not Detected NotDetected RSVPCR Not Detected NotDetected COVIDHMH Not Detected NotDetected Effective 02/18/21, Positive covid results will no longer be called to the ordering physician. Infection control and the physician?s office will continue to report positive covid results to the local Health Department as required. This assay is for in vitro diagnostic use under FDA Emergency Use Authorization only. Negative results do not preclude infection with SARS CoV 2 virus and should not be the sole basis of a patient treatment/management or public health decision. Follow up testing should be performed according to the current CDC recommendations. BORDPERT Not Detected NotDetected CHLAMYDPNEUM Not Detected NotDetected MYCOPLASM Not Detected NotDetected P-BNP (Brain Natriuretic Pep tide) Reviewed date:04/23/2025 09:14:15 AM Interpretation: Performing Lab: Notes/Report: P-Comprehensive Metabolic Pa keaton (CMP) Reviewed date:11/09/2024 03:25:45 PM Interpretation:K 5.4, CO2 21, BUN 50, Creat 2.49, eGFR 24 Performing Lab: Notes/Report: Test performed by [email or web address] [address] [place] [address] , [address], [place] [address] Bob Boone MD, Pipe Roller CLIA: [id number] Sodium 139 135-145 mmol/L Potassium 5.4 3.5-5.3 mmol/L Chloride 107 97-108 mmol/L CO2 21 22-32 mmol/L Glucose 89 65-99 mg/dL BUN 50 8-23 mg/dL Creatinine 2.49 0.70-1.30 mg/dL Calcium 8.8 8.6-10.4 mg/dL eGFR by Creatinine 24 >59 mL/min/1.73m2 Protein 6.4 6.0-8.3 g/dL Albumin 3.6 3.5-5.3 g/dL Alkaline Phosphatase 85 40-129 IU/L ALT (SGPT) 15 <5-55 IU/L AST (SGOT) 24 <5-46 IU/L Bilirubin, Total 0.6 <0.2-1.2 mg/dL A/G Ratio 1.3 1.1-2.5 P-Culture, Urine Reviewed date:11/29/2024 04:40:09 PM Interpretation:No Growth Performing Lab: Notes/Report: Test performed by [facility] [address] [place], [place] [address] [place] , [place] [address] Bob Boone MD, Pipe Roller CLIA: [id number] Specimen Source Urine - Void Culture, Urine See Below Final Report : No growth B-Type Natriuretic Peptide Reviewed date:11/09/2024 03:25:45 PM Interpretation:245.0 Performing Lab: Notes/Report: Test performed by [facility] [address] [place] [address] , [address], [place] [address] Bob Boone MD, Pipe Roller CLIA: [id number] B-Type Natriuretic Peptide 245.0 <2.0-100.0 pg/ mL REASON FOR VISIT f/u [facility] er Medications Medication SIG (Take, Route, Frequency, Duration) Notes Start Date End Date Status oxyBUTYnin Chloride ER 10 MG 1 tablet Orally Once a day; Duration: 90 days 07/16/2023 Not-Takin g Montelukast Sodium 10 MG 1 tablet Orally Once a day; Duration: 30 day(s) 04/21/2023 Not-Taking Loratadine 10 MG 1 tablet Orally Once a day; Duration: 30 day(s) 04/21/2023 Not-Taking Metamucil Smooth Texture 58.6 % as directed orally once a day OTC 08/18/2021 Not-Taking Atorvastatin Calcium 20 MG TAKE 1 TABLET ONE TIME DAILY AT BEDTIME; Duration: 90 Active Lisinopril 2.5 MG 1 tab(s) orally once a day; Duration: 90 days Active Famotidine 40 MG 1 tab(s) orally once a day (at bedtime); Duration: 90 days Active Furosemide 20 MG 1 tab(s) orally once a day as needed; Duration: 90 days Active Metoprolol Tartrate 25 MG 1 tab(s) orall y 2 times a day; Duration: 90 days Active Tamsulosin HCl 0.4 MG 1 cap(s) orally tw ice a day; Duration: 90 days Active Trelegy Ellipta 100-62.5-25 MCG/ACT 1 puff Inhalation Once a day 03/01/2024 Active Xarelto 15 MG 1 tablet with food Orally Once a day; Duration: 7 days 07/21/2023 Active Jardiance 25 MG 1 tablet Orally Once a day; Duration: 7 days 04/21/2023 Active Multiple Vitamin - 1 cap(s) orally once a day Active Invokana 100 MG 1 tablet before the first meal of the day Orally Once a day Active Benzonatate 200 MG 1 capsule Orally Thr ee times a day, prn for cough Active Albuterol Sulfate HFA 108 (90 Base) MCG/ACT 1 puff as needed Inhalation every 4 hrs, prn Active Fluticasone Propionate 50 MCG/ACT 1 spray in each nostril Nasally Twice a day Active Albuterol Sulfate 108 (90 Base) MCG/ACT 1 puff as needed Inhalation every 4 hrs Active guaiFENesin 400 MG 1 tablet as needed Orally every 4 hrs Active Vital Signs Blood pressure systolic 118 mm Hg 11/09/19 25 Blood pressure diastolic 50 mm Hg 025 Heart Rate 49 /min 11/08/2024 Height 70 in 11/08/2024 Weight 149.6 lbs 11/08/2024 BMI 21.46 kg/m2 11/08/2024 Encounters Encounter Location Date Provider Diagnosis [facility] [address] [facility] [address] [place], [place] [id number] 11/08/2024 Reshmaizzy Gipson Bronchitis J40 ; Confusion R41.0 ; Shortness of breath R06.02 ; Hematuria R31.9 ; Persistent atrial fibrillation I48.19 ; Stage 3b chronic kidney disease N18.32 ; Hyperlipidemia, unspecified hyperlipidemia E78.5 ; Essential hypertension I10 and BMI 21.0-21.9, adult Z68.21 Assessments Encounter Date Diagnosis (ICD Code) Assessment Notes Treatment Notes Treatment Clinical Notes Section Notes 11/08/2024 Bronchitis (ICD-10 - J40) 11/08/2024 Confusion (ICD-10 - R41.0) 11/08/2024 Shortness of breath (ICD-10 - R06.02) 11/08/2024 Hematuria (ICD-10 - R31.9) 11/08/2024 Persistent atrial fibrillation (ICD-10 - I48.19) 11/08/2024 Stage 3b chronic kidney disease (ICD-10 - N18.32) 11/08/2024 Hyperlipidemia, unspecified hyperlipidemia (ICD-10 - E78.5) 11/08/2024 Essential hypertension (ICD-10 - I10) 11/08/2024 BMI 21.0-21.9, adult (ICD-10 - Z68.21) Plan Of Treatment Medication Medication Name Sig Start Date Stop Date Notes Benzonatate 200 MG 1 capsule Orally Thr ee times a day, prn for cough Albuterol Sulfate HFA 108 (9 0 Base) MCG/ACT 1 puff as needed Inhalation every 4 hrs, prn Next Appt Details Follow Up: via phone to repo rt test results, Reason: Provider Name:Milind Hanley , 07/26/2025 10:00:00 AM, [address] [facility], [address] , [place], [place], [id number], Progress Notes * JOANA COYDOB: [birth year] (84 yo M)Acc No.[id number]:11/08/2024 Patient: JOANA BORREGO Provider: SILVA Luque :1940 A ge:84 Y S ex:Male Date:11/08/2024 Address:[address] [place], [place] [id number] Pcp:Milind Corona Subjective: * Chief Complaints: * 1 . F/u [facility] er. * HPI: H PI: HPI narrative from [facility] ER visit: 11/06/2024: 83-year-old male with history of chronic kidney disease, heart failure, A-fib, coronary artery disease, hypertension hyperlipidemia who presents to the emergency department for complaints of shortness of breath and cough. Patient states that over the last week, he has had a dry cough and some shortness of breath associated with it. 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 He also reports feeling weak and like he nearly passed out. He denies any chest pain. His notes that when he is sleeping in his chair, he will oftentimes mumble in his sleep and they describe this as hallucinating. Patient denies any leg swelling or fever. Related Data Patient's workup showed D-dimer mildly elevated at 0.71, however when adjusted for age, this is negative. No leukocytosis. Mild anemia with hemoglobin 12.9 and hematocrit of 39.7 (this appears to be patient's baseline). Platelets normal at 148. Patient's creatinine and BUN are elevated at 2.0 and 37 respectively, however this appears to be patient's baseline based on previous labs. No significant electrolyte derangement. Liver enzymes within normal limits. Negative flu and COVID testing. Repeat troponin unchanged at 0.02 X-ray interpreted by me personally. No focal consolidation, no pneumothorax, no widening of the mediastinum. Unremarkable chest x-ray. See radiology report for details. On reassessment, patient remains stable condition. He has continued to be bradycardic but has chronic bradycardia according to chart review. [place] that no additional workup is indicated at this time as this seems to be a chronic issue that patient states that has not been solved. Will have patient follow-up with his primary care physician. All questions were answered. He demonstrated understanding and was in agreement with this plan. He was then discharged from the emergency department in stable condition. Lab results from [facility] ER visit: 11/06/24 07:39: WBC 5.2, RBC 4.48 L, Hgb 12.9 L, Hct 39.7 L, MCV 88.6, MCH 28.8, MCHC 32.5, RDW 14.1, Plt Count 148, MPV 9.8, Neut % (Auto) 57.1, Lymph % (Auto) 28.7, [place] % (Auto) 11.1 H, Eos % (Auto) 2.5, Baso % (Auto) 0.4, Neut # (Auto) 2.9, Lymph # (Auto) 1.5, [place] # (Auto) 0.6, Eos # (Auto) 0.1, Baso # (Auto) 0.0, D-Dimer 0.71 H, Sodium 137, Potassium 4.8, Chloride 111 H, Carbon Dioxide 21 L, Anion Gap 9.8, BUN 37 H, Creatinine 2.00 H, Estimated Creat Clear 27, Estimated GFR 32 L, Est GFR ( Amer) 39 L, Glucose 98, Calcium 8.5, Total Bilirubin 0.8, AST 36, ALT 18, Alkaline Phosphatase 89, Troponin I 0.02, Total Protein 6.7, Albumin 3.8, Globulin 2.9, Albumin/Globulin Ratio 1.3, HCV Ab NISHA w/Rflx PCR Qn Negative, HIV Ag/Ab Combo Qual Negative 11/06/24 07:42: SARS-CoV-2 (PCR) Not detected, Influenza A Untype (PCR) Not detected, Influenza Type B (PCR) Not detected 11/06/24 09:53: Troponin I 0.02 CXR FINDINGS : from [facility] ER visit 2 views of the chest were obtained . Patient is status post median sternotomy. The heart is normal in size. The mediastinum is within normal limits. There are mild chronic changes. The lungs are otherwise clear. There is no pneumothorax. Osseous structures are unremarkable. IMPRESSION: No acute cardiopulmonary process. 84 year old male presents with c/o Here for follow up on: P t is here today for a f/u from [facility] ER. Pt was seen at the ER yesterday for URI. Pt c/o cough, SOB, fainting and dizziness. P sychology: Pts daughter sts that her concerns are that pt has had such sudden onset of confusion. E NT/respiratory: c/o Short of Breath P ts daughter also sts that pt has had SOB. * ROS: D ERMATOLOGY: no R sophy. [...] stic Procedure: B ack Pain- [facility] ER 04/09/2012, Heart Attack- [facility] 05/08/2013, Kidney Stones , Dizziness- [facility] 10/18/2017, Dizziness- [facility] 10/19-, Unable to Urinate- Foly Cath- [facility] ER 08/20/2020, Unable to Urinate- Foly Fath- [facility] ER 04/22/2021. * Family History: F [...] Alcohol: Yes, occasional. * Medications: T aking guaiFENesin 400 MG Tablet 1 tablet as needed Orally every 4 hrs , Taking Albuterol Sulfate 108 (90 Base) MCG/ACT Aerosol Powder Breath Activated 1 puff as needed Inhalation every 4 hrs , Taking Fluticasone Propionate 50 MCG/ACT Suspension 1 spray in each nostril Nasally Twice a day , Taking Invokana 100 MG Tablet 1 tablet before the first meal of the day Orally Once a day , Taking Multiple Vitamin - Capsule 1 cap(s) orally once a day , Taking Jardiance 25 MG [...] orally 2 times a day , Taking Furosemide 20 MG Tablet 1 tab(s) orally once a day as needed , Taking Famotidine 40 MG Tablet 1 tab(s) orally once a day (at bedtime) , Taking Lisinopril 2.5 MG Tablet 1 tab(s) orally once a day , Taking Atorvastatin Calcium 20 MG Tablet TAKE 1 TABLET ONE TIME DAILY AT BEDTIME , Not-Taking Metamucil Smooth Texture 58.6 % Powder as directed orally once a day , Notes to Pharmacist: OTC, Not-Taking Loratadine 10 MG Tablet 1 tablet Orally Once a day , Not-Taking Montelukast Sodium 10 MG Tablet 1 tablet Orally Once a day , Not-Taking oxyBUTYnin Chloride ER 10 MG Tablet Extended Release 24 Hour 1 tablet Orally Once a day , Medication List reviewed and reconciled with the patient * Allergies: N .K.D.A. Objective: * Vitals: W t: 149.6, Temp: 98.4, BP: 118/50, HR: 49, O2 Sat: 95% on RA, Nurse: KATINA, Ht: 70, BMI:21.46. * Examination: G eneral Examination: General Appearance: N AD. H EENT: u nremarkable.?Oral cavity: n o lesions, mucosa moist and WNL, no erythema. N cally: s upple, no lymphadenopathy. C hest: n ormal shape and expansion. H eart: R SR. L ungs: bilateral wheezes. A bdomen: bowel sounds present, soft and nontender. N eurologic Exam:?Intact, gait normal. S kin: n ormal, no rash. P eripheral pulses: n ormal (2+) bilaterally. E xtremities: n o leg edema. Assessment: * Assessment: 1. B ronchitis - J40 (Primary) 2 . C onfusion - R41.0 3 .?Shortness of breath - R06.02 4 . H ematuria - R31.9 5 . P ersistent atrial fibrillation - I48.19 6 . S tage 3b chronic kidney disease - N18.32 7 . H yperlipidemia, unspecified hyperlipidemia - E78.5 8 . E ssential hypertension - I10 9 . B FL 21.0-21.9, adult - Z68.21 ? Plan: * Treatment: Value Reference Range A DENOQIA Not Detected NotDetected - * C ORONAHKU1 Not Detected NotDetected - * C XDHHRCU14 Not Detected NotDetected - * C YAMM102I Not Detected NotDetected - * C PGVUYR39 Not Detected NotDetected - * M ETAPNEUMO Not Detected NotDetected - * R HINOENTER Not Detected NotDetected - * I NFLUAPCR Not Detected NotDetected - * F LUAH1 Not Detected NotDetected - * I [id number] Not Detected NotDetected - * I NFLUAH3 Not Detected NotDetected - * I NFLUB Not Detected NotDetected - * P ARAINFLU1 Not Detected NotDetected - * P ARAINFLU2 Not Detected NotDetected - * P ARAINFLU3 Detected Aa NotDetected - * P ARAINFLU 4 Not Detected NotDetected - * R SVPCR Not Detected NotDetected - * C OVIDHMH Not Detected NotDetected - * B ORDPERT Not Detected NotDetected - * C HLAMYDPNEUM Not Detected NotDetected - * M YCOPLASM Not Detected NotDetected - * Madhavi Angulo 11/09/2024 03: 25:38 PM > See phone encounter ?LAB: CBC Fingerstick (in house) (Collection Date & Time - 11/08/2024)* Value Reference Range w bc 5.5 3.5 - 10 * l ym 25.4 15 - 50 * m id 5.8 2 - 15 * g ran 68.8 35 - 80 * r bc 4.27 3.5 - 5.5 * h gb 12.3 11.5 - 16.5 * h ct 37.1 35 - 55 * m cv 86.9 75 - 100 * m ch 28.9 25 - 35 * m chc 33.2 31 - 38 * p lat 158 100 - 400 * Madhavi Angulo 11/08/2024 12: 50:09 PM > results reviewed w/ pt in office 2.?Confusion?LAB: P-Comprehensive Metabolic Panel (CMP) (Collection Date & Time - 11/08/2024 11:27 AM)?K 5.4, CO2 21, BUN 50, Creat 2.49, eGFR 24* Value Reference Range A /G Ratio 1.3 1.1-2.5 - * A lbumin 3.6 3.5-5.3 - g/dL * A lkaline Phosphatase 85 40-129 - IU/L * A LT (SGPT) 15 <5-55 - IU/L * A ST (SGOT) 24 <5-46 - IU/L * B ilirubin, Total 0.6 <0.2-1.2 - mg/dL * B UN 50 H 8-23 - mg/dL * C alcium 8.8 8.6-10.4 - mg/dL * C hloride 107 97-108 - mmol/L * C O2 21 L 22-32 - mmol/L * C reatinine 2.49 H 0.70-1.30 - mg/dL * G lucose 89 65-99 - mg/dL * P otassium 5.4 H 3.5-5.3 - mmol/L * S odium 139 135-145 - mmol/L * P rotein 6.4 6.0-8.3 - g/dL * e GFR by Creatinine 24 L >59 - mL/min/1.73m2 * Madhavi Angulo 11/09/2024 03: 25:38 PM > See phone encounter ?LAB: Urinalysis - Inhouse (Collection Date & Time - 11/08/2024)* Value Reference Range C olor/Clarity yellow/clear * L euk Neg * N itrite Neg * U robili 3.2 * P rotein 2+ * p H 5.5 * B lood 1+ * S p. Gr. 1.015 * K etone Neg * B kathia Neg * G yareli Neg * Kathie Samson 11/08/2024 12 :26:50 PM > Provider reviewed results while patient in office. Madhavi Angulo 11/09/2024 03:25:38 PM > See phone encounter 3.?Shortness of breath?LAB: P-BNP (Brain Natriuretic Peptide) (Collection Date & Time - 04/23/2025)* see duplicate order 4.?Hematuria?LAB: P-Culture, Urine (Collection Date & Time - 11/08/2024 11:27 AM)?No Growth* Value Reference Range C ulture, Urine See Below - * S pecimen Source Urine - Void - * Reshma Gipson 11/12/2024 11 :25:10 PM > Please let patient know this showed no growth. Will need to recheck in a week to make sure the blood has resolvedGoMadhavi randall 11/17/2024 01:21:28 PM > left message for return callGobleMadhavi 11/29/2024 04:39:12 PM EDT > pt informed * Labs: * L ab: B-Type Natriuretic Peptide (Collection Date & Time - 11/08/2024 11:27 AM) 2 45.0 Value Reference Range B -Type Natriuretic Peptide 245.0 H <2.0-100.0 - p g/mL * [facility], IT support 11/09/2024 07:25:05 : This order was created by the Interface. Kev Madhavi 11/09/2024 03:25:38 PM > See phone encounter * Procedure Codes: G 2211 Complex e/[place], [address] CAPILLARY BLOOD DRAW, 77971 CBC WITH AUTO DIFF, 50824 Urinalysis, no micro, 3074F SYST BP LT 130 MM HG, 3078F DIAST BP < 80 MM HG * Follow Up: v ia phone to report test results * Images: Billing Information: * Visit Code: 35713 Office Visit, Est Pt., Level 4. * Procedure Codes: G2211 Complex e/[place] [address] CAPILLARY BLOOD DRAW. 13673 CBC WITH AUTO DIFF. 16558 Urinalysis, no micro. 3074F SYST BP LT 130 MM HG. 3078F DIAST BP < 80 MM HG. * Electronic signature of SILVA Elizabeth on 05/03/2025 at 11:31 AM EST Sign off status: Pending * Provider: SILVA Luque Date: 0 11/08/2024 Generated for Printi ng/Faxing/eTransmitting on: 1 07/03/2024 11:31 AM EST History and Physical Notes * HPI (History of Present Illness) Category Sub-Category Detail Notes Category Not es ENT/respiratory Short of Breath Pts daughter als o sts that pt has had SOB HPI Here for follow up on: Pt is her e today for a f/u from [facility] ER. Pt was seen at the ER yesterday for URI. Pt c/o cough, SOB, fainting and dizziness Examination Category Sub-Category Detail Notes Category Not es General Examination HEENT: unremarkable Heart: RSR Lungs: bilateral wheezes Abdomen: bowel sounds present , soft and nontender Extremities: no leg edema General Appearance: NAD Skin: normal, no rash Neurologic Exam: Intact, gait normal Neck: supple, no lymphaden opathy Oral cavity: no lesions, mucosa m oist and WNL, no erythema Peripheral pulses: normal (2+) bilatera lly Chest: normal shape and exp ansion
--- OUTSIDE RECORDS SUMMARY | 2024-11-10 10:45 | XMS_ITS ---
Author Organization [facility] Address [address] [place] [id number] Care Team Providers Care Marketing Lead Name Role Phone Milind Corona Primary Care Provider [phone] Reshma Gipson Unavailable [phone] Allergies No Known Allergies REASON FOR VISIT [...] Encounter Location Date Provider Diagnosis A-Arnaud 1210 [facility] [address] [place] [id number] 11/10/2024 Reshma Gipson Acute URI J06.9 and [...] [address], [address], [place], [id number], Progress Notes * JOANA CORTESDOB: [birth year] (84 yo M)Acc No.[id number]:11/10/2024 Patient: JOANA BORREGO Provider: SILVA Luque :1940 A ge:84 Y S ex:Male Date:11/10/2024 Address:[facility] [place] [id number] Pcp:Milind Corona Subjective: * Chief Complaints: * 1 . f/u cough, check O2 sats. * HPI: H PI: 84 year old male presents with c/o Patient is here today for?Pt sts he is here today for a f/u on his cough. Pt sts his cough is a lot better now. * ROS: D ERMATOLOGY: no R sohpy. [...] Hospitalization/Major Diagno stic Procedure: B ack Pain- [facility] ER 04/09/2012, Heart Attack- [place] 05/08/2013, Kidney Stones , Dizziness- [facility] 10/18/2017, Dizziness- [facility] 10/19-, Unable to Urinate- Foly Cath- [facility] ER 08/20/2020, Unable to Urinate- Foly Fath- [facility] ER 04/22/2021. * Family History: F ather: [...] * Images: Billing Information: * Visit Code: 36742 Office Visit, Est Pt., Level 3. * Procedure Codes: G2211 Complex e/m visit add on. * Electronic signature of SILVA Elizabeth on 05/03/2025 at 11:32 AM EST Sign off status: Pending * Provider: SILVA Luque Date: 0 11/10/2024 Generated for Mehdi brown/Ramsey/Amyitting on: 1 07/03/2024 11:32 AM EST History [...]
--- OUTSIDE RECORDS SUMMARY | 2025-04-05 06:15 | XMS_ITS ---
Author Organization [facility] Address [address] [facility] [address] [place] [id number] Care Team Providers Care Pipe Foreman Name Role Phone Milind Corona Primary Care Provider [phone] Allergies No Known Allergies Results Component Value Reference Range Notes CBC Venipuncture (in house) Reviewed date:04/06/2025 09:08:00 AM Interpretation:Normal Performing Lab: Notes/Report: Normal wbc 3.9 3.5 - 10 lymph 21.4 15 - 50 mid 6.8 2 - 15 gran 71.8 35 - 80 rbc 4.69 3.5 - 5.5 hgb 13.7 11.5 - 16.5 hct 41.7 35 - 55 mcv 89.0 75 - 100 mch 29.2 25 - 35 mchc 32.9 31 - 38 platlet 149 100 - 400 P-Basic Metabolic Panel (BMP ) Reviewed date:04/06/2025 09:08:00 AM Interpretation:K 5.5, BUN 38, Creat 2.29, eGFR 27 Performing Lab: Notes/Report: Test performed by [facility], [employer] [address] [place] [address] , [address], [place] [address] Bob Boone MD, Bell Hole Digger CLIA: [id number] Sodium 144 135-145 mmol/L Potassium 5.5 3.5-5.3 mmol/L Chloride 107 97-108 mmol/L CO2 26 20-32 mmol/L Glucose 77 65-99 mg/dL BUN 38 8-23 mg/dL Creatinine 2.29 0.70-1.30 mg/dL Calcium 9.0 8.6-10.4 mg/dL eGFR by Creatinine 27 >59 mL/min/1.73m2 REASON FOR VISIT preop cpx Medications Medication SIG (Take, Route, Frequency, Duration) Notes Start Date End Date Status Lisinopril 2.5 MG 1 tab(s) orally once a day; Duration: 90 days Active Metoprolol Tartrate 25 MG 1 tab(s) orall y 2 times a day; Duration: 90 days Active Tamsulosin HCl 0.4 MG 1 cap(s) orally tw ice a day; Duration: 90 days Active Albuterol Sulfate HFA 108 (90 Base) MCG/ACT 1 puff as needed Inhalation every 4 hrs, prn Active Famotidine 40 MG 1 tab(s) orally once a day (at bedtime); Duration: 90 days Active Furosemide 20 MG 1 tab(s) orally once a day as needed; Duration: 90 days Active Multiple Vitamin - 1 cap(s) orally once a day Active Albuterol Sulfate 108 (90 Base) MCG/ACT 1 puff as needed Inhalation every 4 hrs Active Amoxicillin-Pot Clavulanate 875-125 MG 1 tablet Orally every 12 hrs Active Azithromycin 250 MG as directed Orally Active Problems Problem Type SNOMED Code ICD Code Onset Dates Problem Status W/U Status Risk Notes Problem Acute exacerbation of chronic obstructive airways disease (653778855) COPD with acute exacerbation (J44.1) Active confirmed Problem Hypertensive heart AND chronic kidney disease with congestive heart failure (62223897697255) Hypertensive heart and chronic kidney disease with heart failure and stage 1 through stage 4 chronic kidney disease, or unspecified chronic kidney disease (I13.0) Active confirmed Vital Signs Blood pressure systolic 110 mm Hg 04/05/20 25 Blood pressure diastolic 68 mm Hg 025 Heart Rate 64 /min 04/05/2025 Height 70 in 04/05/2025 Weight 154.8 lbs 04/05/2025 BMI 22.21 kg/m2 04/05/2025 Encounters Encounter Location Date Provider Diagnosis [facility] [address] [place] [id number] 04/05/2025 Milind [place] COPD with acute exacerbation J44.1 ; Renal insufficiency N28.9 ; CHF (congestive heart failure) I50.9 ; Chronic obstructive pulmonary disease, unspecified COPD type J44.9 ; Hypertensive heart and chronic kidney disease with heart failure and stage 1 through stage 4 chronic kidney disease, or unspecified chronic kidney disease I13.0 and BMI 22.0-22.9, adult Z68.22 Assessments Encounter Date Diagnosis (ICD Code) Assessment Notes Treatment Notes Treatment Clinical Notes Section Notes 04/05/2025 COPD with acute exacerbation (ICD-10 - J44.1) 04/05/2025 Renal insufficiency (ICD-10 - N28.9) 04/05/2025 CHF (congestive heart failure) (ICD-10 - I50.9) 04/05/2025 Chronic obstructive pulmonary disease, unspecified COPD type (ICD-10 - J44.9) 04/05/2025 Hypertensive heart and chronic kidney disease with heart failure and stage 1 through stage 4 chronic kidney disease, or unspecified chronic kidney disease (ICD-10 - I13.0) 04/05/2025 BMI 22.0-22.9, adult (ICD-10 - Z68.22) Plan Of Treatment Pending Test Test Name Order Date Overnight Oximetry 04/05/2025 Next Appt Details Follow Up: 6 days, Reason: Provider Name:Milind Hanley , 07/26/2025 10:00:00 AM, [address] [facility] 36 [facility], [address], [phone], Progress Notes * JOANA CORTESDOB: [birth year] (84 yo M)Acc No.[id number]:04/05/2025 Physical Patient: JOANA BORREGO Provider: Gonzalo Corona M.D. :1940 A ge:84 Y S ex:Male Date:04/05/2025 Address:[address] [place], [place] [address] Ont[place], [id number] Subjective: * Chief Complaints: * 1 . Preop cpx. * HPI: A dult Pre-Op physical: 84 year old male presents with c/o Procedure: r emoval of hyperkeratotic areas from buccal mucosal area and alveolar ridge. c/o Date of Procedure: Sergio Raymundo [facility] ENT. c/o Name of Surgeon: W ill schedule after pt is cleared by PCP and Dr. London. * ROS: R ESPIRATORY: Shortness of breath y es, p da was in the ER at [facility] yesterday and was diagnosed with a COPD exacerbation. He was started on antibiotics. ? * Medical History: C oronary Artery Disease, [...] stic Procedure: B ack Pain- [facility] ER 04/09/2012, Heart Attack- [place] 05/08/2013, Kidney Stones , Dizziness- [facility] 10/18/2017, Dizziness- [facility] 10/19-, Unable to Urinate- Foly Cath- [facility] ER 08/20/2020, Unable to Urinate- Foly Fath- [facility] ER 04/22/2021. * Family History: F ather: . M other: . P aternal Grand Father: . P aternal Grand Mother: . M aternal Grand Father: . M aternal Grand Mother: . Siblings: alive, prostate cancer. C hildren: alive. 4 son(s) , 2 daughter(s) - healthy. . * Social History: C URRENT TOBACCO USE: No S moking Status: Patient does NOT smoke. C affeine: yes, frequency: 1 cup a day. Exercise: yes. Marital Status: . Past smoking status: no, quit 1972. Alcohol: Yes, occasional. * Medications: T aking Azithromycin 250 MG Tablet as directed Orally , Taking Amoxicillin-Pot Clavulanate 875-125 MG Tablet 1 tablet Orally every 12 hrs , Taking Albuterol Sulfate 108 (90 Base) MCG/ACT Aerosol Powder Breath Activated 1 puff as needed Inhalation every 4 hrs , Taking Multiple Vitamin - Capsule 1 cap(s) orally once a day , Taking Furosemide 20 MG Tablet 1 tab(s) orally once a day as needed , Taking Famotidine 40 MG Tablet 1 tab(s) orally once a day (at bedtime) , Taking Albuterol Sulfate HFA 108 (90 Base) MCG/ACT Aerosol Solution 1 puff as needed Inhalation every 4 hrs, prn , Taking Tamsulosin HCl 0.4 MG Capsule 1 cap(s) orally twice a day , Taking Metoprolol Tartrate 25 MG Tablet 1 tab(s) orally 2 times a day , Taking Lisinopril 2.5 MG Tablet 1 tab(s) orally once a day , Discontinued guaiFENesin 400 MG Tablet 1 tablet as needed Orally every 4 hrs , Discontinued Fluticasone Propionate 50 MCG/ACT Suspension 1 spray in each nostril Nasally Twice a day , Discontinued Invokana 100 MG Tablet 1 tablet before the first meal of the day Orally Once a day , Discontinued Jardiance 25 MG Tablet 1 tablet Orally Once a day , Discontinued Xarelto 15 MG Tablet 1 tablet with food Orally Once a day , Discontinued Trelegy Ellipta 100-62.5-25 MCG/ACT Aerosol Powder Breath Activated 1 puff Inhalation Once a day , Discontinued Atorvastatin Calcium 20 MG Tablet 1 tablet Orally Once a day , Discontinued Benzonatate 200 MG Capsule 1 capsule Orally Three times a day, prn for cough , Discontinued Metamucil Smooth Texture 58.6 % Powder as directed orally once a day , Notes to Pharmacist: OTC, Discontinued Loratadine 10 MG Tablet 1 tablet Orally Once a day , Discontinued Montelukast Sodium 10 MG Tablet 1 tablet Orally Once a day , Discontinued oxyBUTYnin Chloride ER 10 MG Tablet Extended Release 24 Hour 1 tablet Orally Once a day , Medication List reviewed and reconciled with the patient * Allergies: N .K.D.A. Objective: * Vitals: W t: 154.8, Temp: 98.3, BP: 110/68, HR: 64, O2 Sat: 96% on RA, Nurse: donta, Ht: 70, BMI:22.21. * Examination: G eneral Examination: General Appearance: N AD. H eart: R SR. L ungs:?clear to auscultation. Assessment: * Assessment: 1. C OPD with acute exacerbation - J44.1 (Primary) 2 . R enal insufficiency - N28.9 3 . C HF (congestive heart failure) - I50.9 4 . C hronic obstructive pulmonary disease, unspecified COPD type - J44.9 5 . H ypertensive heart and chronic kidney disease with heart failure and stage 1 through stage 4 chronic kidney disease, or unspecified chronic kidney disease - I13.0 6 . B [place] 22.0-22.9, adult - Z68.22 Plan: * Treatment: Value Reference Range w bc 3.9 3.5 - 10 * l ymph 21.4 15 - 50 * m id 6.8 2 - 15 * g ran 71.8 35 - 80 * r bc 4.69 3.5 - 5.5 * h gb 13.7 11.5 - 16.5 * h ct 41.7 35 - 55 * m cv 89.0 75 - 100 * m ch 29.2 25 - 35 * m chc 32.9 31 - 38 * p latlet 149 100 - 400 * Keena Bella 04/05/2025 01:5 9:46 PM EDT > Madhavi Angulo 04/06/2025 09:07:52 AM EDT > See phone encounter 2.?Renal insufficiency?LAB: P-Basic Metabolic Panel (BMP) (Collection Date & Time - 04/05/2025 11:10 AM)?K 5.5, BUN 38, Creat 2.29, eGFR 27* Value Reference Range B UN 38 H 8-23 - mg/dL * C alcium 9.0 8.6-10.4 - mg/dL * C hloride 107 97-108 - mmol/L * C O2 26 20-32 - mmol/L * C reatinine 2.29 H 0.70-1.30 - mg/dL * G lucose 77 65-99 - mg/dL * P otassium 5.5 H 3.5-5.3 - mmol/L * S odium 144 135-145 - mmol/L * e GFR by Creatinine 27 L >59 - mL/min/1.73m2 * Madhavi Angulo 04/06/2025 09 :07:52 AM EDT > See phone encounter 3.?CHF (congestive heart failure)?Imaging: Overnight Oximetry4.?Chronic obstructive pulmonary disease, unspecified COPD type?Imaging: Overnight Oximetry * Procedure Codes: G 2211 Complex e/[place], [address] CBC WITH AUTO DIFF, 1036F TOBACCO NON-USER, G8420 BMI<30 AND >=22 CALC & DOCU, G8950 PREHTN/HTN BP DOC INDCD F/U DOC, G8752 MOST RECENT SYSTOLIC BP < 140MM HG, G8754 MOST RECENT DIASTOLIC BP < 90MM HG, 3074F SYST BP LT 130 MM HG, 3078F DIAST BP < 80 MM HG * Follow Up: 6 days * Images: Drawin04/05/25 [facility] addendum Billing Information: * Visit Code: 96110 Office Visit, Est Pt., Level 4. * Procedure Codes: G2211 Complex e/[place]. [address] CBC WITH AUTO DIFF. 1036F TOBACCO NON-USER. G8420 BMI<30 AND >=22 CALC & DOCU. G8950 PREHTN/HTN BP DOC INDCD F/U DOC. G8752 MOST RECENT SYSTOLIC BP < 140MM HG. G8754 MOST RECENT DIASTOLIC BP < 90MM HG. 3074F SYST BP LT 130 MM HG. 3078F DIAST BP < 80 MM HG. * Electronic signature of Janeth Corona MD on 05/03/2025 at 11:33 AM EST Sign off status: Pending * Provider: Gonzalo Corona M.D. Date: Generated for Mehdi brown/Ramsey/Amyitting on: 07/03/2024 11:33 AM EST History and Physical Notes * HPI (History of Present Illness) Category Sub-Category Detail Notes Category Not es Adult Pre-Op physical Procedure: removal of hyperkeratotic areas from buccal mucosal area and alveolar ridge Date of Procedure: Dr. Raymundo, [facility] EN T Name of Surgeon: Will schedule after pt is cleared by PCP and Dr. London Examination Category Sub-Category Detail Notes Category Not es General Examination Heart: RSR Lungs: clear to auscultatio n General Appearance: NAD
--- OUTSIDE RECORDS SUMMARY | 2025-04-11 06:45 | XMS_ITS ---
Author Organization [facility] Address [address] [place] [id number] Care Team Providers Care Hot Tamale Worker Name Role Phone Milind Corona Primary Care Provider [phone] Allergies No Known Allergies Results Component [...] Creat 1.90, eGFR 34 Performing Lab: Notes/Report: Test performed by [employer], [employer] [address] [place] [address] , [address], [place] [address] Bob Boone MD, Criminal Intelligence Analyst CLIA: [id number] Sodium 141 135-145 mmol/L Potassium 5.8 3.5-5.3 mmol/L Chloride 110 97-108 mmol/L CO2 26 20-32 mmol/L Glucose 88 65-99 mg/dL BUN 34 8-23 mg/dL Creatinine 1.90 0.70-1.30 mg/dL Calcium 8.9 8.6-10.4 mg/dL eGFR by Creatinine 34 >59 mL/min/1.73m2 P-Phosphorus Reviewed date:04/12/2025 11:26:06 AM Interpretation:Normal Performing Lab: Notes/Report: Test performed by [employer] [address] [place] [address] , [address], [place] [address] Bob Boone MD, Criminal Intelligence Analyst CLIA: [id number] Phosphorus 2.7 2.5-4.5 mg/dL REASON FOR VISIT [...] Acute exacerbation of chronic obstructive airways disease (890017721) COPD exacerbation (J44.1) Active confirmed Vital Signs Blood pressure systolic 128 mm Hg 04/11/20 25 Blood pressure diastolic 70 mm Hg 025 Heart Rate 60 /min 04/11/2025 Height 70 in 04/11/2025 Weight 156.4 lbs 04/11/2025 BMI 22.44 kg/m2 04/11/2025 Encounters Encounter Location Date Provider Diagnosis [facility] [address] [place], [place] [id number] 04/11/2025 Milind Corona COPD exacerbation J4 4.1 [...] [place] , 07/26/2025 10:00:00 AM, [address] [facility] [address] [facility], [address] , [place], [place], [id number], Progress Notes * JOANA COYDOB: [birth year] (84 yo M)Acc No.[id number]:04/11/2025 Patient: JOANA BORREGO Provider: Gonzalo Corona M.D. :1940 A ge:84 Y S ex:Male Date:04/11/2025 Address:[address] [place] [address] [place], [id number] Subjective: * Chief Complaints: * 1 . [...] Hospitalization/Major Diagno stic Procedure: B ack Pain- [facility] 04/09/2012, Heart Attack- [place] 05/08/2013, Kidney Stones , Dizziness- [facility] 10/18/2017, Dizziness- [facility] 10/19-, Unable to Urinate- Foly Cath- [facility] 08/20/2020, Unable to Urinate- Foly Fath- [facility] 04/22/2021. * Family History: [...] G 2211 Complex e/[place], [address] CBC WITH AUTO DIFF, 1036F TOBACCO NON-USER, 3074F SYST BP LT 130 MM HG, 3078F DIAST BP < 80 MM HG, G8950 PREHTN/HTN BP DOC INDCD F/U DOC * Follow Up: 2 Weeks * Images: Billing Information: * Visit Code: 00818 Office Visit, Est Pt., Level 4. * Procedure Codes: G2211 Complex e/[place]. [address] CBC WITH AUTO DIFF. 1036F TOBACCO NON-USER. 3074F SYST BP LT 130 MM HG. 3078F DIAST BP < 80 MM HG. G8950 PREHTN/HTN BP DOC INDCD F/U DOC. * Electronic signature of Janeth Corona MD on 05/03/2025 at 11:32 AM EST Sign off status: Pending * Provider: Gonzalo Corona M.D. Date: 1 Generated for Mehdi brown/Ramsey/Abdirahman on: 07/03/2024 11:32 AM EST History and Physical Notes * HPI (History of Present Illness) Category Sub-Category Detail Notes Category Not es HPI [facility] Pt states he is doing good and has no concerns at this time. Pt needs refills on Lisinopril & Metoprolol Examination Category Sub-Category Detail Notes Category Not es General Examination Heart: RSR Lungs: clear to auscultatio n General Appearance: NAD
--- OUTSIDE RECORDS SUMMARY | 2025-04-12 06:22 | XMS_ITS ---
Author Organization [place] Address [address] [facility] 36 [facility] [address] [place] [id number] Care Team Providers Care Licensing Court Magistrate Name Role Phone Milind Corona Primary Care Provider Results Component Value Reference Range Notes H-BMP Reviewed date:04/23/2025 09:13:58 AM Interpretation: Performing Lab: Notes/Report: REASON FOR VISIT Test Results* Encounters Encounter Location Date Provider Diagnosis [facility] [address] [facility] [address] [place] [id number] 04/12/2025 Milind Corona Hyperkalemia E87.5 Assessments Encounter Date Diagnosis (ICD Code) Assessment Notes Treatment Notes Treatment Clinical Notes Section Notes 04/12/2025 Hyperkalemia (ICD-10 - E87.5) Plan Of Treatment Next Appt Details Provider Name:Milind Halney ry, 07/26/2025 10:00:00 AM, [facility] [address] [facility], [address], [place], [id number], Progress Notes * JOANA COYDOB: [birth year] (84 yo M)Acc No.[id number]:04/12/2025 Patient: JOANA BORREGO :1940 A ge:84 Y S ex:Male Address:[place] [address] Subjective: * Chief Complaints: * T est Results* * Medical History: * Surgical History: * Hospitalization/Major Diagno stic Procedure: * Medications: Objective: * Vitals: * Physical Examination: Assessment: * Assessment: 1. H yperkalemia - E87.5 Plan: * Treatment: * Procedure Codes: * true * Date: Generated for Mehdi brown/Ramsey/Abdirahman on: 07/03/2024 11:32 AM EST
--- OUTSIDE RECORDS SUMMARY | 2025-04-25 05:30 | XMS_ITS ---
Author Organization [facility] Address [address] [place] [phone] Care Team Providers Care Director Medical Science Name Role Phone Milind Corona Primary Care Provider Allergies No Known Allergies Reason For Referral Diagnosis 1 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) Referral Organization [facility] Referring Provider First Name Milind Referring Provider Last Name Cj Referring Provider Speciality Family Pra ctice Referred Provider Vishal Boogie Referred Provider Specialty Nephrology General Notes Heena Quan 2024 10:53:41 AM > faxed to [facility] Nephrology Referral Priority Routine REASON FOR VISIT [...] Encounter Location Date Provider Diagnosis [facility] [facility] 36 [facility] [address] [place] [id number] 04/25/2025 Milind Corona Stage 3b chronic kidney [...] Name:Milind Hanley , 07/26/2025 10:00:00 AM, [address] [facility] 36 [facility], [address], [place], [phone], Progress Notes * JOANA CORTESDOB: 8 (84 yo M)Acc No.[id number]:04/25/2025 Patient: JOANA BORREGO Provider: Gonzalo Corona M.D. :1940 A ge:84 Y S ex:Male Date:04/25/2025 Address:[address] [place] [address] [place], [id number] Subjective: * Chief Complaints: * 1 . [...] [facility], Heart Attack- [place] 05/08/2013, Kidney Stones , Dizziness- [facility] 10/18/2017, Dizziness- [facility] 10/19-, Unable to Urinate- Foly Cath- [...] leg edema. Assessment: * Assessment: 1. S tage 3b chronic kidney disease - N18.32 (Primary) Plan: * Treatment: * Procedure Codes: G 2211 Complex e/m visit add on * Follow Up: 3 Months * Images: Billing Information: * Visit Code: 17969 Office Visit, Est Pt., Level 3. * Procedure Codes: G2211 Complex e/m visit add on. * Electronic signature of Janeth Corona MD on 05/03/2025 at 11:33 AM EST Sign off status: Pending * Provider: Gonzalo Corona M.D. Date: Generated for Mehdi brown/Ramsey/Lizsmitting on: 07/03/2024 11:33 AM EST History and [...]
--- OUTSIDE RECORDS SUMMARY | 2025-05-03 11:33 | XMS_ITS | Clinical Summary ---
Author Organization [facility] Address [address] [place] [address] Care Team Providers Care Enrollment Management Director Name Role Phone Milind Corona MD Primary Care Provider [phone] Allergies No known active allergies Medications metoprolol [...] 0 08/29/1996 Insurance [place] [id number] [employer] Care Teams Enrollment Management Director Relationship Specialty Start Date End Date Milind Corona MD [address] [facility] [address] [place] [address] PCP - General Family Medicine 12/05/20
--- OUTSIDE RECORDS SUMMARY | 2025-05-03 11:33 | XMS_ITS | Patient Health Record ---
[facility] [address] [place] [id number] Care Team Providers Care Shot Examiner Name Role Phone Cj Milind Primary Care Provider [phone] Reshma Gipson Unavailable [phone] Allergies No Known Allergies Results Component Value [...] employed in healthcare? No Is patient an [facility] employee? N Is patient currently hospitalized? No Is patient currently in ICU? No Date of Symptom onset Is patient a resident in a congregate care setting? No ADENOQIA Not Detected NotDetected CORONAHKU1 Not Detected NotDetected KRDTTIHO34 Not Detected NotDetected AVCKB215K Not Detected NotDetected PQONEQF25 Not Detected NotDetected METAPNEUMO Not Detected NotDetected RHINOENTER Not Detected NotDetected INFLUAPCR Not Detected NotDetected FLUAH1 Not Detected NotDetected [id number] Not Detected NotDetected INFLUAH3 Not Detected NotDetected [...] 24 Performing Lab: Notes/Report: Test performed by [facility] [address] [place] [address] , [address], [place] [address] Bob Boone MD, Coal Carrier CLIA: [id number] Sodium 139 135-145 mmol/L Potassium 5.4 3.5-5.3 [...] Growth Performing Lab: Notes/Report: Test performed by [facility] [address] [place] [address] , [address], [place] [address] Bob Boone MD, Coal Carrier CLIA: [id number] Specimen Source Urine - Void Culture, Urine See Below Final Report : No growth B-Type Natriuretic Peptide Reviewed date:11/09/2024 03:25:45 PM Interpretation:245.0 Performing Lab: Notes/Report: Test performed by [facility] [address] [place] [address] , [address], [place] [address] Bob Boone MD, Coal Carrier CLIA: [id number] B-Type Natriuretic Peptide 245.0 <2.0-100.0 pg/ mL CBC Venipuncture (in house) Reviewed date:04/12/2025 11:26:06 [...] 34 Performing Lab: Notes/Report: Test performed by [facility] [address] [place] [address] , [address], [place] [address] Bob Boone MD, Coal Carrier CLIA: [id number] Sodium 141 135-145 mmol/L Potassium 5.8 3.5-5.3 mmol/L Chloride 110 97-108 mmol/L CO2 26 20-32 mmol/L Glucose 88 65-99 mg/dL BUN 34 8-23 mg/dL Creatinine 1.90 0.70-1.30 mg/dL Calcium 8.9 8.6-10.4 mg/dL eGFR by Creatinine 34 >59 mL/min/1.73m2 P-Phosphorus Reviewed date:04/12/2025 11:26:06 AM Interpretation:Normal Performing Lab: Notes/Report: Test performed by [facility] [address] [place] [address] , [address], [place] [address] Bob Boone MD, Coal Carrier CLIA: [id number] Phosphorus 2.7 2.5-4.5 mg/dL H-BMP Reviewed date:04/23/2025 09:13:58 AM Interpretation: Performing Lab: Notes/Report: H-BMP Reviewed date:04/23/2025 09:13:28 AM Interpretation:K+ 5.3, cl 111, bun 37, Cr 1.9, gfr 34, gluc 103 Performing Lab: Notes/Report: NA 138 136-145 mmol/L K 5.3 3.5-5.1 mmoL/L CL 111 98-107 mmol/L CO2 24 22.0-30.0 mmol/L BUN 37 9-20 mg/dl CREATT 1.90 0.66-1.25 mg/dl GFRAA 41 >60 ML/MIN EGFR 34 >60 ml/min GLU 103 74-100 mg/dl CA 8.4 8.4-10.2 mg/dl NA 138 136-145 mmol/L K 5.3 3.5-5.1 mmoL/L CL 111 98-107 mmol/L CO2 24 22.0-30.0 mmol/L GAP 8.3 5-15 mEq/L BUN 37 9-20 mg/dl CREATT 1.90 0.66-1.25 mg/dl GFRAA 41 >60 ML/MIN EGFR 34 >60 ml/min GLU 103 74-100 mg/dl CA 8.4 8.4-10.2 mg/dl CBC Venipuncture (in house) Reviewed date:04/06/2025 09:08:00 [...] 27 Performing Lab: Notes/Report: Test performed by [facility] [address] [place] [address] , [address], [place] [address] Bob Boone MD, Coal Carrier CLIA: [id number] Sodium 144 135-145 mmol/L Potassium 5.5 3.5-5.3 mmol/L Chloride 107 97-108 mmol/L CO2 26 20-32 mmol/L Glucose 77 65-99 mg/dL BUN 38 8-23 mg/dL Creatinine 2.29 0.70-1.30 mg/dL Calcium 9.0 8.6-10.4 mg/dL eGFR by Creatinine 27 >59 mL/min/1.73m2 Reason For Referral Diagnosis 1 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) Referral Organization [facility] Referring Provider First Name Milind Referring Provider Last Name Cj Referring Provider Speciality Family Pra ctice Referred Provider Vishal Boogie Referred Provider Specialty Nephrology General Notes Heena Quan 2024 10:53:41 AM > faxed to [facility] Nephrology Referral Priority Routine Medications Medication SIG (Take, Route, Frequency, Duration) Notes Start Date End Date Status Furosemide 20 MG 1 tab(s) orally once a day as needed; Duration: 90 days Not-Taking Albuterol Sulfate 108 (90 Base) MCG/ACT 1 puff as needed Inhalation every 4 hrs Active Tamsulosin HCl 0.4 MG 1 cap(s) orally tw ice a day; Duration: 90 days Active Lisinopril 2.5 MG 1 tab(s) orally once a day; Duration: 90 days Active Metoprolol Tartrate 25 MG 1 tab(s) orally 2 times a day; Duration: 90 days Active Jardiance 10 MG 1 tablet Orally Once a day; Duration: 90 days 04/25/2025 Active Multiple Vitamin - 1 cap(s) orally [...] Status Risk Notes Problem Gastroesophageal reflux disease (223799342) GERD (gastroesophageal reflux disease) (K21.9) Active confirmed Problem Essential hypertension (26061131) Essential hypertension (I10) Active confirmed Problem Acute exacerbation of chronic obstructive airways disease (023700050) COPD with acute exacerbation (J44.1) Active confirmed Problem Acute exacerbation of chronic obstructive airways disease (090320822) COPD exacerbation (J44.1) Active confirmed Problem Cramp in lower leg associated with rest (640604056) Nocturnal leg cramps (G47.62) Active confirmed Problem Congestive heart failure (60868428) CHF (congestive heart failure) (I50.9) Active confirmed Problem Hypertensive heart AND chronic kidney disease with congestive heart failure (25227507164382) Hypertensive heart and chronic kidney disease with heart failure and stage 1 through stage 4 chronic kidney disease, or unspecified chronic kidney disease (I13.0) Active confirmed Problem Constipation (51083199) Constipation, unspecified constipation type (K59.00) Active confirmed Problem Hyperlipidemia (12459298) Hyperlipidemia, unspecified hyperlipidemia (E78.5) Active confirmed Problem Renal insufficiency (190409779) Renal insufficiency (N28.9) Active confirmed Problem COPD - Chronic obstructive pulmonary disease (82459577) Chronic obstructive pulmonary disease, unspecified COPD type (J44.9) Active confirmed Problem Atherosclerotic heart disease of creek coronary artery without angina pectoris (667002991319531) 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) Active confirmed Problem Gastroesophageal reflux disease (026923499) Gastroesophageal reflux disease, esophagitis presence not specified (K21.9) Active confirmed Problem Atrial fibrillation (18208531) Atrial fibrillation, unspecified type (I48.91) Active confirmed Problem Seasonal allergic rhinitis (979275000) Seasonal rhinitis (J30.2) Active confirmed Problem Long-term current use of anticoagulant (278320857) Current use of longterm anticoagulation (Z79.01) Active confirmed Problem Nephrolithiasis (12789048) Nephrolithiasis (N20.0) Active confirmed Problem Chronic gouty arthritis (66167778) Idiopathic chronic gout without tophus, unspecified site (M1A.00X0) Active confirmed Problem Lower urinary tract symptoms due to benign prostatic hypertrophy (33555388635837) Benign prostatic hyperplasia with lower urinary tract symptoms (N40.1) Active confirmed Problem Urge incontinence of urine (96592541) Urge incontinence of urine (N39.41) Active confirmed Problem Allergic rhinitis (83898548) Allergic rhinitis, unspecified seasonality, unspecified trigger (J30.9) Active confirmed Problem Persistent atrial fibrillation (597338718) Persistent atrial fibrillation (I48.19) Active confirmed Problem Chronic kidney disease stage 3B (disorder) (324705608) 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) Active confirmed Problem Chronic kidney disease stage 3A (893062429) Stage 3a chronic kidney disease (N18.31) Active confirmed Problem 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, 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 Vital Signs Heart Rate 118/68 /min 05/02/2025 Blood pressure diastolic 68 mm Hg 04/25/2025 Height 70 in 05/02/2025 Blood pressure systolic 110 mm Hg 04/25/2025 Weight 159.0 lbs 05/02/2025 BMI 22.81 kg/m2 05/02/2025 Encounters Encounter Location Date Provider [facility] [address] [place] [id number] 08/28/2024 Milind Hendrix Acute URI J06.9 [facility] [address] [place], [place] [id number] 11/08/2024 Reshma Crowdy Bronchitis J40 ; Confusion R41.0 ; Shortness of breath R06.02 ; Hematuria R31.9 ; Persistent atrial fibrillation I48.19 ; Stage 3b chronic kidney disease N18.32 ; Hyperlipidemia, unspecified hyperlipidemia E78.5 ; Essential hypertension I10 and BMI 21.0-21.9, adult Z68.21 [facility] [address] [place] [id number] 11/10/2024 Reshma Crowdy Acute URI J06.9 and Bronchitis J40 [facility] [address] [place] [id number] 04/05/2025 Milind Hendrix COPD with acute exacerbation J44.1 ; Renal insufficiency N28.9 ; CHF (congestive heart failure) I50.9 ; Chronic obstructive pulmonary disease, unspecified COPD type J44.9 ; Hypertensive heart and chronic kidney disease with heart failure and stage 1 through stage 4 chronic kidney disease, or unspecified chronic kidney disease I13.0 and BMI 22.0-22.9, adult Z68.22 [facility] [address] [place] [id number] 04/11/2025 Milind Hendrix COPD exacerbation J4 4.1 ; Stage 3b chronic kidney disease N18.32 and Essential hypertension I10 [facility] [address] [place], [place] [id number] 04/25/2025 Milind Hendrix Stage 3b chronic kid eduardo disease N18.32 [facility] [address] [place], [place] [id number] 05/02/2025 Milind Hendrix Pre-op exam Z01.818 ; 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 ; 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 I25.10 ; Essential hypertension I10 ; Hyperlipidemia, unspecified hyperlipidemia E78.5 ; Chronic obstructive pulmonary disease, unspecified COPD type J44.9 ; Atrial fibrillation, unspecified type I48.91 ; CHF (congestive heart failure) I50.9 and Stage 3a chronic kidney disease N18.31 [facility] [address] [place], [place] [id number] 05/18/2024 Milind Hendrix Benign prostatic hyperplasia with lower urinary tract symptoms N40.1 [facility] [address] [place] [id number] 07/25/2024 Milind Hendrix [facility] [address] [place] [id number] 09/25/2024 Milind Hendrix [facility] [address] [place] [id number] 11/09/2024 Reshma Crowdy [facility] [address] [place], [place] [id number] 11/13/2024 Milind Hendrix Benign prostatic hyperplasia with lower urinary tract symptoms N40.1 [facility] [address] [place], [place] [id number] 12/01/2024 Milind Hendrix Bronchitis J40 [facility] [address] [place], [place] [id number] 12/15/2024 Milind Hendrix [facility] [address] [place] [id number] 12/27/2024 Milind Hendrix [facility] [address] [place] [id number] 12/27/2024 Milind Hendrix [facility] [address] [place] [id number] 04/03/2025 Milind Hendrix [facility] [address] [place] [id number] 04/06/2025 Milind Hendrix [facility] [address] [place] [id number] 04/12/2025 Milind Hendrix Hyperkalemia E87.5 [facility] [address] [place], [place] [id number] 04/23/2025 Milind Hendrix Assessments Encounter Date Diagnosis (ICD Code) Assessment Notes Treatment Notes Treatment Clinical Notes Section Notes 05/18/2024 Benign prostatic hyperplasia with lower urinary tract symptoms (ICD-10 - N40.1) 08/28/2024 Acute URI (ICD-10 - J06.9) 11/08/2024 Confusion [...] - N18.32) 04/12/2025 Hyperkalemia (ICD-10 - E87.5) 04/25/2025 Stage 3b chronic kidney disease (ICD-10 - N18.32) 05/02/2025 Pre-op exam (ICD-10 - Z01.818) Results from recent testing at [facility] and cardiology not reviewed in office today. Patient has had cardiac clearance. He is of increased, but acceptable risk for proposed surgery. 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 (ICD-10 - I25.10) 11/08/2024 Shortness of breath (ICD-10 - R06.02) 04/11/2025 Essential hypertension (ICD-10 - I10) 04/05/2025 CHF (congestive heart failure) (ICD-10 - I50.9) 11/08/2024 Hematuria (ICD-10 - R31.9) 04/05/2025 Chronic obstructive pulmonary disease, unspecified COPD type (ICD-10 - J44.9) 05/02/2025 Essential hypertension (ICD-10 - I10) 04/05/2025 Hypertensive heart and chronic kidney disease with heart failure and stage 1 through stage 4 chronic kidney disease, or unspecified chronic kidney disease (ICD-10 - I13.0) 11/08/2024 Persistent atrial fibrillation (ICD-10 - I48.19) 05/02/2025 Hyperlipidemia, unspecified hyperlipidemia (ICD-10 - E78.5) 05/02/2025 Chronic obstructive pulmonary disease, unspecified COPD type (ICD-10 - J44.9) 11/08/2024 Stage 3b chronic kidney disease (ICD-10 - N18.32) 04/05/2025 BMI 22.0-22.9, adult (ICD-10 - Z68.22) 11/08/2024 Hyperlipidemia, unspecified hyperlipidemia (ICD-10 - E78.5) 05/02/2025 Atrial fibrillation, unspecified type (ICD-10 - I48.91) 05/02/2025 CHF (congestive heart failure) (ICD-10 - I50.9) 11/08/2024 Essential hypertension (ICD-10 - I10) 11/08/2024 BMI 21.0-21.9, adult (ICD-10 - Z68.21) 05/02/2025 Stage 3a chronic kidney disease (ICD-10 - N18.31) Plan Of Treatment Pending Test Test Name Order Date Overnight Oximetry 04/05/2025 Next Appt Details Provider Name:Milind Hanley ry, 07/26/2025 10:00:00 AM, [address], [address], [place], [place], [id number], Insurance Providers Payer Name Payer Address Payer Phone Subscriber Number Group Number Insured Name Patient Relationship to Insured Coverage Start Date Coverage End Date [employer] (MEDICAR E) [address] [address] [place] [phone] [id number] JOANA CORTES Self - patient is the [...] Reason Date(Month/Year) Unable to Urinate- Foly Fath- [facility] ER Unable to Urinate- Foly Cath- [facility] ER Dizziness- UTC 10/19- Dizziness- UTC 10/18/2017 Kidney Stones Heart Attack- [place] 05/08/2013 Back Pain- [facility] ER 04/09/2012
--- OUTSIDE RECORDS SUMMARY | 2025-05-03 11:33 | XMS_ITS ---
Author Organization [facility] Address [address] [place] [address] Care Team Providers Care Gold Marker Name Role Phone Milind Corona MD Primary Care Provider [phone] Active Problems Problem Noted Date Diagnosed Date [...] numbers Care Team Provider: Vincenzo Tellez MD, ([phone]) Care Team Provider: Owen Farah MD, ([phone]) Care Team Provider: Sam Raymundo MD, ([phone]) Post Treatment Care Team Primary Care Physician Milind Corona MD [phone] [address] [facility] [address] [place] [address] Background Information Medical history Past Medical History: [...] doctors and 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 General Cancer Support & Resources [facility] [address], [address] [place] [address] Med Onc: Scientific Diver Onc: Assistant Professor Of Theater: Alicia Garrett - Psychiatric Nurse Practitioner: Carole Christian APRN - Kick It! (A free smoking cessation program) Financial Counselor and Contact Information: [facility] Financial Counseling [phone] Nursing Faculty Contact Information: Ilana White - Local Cancer Support Group and Contact Information: Nayan Boyle: This support group is open to anyone that has been diagnosed with cancer of any type. Meets at 6:30pm on the last Wednesday of each month. Location: [facility]; [address] [place] [address]. For more information call Sonia Hood @ . Prostate Cancer Support & Resources Local Resources [facility] Prostate Support Group: The mission of TOO is to provide hope and improve the lives of of those affected by prostate cancer through support, education, and advocacy/ awareness. The group meets the of each month at 6:30 p.m. [address] [facility], [address] [place], [place] [id number] Surveillance How Frequent? Medical Oncology visits 1 [...] advice of a doctor or other health direct care supervisor. Please use these recommendations to talk with your health care provider about an appropriate follow up care plan for you. Surveillance for Your Cancer Recommendation Frequency Comments Cancer surveillance visit with medical provider that is focused on detecting signs of recurrence ofyour cancer. For additional information, visit www.livesHireHiveg.org or www.cancer.net/patient/Survivorship Frequency depends on type and [...] of cancer in the general population. The [employer] Cancer Society (ACS) recommends these screening guidelines for men: Recommendation Frequency Comments Colon and Rectal Cancer Screening For more information see the ACS document Colorectal Cancer: Early Detection. www.cancer.org/ssLINK/kqdntsnblr-uskmte-diamo-detection-rhiannon Options for colon cancer screening can be [...] see the ACS Document Testicular Cancer Detection: http://www.cancer.org/cancer/testicularcancer/detailedguide/cccgowfhto-pspwin-re tection Men of any age can develop [...] more information, visit http://www.nhlbi.nih.gov/health/public/heart/obesity/lose_wt/index.htm www.win.niddk.nih.gov Call the [employer] Heart Association Talk to your health care [...] Experts recommend at least 30 minutes of cizunwos-io-mrjmlqbe activity per day, five days a week. [...] you can call a national hotline at 1(095)-QUIT-NOW. Have regular check-ups by a healthcare professional. For more information about healthy screening tests for men visit the U.S. Department of Health and Human Services. http://www.womenshealth.gov/bsrssuliv-bcvbc-sml-vaccines/zhcfsfptr-nqzdp-gda-men / For more information about adult vaccinations visit the CDC: http://www.cdc.gov/vaccines/recs/schedules/adult-schedule.htm Keep up-to-date on general health screening tests, including cholesterol, blood pressure and glucose (blood sugar) levels. Get an annual influenza vaccine (flu shot). Get vaccinated with the pneumococcal vaccine, which prevents a type of pneumonia, and re-vaccinatedas determined by your health care team. Don???t forget dental and eye health! The [employer] Association recommends adults have their eyes examined every two years until age 60, then annually. People who wear glasses or correctivelenses or are at high risk for eye problems (i.e., diabetics, family history of eye disease) shouldbe seen more frequently. The [employer] Dental Association recommends adults see their dentist at least once a year. No information on file. No information on file.
--- OUTSIDE RECORDS SUMMARY | 2025-05-03 11:34 | XMS_ITS | Clinical Summary ---
Author Organization [facility] Address [address] [place] [address] Care Team Providers Care Clinical Informatics Manager Name Role Phone Milind Corona MD Primary Care Provider [phone] Allergies No known active allergies Medications aspirin [...] 08/03/2020 Immunizations Immunization Administration Dates Next Due Influenza, high-dose, quadrivalent 04/28/2016,,04/06/2014 Pneumococcal Conjugate PCV 13 11/06/2014 Pneumococcal Polysaccharide PPV23 04/28/2016 TD (adult), 2 Lf tetanus tox oid, [...] Description 05/04/2025 10:40 AM EST Office Visit [facility] [address] [place] [address] Vishal Boogie MD [address] [place] [phone] Health Maintenance Due Date Last Done Comments [facility]-Depression Screening 1938 [facility]-Medicare Annual Wellness (AWV) 1938 [facility]-Infant/Child/Adol SDOH Screenings 1938 [facility]- SDOH Screenings 1956 [facility]-Adult SDOH Screenings 1956 [facility]-Zoster Vaccines (1 of 2) 1957 [facility]-RSV Vaccine: 60+ Years or (1 - 1-dose 75+ series) 2013 [facility]-DTaP,Tdap,and Td Vaccines (1 - Tdap) 01/19/2018 01/18/2018, 08/29/1996 [id number] Vaccine (3 - Moderna risk series) 10/02/2020 [...] patient's age to complete this topic Insurance [facility] MEDICARE Care Teams Clinical Informatics Manager Relationship Specialty Start Date End Date Milind Corona MD [address] [facility] [address] [address] PCP - General 03/20/21
[2025-05-03 11:40] LABS: Microscopic, Urine URINE MICROSCOPIC (MICROSCOPIC)
[2025-05-03 12:00] LABS: Hematocrit 38.4 % (42.0-52.0); Hemoglobin 12.3 g/dL (14.1-18.0); Mean Corpuscular HGB Conc 32.0 g/dL (31.8-35.4); Mean Corpuscular Hemoglobin 29.0 pg (27.0-31.2); Mean Corpuscular Volume 90.6 fl (80-94); Nucleated Red Blood Cells % 0 %; Platelet Count 134 K/mm3 (142-424); Red Blood Count 4.24 M/mm3 (4.60-6.20); Red Cell Distribution Width-SD 44.5 fL; White Blood Count 5.3 K/mm3 (4.8-10.8)
[2025-05-03 14:14] LABS: Albumin Level 3.4 g/dl (3.5-5.0); Carbon Dioxide 27 mmol/L (22.0-30.0); Chloride 109 mmol/L (98-107)
[2025-05-03 14:50] LABS: Color,Urine RED (Yellow); Glucose,Urine (UA) Negative (Negative); Ketones,Urine Negative (Negative); Leukocyte Esterase,Urine Negative (Negative); PH,Urine 5.5 (5.0-8.5); Protein,Urine 2+ (Negative); Specific Gravity, Urine 1.025 (1.005-1.030); Urobilinogen,Urine 1.0 EU/dl (0.2)
[2025-05-03 14:55] LABS: Bilirubin,Urine Negative (Negative)
[2025-05-03 15:10] LABS: Anion Gap 13.1 mEq/L (5-15); Potassium 5.1 mmoL/L (3.5-5.1); Sodium 144 mmol/L (136-145)
[2025-05-03 15:13] LABS: Calcium 8.3 mg/dl (8.4-10.2); Glucose 81 mg/dl (74-100); Phosphorous 2.9 mg/dl (2.5-4.5)
[2025-05-03 15:14] LABS: RBC,Urine TNTC #/hpf (0-3)
[2025-05-03 15:15] LABS: Bacteria,Urine 3+ /lpf
[2025-05-03 15:48] LABS: 25-OH Vitamin D, Total 35.3 ng/mL (30-100)
[2025-05-03 16:46] LABS: Blood Urea Nitrogen 35 mg/dl (9-20); Creatinine,Serum 1.80 mg/dl (0.66-1.25); Estimated Glomerular Filt Rate 36 ml/min (>60); GFR (African American) 44 ML/MIN (>60)
[2025-05-04 16:30] LABS: Albumin 3.3 g/dL (2.9-4.4); Alpha-1-Globulin 0.3 g/dL (0.0-0.4); Alpha-2-Globulin 0.6 g/dL (0.4-1.0); Gamma Globulin 1.1 g/dL (0.4-1.8)
== END 2025-05-03 23:59 | disposition home or self-care (01) ==
LOC: LAB 11:29
PROVIDERS: PCP Family Medicine; Visit Provider Student in an Organized Health Care Education/Training Program
DX: N18.32 Chronic kidney disease, stage 3b (principal); R80.1 Persistent proteinuria, unspecified
CPT/HCPCS: 36415; 80069; 81001; 82043; 82306; 82570; 83521; 83970; 84155; 84156; 84165; 85027; 87086

== ENCOUNTER 2025-06-22 01:55 | Observation (INO) | payer MEDICARE, SELFPAY ==
--- OUTSIDE RECORDS SUMMARY | 2024-03-08 04:00 | XMS_ITS ---
Author Organization [facility] Address [address] [address] [facility] [address] [place] [phone] Care Team Providers Care Tire Technician Name Role Phone Milind Corona Primary Care Provider Allergies No Known Allergies REASON FOR VISIT 6 month check Encounters Encounter Location Date Provider Diagnosis [place] [address] [facility] [address] [place] [phone] 03/08/2024 Milind Corona Plan Of Treatment Next Appt Details Provider Name:Milind Hanley ry, 07/26/2025 10:00:00 AM, [address], [address], [place], [phone], Progress Notes * Young COYDOB: 8 (84 yo M)Acc No.[id number]:03/08/2024 Progress Notes Patient: Young BORREGO Provider: Gonzalo Corona M.D. :1940 A ge:83 Y S ex:Male Date:03/08/2024 Address:[place], [id number] Subjective: * Chief Complaints: * 1 . [...] Hospitalization/Major Diagno stic Procedure: B ack Pain- [facility] ER 04/09/2012, Heart Attack- [place] 05/08/2013, Kidney Stones , Dizziness- [facility] 10/18/2017, Dizziness- [facility] 10/19-, Unable to Urinate- Foly Cath- [facility] 08/20/2020, Unable to Urinate- Foly Fath- [facility] 04/22/2021. * Family History: [...] Electronic signature of Janeth Corona MD on 06/22/2025 at 02:09 AM EST Sign off status: Pending * Provider: Gonzalo Corona M.D. Date: 0 03/08/2024 Generated for Mehdi brown/Ramsey/Abdirahman on: 1 08/23/2024 02:09 AM EST History and Physical Notes * HPI (History of Present Illness) Category Sub-Category Detail Notes Category Not es Cardiology Blood Pressure Elevated Pt here for 6 mo f/u on hypertension, states he is doing well and does not have any concerns Hyperlipidemia Pt is fasting today
--- OUTSIDE RECORDS SUMMARY | 2024-08-28 06:00 | XMS_ITS ---
Author Organization [facility] Address [address] [facility] [address] [place] [phone] Care Team Providers Care Party Host Name Role Phone Milind Corona Primary Care [...] 08/28/2024 Encounters Encounter Location Date Provider Diagnosis [facility] [address] [facility] [address] [place], [place] [phone] 08/28/2024 Milind Corona Acute URI J06.9 Assessments [...] [address] , [place], [place], [phone], Progress Notes * Young COYDOB: 8 (84 yo M)Acc No.[id number]:08/28/2024 Progress Notes Patient: Young BORREGO Provider: Gonzalo Corona M.D. :1940 A ge:84 Y S ex:Male Date:08/28/2024 Address:[address] [place], [place] [address]-[id number] Subjective: * Chief Complaints: * 1 . [...] stic Procedure: B ack Pain- [facility] 04/09/2012, Heart Attack- [place] 05/08/2013, Kidney Stones , Dizziness- [facility] 10/18/2017, Dizziness- [facility] 10/19-, Unable to Urinate- Foly Cath- [facility] 08/20/2020, Unable to Urinate- Foly Fath- [facility] 04/22/2021. * Family History: F [...] G 2211 Complex e/[place], [address] [place], [address] CAPILLARY BLOOD DRAW, [address] CBC WITH AUTO DIFF, 3074F SYST BP LT 130 MM HG, 3078F DIAST BP < 80 MM HG * Follow Up: p rn * Images: Billing Information: * Visit Code: 70082 Office Visit, Est Pt., Level 3. * Procedure Codes: G2211 Complex e/[place]. [address] [place]. [address] CAPILLARY BLOOD DRAW. 15291 CBC WITH AUTO DIFF. 3074F SYST BP LT 130 MM HG. 3078F DIAST BP < 80 MM HG. * Electronic signature of Janeth Corona MD on 06/22/2025 at 02:08 AM EST Sign off status: Pending * Provider: Gonzalo Corona M.D. Date: 0 08/28/2024 Generated for Mehdi brown/Ramsey/eTransmitting on: 1 08/23/2024 02:08 AM EST History and Physical Notes * [...]
--- OUTSIDE RECORDS SUMMARY | 2024-11-08 06:30 | XMS_ITS ---
Author [facility] Address [address] [facility] [address] [place] [address] [place] [id number] Care Team Providers Care Insurance Verification Rep Name Role Phone Milind Corona Primary Care Provider [phone] Reshma Gipson Unavailable [phone] Allergies No Known Allergies Results Component Value [...] patient currently hospitalized? No Is patient an [facility] employee? N Is the patient employed in healthcare? No Does the patient have COVID symptoms? Yes Is this the 1st COVID test for the patient? No No ADENOQIA Not Detected NotDetected CORONAHKU1 Not Detected NotDetected VZWBERXY47 Not Detected NotDetected JXOVN015A Not Detected NotDetected VBWGNDB94 Not Detected NotDetected METAPNEUMO Not Detected NotDetected RHINOENTER Not Detected NotDetected INFLUAPCR Not Detected NotDetected FLUAH1 Not Detected NotDetected [id number] Not Detected NotDetected INFLUAH3 Not Detected NotDetected [...] 2.49, eGFR 24 Performing Lab: Notes/Report: CLIA: [id number] Bob Boone MD, Hydrogeology Professor [address] [place] [address] , [address], [place] [address] Test performed by [employer], [facility] Sodium 139 135-145 mmol/L Potassium 5.4 [...] PM Interpretation:No Growth Performing Lab: Notes/Report: CLIA: [id number] Bob Boone MD, Hydrogeology Professor [address] [place] [address] , [address], [place] [address] Test performed by [employer] Specimen Source Urine - Void Culture, Urine See Below Final Report : No growth B-Type Natriuretic Peptide Reviewed date:11/09/2024 03:25:45 PM Interpretation:245.0 Performing Lab: Notes/Report: Test performed by [employer] [address] [place] [address] , [address], [place] [address] Bob Boone MD, Hydrogeology Professor CLIA: [id number] B-Type Natriuretic Peptide 245.0 <2.0-100.0 pg/ mL REASON FOR VISIT f/u [facility] er Medications Medication SIG (Take, [...] 11/08/2024 Encounters Encounter Location Date Provider Diagnosis [facility] [address] [facility] [address] [place], [place] [id number] 11/08/2024 Reshmaizzy Gipson Bronchitis J40 ; Confusion [...] 07/26/2025 10:00:00 AM, [address] [facility], [address] , [place], [place], [id number], Progress Notes * Young COYDOB: [birth year] (84 yo M)Acc No.[id number]:11/08/2024 Patient: Young BORREGO Provider: SILVA Luque :1940 A ge:84 Y S ex:Male Date:11/08/2024 Address:[address] [place], [place] [address], [id number] Pcp:Milind Corona Subjective: * Chief Complaints: * 1 . F/u [facility] er. * HPI: H PI: HPI narrative from [facility] ER visit: 11/06/2024: 83-year-old male with history [...] has chronic bradycardia according to chart review. [place] that no additional workup is indicated at this time as this seems to be a chronic issue that patient states that has not been solved. Will have patient follow-up with his primary care physician. All questions were answered. He demonstrated understanding and was in agreement with this plan. He was then discharged from the emergency department in stable condition. Lab results from [facility] ER visit: 11/06/24 07:39: WBC 5.2, RBC 4.48 L, Hgb 12.9 L, Hct 39.7 L, MCV 88.6, MCH 28.8, MCHC 32.5, RDW 14.1, Plt Count 148, MPV 9.8, Neut % (Auto) 57.1, Lymph % (Auto) 28.7, [place] % (Auto) 11.1 H, Eos % (Auto) 2.5, Baso % (Auto) 0.4, Neut # (Auto) 2.9, Lymph # (Auto) 1.5, [place] # (Auto) 0.6, Eos # (Auto) 0.1, [...] Troponin I 0.02 CXR FINDINGS : from [facility] ER visit 2 views of the chest [...] is here today for a f/u from [facility] ER. Pt was seen at the ER [...] ack Pain- [facility] ER 04/09/2012, Heart Attack- [place] 05/08/2013, Kidney Stones , Dizziness- [facility] 10/18/2017, Dizziness- [facility] 10/19-, Unable to Urinate- Foly Cath- [facility] ER 08/20/2020, Unable to Urinate- Foly Fath- [facility] ER 04/22/2021. * Family History: F ather: [...] ssential hypertension - I10 9 . B [place] 21.0-21.9, adult - Z68.21 ? Plan: * Treatment: Value Reference Range A DENOQIA Not Detected NotDetected - * C ORONAHKU1 Not Detected NotDetected - * C XGEUNSO50 Not Detected NotDetected - * C YYPQ658C Not Detected NotDetected - * C YDCEPS11 Not Detected NotDetected - * M ETAPNEUMO Not Detected NotDetected - * R HINOENTER Not Detected NotDetected - * I NFLUAPCR Not Detected NotDetected - * F LUAH1 Not Detected NotDetected - * I [id number] Not Detected NotDetected - * I NFLUAH3 [...] 01:21:28 PM > left message for return callGoble Madhavi 11/29/2024 04:39:12 PM EDT > pt informed * Labs: * L ab: B-Type Natriuretic Peptide (Collection Date & Time - 11/08/2024 11:27 AM) 2 45.0 Value Reference Range B -Type Natriuretic Peptide 245.0 H <2.0-100.0 - p g/mL * [facility], IT support 11/09/2024 07:25:05 : This order was created by the Interface. Kev Madhavi 11/09/2024 03:25:38 PM > See phone encounter * Procedure Codes: G 2211 Complex e/[place], [address] CAPILLARY BLOOD DRAW, 92279 CBC WITH AUTO DIFF, 17122 Urinalysis, no micro, 3074F SYST BP LT 130 MM HG, 3078F DIAST BP < 80 MM HG * Follow Up: v ia phone to report test results * Images: Billing Information: * Visit Code: 75113 Office Visit, Est Pt., Level 4. * Procedure Codes: G2211 Complex e/[place]. [address] CAPILLARY BLOOD DRAW. 11475 CBC WITH AUTO DIFF. 50822 Urinalysis, no micro. 3074F SYST BP LT 130 MM HG. 3078F DIAST BP < 80 MM HG. * Electronic signature of SILVA Elizabeth on 06/22/2025 at 02:09 AM EST Sign off status: Pending * Provider: SILVA Luque Date: 0 11/08/2024 Generated for Printi ng/Faxing/eTransmitting on: 1 08/23/2024 02:09 AM EST History and Physical Notes * HPI (History of Present Illness) Category Sub-Category Detail Notes Category Not es ENT/respiratory Short of Breath Pts daughter als o sts that pt has had SOB HPI Here for follow up on: Pt is her e today for a f/u from [facility] ER. Pt was seen at the ER [...]
--- OUTSIDE RECORDS SUMMARY | 2024-11-10 10:45 | XMS_ITS ---
Author Organization [facility] Address [address] [place] [id number] Care Team Providers Care Tablet Technician Name Role Phone Milind Corona Primary Care Provider Reshma Gipson Unavailable [phone] Allergies No Known Allergies REASON FOR VISIT [...] Encounter Location Date Provider Diagnosis A-Arnaud 12[address] [facility] [address] [place] [id number] 11/10/2024 Reshma Gipson Acute URI J06.9 and [...] [address], [place], [id number], Progress Notes * Young COYDOB: [birth year] (84 yo M)Acc No.[id number]:11/10/2024 Patient: Young BORREGO Provider: SILVA Luque :1940 A ge:84 Y S ex:Male Date:11/10/2024 Address[facility] [place], [id number] Pcp:Milind Corona Subjective: * Chief Complaints: * [...] Hospitalization/Major Diagno stic Procedure: B ack Pain- [facility] ER 04/09/2012, Heart Attack- [place] 05/08/2013, Kidney Stones , Dizziness- [facility] 10/18/2017, Dizziness- [facility] 10/19-, Unable to Urinate- Foly Cath- [facility] ER 08/20/2020, Unable to Urinate- Foly Fath- [facility] ER 04/22/2021. * Family History: [...] * Images: Billing Information: * Visit Code: 07532 Office Visit, Est Pt., Level 3. * Procedure Codes: G2211 Complex e/m visit add on. * Electronic signature of SILVA Elizabeth on 06/22/2025 at 02:10 AM EST Sign off status: Pending * Provider: SILVA Luque Date: 0 11/10/2024 Generated for Mehdi brown/Ramsey/Amyitting on: 1 08/23/2024 02:10 AM EST History and Physical Notes * [...]
--- OUTSIDE RECORDS SUMMARY | 2025-04-05 06:15 | XMS_ITS ---
Author Organization [facility] Address [address] [facility] [address] [place] [phone] Care Team Providers Care Photographer News Name Role Phone Milind Corona Primary Care [...] 27 Performing Lab: Notes/Report: Test performed by [facility], [employer] [address] [place] [address] , [address], [place] [address] Bob Boone MD, Reo Asset Manager CLIA: [id number] Sodium 144 135-145 mmol/L Potassium 5.5 3.5-5.3 [...] Acute exacerbation of chronic obstructive airways disease (485300718) COPD with acute exacerbation (J44.1) Active confirmed Problem Hypertensive heart AND chronic kidney disease with congestive heart failure (20066982651548) Hypertensive heart and chronic kidney disease with [...] 04/05/2025 Encounters Encounter Location Date Provider Diagnosis [facility] [address] [place] [id number] 04/05/2025 Milind [place] COPD with acute exacerbation J44.1 ; Renal [...] Hanley , 07/26/2025 10:00:00 AM, [address] [facility] 36 [facility], [address], [phone], Progress Notes * Young COYDOB: 8 (84 yo M)Acc No.[id number]:04/05/2025 Physical Patient: Young BORREGO Provider: Gonzalo Corona M.D. :1940 A ge:84 Y S ex:Male Date:04/05/2025 Address:[address] [place], [place] [address]ARNAUD Ontiveros, [id number] Subjective: * Chief Complaints: * 1 . Preop cpx. * HPI: A dult Pre-Op physical: 84 year old male presents with c/o Procedure: r emoval of hyperkeratotic areas from buccal mucosal area and alveolar ridge. c/o Date of Procedure: Sergio Raymundo [facility] E[facility]. c/o Name of Surgeon: W ill schedule after pt is cleared by PCP and Dr. London. * ROS: R ESPIRATORY: Shortness of breath y es, p da was in the ER at [facility] yesterday and was diagnosed with a COPD [...] Hospitalization/Major Diagno stic Procedure: B ack Pain- [facility] ER 04/09/2012, Heart Attack- [place] 05/08/2013, Kidney Stones , [facility]iness- [facility] 10/18/2017, Dizziness- [facility] 10/19-, Unable to Urinate- Foly Cath- [facility] ER 08/20/2020, Unable to Urinate- Foly Fath- [facility] ER 04/22/2021. * Family History: F [...] kidney disease - I13.0 6 . B [place] 22.0-22.9, adult - Z68.22 Plan: * Treatment: [...] G 2211 Complex e/[place], [address] CBC WITH AUTO DIFF, 1036F TOBACCO NON-USER, G8420 BMI<30 AND >=22 CALC & DOCU, G8950 PREHTN/HTN BP DOC INDCD F/U DOC, G8752 MOST RECENT SYSTOLIC BP < 140MM HG, G8754 MOST RECENT DIASTOLIC BP < 90MM HG, 3074F SYST BP LT 130 MM HG, 3078F DIAST BP < 80 MM HG * Follow Up: 6 days * Images: Drawin04/05/25 [facility] addendum Billing Information: * Visit Code: 74827 Office Visit, Est Pt., Level 4. * Procedure Codes: G2211 Complex e/[place]. [address] CBC WITH AUTO DIFF. 1036F TOBACCO NON-USER. G8420 BMI<30 AND >=22 CALC & DOCU. G8950 PREHTN/HTN BP DOC INDCD F/U DOC. G8752 MOST RECENT SYSTOLIC BP < 140MM HG. G8754 MOST RECENT DIASTOLIC BP < 90MM HG. 3074F SYST BP LT 130 MM HG. 3078F DIAST BP < 80 MM HG. * Electronic signature of Janeth Corona MD on 06/22/2025 at 02:10 AM EST Sign off status: Pending * Provider: Gonzalo Corona M.D. Date: Generated for Mehdi brown/Ramsey/Amyitting on: 08/23/2024 02:10 AM EST History and Physical Notes * HPI (History of Present Illness) Category Sub-Category Detail Notes Category Not es Adult Pre-Op physical Procedure: removal of hyperkeratotic areas from buccal mucosal area and alveolar ridge Date of Procedure: Dr. Raymundo, [facility] EN T Name of Surgeon: Will schedule after pt is cleared by PCP and Dr. London Examination Category Sub-Category Detail Notes Category Not es General Examination Heart: RSR Lungs: clear to auscultatio n General Appearance: NAD
--- OUTSIDE RECORDS SUMMARY | 2025-04-11 06:45 | XMS_ITS ---
Author Organization [facility]-[place] Address [address] [place] [id number] Care Team Providers Care Assistant Tennis Professional Name Role Phone Milind Corona Primary Care Provider [phone] Allergies No Known Allergies Results Component [...] 1.90, eGFR 34 Performing Lab: Notes/Report: CLIA: [id number] Bob Boone MD, Director Process Improvement [facility] , [address], [place] [address] Test performed by [employer], [facility] Sodium 141 135-145 mmol/L Potassium 5.8 3.5-5.3 mmol/L Chloride 110 97-108 mmol/L CO2 26 20-32 mmol/L Glucose 88 65-99 mg/dL BUN 34 8-23 mg/dL Creatinine 1.90 0.70-1.30 mg/dL Calcium 8.9 8.6-10.4 mg/dL eGFR by Creatinine 34 >59 mL/min/1.73m2 P-Phosphorus Reviewed date:04/12/2025 11:26:06 AM Interpretation:Normal Performing Lab: Notes/Report: Test performed by [employer] [address] [place] [address] , [address], [place] [address] Bob Boone MD, Director Process Improvement CLIA: [id number] Phosphorus 2.7 2.5-4.5 mg/dL REASON FOR VISIT [...] Acute exacerbation of chronic obstructive airways disease (677629316) COPD exacerbation (J44.1) Active confirmed Vital Signs Blood pressure systolic 128 mm Hg 04/11/20 25 Blood pressure diastolic 70 mm Hg 025 Heart Rate 60 /min 04/11/2025 Height 70 in 04/11/2025 Weight 156.4 lbs 04/11/2025 BMI 22.44 kg/m2 04/11/2025 Encounters Encounter Location Date Provider Diagnosis [facility] [address] [place], [place] [id number] 04/11/2025 Milind Corona COPD exacerbation J4 4.1 [...] [place] , 07/26/2025 10:00:00 AM, [address] [facility] [address] [facility], [address] , [place], [place], [id number], Progress Notes * Young COYDOB: 8 (84 yo M)Acc No.[id number]:04/11/2025 Patient: Young BORREGO Provider: Gonzalo Corona M.D. :1940 A ge:84 Y S ex:Male Date:04/11/2025 Address:[address] [place] [address] [place], [id number] Subjective: * Chief Complaints: * 1 . [...] stic Procedure: B ack Pain- [facility] 04/09/2012, Heart Attack- [place] 05/08/2013, Kidney Stones , Dizziness- [facility] 10/18/2017, Dizziness- [facility] 10/19-, Unable to Urinate- Foly Cath- [facility] 08/20/2020, Unable to Urinate- Foly Fath- [facility] 04/22/2021. * Family History: [...] G 2211 Complex e/[place], [address] CBC WITH AUTO DIFF, 1036F TOBACCO NON-USER, 3074F SYST BP LT 130 MM HG, 3078F DIAST BP < 80 MM HG, G8950 PREHTN/HTN BP DOC INDCD F/U DOC * Follow Up: 2 Weeks * Images: Billing Information: * Visit Code: 41284 Office Visit, Est Pt., Level 4. * Procedure Codes: G2211 Complex e/[place]. [address] CBC WITH AUTO DIFF. 1036F TOBACCO NON-USER. 3074F SYST BP LT 130 MM HG. 3078F DIAST BP < 80 MM HG. G8950 PREHTN/HTN BP DOC INDCD F/U DOC. * Electronic signature of Janeth Corona MD on 06/22/2025 at 02:09 AM EST Sign off status: Pending * Provider: Gonzalo Corona M.D. Date: 1 Generated for Mehdi brown/Ramsey/Abdirahman on: 1 08/23/2024 02:09 AM EST History and Physical Notes * HPI (History of Present Illness) Category Sub-Category Detail Notes Category Not es HPI [facility] Pt states he is doing good and has no concerns at this time. Pt needs refills on Lisinopril & Metoprolol Examination Category Sub-Category Detail Notes Category Not es General Examination Heart: RSR Lungs: clear to auscultatio n General Appearance: NAD
--- OUTSIDE RECORDS SUMMARY | 2025-04-25 05:30 | XMS_ITS ---
Author Organization [facility] Address [address] [place] [phone] Care Team Providers Care Manager Shipping Name Role Phone Milind Corona Primary Care Provider [phone] Allergies No Known Allergies Reason For Referral Diagnosis 1 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) Referral Organization [facility] Referring Provider First Name Milind Referring Provider Last Name Cj Referring Provider Speciality Family Pra ctice Referred Provider Vishal Boogie Referred Provider Specialty Nephrology General Notes Heena Quan 2024 10:53:41 AM > faxed to [facility] Nephrology Referral Priority Routine REASON FOR [...] Encounter Location Date Provider Diagnosis [facility] [address] [facility] 36 [facility] [address] [place] [phone] 04/25/2025 Milind Corona Stage 3b chronic kidney [...] Name:Milind Hanley , 07/26/2025 10:00:00 AM, [address] [facility] 36 [facility], [address], [place], [phone], Progress Notes * Young COYDOB: 8 (84 yo M)Acc No.[id number]:04/25/2025 Patient: Young BORREGO Provider: Gonzalo Corona M.D. :1940 A ge:84 Y S ex:Male Date:04/25/2025 Address:[address] [place] [address] [place], [id number] Subjective: * Chief Complaints: * 1 . [...] stic Procedure: B ack Pain- [facility] ER 04/09/2012, Heart Attack- [place] 05/08/2013, Kidney Stones , Dizziness- [facility] 10/18/2017, Dizziness- [facility] 10/19-, Unable to Urinate- Foly Cath- [facility] ER 08/20/2020, Unable to Urinate- Foly Fath- [facility] ER 04/22/2021. * Family History: F [...] * Images: Billing Information: * Visit Code: 57737 Office Visit, Est Pt., Level 3. * [...] M.D. Date: Generated for Mehdi brown/Ramsey/Abdirahman on: 08/23/2024 02:10 AM EST History and [...]
--- OUTSIDE RECORDS SUMMARY | 2025-05-02 05:45 | XMS_ITS ---
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 Patient has had cardiac clearance. He is of increased, but acceptable risk for proposed surgery. 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 Patient has had cardiac clearance. He is of increased, but acceptable risk for proposed surgery. Next Appt Details Follow Up: as scheduled,and prn, Reason: Provider Name:Milind campo, 07/26/2025 10:00:00 AM, [address], [address], [place], [phone], Progress Notes * Luca COY: 8 (84 yo M)Acc No.[id number]:05/02/2025 Physical Patient: Young BORREGO Provider: Gonzalo Corona M.D. :1940 A ge:84 Y S ex:Male Date:05/02/2025 Address:[facility] [place], [id number] Subjective: * Chief Complaints: * 1 . [...] Hospitalization/Major Diagno stic Procedure: B ack Pain- [facility] ER 04/09/2012, Heart Attack- [place] 05/08/2013, Kidney Stones , Dizziness- [facility] 10/18/2017, Dizziness- [facility] 10/19-, Unable to Urinate- Foly Cath- [facility] ER 08/20/2020, Unable to Urinate- Foly Fath- [facility] ER 04/22/2021. * Family History: F [...] 3 . C oronary artery disease involving kalispel coronary artery of kalispel heart without angina pectoris - I25.10 4 [...] * Images: Billing Information: * Visit Code: 58364 Office Visit, Est Pt., Level 4. * [...] Date: 07/02/2024 Generated for Mehdi brown/Ramsey/Amyitting on: 08/23/2024 02:10 [...]
--- OUTSIDE RECORDS SUMMARY | 2025-05-04 10:40 | XMS_ITS | Encounter Summary ---
Author Organization [facility] Address [address] [place] [address] Care Team Providers Care Otorhinolaryngologist Name Role Phone Milind Corona MD Primary Care Provider [phone] Reason for Visit * Reason Comments Follow-up [...] Description 05/04/2025 10:40 AM EST Office Visit [facility] [address] [place] [phone] Vishal Boogie MD [address] [place] [phone] Exertional rhabdomyolysis (Primary Dx); Stage 3b [...] Author 60 05/04/2025 10:51 AM EST Vijay Dsaia * Resp Answer Date of Assessment Author [...] Author 70.7 05/04/2025 10:51 AM EST Linares, Dasai * IBW/kg (Calculated) Female Answer Entry Date [...] from the original note were not included. [facility] Visit Patient: Young [...] graft BPH (benign prostatic hyperplasia) Prostate cancer ([facility]/HCC) Essential hypertension Anemia due to stage [...] file Social Connections: Unknown (04/08/2023) Received from [facility] Family and Community Support Help with Day-to-Day Activities: Not on file Lonely or Isolated: Not on file Intimate Partner Violence: Unknown (04/08/2023) Received from [facility] Abuse Screen Unsafe at Home or Work/School: Not on file Feels Threatened by Someone?: Not on file Does Anyone Keep You from Contacting Others or Doint Things Outside the Home?: Not on file Physical Sign of Abuse Present: Not on file Housing Stability: Unknown (04/08/2023) Received from [facility] Housing Stability Current Living Arrangements: Not [...] , CAUR , CALCIUMUR , PHOSUR , [id number] , [id number] , CREATUR MBD: Lab Results Component Value [...] , LH , PROLACTIN , TSH , [id number] , FREET4 , CORTISOL Laboratory studies from [...] visit Vishal Boogie MD Division of Nephrology [facility] ORDERS PLACED THIS ENCOUNTER Orders Placed This Encounter Procedures CBC W/O Differential Standing Status: Future Expected Date: 10/31/2025 Expiration Date: 11/05/2026 [facility] Immediate Urinalysis with reflex microscopic (Culture NOT Included) Standing Status: Future Expected Date: 10/31/2025 Expiration Date: 11/05/2026 [facility] Immediate Vitamin D 25 Hydroxy Standing Status: Future Expected Date: 10/31/2025 Expiration Date: 11/05/2026 Release to patient in MyChart: Immediate PTH Intact Total Standing Status: Future Expected Date: 10/31/2025 Expiration Date: 11/05/2026 Release to patient in MyChart: Immediate Albumin-creatinine ratio, urine, random Standing Status: Future Expected Date: 10/31/2025 Expiration Date: 11/05/20[facility] Im[facility] Protein, Random, Urine with Creatinine Standing Status: Future Expected Date: 10/31/2025 Expiration Date: 11/05/2026 [facility]: Immediate Renal Function Panel, Plasma Standing Status: Future Expected Date: 10/31/2025 Expiration Date: 11/05/2026 [facility]: Immediate Problem List Items Addressed This Visit [...] Description 11/09/2025 12:00 PM EDT Office Visit [address] [place] [address] Vishal Boogie MD [address] [place] [phone] Scheduled Orders Name Type Priority Associated Diagnoses Orde r Schedule CBC W/O Differential Lab Routine Exertional rhabdomyolysis Stage 3b chronic kidney disease (CMS/HCC) Expected: 10/31/2025 (Approximate), Expires: 11/05/2026 Urinalysis with reflex microscopic (Culture NOT Included) Lab Routine Exertional rhabdomyolysis Stage 3b chronic kidney disease (CMS/HCC) Expected: 10/31/2025 (Approximate), Expires: 11/05/2026 Vitamin D 25 Hydroxy Lab Routine Exertional rhabdomyolysis Stage 3b chronic kidney disease ([facility]/HCC) Expected: 10/31/2025 (Approximate), Expires: 11/05/2026 PTH Intact Total Lab Routine Exertional rhabdomyolysis Stage 3b chronic kidney disease (CMS/HCC) Expected: 10/31/2025 (Approximate), Expires: 11/05/2026 Albumin-creatinine ratio, urine, random Lab Routine Exertional rhabdomyolysis Stage 3b chronic kidney disease ([facility]/HCC) Expected: 10/31/2025 (Approximate), Expires: 11/05/2026 Protein, Random, Urine with Creatinine Lab Routine Exertional rhabdomyolysis Stage 3b chronic kidney disease (CMS/HCC) Expected: 10/31/2025 (Approximate), Expires: 11/05/2026 Renal Function Panel, Plasma Lab Routine Exertional rhabdomyolysis Stage 3b chronic kidney disease (CMS/HCC) Expected: 10/31/2025 (Approximate), Expires: 11/05/2026 documented as of this encounter Visit Diagnoses Diagnosis Exertional rhabdomyolysis- Primary Stage 3b chronic kidney disease ([facility]) Anemia due to stage 3b chronic kidney [...] documented as of this encounter Care Teams Otorhinolaryngologist Relationship Specialty [place] [id number] PCP - General 03/20/21 documented as of this encounter
--- OUTSIDE RECORDS SUMMARY | 2025-06-01 05:00 | XMS_ITS ---
[facility] [address] [facility] [address] [place] [phone] Care Team Providers Care Ceramic Designer Name Role Phone Milind Corona Primary Care [...] 06/01/2025 Encounters Encounter Location Date Provider Diagnosis [facility] [address] [facility] [address] [facility] [address] [place] [phone] 06/01/2025 Milind Corona SOB (shortness of breath) [...] Name:Milind Hanley ry, 07/26/2025 10:00:00 AM, [address] [facility] [address] [facility], [address], [place], [phone], Progress Notes * Young COYDOB: [birth year] (84 yo M)Acc No.[id number]:06/01/2025 Progress Notes Patient: Young BORREGO Provider: Gonzalo Corona M.D. :1940 A ge:84 Y S ex:Male Date:06/01/2025 Address:[address] [place] [address] [place], [id number] Subjective: * Chief Complaints: * 1 . [...] Hospitalization/Major Diagno stic Procedure: B ack Pain- [facility] 04/09/2012, Heart Attack- [place] 05/08/2013, Kidney Stones , Dizziness- [facility] 10/18/2017, Dizziness- [facility] 10/19-, Unable to Urinate- Foly Cath- [facility] 08/20/2020, Unable to Urinate- Foly Fath- [facility] 04/22/2021. * Family History: F [...] G 2211 Complex e/[place], [address] CAPILLARY BLOOD DRAW, 11087 CBC WITH AUTO DIFF, G8783 BP SCR PRFRM RCMDD DEFIND SCR INTVL, G8752 MOST RECENT SYSTOLIC BP < 140MM HG, G8754 MOST RECENT DIASTOLIC BP < 90MM HG, 3074F SYST BP LT 130 MM HG, 3078F DIAST BP < 80 MM HG * Follow Up: a s scheduled,and prn * Images: Billing Information: * Visit Code: 51037 Office Visit, Est Pt., Level 3. * Procedure Codes: G2211 Complex e/[place]. [address] CAPILLARY BLOOD DRAW. 75571 CBC WITH AUTO DIFF. G8783 BP SCR [...] Date: 08/02/2024 Generated for Mehdi brown/Ramsey/Amyitting on: 08/23/2024 02:09 AM EST History and Physical [...]
[2025-06-22] VITALS (8 sets, daily range): BP systolic 115–211; BP diastolic 52–93; PULSE 44–54; RESP 15–20; TEMP 36.4–36.8; O2SAT 95–99; BMI 23.6; BMI 23.5
--- NOTE | 2025-06-22 01:58 | ECG_ITS ---
APPROVED REPORT Exam: Resting ECG HR:58 bpm ECG Measurements Heart Rate 58 AXES QRSd 85 QRS 4 QT 399 T 9 QTc 395 Conclusion ATRIAL FIBRILLATION WITH SLOW VENTRICULAR RESPONSE POSSIBLE RIGHT VENTRICULAR CONDUCTION DELAY [RSR (QR) IN V1/V2] SEPTAL MYOCARDIAL INFARCTION , OF INDETERMINATE AGE [40+ ms Q WAVE IN V1/V2] ABNORMAL ECG No STEMI Electronically signed by : MERON HARVEY, 06/22/2025 06:58:11
--- NOTE | 2025-06-22 02:07 | XR_ITS ---
PROCEDURE INFORMATION: Exam: XR Chest Exam date and time: 06/22/2025 2:17 AM Age: 84 years old Clinical indication: Shortness of breath; Additional info: SOA, can't get air through nose HX cabg TECHNIQUE: Imaging protocol: Radiologic exam of the chest. Views: 2 views. COMPARISON: CR XR CHEST PORTABLE 04/04/2025 8:23 AM FINDINGS: Lungs: Unremarkable. No consolidation. Pleural spaces: Unremarkable. No pleural effusion. No pneumothorax. Heart/Mediastinum: Unremarkable. No cardiomegaly. Bones/joints: Unremarkable. IMPRESSION: No acute findings.
--- OUTSIDE RECORDS SUMMARY | 2025-06-22 02:08 | XMS_ITS | Encounter Summary ---
Author Organization Healthcare Address [address] [place] [address] Care Team Providers Care Kelp Or Seagrass Gatherer Name Role Phone Milind Corona MD Primary Care Provider [phone] Encounter Details Date Type Department Care Team (Latest Contact Info) Description 05/04/2025 Travel Social History Tobacco Use Types Packs/Day Years Used Date Smoking Tobacco: Former Passive Smoke Exposure: Past Smokeless Tobacco: Never Sex and Gender Information Value Date Recorded Sex Assigned at Not on file Legal Sex Male 6:56 PM EDT Gender Identity Not on file Sexual Orientation Not on file documented as of this encounter Functional Status * Communicable Disease Screening Question Answer Date of Assessment Author Have you been in contact wit h someone who was sick? No / Unsure 05/04/2025 9:14 AM Aisha Brothers Do you have any of the follo wing new or worsening symptoms? None of these 05/04/2025 9:14 AM Trino Brothers * Travel Screening Question Answer Date of Assessment Author Have you traveled [place] or domestically in the last month? No 05/04/2025 9:14 AM Aisha Feliz documented as of this encounter Mental Status * Communicable Disease Screening Question Answer Entry Date Author Have you been in contact wit h someone who was sick? No / Unsure 05/04/2025 9:14 AM Aisha Brothers Do you have any of the follo wing new or worsening symptoms? None of these 05/04/2025 9:14 AM Trino Brothers * Travel Screening Question Answer Entry Date Author Have you traveled [place] or domestically in the last month? No 05/04/2025 9:14 AM Aisha Feliz documented in this encounter Plan of Treatment Upcoming Encounters Date Type Department Care Team (Late st Contact Info) Description 11/09/2025 12:00 PM EDT Office Visit [facility] [address] [place] [phone] Vishal Boogie MD [address] [place] [phone] documented as of this encounter Visit Diagnoses Not on filedocumented in this encounter Additional Health Concerns Assessment Noted Time A fall risk assessment has been complete d for the patient 09/30/2023 1:05 PM EDT A Body Mass Index follow-up plan has been documented for the patient 05/04/2025 11:23 AM EST documented as of this encounter Care Teams Kelp Or Seagrass Gatherer Relationship Specialty Start Date End Date Milind Corona MD [phone] PCP - General 03/20/21 documented as of this encounter
--- OUTSIDE RECORDS SUMMARY | 2025-06-22 02:09 | XMS_ITS ---
Laboratory report Created on: June 12, 2025 JOANA CORTES JR : 1940 Sex: Male Author Organization Unknown PROBLEMS Problems List Code Description RESULTS Laboratory Orders Date Order Code Test 2025-05-03 518574 PROTEIN ELECTRO. ,S 2025-05-03 [id number] FREE K+L LT TUAN NS,QN,S Laboratory Results Date LOINC Test Value Unit Reference Range Interpre tation 2025-05-03 2885-2 PROTEIN, TOTAL 6.1 G/DL 6.0-8.5 2025-05-03 2862-1 ALBUMIN 3.3 G/DL 2.9-4.4 2025-05-03 2865-4 AKZYU-3-CGDDYLKK .3 G/DL 0.0-0.4 2025-05-03 2868-8 RXWUP-2-RUSEYZFR .6 G/DL 0.4-1.0 2025-05-03 2871-2 BETA GLOBULIN .9 G/DL 0.7-1.3 2025-05-03 2874-6 GAMMA GLOBULIN 1.1 G/DL 0.4-1.8 2025-05-03 62953-2 M-SPIKE NOB G/DL NOT OBSERVED 2025-05-03 49945-7 GLOBULIN, TOTAL 2.8 G/DL 2.2-3.9 2025-05-03 1759-0 A/G RATIO 1.2 0.7-1.7 2025-05-03 96459-1 PDF IMAGE 2025-05-03 90902-4 FREE KAPPA LT CHAINS,S 69.6 MG/L 3.3-19 .4 H 2025-05-03 64460-3 FREE LAMBDA LT CHAINS,S 35.9 MG/L 5.7-2 6.3 H 2025-05-03 49100-2 KAPPA/LAMBDA RATIO,S 1.94 0.26-1.6 5 H
--- OUTSIDE RECORDS SUMMARY | 2025-06-22 02:10 | XMS_ITS ---
Author Organization [facility] Address [address] [place] [address] Care Team Providers Care Tire Man Name Role Phone Milind Corona MD Primary [...] numbers Care Team Provider: Vincenzo Tellez MD, ([phone]) Care Team Provider: Owen Farah MD, ([phone]) Care Team Provider: Sam Raymundo MD, ([phone]) Post Treatment Care Team Primary Care Physician Milind Corona MD [phone] [address] [facility] [address] [place] [address] Background Information Medical history Past Medical History: [...] doctors and 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 meterman effects of radiation therapy vary greatly depending [...] to you. General Cancer Support & Resources [facility] [address], [address] [place] [address] Med Onc: Electronics Processor Onc: Identification Officer: Alicia Garrett - Psychiatric Nurse Practitioner: Carole Christian APRN - Kick It! (A free smoking cessation program) Financial Counselor and Contact Information: [facility] Financial Counseling [phone] Yield Clerk Contact Information: Ilana White - Local Cancer Support Group and Contact Information: Nayan Boyle: This support group is open to anyone that has been diagnosed with cancer of any type. Meets at 6:30pm on the last Wednesday of each month. Location: [facility]; [address] [place] [address]. For more information call Sonia Hood @ . Prostate Cancer Support & Resources Local Resources [facility] Pro[facility] Support Group: The mission of TOO is to provide hope and improve the lives of of those affected by prostate cancer through support, education, and advocacy/ awareness. The group meets the of each month at 6:30 p.m. [address] [facility], [address] [place], [place] [address] Surveillance How Frequent? Medical Oncology visits 1 [...] advice of a doctor or other health live in caregiver. Please use these recommendations to talk with your health care provider about an appropriate follow up care plan for you. Surveillance for Your Cancer Recommendation Frequency Comments Cancer surveillance visit with medical provider that is focused on detecting signs of recurrence ofyour cancer. For additional information, visit www.livesPayPerksg.org or www.cancer.net/patient/Survivorship Frequency depends on type and [...] of cancer in the general population. The [place] [employer] (ACS) recommends these screening guidelines for men: Recommendation Frequency Comments Colon and Rectal Cancer Screening For more information see the ACS document Colorectal Cancer: Early Detection. www.cancer.org/ssLINK/cnqwztacdt-lynxhk-rgoud-detection-rhiannon Options for colon cancer screening can be [...] see the ACS Document Testicular Cancer Detection: http://www.cancer.org/cancer/testicularcancer/detailedguide/gzcmxsjmhs-hzssza-dq tection Men of any age can develop [...] more information, visit http://www.nhlbi.nih.gov/health/public/heart/obesity/lose_wt/index.htm www.win.niddk.nih.gov Call the [place] Talk to your health care [...] Experts recommend at least 30 minutes of pwlfuloq-ui-ckiqebqy activity per day, five days a week. [...] you can call a national hotline at 6(831)-QUIT-NOW. Have regular check-ups by a healthcare professional. For more information about healthy screening tests for men visit the U.S. Department of Health and Human Services. http://www.womenshealth.gov/okskdanbv-ttpet-gcg-vaccines/riqalqdlk-tsmqz-lmo-men / For more information about adult vaccinations visit the CDC: http://www.cdc.gov/vaccines/recs/schedules/adult-schedule.htm Keep up-to-date on general health screening tests, including cholesterol, blood pressure and glucose (blood sugar) levels. Get an annual influenza vaccine (flu shot). Get vaccinated with the pneumococcal vaccine, which prevents a type of pneumonia, and re-vaccinatedas determined by your health care team. Don???t forget dental and eye health! The [employer] recommends adults have their eyes examined every two years until age 60, then annually. People who wear glasses or correctivelenses or are at high risk for eye problems (i.e., diabetics, family history of eye disease) shouldbe seen more frequently. The [employer] recommends adults see their dentist at least once a year. No information on file. No information on file.
--- OUTSIDE RECORDS SUMMARY | 2025-06-22 02:10 | XMS_ITS | Patient Health Record ---
[facility] Address [address] [place] [id number] Care Team Providers Care Mobile Mechanic Name Role Phone Cj Milind Primary Care Provider Reshma Gipson Unavailable [phone] Allergies No Known Allergies Results Component Value [...] employed in healthcare? No Is patient an [facility] employee? N Is patient currently hospitalized? No Is patient currently in ICU? No Date of Symptom onset Is patient a resident in a congregate care setting? No ADENOQIA Not Detected NotDetected CORONAHKU1 Not Detected NotDetected LVJQQOSJ66 Not Detected NotDetected EONEL858F Not Detected NotDetected TQBVIPI64 Not Detected NotDetected METAPNEUMO Not Detected NotDetected RHINOENTER Not Detected NotDetected INFLUAPCR Not Detected NotDetected FLUAH1 Not Detected NotDetected [id number] Not Detected NotDetected INFLUAH3 Not Detected NotDetected [...] 24 Performing Lab: Notes/Report: Test performed by [employer] [address] [place] [address] , [address], [place] [address] Bob Boone MD, [place] CLIA: [id number] Sodium 139 135-145 mmol/L Potassium 5.4 3.5-5.3 [...] Growth Performing Lab: Notes/Report: Test performed by [employer] [address] [place] [address] , [address], [place] [address] Bob Boone MD, Shrimper CLIA: [id number] Specimen Source Urine - Void Culture, Urine See Below Final Report : No growth B-Type Natriuretic Peptide Reviewed date:11/09/2024 03:25:45 PM Interpretation:245.0 Performing Lab: Notes/Report: Test performed by [employer] [address] [place] [address] , [address], [place] [address] Bob Boone MD, Shrimper CLIA: [id number] B-Type Natriuretic Peptide 245.0 <2.0-100.0 pg/ mL [...] 34 Performing Lab: Notes/Report: Test performed by [employer] [address] [place] [address] , [address], [place] [address] Bob Boone MD, Shrimper CLIA: [id number] Sodium 141 135-145 mmol/L Potassium 5.8 3.5-5.3 mmol/L Chloride 110 97-108 mmol/L CO2 26 20-32 mmol/L Glucose 88 65-99 mg/dL BUN 34 8-23 mg/dL Creatinine 1.90 0.70-1.30 mg/dL Calcium 8.9 8.6-10.4 mg/dL eGFR by Creatinine 34 >59 mL/min/1.73m2 P-Phosphorus Reviewed date:04/12/2025 11:26:06 AM Interpretation:Normal Performing Lab: Notes/Report: Test performed by [employer] [address] [place] [address] , [address], [place] [address] Bob Boone MD, Shrimper CLIA: [id number] Phosphorus 2.7 2.5-4.5 mg/dL CBC Fingerstick (in house) Reviewed date:06/01/2025 01:12:19 [...] - 38 plat 112 100 - 400 H-BMP Reviewed date:04/23/2025 09:13:28 AM Interpretation:K+ 5.3, [...] 103 74-100 mg/dl CA 8.4 8.4-10.2 mg/dl H-BMP Reviewed date:04/23/2025 09:13:58 AM Interpretation: Performing Lab: Notes/Report: P-Basic Metabolic Panel (BMP ) Reviewed date:04/06/2025 09:08:00 AM Interpretation:K 5.5, BUN 38, Creat 2.29, eGFR 27 Performing Lab: Notes/Report: CLIA: [id number] Bob Boone MD, Shrimper [address] [place] [address] , [address], [place] [address] Test performed by [employer], [facility] Sodium 144 135-145 mmol/L Potassium 5.5 3.5-5.3 mmol/L Chloride 107 97-108 mmol/L CO2 26 20-32 mmol/L Glucose 77 65-99 mg/dL BUN 38 8-23 mg/dL Creatinine 2.29 0.70-1.30 mg/dL Calcium 9.0 8.6-10.4 mg/dL eGFR by Creatinine 27 >59 mL/min/1.73m2 CBC Venipuncture (in house) Reviewed date:04/06/2025 09:08:00 [...] - 38 platlet 149 100 - 400 Reason For Referral Diagnosis 1 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) Referral Organization [facility] Referring Provider First Name Milind Referring Provider Last Name Cj Referring Provider Speciality Family Pra tavonice Referred Provider Vishal Boogie Referred Provider Specialty Nephrology General Notes Heena Quan 2024 10:53:41 AM > faxed to [facility] Nephrology Referral Priority Routine Medications Medication SIG (Take, Route, Frequency, Duration) Notes Start Date End Date Status Famotidine 40 MG 1 tab(s) orally once a day (at bedtime); Duration: 90 days Active Trelegy Ellipta 100-62.5-25 MCG/ACT 1 puff Inhalation Once a day 06/01/2025 Active Albuterol Sulfate HFA 108 (90 Base) MCG/ACT INHALE 1 PUFF BY MOUTH EVERY 4 HOURS NEEDED; Duration: 34 Active Multiple Vitamin - 1 cap(s) orally [...] a day; Duration: 90 days 04/25/2025 Active Immunizations Vaccine Route Administration Date Status [...] Status Risk Notes Problem Gastroesophageal reflux disease (099535660) GERD (gastroesophageal reflux disease) (K21.9) Active confirmed Problem Essential hypertension (37845408) Essential hypertension (I10) Active confirmed Problem Acute exacerbation of chronic obstructive airways disease (282701213) COPD with acute exacerbation (J44.1) Active confirmed Problem Acute exacerbation of chronic obstructive airways disease (798193483) COPD exacerbation (J44.1) Active confirmed Problem Cramp in lower leg associated with rest (751208659) Nocturnal leg cramps (G47.62) Active confirmed Problem Congestive heart failure (43929628) CHF (congestive heart failure) (I50.9) Active confirmed Problem Hypertensive heart AND chronic kidney disease with congestive heart failure (52782790863561) Hypertensive heart and chronic kidney disease with heart failure and stage 1 through stage 4 chronic kidney disease, or unspecified chronic kidney disease (I13.0) Active confirmed Problem Constipation (60665280) Constipation, unspecified constipation type (K59.00) Active confirmed Problem Hyperlipidemia (79045423) Hyperlipidemia, unspecified hyperlipidemia (E78.5) Active confirmed Problem Renal insufficiency (197778824) Renal insufficiency (N28.9) Active confirmed Problem COPD - Chronic obstructive pulmonary disease (81088233) Chronic obstructive pulmonary disease, unspecified COPD type (J44.9) Active confirmed Problem Atherosclerotic heart disease of [place] coronary artery without angina pectoris (093999213797371) Coronary artery disease involving [place] coronary artery of [place] heart without angina pectoris (I25.10) Active confirmed Problem Gastroesophageal reflux disease (703329458) Gastroesophageal reflux disease, esophagitis presence not specified (K21.9) Active confirmed Problem Atrial fibrillation (97800710) Atrial fibrillation, unspecified type (I48.91) Active confirmed Problem Seasonal allergic rhinitis (863071066) Seasonal rhinitis (J30.2) Active confirmed Problem Long-term current use of anticoagulant (588424913) Current use of long-term anticoagulation (Z79.01) Active confirmed Problem Nephrolithiasis (39526433) Nephrolithiasis (N20.0) Active confirmed Problem Chronic gouty arthritis (30742065) Idiopathic chronic gout without tophus, unspecified site (M1A.00X0) Active confirmed Problem Lower urinary tract symptoms due to benign prostatic hypertrophy (34437229956639) Benign prostatic hyperplasia with lower urinary tract symptoms (N40.1) Active confirmed Problem Urge incontinence of urine (86937714) Urge incontinence of urine (N39.41) Active confirmed Problem Allergic rhinitis (29739841) Allergic rhinitis, unspecified seasonality, unspecified trigger (J30.9) Active confirmed Problem Persistent atrial fibrillation (471929366) Persistent atrial fibrillation (I48.19) Active confirmed Problem Chronic kidney disease stage 3B (disorder) (519516848) 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) Active confirmed Problem Chronic kidney disease stage 3A (410037833) Stage 3a chronic kidney disease (N18.31) Active confirmed Problem 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, 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 Vital Signs Heart Rate 55 /min 06/01/2025 Blood pressure diastolic 68 mm Hg 06/01/2025 Height 70 in 06/01/2025 Blood pressure systolic 114 mm Hg 06/01/2025 Weight 165 lbs 06/01/2025 BMI 23.67 kg/m2 06/01/2025 Encounters Encounter Location Date Provider [facility] [address] [place], [place] [id number] 08/28/2024 Milind Murdock Acute URI J06.9 [facility] [address] [place], [place] [id number] 11/08/2024 Reshma Crowdy Bronchitis J40 ; Confusion R41.0 ; Shortness of breath R06.02 ; Hematuria R31.9 ; Persistent atrial fibrillation I48.19 ; Stage 3b chronic kidney disease N18.32 ; Hyperlipidemia, unspecified hyperlipidemia E78.5 ; Essential hypertension I10 and BMI 21.0-21.9, adult Z68.21 [facility] [address] [place], [place] [id number] 11/10/2024 Reshma Crowdy Acute URI J06.9 and Bronchitis J40 [facility] [address] [place], [place] [id number] 04/05/2025 Milind Murdock COPD with acute exacerbation J44.1 ; Renal insufficiency N28.9 ; CHF (congestive heart failure) I50.9 ; Chronic obstructive pulmonary disease, unspecified COPD type J44.9 ; Hypertensive heart and chronic kidney disease with heart failure and stage 1 through stage 4 chronic kidney disease, or unspecified chronic kidney disease I13.0 and BMI 22.0-22.9, adult Z68.22 [facility] [address] [place], [place] [id number] 04/11/2025 Milind Murdock COPD exacerbation J4 4.1 ; Stage 3b chronic kidney disease N18.32 and Essential hypertension I10 [facility] [address] [place], [place] [id number] 04/25/2025 Milind Murdock Stage 3b chronic kid eduardo disease N18.32 [facility] [address] [place], [place] [id number] 05/02/2025 Milind Murdock Pre-op exam Z01.818 ; 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 ; Coronary artery disease involving [place] coronary artery of [place] heart without angina pectoris I25.10 ; Essential hypertension I10 ; Hyperlipidemia, unspecified hyperlipidemia E78.5 ; Chronic obstructive pulmonary disease, unspecified COPD type J44.9 ; Atrial fibrillation, unspecified type I48.91 ; CHF (congestive heart failure) I50.9 and Stage 3a chronic kidney disease N18.31 [facility] [address] [place], [place] [id number] 06/01/2025 Milind Murdock SOB (shortness of br eath) R06.02 and Chronic obstructive pulmonary disease, unspecified COPD type J44.9 [facility] [address] [place], [place] [id number] 07/25/2024 Milind Murdock [facility] [address] [place], [place] [id number] 09/25/2024 Milind Murdock [facility] [address] [place], [place] [id number] 11/09/2024 Reshma Crowdy [facility] [address] [place] [id number] 11/13/2024 Milind Murdock Benign prostatic hyperplasia with lower urinary tract symptoms N40.1 [facility] [address] [place], [place] [id number] 12/01/2024 Milind Murdock Bronchitis J40 [facility] [address] [place] [id number] 12/15/2024 Milind Murdock [facility] [address] [place] [id number] 12/27/2024 Milind Murdock [facility] [address] [place] [id number] 12/27/2024 Milind Murdock [facility] [address] [place] [id number] 04/03/2025 Milind Murdock [facility] [address] [place] [id number] 04/06/2025 Milind Murdock [facility] [address] [place] [id number] 04/12/2025 Milind Murdock Hyperkalemia E87.5 [facility] [address] [place], [place] [id number] 04/23/2025 Milind Murdock Assessments Encounter Date Diagnosis (ICD Code) Assessment [...] J40) 08/28/2024 Acute URI (ICD-10 - J06.9) 06/01/2025 SOB (shortness of breath) (ICD-10 - R06.02) Need to schedule the overnight oximetrey with Ludivina 06/01/2025 Chronic obstructive pulmonary disease, unspecified COPD type (ICD-10 - J44.9) 05/02/2025 Pre-op exam (ICD-10 - Z01.818) Results from recent testing at [facility] and cardiology not reviewed in office today. Patient has had cardiac clearance. He is of increased, but acceptable risk for proposed surgery. 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) 04/25/2025 Stage 3b chronic kidney disease (ICD-10 - N18.32) 04/12/2025 Hyperkalemia (ICD-10 - E87.5) 04/11/2025 COPD exacerbation (ICD-10 - J44.1) Clinically improved 04/11/2025 Stage 3b chronic kidney disease (ICD-10 - N18.32) 04/05/2025 COPD with acute exacerbation (ICD-10 - J44.1) 04/05/2025 Renal insufficiency (ICD-10 - N28.9) 04/05/2025 CHF (congestive heart failure) (ICD-10 - I50.9) 04/11/2025 Essential hypertension (ICD-10 - I10) 05/02/2025 Coronary artery disease involving [place] coronary artery of [place] heart without angina pectoris (ICD-10 - I25.10) 11/08/2024 Shortness of breath (ICD-10 - R06.02) 11/08/2024 Hematuria (ICD-10 - R31.9) 05/02/2025 Essential hypertension (ICD-10 - I10) 04/05/2025 Chronic obstructive pulmonary disease, unspecified COPD type (ICD-10 - J44.9) 04/05/2025 Hypertensive heart and chronic kidney disease with heart failure and stage 1 through stage 4 chronic kidney disease, or unspecified chronic kidney disease (ICD-10 - I13.0) 05/02/2025 Hyperlipidemia, unspecified hyperlipidemia (ICD-10 - E78.5) 11/08/2024 Persistent atrial fibrillation (ICD-10 - I48.19) 11/08/2024 Stage 3b chronic kidney disease (ICD-10 - N18.32) 05/02/2025 Chronic obstructive pulmonary disease, unspecified COPD type (ICD-10 - J44.9) 04/05/2025 BMI 22.0-22.9, adult (ICD-10 - Z68.22) 05/02/2025 Atrial fibrillation, unspecified type (ICD-10 - I48.91) 11/08/2024 Hyperlipidemia, unspecified hyperlipidemia (ICD-10 - E78.5) 11/08/2024 Essential hypertension (ICD-10 - I10) 05/02/2025 CHF (congestive heart failure) (ICD-10 - I50.9) 05/02/2025 Stage 3a chronic kidney disease (ICD-10 - N18.31) 11/08/2024 BMI 21.0-21.9, adult (ICD-10 - Z68.21) Plan Of Treatment Pending Test Test Name Order Date Overnight Oximetry 04/05/2025 Next Appt Details Provider Name:Milind Hanley ry, 07/26/2025 10:00:00 AM, [address], [address], [place], [place], [id number], Insurance Providers Payer Name Payer Address Payer Phone Subscriber Number Group Number Insured Name Patient Relationship to Insured Coverage Start Date Coverage End Date [employer] (MEDICAR E) [address] [address] [place] [address] [id number] Self - patient is the insured Medications [...] 20 21 Chronic Kidney Disease Atrial Fibrillation COPD Surgical History Surgery Date(Month/Year) Colonoscopy, Polyps Removal, Neg Path 20 04 C-Scope, Normal/ Dr. Rm 11/2010 Circumcision- Dr. Agustin 09/2012 Coronary Artery Bypass Graft - 3 Vessels 04/2013 Lip Skin Cancer Biopsy Biopsy 09/17/2020 Buccal Mass Removal 04/22/2021 Cyst removal from mouth 08/19/2022 Hospitalization History Reason Date(Month/Year) Unable to Urinate- Foly Fath- [facility] ER Unable to Urinate- Foly Cath- [facility] ER Dizziness- [facility] 10/19- Dizziness- [facility] 10/18/2017 Kidney Stones Heart Attack- [facility] 05/08/2013 Back Pain- [facility] ER 04/09/2012
--- OUTSIDE RECORDS SUMMARY | 2025-06-22 02:10 | XMS_ITS | Clinical Summary ---
Author Organization [facility] Address [address] [place] [address] Care Team Providers Care Mapping Technician Name Role Phone Milind Corona MD Primary Care Provider [phone] Allergies No known active allergies Medications metoprolol [...] (1 - 1- dose 75+ series) 2013 TDAP/TD VACCINES (1 - Tdap) 01/19/2018 01/18/2018, 0 08/29/1996 ANNUAL WELLNESS VISIT 12/05/2020 INFLUENZA VACCINE 01/26/2025 Insurance [place] [id number] MEDICARE ADVANTAGE Care Teams Mapping Technician Relationship Specialty Start Date End Date Milind Corona MD [address] [facility] [address] [place] [address] PCP - General Family Medicine 12/05/20
--- OUTSIDE RECORDS SUMMARY | 2025-06-22 02:10 | XMS_ITS | Clinical Summary ---
Author Organization [facility] Address [address] [place] [address] Care Team Providers Care Telephoto Installer Name Role Phone Milind Corona MD Primary Care Provider [phone] Allergies No known active allergies Medications aspirin [...] Active Problems Problem Noted Date Diagnosed Date Exertional rhabdomyolysis 05/04/2025 Hyperkalemia 09/29/2024 Anemia due to stage 3b chronic kidney disease Microscopic hematuria 06/10/2021 Stage 3 chronic kidney disease 06/02/2021 Chronic kidney disease-mineral and bone disorder 06/02/2021 Coronary artery disease involving coronary bypas s graft 06/02/2021 BPH (benign prostatic hyperplasia) 06/02/2021 Prostate cancer 06/02/2021 Essential hypertension 06/02/2021 Resolved Problems Problem Noted Date Diagnosed Date Resolved Date 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 08/03/2020 Encounters Date Type Department Care Team Description 05/04/2025 10:40 AM EST Office Visit [facility] [address] [place] [address] Vishal Boogie MD Exertional rhabdomyolysis (Primary Dx); Stage 3b chronic kidney disease (CMS/HCC); Anemia due to stage 3b chronic kidney disease; Microscopic hematuria; Persistent proteinuria; Hyperkalemia; Benign prostatic hyperplasia without lower urinary tract symptoms; Chronic kidney disease-mineral and bone disorder 05/04/2025 Travel from Last 3 Months Immunizations Immunization Administration Dates Next Due Influenza, [...] Pulse 60 05/04/2025 10:51 AM EST Temperature 36.6 C (97.9 F) 06/16/2024 12:59 PM EST Respiratory Rate 18 05/04/2025 10:51 AM EST Oxygen Saturation 95% 05/04/2025 10:51 AM EST Inhaled Oxygen Concentration - - Weight 71.8 kg (158 lb 3.2 oz) 05/04/2025 10:51 AM EST Height 175.3 cm (5' 9 ) 05/04/2025 10:51 AM EST Body Mass Index 23.36 05/04/2025 10:51 AM EST Plan of Treatment Upcoming Encounters Date Type Department Care Team (Late st Contact Info) Description 11/09/2025 12:00 PM EDT Office Visit [facility] [address] [place] [address] Vishal Boogie MD [address] [place] [address] Health Maintenance Due Date Last Done Comments [facility]-Depression Screening 1938 [facility]-Medicare Annual Wellness (AWV) 1938 [facility]-/Child/Adol SDOH Screenings 1938 [facility]- SDOH Screenings 1956 [facility]-Adult SDOH Screenings 1956 [facility]-Zoster Vaccines (1 of 2) 1957 [facility]-RSV Vaccine: 60+ Years or (1 - 1-dose 75+ series) 2013 [facility]-DTaP,Tdap,and Td Vaccines (1 - Tdap) 01/19/2018 01/18/2018, 08/29/1996 [id number] Vaccine (3 - Moderna risk series) 10/02/2020 09/04/2020, 08/07/2020 [facility]-Influenza Vaccine (#1) 02/26/202504/28, 04/29/2015, 04/06/2014 [facility]-Pneumococcal Vaccine: 50+ Years Completed 04/28/2016, 11/06/2014 HPV Vaccines (No Doses Required) Completed [facility]-HIB Vaccines Aged Out No longer e [...] patient's age to complete this topic Insurance [place] [id number] [employer] MEDICARE Care Teams Telephoto Installer Relationship Specialty [place] [id number] PCP - General 03/20/21
[2025-06-22 02:19] LABS: Hematocrit 41.8 % (42.0-52.0); Hemoglobin 13.5 g/dL (14.1-18.0); Immature Granulocytes % 0.2 %; Mean Corpuscular HGB Conc 32.3 g/dL (31.8-35.4); Mean Corpuscular Hemoglobin 29.8 pg (27.0-31.2); Mean Corpuscular Volume 92.3 fl (80-94); Nucleated Red Blood Cells % 0 %; Platelet Count 145 K/mm3 (142-424); Red Blood Count 4.53 M/mm3 (4.60-6.20); Red Cell Distribution Width-SD 47.1 fL; White Blood Count 5.6 K/mm3 (4.8-10.8)
[2025-06-22] MEDS: ASPIRIN 81MG CHEWABLE TABLET 324 MG PO (02:21)
[2025-06-22] MEDS: SODIUM CHLORIDE 0.9% 3ML NEB SOLN 3 ML IH (02:22)
[2025-06-22 02:27] LABS: INR 1.11 (0.9-1.1); Prothrombin Time 12.2 seconds (10.1-12.5)
[2025-06-22 02:35] LABS: Lactate Venous 1.8 mmol/L (0.4-2.0); VBG HCO3 23.1 mmol/L (23-30); VBG PCO2 47.2 mmol/L (35-51); VBG PH 7.31 mmol/L (7.31-7.41); VBG PO2 32.0 mmol/L (28-40)
[2025-06-22 02:48] LABS: Alanine Aminotransferase 32 U/L (12-78); Albumin Level 4.2 g/dl (3.5-5.0); Albumin/Globulin Ratio 1.4 (1.1-1.8); Alkaline Phosphatase 115 U/L (38-126); Anion Gap 13.2 mEq/L (5-15); Aspartate Amino Transferase 37 U/L (17-59); Bilirubin,Total 0.7 mg/dl (0.2-1.3); Blood Urea Nitrogen 52 mg/dl (9-20); Calcium 9.2 mg/dl (8.4-10.2); Carbon Dioxide 24 mmol/L (22.0-30.0); Chloride 110 mmol/L (98-107); Creatinine Clearance Estimated 22 mL/min (50-200); Creatinine,Serum 2.50 mg/dl (0.66-1.25); Estimated Glomerular Filt Rate 25 ml/min (>60); GFR (African American) 30 ML/MIN (>60); Globulin 3.1 g/dL (1.3-3.2); Glucose 108 mg/dl (74-100); Potassium 5.2 mmoL/L (3.5-5.1); Sodium 142 mmol/L (136-145); Total Protein,Serum 7.3 g/dl (6.3-8.2)
--- NOTE | 2025-06-22 02:51 | HMH.EDCP ---
Discharge Plan Disposition Patient Disposition: Admitted Condition: Good Clinical Impressions Clinical Impression: CELSA (acute kidney injury), Nasal congestion Discharge ED Provider: Omkar Beaver General Chief Complaint: Shortness of Breath/Dyspnea Stated Complaint: SOA Time Seen by Provider: 06/22/25 01:58 Mode of Arrival: Wheelchair Source of Information: Patient and Significant Other Description of Symptoms (Recalled from ER Triage Doc. by RN): Patient presents to the ED with complaints of shortness of air that started at approx 1am. Spouse at bedside reports that the patient has had intermittent shortness of air for the past few months. She reports he has been seen by Dr. Corona. Patient denies any cough, fever, pain. History of Present Illness HPI narrative: 84-year-old male with history of CABG in 2012, CHF, A-fib on anticoagulation, hyperlipidemia, oral lesion being monitored by ENT, hypertension presents to the ER with concerns of a sensation of shortness of breath because he cannot breathe through his nose. Patient and spouse state he has had multiple episodes like this and has been seen by Dr. Corona for in the past. He states he takes a nasal decongestant that usually takes care of the problem, but tonight he started to feel stopped up in the nose and took his decongestant and when it did not immediately work he came to the ER because I could not move any air . It should be noted that on arrival to the ER his SpO2 was 100 percent on room air. He states when this happens a lot of times he is able to go outside in the cold air will make his nose feel better and it solves this problem but it was not cold enough tonight for this to work. Patient denies any cough, headache, fever, chills, abdominal pain, nausea, outing, diarrhea, he also denies chest pain. No other complaints or concerns. He reportedly follows with Dr. Bergeron's office for cardiology. Related Data Home Medications ?Medication ?Instructions ?Recorded ?Confirmed lisinopril 2.5 mg tablet 2.5 mg PO HS BLOOD PRESSURE 10/18/17 06/04/25 metoprolol tartrate 25 mg tablet 25 mg PO BID Hypertension 10/18/17 06/04/25 tamsulosin 0.4 mg capsule 0.4 mg PO DAILY prostate 01/02/19 06/04/25 furosemide 20 mg tablet 20 mg PO DAILY 11/01/23 06/04/25 atorvastatin 20 mg tablet 20 mg PO DAILY 04/05/25 06/04/25 Previous Rx's ?Medication ?Instructions ?Recorded famotidine 40 mg tablet 40 mg PO BID #60 tabs 09/22/23 Allergies Allergy/AdvReac Type Severity Reaction Status Date / Time No Known Allergies Allergy Verified 06/04/25 14:15 [facility] Disclaimer: The information contained in this section may have been updated after the patient was seen, as this information can be updated by other users. Medical History (Updated 06/22/25 @ 04:15 by Mark Delgado MD) On continuous oral anticoagulation Abnormal electrocardiogram [ECG] [EKG] Pulmonary arterial hypertension Mitral regurgitation Edema of both lower extremities Lesion of buccal mucosa Hyperkeratotic oral lesion Fatigue Abnormal findings on diagnostic imaging of heart and coronary circulation Chronic kidney disease Afib Coronary artery disease HLD (hyperlipidemia) Bradycardia Verrucous carcinoma of floor of mouth Difficulty swallowing Stopped smoking with greater than 30 pack year history Dyspnea on exertion Cough variant asthma Shortness of Breath Chronic cough Allergic rhinitis History of smoking 30 or more pack years History of lip cancer Dyspnea on exertion Coronary artery disease HTN (hypertension) Surgical History History of oral surgery History of coronary artery bypass graft History of prostate surgery History of open heart surgery Family History Family/Other Heart disease Social History Smoking Status: Never smoker second hand exposure: No alcohol intake: never substance use type: denies use current occupational status: other Travel in the last 8 weeks?: None household members: spouse housing: house marital status: education level: high school service: Yes current occupational exposures/hazards: No caffeine: No special elizabeth needs: No agree to transfusion: No do you feel safe at home: Yes victim of physical abuse: No victim of emotional abuse: No victim of sexual abuse: No would you like helpful sources: No Other Medical History Have you received the Flu Vaccine for this season: No Have you received the Pneumonia Vaccine: No ROS Obtained: Yes Systems reviewed as appropriate & no additional complaints except as documented per HPI Physical Exam General General appearance: alert, in no apparent distress and anxious (very worked up stating I can't breathe! I can't breathe! ) Head Head exam: atraumatic and normocephalic Eye Eye exam: Present PERRL and EOMI ENT ENT exam: Present other (dry nasal mucosa but no bleeding or blockage appreciated) Neck Neck exam: Present normal inspection and full ROM Chest Chest inspection: Present symmetric chest wall rise Respiratory Respiratory exam: Present normal lung sounds bilaterally and other (SpO2 100% on room air on arrival to the ER, patient placed on nasal cannula for comfort); Absent respiratory distress, wheezes, stridor, accessory muscle use or prolonged expiratory phase Cardiovascular Cardiovascular exam: Present bradycardia and irregular rhythm Abdominal Exam Abdominal exam: Present soft; Absent distention, tenderness, guarding or rebound Extremities Exam Extremities exam: Present full ROM and normal capillary refill; Absent edema Neurological Exam Neurological exam: Present alert and oriented X3; Absent motor sensory deficit Psychiatric Psychiatric exam: Present anxious (Patient was obviously anxious about his breathing but was able to carry on full conversation with me, able to be redirected and calmed down) Skin Skin exam: Present warm and dry HEART Score HEART Score HEART Score assessment performed?: Yes History (anamnesis): Slightly suspicious ECG: Non-specific disturbance Age: >65 years Risk factors: Atherosclerosis history Troponin: </= normal limit HEART Score: 5 Procedures Miscellaneous Procedure Procedure Performed: Limited Cardiac Ultrasound Performed by: Omkar Beaver MD Indication: Shortness of breath Identified cardiac views: -Cardiac parasternal long axis -Cardiac parasternal short axis -Cardiac apical four-chamber Findings: Cardiac activity present (bradycardic), no pericardial effusion, no right heart strain Impression: Cardiac activity present (bradycardic), no pericardial effusion, no right heart strain Images were saved to permanent archive The study was technically adequate CPT: 81331 This study was performed by me, and I personally interpreted all images/videos. Based on my clinical judgement, these images were adequate and did not necessitate further imaging. Limited lung ultrasound Performed by: Omkar Beaver MD A focused ultrasound exam of the pleural spaces was performed to evaluate for pneumothorax, pulmonary edema, pleural effusion and/or consolidation. The ultrasound was performed with the following indications, as noted in the H&P: Shortness of breath Identified structures: Bilateral thoracic cavities were examined. Findings: Lung sliding: - Present bilateral B-lines: Absent bilaterally Pleural effusion: - Absent bilaterally Consolidation: Absent bilaterally Impression: No pneumothorax, pleural effusion, B-lines, or consolidation. Normal lung ultrasound. Images were saved to permanent archive The study was technically adequate CPT 71114-34 This study was performed by me, and I personally interpreted all images/videos. Based on my clinical judgement, these images were adequate and did not necessitate further imaging. Critical Care Critical Care Time Critical Care Time: No Medical Decision Making Medical Records Medical records reviewed: Yes I reviewed the patient's medical records. [place] Inquiry Pt receiving controlled substance: No Vital Signs Vital Signs: 06/22/25 02:01 Temperature 98.2 F Temperature Source Oral Pulse Rate [Right Radial] 51 L Respiratory Rate 16 Blood Pressure [Right Arm] 211/82 H Blood Pressure Mean [Right Arm] 125 Blood Pressure Source [Right Arm] Automatic Cuff 02 Sat by Pulse Oximetry 98 Oxygen Delivery Method Room Air Lab Data Labs: Lab Results 06/22/25 02:00: WBC 5.6, RBC 4.53 L, Hgb 13.5 L, Hct 41.8 L, MCV 92.3, MCH 29.8, MCHC 32.3, RDW 13.9, Plt Count 145, MPV 10.3, Neut % (Auto) 59.9, Lymph % (Auto) 25.7, [place] % (Auto) 9.6 H, Eos % (Auto) 4.1, Baso % (Auto) 0.5, Neut # (Auto) 3.4, Lymph # (Auto) 1.4, [place] # (Auto) 0.5, Eos # (Auto) 0.2, Baso # (Auto) 0.0, PT 12.2, INR 1.11 H, D-Dimer 0.69 H, Sodium 142, Potassium 5.2 H, Chloride 110 H, Carbon Dioxide 24, Anion Gap 13.2, BUN 52 H, Creatinine 2.50 H, Estimated Creat Clear 22, Estimated GFR 25 L, Est GFR ( Amer) 30 L, Glucose 108 H, Calcium 9.2, Total Bilirubin 0.7, AST 37, ALT 32, Alkaline Phosphatase 115, Troponin I 0.02, NT-Pro-B Natriuret Pep 2390 H, Total Protein 7.3, Albumin 4.2, Globulin 3.1, Albumin/Globulin Ratio 1.4 06/22/25 02:07: VBG pH 7.31, VBG pCO2 47.2, VBG pO2 32.0, VBG HCO3 23.1, VBG Total CO2 24.5, VBG O2 Saturation 60.1, VBG Base Excess -3.2 L, VBG Lactic Acid 1.8 06/22/25 02:00 06/22/25 02:00 Response Orders (Tests/Meds): ED MEDICATIONS Generic Name Dose Route Start Last Admin Trade Name Zen PRN Reason Stop Dose Admin Acetaminophen 650 mg 06/22/25 03:28 Acetaminophen 325mg Tab PO 07/22/25 03:27 Q4HP PRN Fever or Mild Pain (1-3) Lactated Ringer's 500 mls @ 250 mls/hr 06/22/25 03:07 Lactated Ringer's 500ml IV 06/22/25 05:06 .Q2H ONE Sodium Chloride 1,000 mls @ 75 mls/hr 06/22/25 03:30 Sod Chlor 0.9% 1000ml Bag IV 06/24/25 03:29 .[id number] PRINCESS Ondansetron HCl 4 mg 06/22/25 03:28 Ondansetron 4mg/2ml Vial IV 07/22/25 03:27 Q8HP PRN Nausea Sodium Zirconium Cyclosilicate 5 gm 06/22/25 03:28 Lokelma 5gm Packet PO 06/22/25 03:29 ONCE ONE Discontinued Medications Generic Name Dose Route Start Last Admin Trade Name Zen PRN Reason Stop Dose Admin Aspirin 324 mg 06/22/25 02:07 06/22/25 02:21 Aspirin 81mg Chewable Tablet PO 06/22/25 02:08 324 mg ONCE ONE Administration Sodium Chloride 3 ml 06/22/25 02:07 06/22/25 02:22 Sodium Chloride 0.9% 3ml Neb Soln IH 06/22/25 02:08 3 ml ONCE ONE Administration Sodium Chloride 2 ml 06/22/25 03:00 Sodium Chloride Nasal [place] 44ml NS 06/22/25 03:01 ONCE ONE Sodium Zirconium Cyclosilicate 5 gm 06/22/25 03:07 Lokelma 5gm Packet PO 06/22/25 03:08 ONCE ONE ORDERS Category Date Time Status POCUS Point of Care (ER Only) Stat Exams 06/22/25 03:03 Ordered XR chest 2V Stat Exams 06/22/25 02:07 Completed Complete Blood Count Auto Diff Stat Lab 06/22/25 02:00 Completed Comprehensive Metabolic Panel Stat Lab 06/22/25 02:00 Completed D-Dimer Stat Lab 06/22/25 02:00 Completed NT Pro Brain Natriuretic Pep. Stat Lab 06/22/25 02:00 Completed Prothrombin Time INR Stat Lab 06/22/25 02:00 Completed Rapid PCR Covid and Flu A/B Stat Lab 06/22/25 02:56 Received Troponin I Q3H Lab 06/22/25 05:15 Ordered Troponin I Q3H Lab 06/22/25 08:15 Ordered Troponin I Stat Lab 06/22/25 02:00 Completed Venous Blood Gas Stat RT 06/22/25 02:07 Completed MDM Narrative Medical Decision Narrative: In summary, this 84-year-old male with comorbidities described in the HPI presents to the emergency department today with difficulty breathing through his nose. On initial evaluation patient is in slow A-fib, bradycardic but hypertensive, afebrile, GCS 15, anxious yelling that he cannot breathe but saturating 100% on room air on arrival. Patient has dry nasal mucosa but mucous membranes are otherwise moist, no numbness, tingling, or weakness, aside from A-fib bradycardia no acute abnormalities on cardiopulmonary exam, benign abdominal exam, no peripheral edema. Differential diagnosis includes but is not limited to nasal congestion, dry nasal mucosa, I considered the possibility of ACS, PE, volume overload as well but have lower suspicion for these. Based on these concerns, I ordered hematologic and serum labs, cardiac workup, D-dimer. ECG personally interpreted demonstrates A-fib, bradycardic, rate 58, normal axis, normal QTc, no STEMI. Patient received nebulized normal saline for treatment. I did does not attempt to relieve nasal congestion to the patient appeared to have dry nasal mucosa and stated he felt dry. Labs personally reviewed demonstrate no leukocytosis, mild anemia improved from prior, normal platelets, PT/INR nonactionable, D-dimer 0.69 by years criteria PE excluded, VBG with normal pH, no hypercarbia, no hypoxia, normal lactic. CMP demonstrates notably worsened kidney function. Creatinine 2.5, most recently 1.8. He is also mildly hyperkalemic potassium 5.2. Patient has no hyperacute ECG changes. He is receiving Lokelma and I started the patient on IV fluids. He reports he is still making urine. He states Dr. Corona has followed his kidney function for years. His troponin is 0.02 which is nonspecific and nonactionable at this time. BNP 2390 is improved compared to prior, COVID and flu negative. XR personally interpreted demonstrates no acute thoracic abnormality, see radiology read for final interpretation.. On reassessment patient reports feeling completely better after the nebulized saline treatment. I explained to him that this was not a special treatment that it was just moisturizing and he was very reassured by this. While he was getting the treatment I had turned off his nasal cannula. He had only been placed on nasal cannula for comfort and anxiety, not due to oxygen requirement. He remained 98 to 100% on room air. I performed [id number] ultrasound at bedside which demonstrates no B-lines in the lungs, aside from A-fib bradycardia no abnormality on cardiac ultrasound. See procedure notes for details. I ordered [place] nasal spray for continued mucosal moistening. I explained to the patient that I believe his difficulty breathing through his nose with simple dry mucosa and nasal congestion. Regarding his kidneys I recommended admission for management of his kidney dysfunction and mild hyperkalemia. After discussion, he is agreeable to this. I discussed this case with the hospitalist, Dr. Delgado, who graciously accepted this patient for admission. He was admitted in stable condition.
[2025-06-22 02:52] LABS: D-Dimer 0.69 ug/mL (0.0-0.5)
[2025-06-22 03:00] LABS: NT Pro Brain Natriuretic Pep. 2390 pg/mL (0-450); Troponin I 0.02 ng/ml (0.00-0.034)
[2025-06-22 03:01] LABS: Coronavirus 19, PCR Not Detected (NotDetected); Influenza A, PCR Not Detected (NotDetected); Influenza B, PCR Not Detected (NotDetected)
[2025-06-22] MEDS: RINGERS SOLUTION,LACTATED 500 ML 250 ML IV (03:35)
[2025-06-22] MEDS: LOKELMA 5GM PACKET 5 GM PO ×2 (03:35→04:35)
--- NOTE | 2025-06-22 03:47 | P.HP_ITS ---
History of Present Illness *Admission Date: 06/22/25 *Reason for visit:: Nasal congestion *History of present illness: 84-year-old with past medical history CAD, atrial fibrillation, pulm hypertension, CKD,COPD, hyperlipidemia, status post CABG 2012. Patient presents with some nasal congestion today. Patient is nasal congestion improved after nasal saline given in emergency room. Patient given nasal saline in emergency room, with situation improving. Patient noted to have creatinine 2.5, K5.2 and BP 211/82 in emergency room. Patient subsequently admitted for azotemia, hyperkalemia and hypertensive urgency management. Patient's present with the emergency room. States he seen Dr. Fulton last week for kidney issues. Also reports recently seeing cardiology as outpatient for presurgical clearance for nasal surgery scheduled July 2024. Denies chest pain, palpitations, fevers, chills, known sick contacts, GI bleeding. States he has never needed dialysis. Reports normal urination and denies dysuria/hematuria. [facility] Disclaimer: The information contained in this section may have been updated after the patient was seen, as this information can be updated by other users. Medical History (Updated 06/22/25 @ 04:15 by Mark Delgado MD) On continuous oral anticoagulation Abnormal electrocardiogram [ECG] [EKG] Pulmonary arterial hypertension Mitral regurgitation Edema of both lower extremities Lesion of buccal mucosa Hyperkeratotic oral lesion Fatigue Abnormal findings on diagnostic imaging of heart and coronary circulation Chronic kidney disease Afib Coronary artery disease HLD (hyperlipidemia) Bradycardia Verrucous carcinoma of floor of mouth Difficulty swallowing Stopped smoking with greater than 30 pack year history Dyspnea on exertion Cough variant asthma Shortness of Breath Chronic cough Allergic rhinitis History of smoking 30 or more pack years History of lip cancer Dyspnea on exertion Coronary artery disease HTN (hypertension) Surgical History History of oral surgery History of coronary artery bypass graft History of prostate surgery History of open heart surgery Family History Family/Other Heart disease Social History Smoking Status: Never smoker second hand exposure: No alcohol intake: never substance use type: denies use current occupational status: other Travel in the last 8 weeks?: None household members: spouse housing: house marital status: education level: high school service: Yes current occupational exposures/hazards: No caffeine: No special elizabeth needs: No agree to transfusion: No do you feel safe at home: Yes victim of physical abuse: No victim of emotional abuse: No victim of sexual abuse: No would you like helpful sources: No Other Medical History Have you received the Flu Vaccine for this season: No Have you received the Pneumonia Vaccine: No Review of Systems Review of Systems Review of systems:: pertinent systems reviewed and negative unless documented below Review of systems (narrative): see [employer] Home Medications and Allergies Home Medications ?Medication ?Instructions ?Recorded ?Confirmed ?Type lisinopril 2.5 mg tablet 2.5 mg PO HS BLOOD PRESSURE 10/18/17 06/04/25 History metoprolol tartrate 25 mg tablet 25 mg PO BID Hyperten ashley 10/18/17 06/04/25 History tamsulosin 0.4 mg capsule 0.4 mg PO DAILY prostate 02/1306/04/25 History famotidine 40 mg tablet 40 mg PO BID #60 tabs 06/04/25 Rx furosemide 20 mg tablet 20 mg PO DAILY 11/01/2302/19 History atorvastatin 20 mg tablet 20 mg PO DAILY 04/05/2502/19 History New Prescriptions to Start Prescriptions: Allergies Allergy/AdvReac Type Severity Reaction Status Date / Time No Known Allergies Allergy Verified 06/04/25 14:15 Exam Data for Last 24 hours Vital signs and Labs for Last 24 Hours: Temp Pulse Resp BP Pulse Ox O2 Del Method 98.2 F 51 L 16 211/82 H 98 Room Air 06/22/25 02:01 06/22/25 02:01 06/22/25 02:01 06/22/25 02:01 06/22/25 02:01 06/22/25 02:01 Laboratory Results - last 24 hr 06/22/25 02:00: WBC 5.6, RBC 4.53 L, Hgb 13.5 L, Hct 41.8 L, MCV 92.3, MCH 29.8, MCHC 32.3, RDW 13.9, Plt Count 145, MPV 10.3, Neut % (Auto) 59.9, Lymph % (Auto) 25.7, [place] % (Auto) 9.6 H, Eos % (Auto) 4.1, Baso % (Auto) 0.5, Neut # (Auto) 3.4, Lymph # (Auto) 1.4, [place] # (Auto) 0.5, Eos # (Auto) 0.2, Baso # (Auto) 0.0, PT 12.2, INR 1.11 H, D-Dimer 0.69 H, Sodium 142, Potassium 5.2 H, Chloride 110 H , Carbon Dioxide 24, Anion Gap 13.2, BUN 52 H, Creatinine 2.50 H, Estimated Creat Clear 22, Estimated GFR 25 L, Est GFR ( Amer) 30 L, Glucose 108 H, Calcium 9.2, Total Bilirubin 0.7, AST 37, ALT 32, Alkaline Phosphatase 115, Troponin I 0.02, NT-Pro-B Natriuret Pep 2390 H, Total Protein 7.3, Albumin 4.2, Globulin 3.1, Albumin/Globulin Ratio 1.4 06/22/25 02:07: VBG pH 7.31, VBG pCO2 47.2, VBG pO2 32.0, VBG HCO3 23.1, VBG Total CO2 24.5, VBG O2 Saturation 60.1, VBG Base Excess -3.2 L, VBG Lactic Acid 1.8 I & O for Last 24 hours: Intake & Output 06/19/25 06/20/25 06/21/25 06/22/25 23:59 23:59 23:59 23:59 Weight 72.575 kg *Routine HEENT Exam Head: Present normocephalic Eye: Present EOMI ENT: Present mucous membranes moist Comments: Extremely hard of hearing during my interview with patient today *Routine Neck Exam Neck: Present supple and full ROM *Routine Respiratory Exam Respiratory: Present CTA bilaterally and normal respiratory effort *Routine Cardiovascular Exam Cardiovascular: Present RRR, Normal S1 and Normal S2 *Routine Abdominal Exam Abdominal: Present soft and normoactive bowel sounds *Routine Rectal Exam Rectal:: deferred *Routine Genitalia Exam Genitalia:: deferred *Routine Extremities Exam Extremities: Present full ROM and normal capillary refill *Routine Skin Exam Skin: Present intact *Routine Neurological Exam Neurological: Present alert and oriented X3 Assessment and Plan *Assessment and plan (1) CELSA (acute kidney injury): Status: Acute Category: Medical Code(s): N17.9 - Acute kidney failure, unspecified (2) Chronic kidney disease: Status: Acute Qualifiers: Chronic kidney disease stage: unspecified stage Qualified Code(s): N18.9 - Chronic kidney disease, unspecified Category: Medical Code(s): N18.9 - Chronic kidney disease, unspecified (3) Afib: Status: Acute Qualifiers: Atrial fibrillation type: unspecified chronic Qualified Code(s): I48.20 - Chronic atrial fibrillation, unspecified Category: Medical Code(s): I48.91 - Unspecified atrial fibrillation (4) HLD (hyperlipidemia): Status: Chronic Qualifiers: Hyperlipidemia type: mixed hyperlipidemia Qualified Code(s): E78.2 - Mixed hyperlipidemia Category: Medical Code(s): E78.5 - Hyperlipidemia, unspecified (5) Hyperkalemia: Status: Acute Category: Medical Code(s): E87.5 - Hyperkalemia (6) Azotemia: Status: Acute Category: Medical Code(s): R79.89 - Other specified abnormal findings of blood chemistry (7) BPH (benign prostatic hyperplasia): Status: Acute Category: Medical Code(s): N40.0 - Benign prostatic hyperplasia without lower urinary tract symptoms (8) Coronary artery disease: Status: Chronic Qualifiers: Coronary Disease-Associated Artery/Lesion type: bypass graft [place] vs. transplanted heart: [place] heart Associated angina: with other forms of angina Qualified Code(s): I25.708 - Atherosclerosis of coronary artery bypass graft(s), unspecified, with other forms of angina pectoris Category: Medical Code(s): I25.10 - Atherosclerotic heart disease of [place] coronary artery without angina pectoris Plan 84-year-old with past medical history CAD, atrial fibrillation, pulm hypertension, CKD,COPD, hyperlipidemia, status post CABG 2012. Patient noted to have creatinine 2.5, K5.2 and BP 211/82 in emergency room. Patient subsequently admitted for azotemia, hyperkalemia and hypertensive urgency management. CELSA superimposed on CKD Azotemia: ?VBG shows pH 7.31, pCO2 47.2, lactic acid 1.8. This implies mild respiratory acidosis likely due to COPD. ? Baseline kidney function appears around creatinine 1.8 range. Current creati nine 2.5. Start cautious hydration with NS 75 cc/h x 10 hours. Hold Lasix 20 mg p.o. daily. Home patient denies history of dialysis. COPD: Continue home management. CAD metoprolol 25 mg p.o. twice daily, hold lisinopril to 2.5 mg p.o. nightly due to azotemia. Hypertensive urgency: Troponin 0.02. As above in CAD section plus hydralazine 10 mg IV every 4 as needed SBP greater than 160 and labetalol 10 mg IV every 4 as needed SBP greater than 180/or DBP greater than 100. Start nifedipine XL 60 mg p.o. daily Hyperkalemia ?Potassium 5.2. Lokelma 10 g p.o. x 1 given in emergency room. MIVF as mentioned above in CELSA section. ?NA 142, CL 110, serum CO2 24. Anemia: Extremely mild Hgb 13.5. Will monitor during hospitalization. BPH: Tamsulosin 0.4 p.o. daily Hyperlipidemia: Atorvastatin 20 mg p.o. daily PPx heparin 5000 subcu daily CODE STATUS full FEN renal diet MDM ? Patient's acted as independent historian, interviewed patient today ? I spoke with ED Doc about patient's case today. ? I made decision admit patient for acute hypokalemia, hypertensive urgency, azotemia management 45 minutes of total care time spent on patient myself Mark Delgado MD 06/22/2025 Discharge planning: Patient admitted as OBS and will likely be discharged within 48 hours of admission.
[2025-06-22] MEDS: 0.9 % SODIUM CHLORIDE 1000ML 1,000 ML 75 ML IV (04:35)
[2025-06-22] MEDS: METOPROLOL TARTRATE 25MG TABLET 25 MG PO ×3 (04:35→20:12)
[2025-06-22] MEDS: SODIUM CHLORIDE NASAL SPRAY 44ML NS (04:35)
[2025-06-22] MEDS: FLUTICASONE PROP 50MCG NASAL SPRAY 16GM 2 SPRAY NS (06:55)
[2025-06-22] MEDS: LORATADINE 10MG TABLET 10 MG PO (06:58)
[2025-06-22 07:11] LABS: Troponin I < 0.01 ng/ml (0.00-0.034)
--- NOTE | 2025-06-22 07:46 | HMH.PHAINT1 ---
Pharmacy Intervention Comments: VERIFIED HOME MEDICATION LIST WITH OUTPATIENT PHARMACY AND PT INTERVIEW.
--- NOTE | 2025-06-22 08:41 | EXP.ACUTE.PN ---
Subjective *Date: 06/22/25 *Time: 08:41 Interval history: Saw patient this morning, states he took a diuretic daily for 3 days earlier this week due to some leg edema. Feels like he may have caught a cold from someone he was around. Medical Exam Vital signs and Labs for Last 24 Hours: Vital Signs Temp Pulse Pulse Pulse Resp BP BP 06/22/25 08:00 97.6 F 53 L 20 135/52 L 06/22/25 06:45 06/22/25 05:00 06/22/25 04:00 48 L 06/22/25 03:57 98.2 F 47 L 15 177/82 H 06/22/25 03:28 97.5 F L 45 L 16 199/70 H 06/22/25 02:01 98.2 F 51 L 16 211/82 H Pulse Ox O2 Del Method 06/22/25 08:00 97 Room Air 06/22/25 06:45 Room Air 06/22/25 05:00 Room Air 06/22/25 04:00 Room Air 06/22/25 03:57 Room Air 06/22/25 03:28 99 Room Air 06/22/25 02:01 98 Room Air Intake and Output 06/21/25 06/22/25 06/22/25 23:59 07:59 15:59 Intake Total 506.25 / 506.25 Output Total 200 / 200 Balance 506.25 / 306.25 -200 / 306.25 Intake: Intake, Total IV Amount 506.25 / 506.25 0.9 % Sodium Chloride 1000ML 1, 6.25 / 6.25 000 ml @ 75 mls/hr IV .[id number] [facility] Rx#:[id number] Ringers Solution,Lactated 500 500 / 500 ml @ 250 mls/hr IV .Q2H ONE Rx# :[id number] Output: Output, Urine Amount 200 / 200 Other: Weight 158 lb 11.2 oz Patient Weight 06/22/25 23:59 Weight 158 lb 11.2 oz Laboratory Results - last 24 hr 06/22/25 02:00: WBC 5.6, RBC 4.53 L, Hgb 13.5 L, Hct 41.8 L, MCV 92.3, MCH 29.8, MCHC 32.3, RDW 13.9, Plt Count 145, MPV 10.3, Neut % (Auto) 59.9, Lymph % (Auto) 25.7, [place] % (Auto) 9.6 H, Eos % (Auto) 4.1, Baso % (Auto) 0.5, Neut # (Auto) 3.4, Lymph # (Auto) 1.4, [place] # (Auto) 0.5, Eos # (Auto) 0.2, Baso # (Auto) 0.0, PT 12.2, INR 1.11 H, D-Dimer 0.69 H, Sodium 142, Potassium 5.2 H, Chloride 110 H, Carbon Dioxide 24, Anion Gap 13.2, BUN 52 H, Creatinine 2.50 H, Estimated Creat Clear 22, Estimated GFR 25 L, Est GFR ( Amer) 30 L, Glucose 108 H, Calcium 9.2, Total Bilirubin 0.7, AST 37, ALT 32, Alkaline Phosphatase 115, Troponin I 0.02, NT-Pro-B Natriuret Pep 2390 H, Total Protein 7.3, Albumin 4.2, Globulin 3.1, Albumin/Globulin Ratio 1.4 06/22/25 02:07: VBG pH 7.31, VBG pCO2 47.2, VBG pO2 32.0, VBG HCO3 23.1, VBG Total CO2 24.5, VBG O2 Saturation 60.1, VBG Base Excess -3.2 L, VBG Lactic Acid 1.8 06/22/25 02:56: SARS-CoV-2 (PCR) Not detected, Influenza A Untype (PCR) Not detected, Influenza Type B (PCR) Not detected 06/22/25 05:45: Troponin I < 0.01 I & O for Labs for Last 24 Hours: Intake & Output 06/19/25 06/20/25 06/21/25 06/22/25 23:59 23:59 23:59 23:59 Intake Total 506.25 / 506.25 Output Total 200 / 200 Balance 306.25 / 306.25 Weight 158 lb 11.2 oz Constitutional: Present no acute distress Respiratory: Present normal respiratory effort Cardiac: Present Reg Rate and Rhythm GI: Present normal bowel sounds; Absent tenderness Extremities: Present normal inspection and full ROM Skin: Present intact; Absent erythema Neuro: Present Grossly Intact and moves all extremities Assessment and Plan *Assessment and plan (1) CELSA (acute kidney injury): Status: Acute Category: Medical Code(s): N17.9 - Acute kidney failure, unspecified (2) Chronic kidney disease: Status: Acute Qualifiers: Chronic kidney disease stage: unspecified stage Qualified Code(s): N18.9 - Chronic kidney disease, unspecified Category: Medical Code(s): N18.9 - Chronic kidney disease, unspecified (3) Afib: Status: Acute Qualifiers: Atrial fibrillation type: unspecified chronic Qualified Code(s): I48.20 - Chronic atrial fibrillation, unspecified Category: Medical Code(s): I48.91 - Unspecified atrial fibrillation (4) HLD (hyperlipidemia): Status: Chronic Qualifiers: Hyperlipidemia type: mixed hyperlipidemia Qualified Code(s): E78.2 - Mixed hyperlipidemia Category: Medical Code(s): E78.5 - Hyperlipidemia, unspecified (5) Hyperkalemia: Status: Acute Category: Medical Code(s): E87.5 - Hyperkalemia (6) Azotemia: Status: Acute Category: Medical Code(s): R79.89 - Other specified abnormal findings of blood chemistry (7) BPH (benign prostatic hyperplasia): Status: Acute Category: Medical Code(s): N40.0 - Benign prostatic hyperplasia without lower urinary tract symptoms (8) Coronary artery disease: Status: Chronic Qualifiers: Coronary Disease-Associated Artery/Lesion type: bypass graft [place] vs. transplanted heart: [place] heart Associated angina: with other forms of angina Qualified Code(s): I25.708 - Atherosclerosis of coronary artery bypass graft(s), unspecified, with other forms of angina pectoris Category: Medical Code(s): I25.10 - Atherosclerotic heart disease of [place] coronary artery without angina pectoris Plan Pt has IV NS running now, will recheck labs in the morning, possible discharge tomorrow.
[2025-06-22 09:47] LABS: Troponin I < 0.01 ng/ml (0.00-0.034)
[2025-06-22] MEDS: SODIUM CHLORIDE 50 ML IV (17:44)
--- NOTE | 2025-06-22 17:53 | PC.NURSE ---
Aox 4, up ad tacos, on , 18g L AC NS@ 50, cardiac diet, possible d/d in am.
--- NOTE | 2025-06-22 22:33 | PC.NURSE ---
PT PULLED OUT IV BECAUSE THE FLUIDS WERE DONE, I DONT NEED IT ANYMORE . PT HAS NO IV MEDS ON THE AUG. PER HOSPITALIST, OKAY TO LEAVE IV OUT AT THIS TIME.
--- NOTE | 2025-06-22 22:34 | EXP.EVENT.NO ---
Pt pulled out IV @ 1030pm....will leave out and allow AM team determine if IV needed.
[2025-06-23] VITALS: BP 106/49; PULSE 64; RESP 16; TEMP 36.9; O2SAT 95
[2025-06-23 04:00] VITALS: BP 139/114; PULSE 64; RESP 16; TEMP 36.7; O2SAT 93; BMI 22.4
[2025-06-23 07:20] LABS: Hematocrit 38.7 % (42.0-52.0); Hemoglobin 12.3 g/dL (14.1-18.0); Immature Granulocytes % 0.4 %; Mean Corpuscular HGB Conc 31.8 g/dL (31.8-35.4); Mean Corpuscular Hemoglobin 29.4 pg (27.0-31.2); Mean Corpuscular Volume 92.6 fl (80-94); Nucleated Red Blood Cells % 0 %; Platelet Count 138 K/mm3 (142-424); Red Blood Count 4.18 M/mm3 (4.60-6.20); Red Cell Distribution Width-SD 48.1 fL; White Blood Count 5.7 K/mm3 (4.8-10.8)
[2025-06-23 07:25] LABS: Chloride 112 mmol/L (98-107); Potassium 5.2 mmoL/L (3.5-5.1); Sodium 141 mmol/L (136-145)
[2025-06-23 07:28] LABS: Anion Gap 13.2 mEq/L (5-15); Blood Urea Nitrogen 54 mg/dl (9-20); Calcium 9.2 mg/dl (8.4-10.2); Carbon Dioxide 21 mmol/L (22.0-30.0); Creatinine Clearance Estimated 22 mL/min (50-200); Creatinine,Serum 2.30 mg/dl (0.66-1.25); Estimated Glomerular Filt Rate 27 ml/min (>60); GFR (African American) 33 ML/MIN (>60); Glucose 85 mg/dl (74-100); Magnesium 1.8 mg/dl (1.6-2.3)
[2025-06-23 08:00] VITALS: BP 130/52; PULSE 52; RESP 18; TEMP 36.4; O2SAT 94
[2025-06-23] MEDS: LORATADINE 10MG TABLET 10 MG PO (08:09)
[2025-06-23] MEDS: METOPROLOL TARTRATE 25MG TABLET 25 MG PO (08:09)
[2025-06-23] MEDS: FLUTICASONE PROP 50MCG NASAL SPRAY 16GM 2 SPRAY NS (08:10)
--- NOTE | 2025-06-23 09:54 | EXP.ACUTE.PN ---
Subjective *Date: 06/23/25 *Time: 09:54 Interval history: Patient feels better. He is anxious to go home. Medical Exam Vital signs and Labs for Last 24 Hours: Vital Signs Temp Pulse Resp BP Pulse Ox O2 Del Method 06/23/25 08:00 97.5 F L 52 L 18 130/52 L 94 L Room Air 06/23/25 06:52 Room Air 06/23/25 05:00 Room Air 06/23/25 04:00 98.0 F 64 16 139/114 H 93 L Room Air 06/23/25 03:00 Room Air 06/23/25 01:00 Room Air 06/23/25 00:00 98.4 F 64 16 106/49 L 95 Room Air 06/22/25 23:00 Room Air 06/22/25 21:00 Room Air 06/22/25 20:00 97.9 F 54 L 16 137/93 H 95 Room Air 06/22/25 17:58 Room Air 06/22/25 16:59 Room Air 06/22/25 16:00 97.8 F 44 L 20 120/59 L 95 Room Air 06/22/25 14:25 Room Air 06/22/25 12:11 Room Air 06/22/25 12:00 97.9 F 49 L 20 115/53 L 95 Room Air Intake and Output 06/22/25 06/23/25 06/23/25 23:59 07:59 15:59 Intake Total 250 / 1326.25 360 / 360 Output Total 0 / 201 0 / 0 Balance 250 / 1125.25 0 / 360 360 / 360 Intake: Intake, Oral Amount 250 / 820 360 / 360 Output: Output, Urine Amount 0 / 201 0 / 0 Other: Number of Unmeasured Voids 1 1 Number of Bowel Movements 1 Weight 151 lb 8 oz Patient Weight 06/23/25 23:59 Weight 151 lb 8 oz Laboratory Results - last 24 hr 06/23/25 06:33: WBC 5.7, RBC 4.18 L, Hgb 12.3 L, Hct 38.7 L, MCV 92.6, MCH 29.4, MCHC 31.8, RDW 14.0, Plt Count 138 L, MPV 10.2, Neut % (Auto) 63.0, Lymph % (Auto) 21.4, [place] % (Auto) 9.8 H, Eos % (Auto) 4.7, Baso % (Auto) 0.7, Neut # (Auto) 3.6, Lymph # (Auto) 1.2, [place] # (Auto) 0.6, Eos # (Auto) 0.3, Baso # (Auto) 0.0, Sodium 141, Potassium 5.2 H, Chloride 112 H, Carbon Dioxide 21 L, Anion Gap 13.2, BUN 54 H, Creatinine 2.30 H, Estimated Creat Clear 22, Estimated GFR 27 L, Est GFR ( Amer) 33 L, Glucose 85, Calcium 9.2, Magnesium 1.8 I & O for Labs for Last 24 Hours: Intake & Output 06/20/25 06/21/25 06/22/25 06/23/25 23:59 23:59 23:59 23:59 Intake Total 1326.25 / 1326.25 360 / 360 Output Total 201 / 201 0 / 0 Balance 1125.25 / 1125.25 360 / 360 Weight 158 lb 11.2 oz 151 lb 8 oz Constitutional: Present no acute distress Respiratory: Present normal respiratory effort Cardiac: Present Reg Rate and Rhythm GI: Present normal bowel sounds; Absent tenderness Extremities: Present normal inspection and full ROM Skin: Present intact; Absent erythema Neuro: Present Grossly Intact and moves all extremities Assessment and Plan *Assessment and plan (1) CELSA (acute kidney injury): Status: Acute Category: Medical Code(s): N17.9 - Acute kidney failure, unspecified (2) Chronic kidney disease: Status: Acute Qualifiers: Chronic kidney disease stage: unspecified stage Qualified Code(s): N18.9 - Chronic kidney disease, unspecified Category: Medical Code(s): N18.9 - Chronic kidney disease, unspecified (3) Afib: Status: Acute Qualifiers: Atrial fibrillation type: unspecified chronic Qualified Code(s): I48.20 - Chronic atrial fibrillation, unspecified Category: Medical Code(s): I48.91 - Unspecified atrial fibrillation (4) HLD (hyperlipidemia): Status: Chronic Qualifiers: Hyperlipidemia type: mixed hyperlipidemia Qualified Code(s): E78.2 - Mixed hyperlipidemia Category: Medical Code(s): E78.5 - Hyperlipidemia, unspecified (5) Hyperkalemia: Status: Acute Category: Medical Code(s): E87.5 - Hyperkalemia (6) Azotemia: Status: Acute Category: Medical Code(s): R79.89 - Other specified abnormal findings of blood chemistry (7) BPH (benign prostatic hyperplasia): Status: Acute Category: Medical Code(s): N40.0 - Benign prostatic hyperplasia without lower urinary tract symptoms (8) Coronary artery disease: Status: Chronic Qualifiers: Coronary Disease-Associated Artery/Lesion type: bypass graft [place] vs. transplanted heart: [place] heart Associated angina: with other forms of angina Qualified Code(s): I25.708 - Atherosclerosis of coronary artery bypass graft(s), unspecified, with other forms of angina pectoris Category: Medical Code(s): I25.10 - Atherosclerotic heart disease of [place] coronary artery without angina pectoris Plan Labs have improved, OK to discharge home.
--- NOTE | 2025-06-24 01:01 | EXP.DC.SUM ---
General Admission date:: 06/22/25 Discharge date: 06/23/25 HPI HPI HPI: 84-year-old with past medical history CAD, atrial fibrillation, pulm hypertension, CKD,COPD, hyperlipidemia, status post CABG 2012. Patient presents with some nasal congestion today. Patient is nasal congestion improved after nasal saline given in emergency room. Patient given nasal saline in emergency room, with situation improving. Patient noted to have creatinine 2.5, K5.2 and BP 211/82 in emergency room. Patient subsequently admitted for azotemia, hyperkalemia and hypertensive urgency management. Patient's present with the emergency room. States he seen Dr. Fulton last week for kidney issues. Also reports recently seeing cardiology as outpatient for presurgical clearance for nasal surgery scheduled July 2024. Denies chest pain, palpitations, fevers, chills, known sick contacts, GI bleeding. States he has never needed dialysis. Reports normal urination and denies dysuria/hematuria. Hospital Course Hospital Course Hospital Course: The patient was started on cautious hydration and his Lasix was held due to acute kidney injury. He was started on hydralazine 10 mg IV every 4 hours as needed and labetalol 10 mg IV every 4 hours as needed. He was also started on nifedipine 60 mg daily. The patient had taken his diuretic daily for 3 days earlier in the week due to some leg edema and it was felt this is what may have caused his renal failure. He also felt like he had caught a cold. By 06/23/2025 he was feeling better and was anxious to go home. His labs improved and he was stable to be discharged. Exam Data for Last 24 hours Vital signs and Labs for Last 24 Hours: Temp Pulse Resp BP Pulse Ox O2 Del Method 97.5 F L 52 L 18 130/52 L 94 L Room Air 06/23/25 08:00 06/23/25 08:00 06/23/25 08:00 06/23/25 08:00 06/23/25 08:00 06/23/25 09:00 Laboratory Results - last 24 hr 06/23/25 06:33: WBC 5.7, RBC 4.18 L, Hgb 12.3 L, Hct 38.7 L, MCV 92.6, MCH 29.4, MCHC 31.8, RDW 14.0, Plt Count 138 L, MPV 10.2, Neut % (Auto) 63.0, Lymph % (Auto) 21.4, [place] % (Auto) 9.8 H, Eos % (Auto) 4.7, Baso % (Auto) 0.7, Neut # (Auto) 3.6, Lymph # (Auto) 1.2, [place] # (Auto) 0.6, Eos # (Auto) 0.3, Baso # (Auto) 0.0, Sodium 141, Potassium 5.2 H, Chloride 112 H, Carbon Dioxide 21 L, Anion Gap 13.2, BUN 54 H, Creatinine 2.30 H, Estimated Creat Clear 22, Estimated GFR 27 L, Est GFR ( Amer) 33 L, Glucose 85, Calcium 9.2, Magnesium 1.8 I & O for Last 24 hours: Intake & Output 06/21/25 06/22/25 06/23/25 06/24/25 11:59 11:59 11:59 11:59 Intake Total 716.25 / 716.25 970 / 970 Output Total 201 / 201 0 / 0 Balance 515.25 / 515.25 970 / 970 Weight 158 lb 11.2 oz 151 lb 8 oz Narrative: *Routine HEENT Exam Head: Present normocephalic Eye: Present EOMI ENT: Present mucous membranes moist Comments: Extremely hard of hearing during my interview with patient today *Routine Neck Exam Neck: Present supple and full ROM *Routine Respiratory Exam Respiratory: Present CTA bilaterally and normal respiratory effort *Routine Cardiovascular Exam Cardiovascular: Present RRR, Normal S1 and Normal S2 *Routine Abdominal Exam Abdominal: Present soft and normoactive bowel sounds *Routine Rectal Exam Rectal:: deferred *Routine Genitalia Exam Genitalia:: deferred *Routine Extremities Exam Extremities: Present full ROM and normal capillary refill *Routine Skin Exam Skin: Present intact *Routine Neurological Exam Neurological: Present alert and oriented X3 Results Data Completed and Pending Labs on day of discharge: Labs from last 24 hours 06/23/25 06:33 WBC 5.7 RBC 4.18 L Hgb 12.3 L Hct 38.7 L MCV 92.6 MCH 29.4 MCHC 31.8 RDW 14.0 Plt Count 138 L MPV 10.2 Neut % (Auto) 63.0 Lymph % (Auto) 21.4 [place] % (Auto) 9.8 H Eos % (Auto) 4.7 Baso % (Auto) 0.7 Neut # (Auto) 3.6 Lymph # (Auto) 1.2 [place] # (Auto) 0.6 Eos # (Auto) 0.3 Baso # (Auto) 0.0 Sodium 141 Potassium 5.2 H Chloride 112 H Carbon Dioxide 21 L Anion Gap 13.2 BUN 54 H Creatinine 2.30 H Estimated Creat Clear 22 Estimated GFR 27 L Est GFR ( Amer) 33 L Glucose 85 Calcium 9.2 Magnesium 1.8 DS: Diagnosis Discharge Diagnosis (1) CELSA (acute kidney injury): Status: Acute Code(s): N17.9 - Acute kidney failure, unspecified (2) Chronic kidney disease: Status: Acute Code(s): N18.9 - Chronic kidney disease, unspecified Qualifiers: Chronic kidney disease stage: unspecified stage Qualified Code(s): N18.9 - Chronic kidney disease, unspecified (3) Afib: Status: Acute Code(s): I48.91 - Unspecified atrial fibrillation Qualifiers: Atrial fibrillation type: unspecified chronic Qualified Code(s): I48.20 - Chronic atrial fibrillation, unspecified (4) HLD (hyperlipidemia): Status: Chronic Code(s): E78.5 - Hyperlipidemia, unspecified Qualifiers: Hyperlipidemia type: mixed hyperlipidemia Qualified Code(s): E78.2 - Mixed hyperlipidemia (5) Hyperkalemia: Status: Acute Code(s): E87.5 - Hyperkalemia (6) Azotemia: Status: Acute Code(s): R79.89 - Other specified abnormal findings of blood chemistry (7) BPH (benign prostatic hyperplasia): Status: Acute Code(s): N40.0 - Benign prostatic hyperplasia without lower urinary tract symptoms (8) Coronary artery disease: Status: Chronic Code(s): I25.10 - Atherosclerotic heart disease of [place] coronary artery without angina pectoris Qualifiers: Coronary Disease-Associated Artery/Lesion type: bypass graft [place] vs. transplanted heart: [place] heart Associated angina: with other forms of angina Qualified Code(s): I25.708 - Atherosclerosis of coronary artery bypass graft(s), unspecified, with other forms of angina pectoris Meds Home Medications and Allergies Home Medications ?Medication ?Instructions ?Recorded ?Confirmed ?Type lisinopril 2.5 mg tablet 2.5 mg PO 10/18/17 06/22/25 History metoprolol tartrate 25 mg tablet 25 mg PO BID 10/18/17 06/22/25 History tamsulosin 0.4 mg capsule 0.4 mg PO BID 01/02/19 06/22/25 History furosemide 20 mg tablet 20 mg PO DAILYP PRN Edema 11/01/23 06/22/25 History atorvastatin 20 mg tablet 20 mg PO DAILY 04/05/25 06/22/25 History empagliflozin 10 mg tablet 10 mg PO DAILY 06/22/25 06/22/25 History (Jardiance) famotidine 40 mg tablet 40 mg PO HS 06/22/25 06/22/25 History benzonatate 200 mg capsule 200 mg PO TID PRN cough #30 caps 06/23/25 Rx New Prescriptions to Start Prescriptions: benzonatate Milind Corona Allergies Allergy/AdvReac Type Severity Reaction Status Date / Time No Known Allergies Allergy Verified 06/04/25 14:15 Discharge Plan Disposition Patient Disposition: Home, Self-Care Condition: Good Follow up Plan Follow up with: Milind Corona MD [Primary Care Provider, Medical] - 07/02/25 Prescriptions/Medication Reconciliation: New benzonatate 200 mg capsule 200 mg PO TID PRN (Reason: cough) Qty: 30 1RF Continued furosemide 20 mg tablet 20 mg PO DAILYP PRN (Reason: Edema) atorvastatin 20 mg tablet 20 mg PO DAILY lisinopril 2.5 MG tablet 2.5 mg PO HS metoprolol tartrate 25 MG tablet 25 mg PO BID tamsulosin 0.4 MG capsule 0.4 mg PO BID famotidine 40 mg tablet 40 mg PO HS Jardiance 10 mg tablet 10 mg PO DAILY Patient Comments: [NO ORIGINAL SIG] Problem Reconciliation Problems Reviewed?: Yes Patient Discharge Instructions ACTIVITY: Continue current activity DIET: continue same diet Patient Instructions: DI for Acute Kidney Injury Print Language: K[place] Providers Primary Care Provider: Milind Corona Admit Provider: Oneal Barnes Attending Provider: Milind Corona
--- NOTE | 2025-06-25 11:21 | SW/DCPLANNER ---
Spoke with patient's daughter on the phone. Patient's daughter stated that he is doing very good. Patient's daughter stated that he was able to get his new medicine picked up. Patient's daughter stated that he is aware of his upcoming appointments. Patient's daughter stated that he has no concerns or questions at this time. Kimmy Chapa
== END 2025-06-23 11:14 | disposition home or self-care (01) ==
LOC: ER 03:25 → 2ND 08:27
PROVIDERS: Internal Medicine; Admitting Provider Student in an Organized Health Care Education/Training Program; Emergency Provider Emergency Medicine; PCP Family Medicine; Visit Provider Family Medicine
DX: N17.9 Acute kidney failure, unspecified (principal); N18.9 Chronic kidney disease, unspecified; I48.20 Chronic atrial fibrillation, unspecified; E78.2 Mixed hyperlipidemia; E87.5 Hyperkalemia; R79.89 Other specified abnormal findings of blood chemistry; N40.0 Benign prostatic hyperplasia without lower urinary tract symptoms; I25.708 Atherosclerosis of coronary artery bypass graft(s), unspecified, with other forms of angina pectoris; Z95.1 Presence of aortocoronary bypass graft; I12.9 Hypertensive chronic kidney disease with stage 1 through stage 4 chronic kidney disease, or unspecified chronic kidney disease
CPT/HCPCS: 36415; 71046; 80048; 80053; 82803; 83735; 83880; 84484; 85025; 85378; 85610; 87636; 93005; 99285; G0378; J7030; J7120

== ENCOUNTER 2025-06-25 19:30 | Emergency (ER) | payer MEDICARE, SELFPAY ==
--- OUTSIDE RECORDS SUMMARY | 2024-03-08 04:00 | XMS_ITS ---
Author Organization [facility] Address [address] [facility] [address] [facility] [address] [place] [phone] Care Team Providers Care Dehydrator Name Role Phone Milind Corona Primary Care Provider Allergies No Known Allergies REASON FOR VISIT 6 month check Encounters Encounter Location Date Provider Diagnosis [place] [address] [facility] [address] [place] [phone] 03/08/2024 Milind Corona Plan Of Treatment Next Appt Details Provider Name:Milind Hanley ry, 07/26/2025 10:00:00 AM, [address], [address], [place], [phone], Progress Notes * Young COYDOB: [birth year] (84 yo M)Acc No.[id number]:03/08/2024 Progress Notes Patient: Young BORREGO Provider: Gonzalo Corona M.D. :1940 A ge:83 Y S ex:Male Date:03/08/2024 Address:[place], [id number] Subjective: * Chief Complaints: * 1 . [...] Hospitalization/Major Diagno stic Procedure: B ack Pain- [facility] 04/09/2012, Heart Attack- [place] 05/08/2013, Kidney Stones , Dizziness- [facility] 10/18/2017, Dizziness- [facility] 10/19-, Unable to Urinate- Foly Cath- [facility] 08/20/2020, Unable to Urinate- Foly Fath- [facility] 04/22/2021. * Family History: F [...] Electronic signature of Janeth Corona MD on 06/25/2025 at 07:38 PM EST Sign off status: Pending * Provider: Gonzalo Corona M.D. Date: 0 03/08/2024 Generated for Mehdi brown/Ramsey/Abdirahman on: 1 07:38 PM EST History and Physical Notes * HPI (History of Present Illness) Category Sub-Category Detail Notes Category Not es Cardiology Blood Pressure Elevated Pt here for 6 mo f/u on hypertension, states he is doing well and does not have any concerns Hyperlipidemia Pt is fasting today
--- OUTSIDE RECORDS SUMMARY | 2024-08-28 06:00 | XMS_ITS ---
Author Organization [facility] Address [address] [facility] [address] [place] [phone] Care Team Providers Care Practice Administrator Name Role Phone Milind Corona Primary Care Provider Allergies No Known Allergies Results Component Value Reference Range Notes CBC Fingerstick (in house) Reviewed date:08/28/2024 11:50:02 AM Interpretation: Performing Lab: Notes/Report: wbc 7.0 3.5 - 10 lym 21.9% 15 - 50 mid 4.8% 2 - 15 gran 73.3% 35 - 80 rbc 4.44 3.5 - 5.5 hgb 12.9 11.5 - 16.5 hct 39.8 35 - 55 mcv 89.6 75 - 100 mch 29.0 25 - 35 mchc 32.4 31 - 38 plat 123 100 - 400 REASON FOR VISIT cough Medications Medication SIG (Take, Route, Frequency, Duration) Notes Start Date End Date Status Lisinopril 2.5 MG 1 tab(s) orally once a day; Duration: 90 days Active Metoprolol Tartrate 25 MG 1 tab(s) orall y 2 times a day; Duration: 90 days Active Promethazine-DM 6.25-15 MG/5ML 5 ml as needed Orally every 6 hrs 08/28/2024 Active Famotidine 40 MG 1 tab(s) orally once a day (at bedtime); Duration: 90 days Active Furosemide 20 MG 1 tab(s) orally once a day as needed; Duration: 90 days Active Tamsulosin HCl 0.4 MG 1 cap(s) orally tw ice a day; Duration: 90 days Active Trelegy Ellipta 100-62.5-25 MCG/ACT 1 puff Inhalation Once a day 03/01/2024 Active Zithromax Z-Bartolo 250 MG as directed Orall y once daily; Duration: 5 day(s) 08/28/2024 Active Albuterol Sulfate HFA 108 (90 Base) MCG/ACT 1 puff as needed Inhalation every 4 hrs, prn 02/03/2024 Not-Taking oxyBUTYnin Chloride ER 10 MG 1 tablet Orally Once a day; Duration: 90 days 07/16/2023 Active Atorvastatin Calcium 20 MG 1 tab(s) orally once a day (at bedtime); Duration: 90 days Active Xarelto 15 MG 1 tablet with food Orally Once a day; Duration: 7 days 07/21/2023 Active Jardiance 25 MG 1 tablet Orally Once a day; Duration: 7 days 04/21/2023 Active Flonase Allergy Relief 50 MCG/ACT 1 spray in each nostril Nasally Once a day 02/03/2024 Not-Taking Metamucil Smooth Texture 58.6 % as directed orally once a day OTC 08/18/2021 Active Montelukast Sodium 10 MG 1 tablet Orally Once a day; Duration: 30 day(s) 04/21/2023 Active Loratadine 10 MG 1 tablet Orally Once a day; Duration: 30 day(s) 04/21/2023 Active Multiple Vitamin - 1 cap(s) orally once a day Active Vital Signs Blood pressure systolic 90 mm Hg 08/29/19 25 Blood pressure diastolic 60 mm Hg 025 Heart Rate 91 /min 08/28/2024 Height 70 in 08/28/2024 Weight 156.4 lbs 08/28/2024 BMI 22.44 kg/m2 08/28/2024 Encounters Encounter Location Date Provider Diagnosis [facility] [address] [facility] [address] [place], [place] [phone] 08/28/2024 Milind Corona Acute URI J06.9 Assessments Encounter Date Diagnosis (ICD Code) Assessment Notes Treatment Notes Treatment Clinical Notes Section Notes 08/28/2024 Acute URI (ICD-10 - J06.9) Plan Of Treatment Medication Medication Name Sig Start Date Stop Date Notes Promethazine-DM 6.25-15 MG/5ML 5 ml as n eeded Orally every 6 hrs 08/28/2024 Zithromax Z-Bartolo 250 MG as directed Orall y once daily; Duration: 5 day(s) 08/28/2024 Next Appt Details Follow Up: prn, Reason: Provider Name:Milind Hanley ry, 07/26/2025 10:00:00 AM, [address], [address] , [place], [place], [phone], Progress Notes * Young COYDOB: 8 (84 yo M)Acc No.[id number]:08/28/2024 Progress Notes Patient: Young BORREGO Provider: Gonzalo Corona M.D. :1940 A ge:84 Y S ex:Male Date:08/28/2024 Address:[address] [place], [place] [address]-[id number] Subjective: * Chief Complaints: * 1 . Cough. * HPI: E NT/respiratory: 84 year old male presents with c/o cough P t complains of greenish yellow sputum production cough for about 6 days. Pt states he has not had any other symptoms. * ROS: D ERMATOLOGY: no R sophy. [...] Hospitalization/Major Diagno stic Procedure: B ack Pain- [facility] 04/09/2012, Heart Attack- [place] 05/08/2013, Kidney Stones , Dizziness- [facility] 10/18/2017, Dizziness- [facility] 10/19-, Unable to Urinate- Foly Cath- [facility] 08/20/2020, Unable to Urinate- Foly Fath- [facility] 04/22/2021. * Family History: F ather: [...] tablet Orally Once a day , Taking Atorvastatin Calcium 20 MG Tablet 1 tab(s) orally once a day (at bedtime) , Taking oxyBUTYnin Chloride ER 10 MG Tablet Extended Release 24 Hour 1 tablet Orally Once a day , Taking Jardiance 25 MG Tablet 1 tablet Orally Once a day , Taking Xarelto 15 MG Tablet 1 tablet with food Orally Once a day , Taking Trelegy Ellipta 100-62.5-25 MCG/ACT Aerosol Powder Breath Activated 1 puff Inhalation Once a day , Taking Tamsulosin HCl 0.4 MG Capsule 1 cap(s) orally twice a day , Taking Metoprolol Tartrate 25 MG Tablet 1 tab(s) orally 2 times a day , Taking Lisinopril 2.5 MG Tablet 1 tab(s) orally once a day , Taking Furosemide 20 MG Tablet 1 tab(s) orally once a day as needed , Taking Famotidine 40 MG Tablet 1 tab(s) orally once a day (at bedtime) , Not-Taking Flonase Allergy Relief 50 MCG/ACT Suspension 1 spray in each nostril Nasally Once a day , Not-Taking Albuterol Sulfate HFA 108 (90 Base) MCG/ACT Aerosol Solution 1 puff as needed Inhalation every 4 hrs, prn , Discontinued Benzonatate 200 MG Capsule 1 capsule Orally Three times a day , Medication List reviewed and reconciled with the patient * Allergies: N .K.D.A. Objective: * Vitals: W t:156.4, Temp:98.0, BP:90/60, HR:91, O2 Sat:97% on RA, Nurse:donta, Ht: 70, BMI:22.44. * Examination: E NT/Respiratory: General Appearance: N AD. E yes: P ERRLA, sclera clear. N ose : nares patent, clear rhinorrhea. O ral cavity : erythema without exudate on pharynx. N cally : n o cervical lymphadenopathy. H eart : R RR, normal S1 S2. Lungs: c lear to auscultation bilaterally. Assessment: * Assessment: 1. Kiran sevilla URI - J06.9 (Primary) Plan: * Treatment: Value Reference Range w bc 7.0 3.5 - 10 * l ym 21.9% 15 - 50 * m id 4.8% 2 - 15 * g ran 73.3% 35 - 80 * r bc 4.44 3.5 - 5.5 * h gb 12.9 11.5 - 16.5 * h ct 39.8 35 - 55 * m cv 89.6 75 - 100 * m ch 29.0 25 - 35 * m chc 32.4 31 - 38 * p lat 123 100 - 400 * Lissette Norman 08/28/2024 11:49:56 AM > , Provider reviewed results while patient in office. * Procedure Codes: G 2211 Complex e/[place], [address] [place], [address] CAPILLARY BLOOD DRAW, 05318 CBC WITH AUTO DIFF, 3074F SYST BP LT 130 MM HG, 3078F DIAST BP < 80 MM HG * Follow Up: p rn * Images: Billing Information: * Visit Code: 59180 Office Visit, Est Pt., Level 3. * Procedure Codes: G2211 Complex e/[place]. [address] [place]. [address] CAPILLARY BLOOD DRAW. 61748 CBC WITH AUTO DIFF. 3074F SYST BP LT 130 MM HG. 3078F DIAST BP < 80 MM HG. * Electronic signature of Janeth Corona MD on 06/25/2025 at 07:38 PM EST Sign off status: Pending * Provider: Gonzalo Corona M.D. Date: 0 08/28/2024 Generated for Mehdi brown/Ramsey/eTransmitting on: 1 07:38 PM EST History and Physical Notes * HPI (History of Present Illness) Category Sub-Category Detail Notes Category Not es ENT/respiratory cough Pt complains of greenish yellow sputum production cough for about 6 days. Pt states he has not had any other symptoms Examination Category Sub-Category Detail Notes Category Not es ENT/Respiratory Oral cavity : erythema without exudate on pharynx Neck : no cervical lymphade nopathy Heart : RRR, normal S1 S2 Lungs: clear to auscultatio n bilaterally General Appearance: NAD Nose : nares patent, clear rhinorrhea Eyes: PERRLA, sclera clear
--- OUTSIDE RECORDS SUMMARY | 2024-11-08 06:30 | XMS_ITS ---
Author Organization [facility] Address [address] [facility] [address] [place] [address] [place] [id number] Care Team Providers Care Water Jet Operator Name Role Phone Milind Corona Primary Care Provider [phone] Reshma Gipson Unavailable [phone] Allergies No Known Allergies Results Component Value [...] date:11/09/2024 03:25:45 PM Interpretation:PARAINFLU3 Performing Lab: Notes/Report: Is patient a resident in a congregate care setting? No Date of Symptom onset Is patient currently in ICU? No Is patient currently hospitalized? No Is patient an [facility] employee? N Is the patient employed in healthcare? No Does the patient have COVID symptoms? Yes Is this the 1st COVID test for the patient? No No ADENOQIA Not Detected NotDetected CORONAHKU1 Not Detected NotDetected [id number] Not Detected NotDetected ATUZN568X Not Detected NotDetected ZHDGGOC24 Not Detected NotDetected METAPNEUMO Not Detected NotDetected RHINOENTER Not Detected NotDetected INFLUAPCR Not Detected NotDetected FLUAH1 Not Detected NotDetected [id number] Not Detected NotDetected INFLUAH3 Not Detected NotDetected [...] Creat 2.49, eGFR 24 Performing Lab: Notes/Report: CLIA: [id number] Bob Boone MD, Family And Consumer Education Teacher [address] [place] [address] , [address], [place] [address] Test performed by [employer], [facility] Sodium 139 135-145 mmol/L Potassium 5.4 3.5-5.3 [...] 04:40:09 PM Interpretation:No Growth Performing Lab: Notes/Report: CLIA: [id number] Bob Boone MD, Family And Consumer Education Teacher [address] [place] [address] , [address], [place] [address] Test performed by [employer] Specimen Source Urine - Void Culture, Urine See Below Final Report : No growth B-Type Natriuretic Peptide Reviewed date:11/09/2024 03:25:45 PM Interpretation:245.0 Performing Lab: Notes/Report: Test performed by [employer] [address] [place] [address] , [address], [place] [address] Bob Boone MD, Family And Consumer Education Teacher CLIA: [id number] B-Type Natriuretic Peptide 245.0 <2.0-100.0 pg/ mL REASON FOR VISIT f/u [facility] er Medications Medication SIG (Take, Route, Frequency, [...] 11/08/2024 Encounters Encounter Location Date Provider Diagnosis [facility] [address] [facility] [address] [place], [place] [id number] 11/08/2024 Reshmaizzy Gipson Bronchitis J40 ; Confusion [...] 07/26/2025 10:00:00 AM, [address] [facility], [address] , [place], [place], [id number], Progress Notes * Young COYDOB: [birth year] (84 yo M)Acc No.[id number]:11/08/2024 Patient: Young BORREGO Provider: SILVA Luque :1940 A ge:84 Y S ex:Male Date:11/08/2024 Address:[address] [place], [place] [address], [id number] Pcp:Milind Corona Subjective: * Chief Complaints: * 1 . F/u [facility] er. * HPI: H PI: HPI narrative from [facility] ER visit: 11/06/2024: 83-year-old male with [...] has chronic bradycardia according to chart review. [place] that no additional workup is indicated at this time as this seems to be a chronic issue that patient states that has not been solved. Will have patient follow-up with his primary care physician. All questions were answered. He demonstrated understanding and was in agreement with this plan. He was then discharged from the emergency department in stable condition. Lab results from [facility] ER visit: 11/06/24 07:39: WBC 5.2, RBC 4.48 L, Hgb 12.9 L, Hct 39.7 L, MCV 88.6, MCH 28.8, MCHC 32.5, RDW 14.1, Plt Count 148, MPV 9.8, Neut % (Auto) 57.1, Lymph % (Auto) 28.7, [place] % (Auto) 11.1 H, Eos % (Auto) 2.5, Baso % (Auto) 0.4, Neut # (Auto) 2.9, Lymph # (Auto) 1.5, [place] # (Auto) 0.6, Eos # (Auto) 0.1, [...] Troponin I 0.02 CXR FINDINGS : from [facility] ER visit 2 views of the [...] is here today for a f/u from [facility] ER. Pt was seen at the [...] Hospitalization/Major Diagno stic Procedure: B ack Pain- [facility] ER 04/09/2012, Heart Attack- [place] 05/08/2013, Kidney Stones , Dizziness- [facility] 10/18/2017, Dizziness- [facility] 10/19-, Unable to Urinate- Foly Cath- [facility] ER 08/20/2020, Unable to Urinate- Foly Fath- [facility] ER 04/22/2021. * Family History: F [...] ssential hypertension - I10 9 . B [place] 21.0-21.9, adult - Z68.21 ? Plan: * Treatment: Value Reference Range A DENOQIA Not Detected NotDetected - * C ORONAHKU1 Not Detected NotDetected - * C ATJHIHP75 Not Detected NotDetected - * C XRXF018Y Not Detected NotDetected - * C IKXOVU75 Not Detected NotDetected - * M ETAPNEUMO Not Detected NotDetected - * R HINOENTER Not Detected NotDetected - * I NFLUAPCR Not Detected NotDetected - * F LUAH1 Not Detected NotDetected - * I [id number] Not Detected NotDetected - * I NFLUAH3 [...] 245.0 H <2.0-100.0 - p g/mL * [facility], IT support 11/09/2024 07:25:05 : This order was created by the Interface. KevMadhavi 11/09/2024 03:25:38 PM > See phone encounter * Procedure Codes: G 2211 Complex e/[place], [address] CAPILLARY BLOOD DRAW, 04522 CBC WITH AUTO DIFF, 56690 Urinalysis, no micro, 3074F SYST BP LT 130 MM HG, 3078F DIAST BP < 80 MM HG * Follow Up: v ia phone to report test results * Images: Billing Information: * Visit Code: 68311 Office Visit, Est Pt., Level 4. * Procedure Codes: G2211 Complex e/[place]. [address] CAPILLARY BLOOD DRAW. 81492 CBC WITH AUTO DIFF. 41405 Urinalysis, no micro. 3074F SYST BP LT 130 MM HG. 3078F DIAST BP < 80 MM HG. * Electronic signature of SILVA Elizabeth on 06/25/2025 at 07:38 PM EST Sign off status: Pending * Provider: SILVA Luque Date: 0 11/08/2024 Generated for Printi ng/Faxing/eTransmitting on: 1 07:38 PM EST History and Physical Notes * HPI (History of Present Illness) Category Sub-Category Detail Notes Category Not es ENT/respiratory Short of Breath Pts daughter als o sts that pt has had SOB HPI Here for follow up on: Pt is her e today for a f/u from [facility] ER. Pt was seen at the [...]
--- OUTSIDE RECORDS SUMMARY | 2024-11-10 10:45 | XMS_ITS ---
Author Organization [facility] Address [address] [place] [id number] Care Team Providers Care Chief Power Dispatcher Name Role Phone Milind Corona Primary Care Provider Reshma Gipson Unavailable [phone] Allergies No Known Allergies REASON FOR VISIT f/u cough, check O2 sats Medications Medication SIG (Take, Route, Frequency, Duration) Notes Start Date End Date Status Metamucil Smooth Texture 58.6 % as directed orally once a day OTC 08/18/2021 Not-Taking Loratadine 10 MG 1 tablet Orally Once a day; Duration: 30 day(s) 04/21/2023 Not-Taking Montelukast Sodium 10 MG 1 tablet Orally Once a day; Duration: 30 day(s) 04/21/2023 Not-Taking oxyBUTYnin Chloride ER 10 MG 1 tablet Orally Once a day; Duration: 90 days 07/16/2023 Not-Takin g Atorvastatin Calcium 20 MG TAKE 1 TABLET ONE TIME DAILY AT BEDTIME; Duration: 90 Active Tamsulosin HCl 0.4 MG 1 cap(s) orally tw ice a day; Duration: 90 days Active Metoprolol Tartrate 25 MG 1 tab(s) orall y 2 times a day; Duration: 90 days Active Furosemide 20 MG 1 tab(s) orally once a day as needed; Duration: 90 days Active Famotidine 40 MG 1 tab(s) orally once a day (at bedtime); Duration: 90 days Active Lisinopril 2.5 MG 1 tab(s) orally once a day; Duration: 90 days Active Jardiance 25 MG 1 tablet Orally Once a day; Duration: 7 days 04/21/2023 Active Xarelto 15 MG 1 tablet with food Orally Once a day; Duration: 7 days 07/21/2023 Active Trelegy Ellipta 100-62.5-25 MCG/ACT 1 puff Inhalation Once a day 03/01/2024 Active Invokana 100 MG 1 tablet before the first meal of the day Orally Once a day Active Multiple Vitamin - 1 cap(s) orally once a day Active Benzonatate 200 MG 1 capsule Orally Thr ee times a day, prn for cough Active guaiFENesin 400 MG 1 tablet as needed Orally every 4 hrs Active Albuterol Sulfate 108 (90 Base) MCG/ACT 1 puff as needed Inhalation every 4 hrs Active Fluticasone Propionate 50 MCG/ACT 1 spray in each nostril Nasally Twice a day Active Albuterol Sulfate HFA 108 (90 Base) MCG/ACT 1 puff as needed Inhalation every 4 hrs, prn Active Vital Signs Blood pressure systolic 130 mm Hg 11/11/19 25 Blood pressure diastolic 70 mm Hg 025 Heart Rate 62 /min 11/10/2024 Height 70 in 11/10/2024 Weight 149.4 lbs 11/10/2024 BMI 21.43 kg/m2 11/10/2024 Encounters Encounter Location Date Provider Diagnosis A-Arnaud [address] [facility] [address] [place] [id number] 11/10/2024 Reshma Gipson Acute URI J06.9 and Bronchitis J40 Assessments Encounter Date Diagnosis (ICD Code) Assessment Notes Treatment Notes Treatment Clinical Notes Section Notes 11/10/2024 Acute URI (ICD-10 - J06.9) 11/10/2024 Bronchitis (ICD-10 - J40) Much improved. He still has some wheezing. Will continue inhaler and tessalon. He is monitoring his oxygen at home and it has been in the mid to upper 90's. Plan Of Treatment Medication Medication Name Sig Start Date Stop Date Notes Benzonatate 200 MG 1 capsule Orally Thr ee times a day, prn for cough Albuterol Sulfate HFA 108 (9 0 Base) MCG/ACT 1 puff as needed Inhalation every 4 hrs, prn Treatment Notes Assessment Notes Bronchitis Much improved. He st ill has some wheezing. Will continue inhaler and tessalon. He is monitoring his oxygen at home and it has been in the mid to upper 90's. Next Appt Details Follow Up: prn, Reason: Provider Name:Milind Hanley ry, 07/26/2025 10:00:00 AM, [address], [address], [place], [phone], Progress Notes * Young COYDOB: [birth year] (84 yo M)Acc No.[id number]:11/10/2024 Patient: Young BORREGO Provider: SILVA Luque :1940 A ge:84 Y S ex:Male Date:11/10/2024 Address:[facility] [place], [id number] Pcp:Milind Corona Subjective: * Chief Complaints: * 1 . f/u cough, check O2 sats. * HPI: H PI: 84 year old male presents with c/o Patient is here today for?Pt sts he is here today for a f/u on his cough. Pt sts his cough is a lot better now. * ROS: D ERMATOLOGY: no R sophy. [...] Hospitalization/Major Diagno stic Procedure: B ack Pain- [facility] ER 04/09/2012, Heart Attack- [place] 05/08/2013, Kidney Stones , Dizziness- [facility] 10/18/2017, Dizziness- [facility] 10/19-, Unable to Urinate- Foly Cath- [facility] ER 08/20/2020, Unable to Urinate- Foly Fath- [facility] ER 04/22/2021. * Family History: [...] TABLET ONE TIME DAILY AT BEDTIME , Taking Albuterol Sulfate HFA 108 (90 Base) MCG/ACT Aerosol Solution 1 puff as needed Inhalation every 4 hrs, prn , Taking Benzonatate 200 MG Capsule 1 capsule Orally Three times a day, prn for cough , Not-Taking Metamucil Smooth Texture 58.6 % [...] N .K.D.A. Objective: * Vitals: W t: 149.4, Temp: 98.6, BP: 130/70, HR: 62, O2 Sat: 95% on RA, Nurse: wellington, Ht: 70, BMI:21.43. * Examination: G eneral Examination: General Appearance: N AD. H EENT: u nremarkable.?Oral cavity: n o lesions, mucosa moist and WNL, no erythema. N cally: s upple, no lymphadenopathy. C hest: n ormal shape and expansion. H eart: R SR. L ungs: faint wheezes - improved, no rales. Assessment: * Assessment: 1. A di URI - J06.9 (Primary) 2 . B jessica - J40 Plan: * Treatment: * Procedure Codes: G 2211 Complex e/m visit add on * Follow Up: p rn * Images: Billing Information: * Visit Code: 89884 Office Visit, Est Pt., Level 3. * Procedure Codes: G2211 Complex e/m visit add on. * Electronic signature of SILVA Elizabeth on 06/25/2025 at 07:39 PM EST Sign off status: Pending * Provider: SILVA Luque Date: 0 11/10/2024 Generated for Mhedi brown/Ramsey/Amyitting on: 1 07:39 PM EST History and Physical Notes * HPI (History of Present Illness) Category Sub-Category Detail Notes Category Not es HPI Patient is here today for Pt sts he is here today for a f/u on his cough. Pt sts his cough is a lot better now Examination Category Sub-Category Detail Notes Category Not es General Examination HEENT: unremarkable Heart: RSR Lungs: faint wheezes - impr ken, no rales General Appearance: NAD Neck: supple, no lymphaden opathy Oral cavity: no lesions, mucosa m oist and WNL, no erythema Chest: normal shape and exp ansion
--- OUTSIDE RECORDS SUMMARY | 2025-04-05 06:15 | XMS_ITS ---
Author Organization [facility] Address [address] [facility] [address] [place] [id number] Care Team Providers Care Customer Quality Engineer Name Role Phone Milind Corona Primary Care [...] 27 Performing Lab: Notes/Report: Test performed by [facility], [employer] [address] [place] [address] , [address], [place] [address] Bob Boone MD, Electrician Constructor Supervisor CLIA: [id number] Sodium 144 135-145 mmol/L Potassium 5.5 3.5-5.3 [...] Acute exacerbation of chronic obstructive airways disease (448421195) COPD with acute exacerbation (J44.1) Active confirmed Problem Hypertensive heart AND chronic kidney disease with congestive heart failure (86380520620676) Hypertensive heart and chronic kidney disease with [...] Encounter Location Date Provider Diagnosis [facility]ryn [facility] [address] [place] [id number] 04/05/2025 Milind [place] COPD with acute exacerbation J44.1 ; [...] Hanley , 07/26/2025 10:00:00 AM, [address] [facility] 36 [facility], [address], [phone], Progress Notes * Young COYDOB: 8 (84 yo M)Acc No.[id number]:04/05/2025 Physical Patient: Young BORREGO Provider: Gonzalo Corona M.D. :1940 A ge:84 Y S ex:Male Date:04/05/2025 Address:[address] [place], [place] [address]AR[place] Ont[place], [id number] Subjective: * Chief Complaints: * 1 . Preop cpx. * HPI: A dult Pre-Op physical: 84 year old male presents with c/o Procedure: r emoval of hyperkeratotic areas from buccal mucosal area and alveolar ridge. c/o Date of Procedure: Sergio Raymundo [facility] ENT. c/o Name of Surgeon: W ill schedule after pt is cleared by PCP and Dr. London. * ROS: R ESPIRATORY: Shortness of breath y es, p da was in the ER at [facility] yesterday and was diagnosed with a COPD [...] Hospitalization/Major Diagno stic Procedure: B ack Pain- [facility] ER 04/09/2012, Heart Attack- [place] 05/08/2013, Kidney Stones , Dizziness- [facility] 10/18/2017, Dizziness- [facility] 10/19-, Unable to Urinate- Foly Cath- [facility] ER 08/20/2020, Unable to Urinate- Foly Fath- [facility] ER 04/22/2021. * Family History: [...] kidney disease - I13.0 6 . B [place] 22.0-22.9, adult - Z68.22 Plan: * Treatment: [...] G 2211 Complex e/[place], [address] CBC WITH AUTO DIFF, 1036F TOBACCO NON-USER, G8420 BMI<30 AND >=22 CALC & DOCU, G8950 PREHTN/HTN BP DOC INDCD F/U DOC, G8752 MOST RECENT SYSTOLIC BP < 140MM HG, G8754 MOST RECENT DIASTOLIC BP < 90MM HG, 3074F SYST BP LT 130 MM HG, 3078F DIAST BP < 80 MM HG * Follow Up: 6 days * Images: Drawin04/05/25 [facility] addendum Billing Information: * Visit Code: 09202 Office Visit, Est Pt., Level 4. * Procedure Codes: G2211 Complex e/[place]. [address] CBC WITH AUTO DIFF. 1036F TOBACCO NON-USER. G8420 BMI<30 AND >=22 CALC & DOCU. G8950 PREHTN/HTN BP DOC INDCD F/U DOC. G8752 MOST RECENT SYSTOLIC BP < 140MM HG. G8754 MOST RECENT DIASTOLIC BP < 90MM HG. 3074F SYST BP LT 130 MM HG. 3078F DIAST BP < 80 MM HG. * Electronic signature of Janeth Corona MD on 06/25/2025 at 07:39 PM EST Sign off status: Pending * Provider: Gonzalo Corona M.D. Date: Generated for Mehdi brown/Ramsey/Amyitting on: 07:39 PM EST History and Physical Notes * HPI (History of Present Illness) Category Sub-Category Detail Notes Category Not es Adult Pre-Op physical Procedure: removal of hyperkeratotic areas from buccal mucosal area and alveolar ridge Date of Procedure: Dr. Raymundo, [facility] EN T Name of Surgeon: Will schedule after pt is cleared by PCP and Dr. London Examination Category Sub-Category Detail Notes Category Not es General Examination Heart: RSR Lungs: clear to auscultatio n General Appearance: NAD
--- OUTSIDE RECORDS SUMMARY | 2025-04-11 06:45 | XMS_ITS ---
Author Organization [facility] Address [address] [place] [id number] Care Team Providers Care Rn Ccu Name Role Phone Milind Corona Primary Care Provider Allergies No Known Allergies Results Component Value Reference Range Notes CBC Venipuncture (in house) Reviewed date:04/12/2025 11:26:06 AM Interpretation:Normal Performing Lab: Notes/Report: Normal wbc 5.2 3.5 - 10 lymph 25.4% 15 - 50 mid 6.7% 2 - 15 gran 67.9% 35 - 80 rbc 4.68 3.5 - 5.5 hgb 13.8 11.5 - 16.5 hct 41.2 35 - 55 mcv 87.9 75 - 100 mch 29.6 25 - 35 mchc 33.6 31 - 38 platlet 179 100 - 400 P-Basic Metabolic Panel (BMP ) Reviewed date:04/12/2025 11:26:06 AM Interpretation:K 5.8, Chl 110, BUN 34, Creat 1.90, eGFR 34 Performing Lab: Notes/Report: CLIA: [id number] Bob Boone MD, Fur Matcher [facility] , [address], [place] [address] Test performed by [employer], [facility] Sodium 141 135-145 mmol/L Potassium 5.8 3.5-5.3 mmol/L Chloride 110 97-108 mmol/L CO2 26 20-32 mmol/L Glucose 88 65-99 mg/dL BUN 34 8-23 mg/dL Creatinine 1.90 0.70-1.30 mg/dL Calcium 8.9 8.6-10.4 mg/dL eGFR by Creatinine 34 >59 mL/min/1.73m2 P-Phosphorus Reviewed date:04/12/2025 11:26:06 AM Interpretation:Normal Performing Lab: Notes/Report: Test performed by [employer] [address] [place] [address] , [address], [place] [address] Bob Boone MD, Fur Matcher CLIA: [id number] Phosphorus 2.7 2.5-4.5 mg/dL REASON FOR VISIT 6 day f/u Medications Medication SIG (Take, Route, Frequency, Duration) Notes Start Date End Date Status Albuterol Sulfate HFA 108 (90 Base) MCG/ACT 1 puff as needed Inhalation every 4 hrs, prn Active Famotidine 40 MG 1 tab(s) orally once a day (at bedtime); Duration: 90 days Active Albuterol Sulfate 108 (90 Base) MCG/ACT 1 puff as needed Inhalation every 4 hrs Active Furosemide 20 MG 1 tab(s) orally once a day as needed; Duration: 90 days Active Multiple Vitamin - 1 cap(s) orally once a day Active Tamsulosin HCl 0.4 MG 1 cap(s) orally tw ice a day; Duration: 90 days Active Amoxicillin-Pot Clavulanate 875-125 MG 1 tablet Orally every 12 hrs Active Lisinopril 2.5 MG 1 tab(s) orally once a day; Duration: 90 days Active Azithromycin 250 MG as directed Orally Active Metoprolol Tartrate 25 MG 1 tab(s) orall y 2 times a day; Duration: 90 days Active Problems Problem Type SNOMED Code ICD Code Onset Dates Problem Status W/U Status Risk Notes Problem Acute exacerbation of chronic obstructive airways disease (759738365) COPD exacerbation (J44.1) Active confirmed Vital Signs Blood pressure systolic 128 mm Hg 04/11/20 25 Blood pressure diastolic 70 mm Hg 025 Heart Rate 60 /min 04/11/2025 Height 70 in 04/11/2025 Weight 156.4 lbs 04/11/2025 BMI 22.44 kg/m2 04/11/2025 Encounters Encounter Location Date Provider Diagnosis [facility] [address] [place], [place] [id number] 04/11/2025 Milind Corona COPD exacerbation J4 4.1 ; Stage 3b chronic kidney disease N18.32 and Essential hypertension I10 Assessments Encounter Date Diagnosis (ICD Code) Assessment Notes Treatment Notes Treatment Clinical Notes Section Notes 04/11/2025 COPD exacerbation (ICD-10 - J44.1) Clinically improved 04/11/2025 Stage 3b chronic kidney disease (ICD-10 - N18.32) 04/11/2025 Essential hypertension (ICD-10 - I10) Plan Of Treatment Medication Medication Name Sig Start Date Stop Date Notes Lisinopril 2.5 MG 1 tab(s) orally once a day; Duration: 90 days Metoprolol Tartrate 25 MG 1 tab(s) orall y 2 times a day; Duration: 90 days Treatment Notes Assessment Notes COPD exacerbation Clinically improved Next Appt Details Follow Up: 2 Weeks, Reason: Provider Name:Milind Hanley , 07/26/2025 10:00:00 AM, [address] [facility] [address] [facility], [address] , [place], [place], [id number], Progress Notes * Young COYDOB: 8 (84 yo M)Acc No.[id number]:04/11/2025 Patient: Young BORREGO Provider: Gonzalo Corona M.D. :1940 A ge:84 Y S ex:Male Date:04/11/2025 Address:[address] [place] [address] [place], [id number] Subjective: * Chief Complaints: * 1 . 6 day f/u. * HPI: H PI: Here for follow up on: f rom procedure on 04/06. P t states he is doing good and has no concerns at this time. Pt needs refills on Lisinopril & Metoprolol. * Medical History: C oronary Artery Disease, [...] stic Procedure: B ack Pain- [facility] 04/09/2012, Heart Attack- [place] 05/08/2013, Kidney Stones , Dizziness- [facility] 10/18/2017, Dizziness- [facility] 10/19-, Unable to Urinate- Foly Cath- [facility] 08/20/2020, Unable to Urinate- Foly Fath- [facility] 04/22/2021. * Family [...] 1 tab(s) orally once a day , Medication List reviewed and reconciled with the patient * Allergies: N .K.D.A. Objective: * Vitals: W t: 156.4, Temp: 98.3, BP: 128/70, HR: 60, Nurse: SF, Ht: 70, BMI:22.44. * Examination: G eneral Examination: General Appearance: N AD. H eart: R SR. L ungs:?clear to auscultation. Assessment: * Assessment: 1. C OPD exacerbation - J44.1 (Primary) 2 . S tage 3b chronic kidney disease - N18.32 3 . E ssential hypertension - I10 Plan: * Treatment: Value Reference Range w bc 5.2 3.5 - 10 * l ymph 25.4% 15 - 50 * m id 6.7% 2 - 15 * g ran 67.9% 35 - 80 * r bc 4.68 3.5 - 5.5 * h gb 13.8 11.5 - 16.5 * h ct 41.2 35 - 55 * m cv 87.9 75 - 100 * m ch 29.6 25 - 35 * m chc 33.6 31 - 38 * p latlet 179 100 - 400 * Frances Grigsby 04/11/2025 01 :15:01 PM EDT > Madhavi Angulo 04/12/2025 11:25:58 AM EDT > See phone encounter Notes: Clinically improved??2.?Stage 3b chronic kidney disease?LAB: P-Basic Metabolic Panel (BMP) (Collection Date & Time - 04/11/2025 10:32 AM)?K 5.8, Chl 110, BUN 34, Creat 1.90, eGFR 34* Value Reference Range B UN 34 H 8-23 - mg/dL * C alcium 8.9 8.6-10.4 - mg/dL * C hloride 110 H 97-108 - mmol/L * C O2 26 20-32 - mmol/L * C reatinine 1.90 H 0.70-1.30 - mg/dL * G lucose 88 65-99 - mg/dL * P otassium 5.8 H 3.5-5.3 - mmol/L * S odium 141 135-145 - mmol/L * e GFR by Creatinine 34 L >59 - mL/min/1.73m2 * Madhavi Angulo 04/12/2025 11 :25:58 AM EDT > See phone encounter ?LAB: P-Phosphorus (Collection Date & Time - 04/11/2025 10:32 AM)?Normal* Value Reference Range P hosphorus 2.7 2.5-4.5 - mg/dL * Madhavi Angulo 04/12/2025 11 :25:58 AM EDT > See phone encounter 3.?Essential hypertension? Refill Lisinopril Tablet, 2.5 MG, 1 tab(s), orally, once a day, 90 days, 90, Refills 1;?RefillMetoprolol Tartrate Tablet, 25 MG, 1 tab(s), orally, 2 times a day, 90 days, 180, Refills 1.? * Procedure Codes: G 2211 Complex e/[place], [address] CBC WITH AUTO DIFF, 1036F TOBACCO NON-USER, 3074F SYST BP LT 130 MM HG, 3078F DIAST BP < 80 MM HG, G8950 PREHTN/HTN BP DOC INDCD F/U DOC * Follow Up: 2 Weeks * Images: Billing Information: * Visit Code: 75095 Office Visit, Est Pt., Level 4. * Procedure Codes: G2211 Complex e/[place]. [address] CBC WITH AUTO DIFF. 1036F TOBACCO NON-USER. 3074F SYST BP LT 130 MM HG. 3078F DIAST BP < 80 MM HG. G8950 PREHTN/HTN BP DOC INDCD F/U DOC. * Electronic signature of Janeth Corona MD on 06/25/2025 at 07:38 PM EST Sign off status: Pending * Provider: Gonzalo Corona M.D. Date: 1 Generated for Mehdi brown/Ramsey/Abdirahman on: 1 07:38 PM EST History and Physical Notes * HPI (History of Present Illness) Category Sub-Category Detail Notes Category Not es HPI [facility] Pt states he is doing good and has no concerns at this time. Pt needs refills on Lisinopril & Metoprolol Examination Category Sub-Category Detail Notes Category Not es General Examination Heart: RSR Lungs: clear to auscultatio n General Appearance: NAD
--- OUTSIDE RECORDS SUMMARY | 2025-04-25 05:30 | XMS_ITS ---
[facility] Organization [facility] Address [address] [place] [id number] Care Team Providers Care Lighting Director Name Role Phone Milind Corona Primary Care Provider Allergies No Known Allergies Reason For Referral Diagnosis 1 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) Referral Organization [facility] Referring Provider First Name Milind Referring Provider Last Name Cj Referring Provider Speciality Family Pra ctice Referred Provider Vishal Boogie Referred Provider Specialty Nephrology General Notes Heena Quan 2024 10:53:41 AM > faxed to [facility] Nephrology Referral Priority Routine REASON FOR VISIT 2 week f/u Medications Medication SIG (Take, Route, Frequency, Duration) Notes Start Date End Date Status Multiple Vitamin - 1 cap(s) orally once a day Active Albuterol Sulfate 108 (90 Base) MCG/ACT 1 puff as needed Inhalation every 4 hrs Active Jardiance 10 MG 1 tablet Orally Once a day; Duration: 90 days 04/25/2025 Active Famotidine 40 MG 1 tab(s) orally once a day (at bedtime); Duration: 90 days Active Albuterol Sulfate HFA 108 (90 Base) MCG/ACT 1 puff as needed Inhalation every 4 hrs, prn Active Lisinopril 2.5 MG 1 tab(s) orally once a day; Duration: 90 days Active Metoprolol Tartrate 25 MG 1 tab(s) orally 2 times a day; Duration: 90 days Active Tamsulosin HCl 0.4 MG 1 cap(s) orally tw ice a day; Duration: 90 days Active Furosemide 20 MG 1 tab(s) orally once a day as needed; Duration: 90 days Not-Taking Vital Signs Blood pressure systolic 110 mm Hg 04/25/20 25 Blood pressure diastolic 68 mm Hg 025 Heart Rate 66 /min 04/25/2025 Height 70 in 04/25/2025 Weight 161.0 lbs 04/25/2025 BMI 23.1 kg/m2 04/25/2025 Encounters Encounter Location Date Provider Diagnosis [facility] 36 [facility] [address] [place] [phone] 04/25/2025 Milind Corona Stage 3b chronic kidney disease N18.32 Assessments Encounter Date Diagnosis (ICD Code) Assessment Notes Treatment Notes Treatment Clinical Notes Section Notes 04/25/2025 Stage 3b chronic kidney disease (ICD-10 - N18.32) Plan Of Treatment Medication Medication Name Sig Start Date Stop Date Notes Jardiance 10 MG 1 tablet Orally Once a day; Duration: 90 days 04/25/2025 Referrals Referral Date Details 04/25/2025 04/25/2025, Vishal hoang Next Appt Details Follow Up: 3 Months, Reason: Provider Name:Milind Hanley , 07/26/2025 10:00:00 AM, [address] [facility] 36 [facility], [address], [place], [phone], Progress Notes * Young COYDOB: [birth year] (84 yo M)Acc No.[id number]:04/25/2025 Patient: Young BORREGO Provider: Gonzalo Corona M.D. :1940 A ge:84 Y S ex:Male Date:04/25/2025 Address:[address] [place] [address] [place], [id number] Subjective: * Chief Complaints: * 1 . 2 week f/u. * HPI: H PI: 84 year old male presents with c/o Here for follow up on: l ab work. Pt states he is here for 2 week follow up on lab results. * Medical History: C oronary Artery Disease, [...] Hospitalization/Major Diagno stic Procedure: B ack Pain- [facility] ER 04/09/2012, Heart Attack- [place] 05/08/2013, Kidney Stones , Dizziness- [facility] 10/18/2017, Dizziness- [facility] 10/19-, Unable to Urinate- Foly Cath- [facility] ER 08/20/2020, Unable to Urinate- Foly Fath- [facility] ER 04/22/2021. * Family History: F [...] Alcohol: Yes, occasional. * Medications: T aking Albuterol Sulfate 108 (90 Base) MCG/ACT Aerosol Powder Breath Activated 1 puff as needed Inhalation every 4 hrs , Taking Multiple Vitamin - Capsule 1 cap(s) orally once a day , Taking Famotidine 40 MG Tablet 1 tab(s) orally once a day (at bedtime) , Taking Albuterol Sulfate HFA 108 (90 Base) MCG/ACT Aerosol Solution 1 puff as needed Inhalation every 4 hrs, prn , Taking Tamsulosin HCl 0.4 MG Capsule 1 cap(s) orally twice a day , Taking Lisinopril 2.5 MG Tablet 1 tab(s) orally once a day , Taking Metoprolol Tartrate 25 MG Tablet 1 tab(s) orally 2 times a day , Not-Taking Furosemide 20 MG Tablet 1 tab(s) orally once a day as needed , Discontinued Azithromycin 250 MG Tablet as directed Orally , Discontinued Amoxicillin-Pot Clavulanate 875-125 MG Tablet 1 tablet Orally every 12 hrs , Medication List reviewed and reconciled with the patient * Allergies: N .K.D.A. Objective: * Vitals: W t: 161.0, Temp: 97.9, BP: 110/68, HR: 66, Nurse: SF, Ht: 70, BMI:23.1. * Examination: G eneral Examination: General Appearance: N AD. H eart: R SR. L ungs:?clear to auscultation. E xtremities: n o leg edema. Assessment: * Assessment: 1. S cirilogeraldo 3b chronic kidney disease - N18.32 (Primary) Plan: * Treatment: * Procedure Codes: G 2211 Complex e/m visit add on, 1036F TOBACCO NON-USER, G8783 BP SCR PRFRM RCMDD DEFIND SCR INTVL, G8752 MOST RECENT SYSTOLIC BP < 140MM HG, G8754 MOST RECENT DIASTOLIC BP < 90MM HG, 3074F SYST BP LT 130 MM HG, 3078F DIAST BP < 80 MM HG * Follow Up: 3 Months * Images: Billing Information: * Visit Code: 27315 Office Visit, Est Pt., Level 3. * Procedure Codes: G2211 Complex e/m visit add on. 1036F TOBACCO NON-USER. G8783 BP SCR PRFRM RCMDD DEFIND SCR INTVL. G8752 MOST RECENT SYSTOLIC BP < 140MM HG. G8754 MOST RECENT DIASTOLIC BP < 90MM HG. 3074F SYST BP LT 130 MM HG. 3078F DIAST BP < 80 MM HG. * Electronic signature of Janeth Corona MD on 06/25/2025 at 07:39 PM EST Sign off status: Pending * Provider: Gonzalo Corona M.D. Date: Generated for Mehdi brown/Ramsey/Abdirahman on: 07:39 PM EST History and Physical Notes * HPI (History of Present Illness) Category Sub-Category Detail Notes Category Not es HPI Here for follow up on: lab work. Pt states he is here for 2 week follow up on lab results Examination Category Sub-Category Detail Notes Category Not es General Examination Heart: RSR Lungs: clear to auscultatio n Extremities: no leg edema General Appearance: NAD Consultation Request Notes Referral Date Referring Provider Referred Provider Not es 04/25/2025 Milind Corona Mark
--- OUTSIDE RECORDS SUMMARY | 2025-05-02 05:45 | XMS_ITS ---
Author Organization [facility] Address 1210 [facility] [address] [place] [id number] Care Team Providers Care Procedures Analyst Name Role Phone Milind Corona Primary Care Provider Allergies No Known Allergies REASON FOR VISIT pre op clearance Medications Medication SIG (Take, Route, Frequency, Duration) Notes Start Date End Date Status Furosemide 20 MG 1 tab(s) orally once a day as needed; Duration: 90 days Not-Taking Tamsulosin HCl 0.4 MG 1 cap(s) orally tw ice a day; Duration: 90 days Active Lisinopril 2.5 MG 1 tab(s) orally once a day; Duration: 90 days Active Metoprolol Tartrate 25 MG 1 tab(s) orally 2 times a day; Duration: 90 days Active Jardiance 10 MG 1 tablet Orally Once a day; Duration: 90 days 04/25/2025 Active Albuterol Sulfate 108 (90 Base) MCG/ACT 1 puff as needed Inhalation every 4 hrs Active Multiple Vitamin - 1 cap(s) orally once a day Active Famotidine 40 MG 1 tab(s) orally once a day (at bedtime); Duration: 90 days Active Albuterol Sulfate HFA 108 (90 Base) MCG/ACT 1 puff as needed Inhalation every 4 hrs, prn Active Vital Signs Heart Rate 118/68 /min 05/02/2025 Height 70 in 05/02/2025 Weight 159.0 lbs 05/02/2025 BMI 22.81 kg/m2 05/02/2025 Encounters Encounter Location Date Provider Diagnosis [facility] [address] [facility] [address] [place] [id number] 05/02/2025 Milind Corona Pre-op exam Z01.818 ; 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 ; 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 Patient has had cardiac clearance. He is of increased, but acceptable risk for proposed surgery. 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) 05/02/2025 Coronary artery disease involving kaibab coronary artery of kaibab heart without angina pectoris (ICD-10 - I25.10) 05/02/2025 Essential hypertension (ICD-10 - I10) 05/02/2025 Hyperlipidemia, unspecified hyperlipidemia (ICD-10 - E78.5) 05/02/2025 Chronic obstructive pulmonary disease, unspecified COPD type (ICD-10 - J44.9) 05/02/2025 Atrial fibrillation, unspecified type (ICD-10 - I48.91) 05/02/2025 CHF (congestive heart failure) (ICD-10 - I50.9) 05/02/2025 Stage 3a chronic kidney disease (ICD-10 - N18.31) Plan Of Treatment Treatment Notes Assessment Notes Pre-op exam Results from recent testing at [facility] and cardiology not reviewed in office today. Patient has had cardiac clearance. He is of increased, but acceptable risk for proposed surgery. Next Appt Details Follow Up: as scheduled,and prn, Reason: Provider Name:Milind campo, 07/26/2025 10:00:00 AM, [address], [address], [place], [phone], Progress Notes * Luca COY: 8 (84 yo M)Acc No.[id number]:05/02/2025 Physical Patient: Young BORREGO Provider: Gonzalo Corona M.D. :1940 A ge:84 Y S ex:Male Date:05/02/2025 [facility] [place] [id number] Subjective: * Chief Complaints: * 1 . Pre op clearance. * HPI: H PI: 84 year old male presents with c/o Here for follow up on: P re-op physical. Oral lesion removal for hyperkeratosis . Dr. Raymundo is doing general anesthesia and just needs a note or office visit report stating that pt is cleared for surgery. * Medical History: C oronary Artery Disease, [...] Hospitalization/Major Diagno stic Procedure: B ack Pain- [facility] ER 04/09/2012, Heart Attack- [place] 05/08/2013, Kidney Stones , Dizziness- [facility] 10/18/2017, Dizziness- [facility] 10/19-, Unable to Urinate- Foly Cath- [facility] ER 08/20/2020, Unable to Urinate- Foly Fath- [facility] ER 04/22/2021. * Family History: F [...] orally 2 times a day , Taking Jardiance 10 MG Tablet 1 tablet Orally Once a day , Not-Taking Furosemide 20 MG Tablet 1 tab(s) orally once a day as needed , Medication List reviewed and reconciled with the patient * Allergies: N .K.D.A. Objective: * Vitals: W t: 159.0, Temp: 97.5, HR: 118/68, Nurse: ERICK, Ht: 70, BMI:22.81. * Examination: G eneral Examination: General Appearance: N AD. H eart: R SR. L ungs:?clear to auscultation. E xtremities: n o leg edema. Assessment: * Assessment: 1. P re-op exam - Z01.818 (Primary) 2 . S quamous cell carcinoma of lip - C44.02 3 . C oronary artery disease involving kaibab coronary artery of kaibab heart without angina pectoris - I25.10 4 . E ssential hypertension - I10 & #160; 5 . H yperlipidemia, unspecified hyperlipidemia - E78.5 6 . C hronic obstructive pulmonary disease, unspecified COPD type - J44.9 7 . A trial fibrillation, unspecified type - I48.91 8 . C HF (congestive heart failure) - I50.9 9. S tage 3a chronic kidney disease - N18.31 Plan: * Treatment: * Procedure Codes: G 2211 Complex e/m visit add on, 1036F TOBACCO NON-USER, G8950 PREHTN/HTN BP DOC INDCD F/U DOC, G8752 MOST RECENT SYSTOLIC BP < 140MM HG, G8754 MOST RECENT DIASTOLIC BP < 90MM HG, 3074F SYST BP LT 130 MM HG, 3078F DIAST BP < 80 MM HG * Follow Up: a s scheduled,and prn * Images: Billing Information: * Visit Code: 23909 Office Visit, Est Pt., Level 4. * Procedure Codes: G2211 Complex e/m visit add on. 1036F TOBACCO NON-USER. G8950 PREHTN/HTN BP DOC INDCD F/U DOC. G8752 MOST RECENT SYSTOLIC BP < 140MM HG. G8754 MOST RECENT DIASTOLIC BP < 90MM HG. 3074F SYST BP LT 130 MM HG. 3078F DIAST BP < 80 MM HG. * Electronic signature of Janeth Corona MD on 06/25/2025 at 07:40 PM EST Sign off status: Pending * Provider: Gonzalo Corona M.D. Date: 07/02/2024 Generated for Mehdi brown/Ramsey/Amyitting on: 07:40 PM EST History and Physical Notes * HPI (History of Present Illness) Category Sub-Category Detail Notes Category Not es HPI Here for follow up on: Pre-op ph ysical. Oral lesion removal for hyperkeratosis . Dr. Raymundo is doing general anesthesia and just needs a note or office visit report stating that pt is cleared for surgery Examination Category Sub-Category Detail Notes Category Not es General Examination Heart: RSR Lungs: clear to auscultatio n Extremities: no leg edema General Appearance: NAD
--- OUTSIDE RECORDS SUMMARY | 2025-05-04 10:40 | XMS_ITS | Encounter Summary ---
Author Organization [facility] Address [address] [place] [address] Care Team Providers Care Stitchdown Thread Laster Name Role Phone Milind Corona MD Primary Care Provider Reason for Visit * Reason Comments Follow-up Patient is a 84 year old male that presents to the clinic on this date for a follow up for CKD, Patient states he is having pain in left knee. Patient reports he is having concerns with blood in his urine. He says the blood in his urine started Wednesday at 3pm. Encounter Details Date Type Department Care Team (Latest Contact Info) Description 05/04/2025 10:40 AM EST Office Visit [facility] [address] [place] [id number] Vishal Boogie MD [address] [place] [phone] Exertional rhabdomyolysis (Primary Dx); Stage 3b chronic kidney disease (CMS/HCC); Anemia due to stage 3b chronic kidney disease; Microscopic hematuria; Persistent proteinuria; Hyperkalemia; Benign prostatic hyperplasia without lower urinary tract symptoms; Chronic kidney disease-mineral and bone disorder Social History Tobacco Use Types Packs/Day Years Used Date Smoking Tobacco: Former Passive Smoke Exposure: Past Smokeless Tobacco: Never Tobacco Cessation:Counseling Given: Not Answered Sex and Gender Information Value Date Recorded Sex Assigned at Not on file Legal Sex Male 6:56 PM EDT Gender Identity Not on file Sexual Orientation Not on file documented as of this encounter Last Filed Vital Signs Vital Sign Reading Time Taken Comments Blood Pressure 130/70 05/04/2025 10:51 AM EST Pulse 60 05/04/2025 10:51 AM EST Temperature - - Respiratory Rate 18 05/04/2025 10:51 AM EST Oxygen Saturation 95% 05/04/2025 10:51 AM EST Inhaled Oxygen Concentration - - Weight 71.8 kg (158 lb 3.2 oz) 05/04/2025 10:51 AM EST Height 175.3 cm (5' 9 ) 05/04/2025 10:51 AM EST Body Mass Index 23.36 05/04/2025 10:51 AM EST documented in this encounter Functional Status * BP Answer Date of Assessment Author 130/70 05/04/2025 10:51 AM EST Mk Linaresitha * Pulse Answer Date of Assessment Author 60 05/04/2025 10:51 AM EST Vijay Dasia * Resp Answer Date of Assessment Author 18 05/04/2025 10:51 AM EST Vijay Dasia * SpO2 Answer Date of Assessment Author 95 05/04/2025 10:51 AM EST Vijay Dasia * Height Answer Date of Assessment Author 69 05/04/2025 10:51 AM EST Mk Linaresitha * Weight Answer Date of Assessment Author 2531.2 05/04/2025 10:51 AM EST Vijay Dasia * BMI (Calculated) Answer Date of Assessment Author 23.4 05/04/2025 10:51 AM EST Mk Linaresitha * Percent Excess Weight Loss Answer Date of Assessment Author 0 05/04/2025 10:51 AM EST Vijay Dasia * Total Weight Change Percent Answer Date of Assessment Author 2222 05/04/2025 10:51 AM EST Vijay Dasia * Weight Change Since Preop Answer Date of Assessment Author 71.74 05/04/2025 10:51 AM EST Vijay Dasia * Initial Excess Weight Answer Date of Assessment Author -72.57 05/04/2025 10:51 AM EST Vijay Dasia * IBW in lbs (Bariatric) Answer Date of Assessment Author 160 05/04/2025 10:51 AM EST Mk Linaresitha * Weight Change Since Last Visit Answer Date of Assessment Author 71.74 05/04/2025 10:51 AM EST Vijay Dasia * IBW in kg (Bariatric) Answer Date of Assessment Author 72.57 05/04/2025 10:51 AM EST Mk Linaresitha * Percent of IBW Answer Date of Assessment Author 3,487.94 05/04/2025 10:51 AM EST Linares, Dasia * EBW (kg) Answer Date of Assessment Author 2,529.14 05/04/2025 10:51 AM EST L[place], Dasia * EBW (lbs) Answer Date of Assessment Author 2,521.2 05/04/2025 10:51 AM EST Linares, Dasia * Weight Change 24 hrs Answer Date of Assessment Author 2.359 05/04/2025 10:51 AM EST Linares, Dasia * BSA (Calculated - sq m) Answer Date of Assessment Author 1.87 05/04/2025 10:51 AM EST Linares, Dasia * BMI (Calculated) Answer Date of Assessment Author 23.35 05/04/2025 10:51 AM EST Lina[place], Dasia * BP Location Answer Date of Assessment Author Right arm 05/04/2025 10:51 AM EST Lina[place], Dasia * IBW/kg (Calculated) Male Answer Date of Assessment Author 70.7 05/04/2025 10:51 AM EST L[place], Dasia * IBW/kg (Calculated) Female Answer Date of Assessment Author 66.2 05/04/2025 10:51 AM EST Lina[place], Dasia * Restart Vitals Timer Answer Date of Assessment Author Yes 05/04/2025 10:51 AM EST L[place], Dasia * IBW/kg (Calculated) Answer Date of Assessment Author 70.7 05/04/2025 10:51 AM EST L[place], Dasia * Weight in (lb) to have BMI = 25 Answer Date of Assessment Author 168.9 05/04/2025 10:51 AM EST L[place], Dasia * BMI (Calculated) Answer Date of Assessment Author 23.4 05/04/2025 10:51 AM EST [place], Dasia * Percent Excess Weight Loss Answer Date of Assessment Author 0 05/04/2025 10:51 AM EST [place], Dasia * Weight Change Since Preop Answer Date of Assessment Author 71.76 05/04/2025 10:51 AM EST [place], Dasia * Initial Excess Weight Answer Date of Assessment Author -72.57 05/04/2025 10:51 AM EST [place], Dasia * IBW in kg (Bariatric) Answer Date of Assessment Author 72.57 05/04/2025 10:51 AM EST Vijay Dasia * IBW in lb (Bariatric) Answer Date of Assessment Author 160 05/04/2025 10:51 AM EST Vijay Dasia * Weight Change Since Last Visit Answer Date of Assessment Author 71.76 05/04/2025 10:51 AM EST Vijay Dasia * Percent of IBW Answer Date of Assessment Author 98.88 05/04/2025 10:51 AM EST L[place], Dasia * EBW (kg) Answer Date of Assessment Author -0.83 05/04/2025 10:51 AM EST Vijay Dasia * EBW (lb) Answer Date of Assessment Author -1.8 05/04/2025 10:51 AM EST Vijay Dasia * Difference in Weight Since Last Visit Answer Date of Assessment Author 2.36 05/04/2025 10:51 AM EST Vijay Dasia * IBW/kg (Calculated) Answer Date of Assessment Author 70.7 05/04/2025 10:51 AM EST Vijay Dasia * Adult Low Range Vt 6mL/kg Answer Date of Assessment Author 424.2 05/04/2025 10:51 AM EST Vijay Dasia * Adult Moderate Range Vt 8mL/kg Answer Date of Assessment Author 565.6 05/04/2025 10:51 AM EST Vijay, Dasia * Adult High Range Vt 10mL/kg Answer Date of Assessment Author 707 05/04/2025 10:51 AM EST Vijay Dasia * Pain Score Answer Date of Assessment Author 8 05/04/2025 10:53 AM EST Vijay Dasia * Patient Position Answer Date of Assessment Author Sitting 05/04/2025 10:51 AM EST Vijay Dasia * Pain Screening/Additional Assessments Question Answer Date of Assessment Author Pain Screening/Assessments Pain Screening 05/04/2025 1 0:53 AM EST Vijay Dasia * Pain Screening Answer Date of Assessment Author 0-10 05/04/2025 10:53 AM EST Mk Linaresitha * BP Answer Date of Assessment Author 130/70 05/04/2025 10:51 AM EST Vijay Dasia * Pulse Answer Date of Assessment Author 60 05/04/2025 10:51 AM EST Vijay Dasia * Resp Answer Date of Assessment Author 18 05/04/2025 10:51 AM EST Vijay Dasia * SpO2 Answer Date of Assessment Author 95 05/04/2025 10:51 AM EST Vijay, Dasia * Height Answer Date of Assessment Author 69 05/04/2025 10:51 AM EST Vijay Dasia * Weight Answer Date of Assessment Author 2531.2 05/04/2025 10:51 AM EST [place], Dasia * BSA (Calculated - sq m) Answer Date of Assessment Author 1.87 05/04/2025 10:51 AM EST Vijay, Dasia * BMI (Calculated) Answer Date of Assessment Author 23.35 05/04/2025 10:51 AM EST Vijay Dasia * BP Location Answer Date of Assessment Author Right arm 05/04/2025 10:51 AM EST Vijay Dasia * Restart Vitals Timer Answer Date of Assessment Author Yes 05/04/2025 10:51 AM EST Vijay Dasia * Weight in (lb) to have BMI = 25 Answer Date of Assessment Author 168.9 05/04/2025 10:51 AM EST Vijay Dasia * Pain Score Answer Date of Assessment Author 8 05/04/2025 10:53 AM EST Vijay Dasia * Patient Position Answer Date of Assessment Author Sitting 05/04/2025 10:51 AM EST Vijay Dasia documented as of this encounter Mental Status * BP Answer Entry Date Author 130/70 05/04/2025 10:51 AM EST Vijay Dasia * Pulse Answer Entry Date Author 60 05/04/2025 10:51 AM EST Vijay, Dasia * Resp Answer Entry Date Author 18 05/04/2025 10:51 AM EST Vijay Dasia * SpO2 Answer Entry Date Author 95 05/04/2025 10:51 AM EST Vijay Dasia * Height Answer Entry Date Author 69 05/04/2025 10:51 AM EST Vijay Dasia * Weight Answer Entry Date Author 2531.2 05/04/2025 10:51 AM EST Vijay Dasia * BMI (Calculated) Answer Entry Date Author 23.4 05/04/2025 10:51 AM EST L[place], Dasia * Percent Excess Weight Loss Answer Entry Date Author 0 05/04/2025 10:51 AM EST [place], Dasia * Total Weight Change Percent Answer Entry Date Author 2222 05/04/2025 10:51 AM EST [place], Dasia * Weight Change Since Preop Answer Entry Date Author 71.74 05/04/2025 10:51 AM EST [place], Dasia * Initial Excess Weight Answer Entry Date Author -72.57 05/04/2025 10:51 AM EST [place], Dasia * IBW in lbs (Bariatric) Answer Entry Date Author 160 05/04/2025 10:51 AM EST [place], Dasia * Weight Change Since Last Visit Answer Entry Date Author 71.74 05/04/2025 10:51 AM EST [place], Dasia * IBW in kg (Bariatric) Answer Entry Date Author 72.57 05/04/2025 10:51 AM EST [place], Dasia * Percent of IBW Answer Entry Date Author 3,487.94 05/04/2025 10:51 AM EST [place], Dasia * EBW (kg) Answer Entry Date Author 2,529.14 05/04/2025 10:51 AM EST [place], Dasia * EBW (lbs) Answer Entry Date Author 2,521.2 05/04/2025 10:51 AM EST [place], Dasia * Weight Change 24 hrs Answer Entry Date Author 2.359 05/04/2025 10:51 AM EST [place], Dasia * BSA (Calculated - sq m) Answer Entry Date Author 1.87 05/04/2025 10:51 AM EST [place], Dasia * BMI (Calculated) Answer Entry Date Author 23.35 05/04/2025 10:51 AM EST [place], Dasia * BP Location Answer Entry Date Author Right arm 05/04/2025 10:51 AM EST [place], Dasia * IBW/kg (Calculated) Male Answer Entry Date Author 70.7 05/04/2025 10:51 AM EST [place], Dasia * IBW/kg (Calculated) Female Answer Entry Date Author 66.2 05/04/2025 10:51 AM EST [place], Dasia * Restart Vitals Timer Answer Entry Date Author Yes 05/04/2025 10:51 AM EST [place], Dasia * IBW/kg (Calculated) Answer Entry Date Author 70.7 05/04/2025 10:51 AM EST [place], Dasia * Restart Pain Assessment Timer Answer Entry Date Author Yes 05/04/2025 10:53 AM EST [place], Dasia * Weight in (lb) to have BMI = 25 Answer Entry Date Author 168.9 05/04/2025 10:51 AM EST [place], Dasia * BMI (Calculated) Answer Entry Date Author 23.4 05/04/2025 10:51 AM EST [place], Dasia * Percent Excess Weight Loss Answer Entry Date Author 0 05/04/2025 10:51 AM EST [place], Dasia * Weight Change Since Preop Answer Entry Date Author 71.76 05/04/2025 10:51 AM EST [place], Dasia * Initial Excess Weight Answer Entry Date Author -72.57 05/04/2025 10:51 AM EST [place], Dasia * IBW in kg (Bariatric) Answer Entry Date Author 72.57 05/04/2025 10:51 AM EST L[place], Dasia * IBW in lb (Bariatric) Answer Entry Date Author 160 05/04/2025 10:51 AM EST [place], Dasia * Weight Change Since Last Visit Answer Entry Date Author 71.76 05/04/2025 10:51 AM EST L[place], Dasia * Percent of IBW Answer Entry Date Author 98.88 05/04/2025 10:51 AM EST [place], Dasia * EBW (kg) Answer Entry Date Author -0.83 05/04/2025 10:51 AM EST L[place]res, Dasia * EBW (lb) Answer Entry Date Author -1.8 05/04/2025 10:51 AM EST L[place]res, Dasia * Difference in Weight Since Last Visit Answer Entry Date Author 2.36 05/04/2025 10:51 AM EST L[place], Dasia * IBW/kg (Calculated) Answer Entry Date Author 70.7 05/04/2025 10:51 AM EST L[place]res, Dasia * Adult Low Range Vt 6mL/kg Answer Entry Date Author 424.2 05/04/2025 10:51 AM EST L[place]res, Dasia * Adult Moderate Range Vt 8mL/kg Answer Entry Date Author 565.6 05/04/2025 10:51 AM EST [place], Dasia * Adult High Range Vt 10mL/kg Answer Entry Date Author 707 05/04/2025 10:51 AM EST L[place]res, Dasia * Pain Score Answer Entry Date Author 8 05/04/2025 10:53 AM EST L[place]res, Dasia * BP Cuff Size Answer Entry Date Author Adult long 05/04/2025 10:51 AM EST L[place], Dasia * Patient Position Answer Entry Date Author Sitting 05/04/2025 10:51 AM EST L[place]res, Dasia * Pain Screening Answer Entry Date Author 0-10 05/04/2025 10:53 AM EST [place], Dasia documented in this encounter Miscellaneous Notes * Progress Notes - Vishal Boogie MD - 05/04/2025 10:40 AM EST Images from the original note were not included. [facility] Visit Patient: Young Coy Primary Care Provider: Milind Corona MD Reason for visit/chief complaint: CKD HPI/Subjective Young Coy is a 84 y.o. male with a PMH of prostate cancer (surgery and radiation 12/2020), BPH, CAD s/p CABG x3, SCC, GERD, gout, HTN, past nephrolithiasis x2 (last stone 1995), and CKD 3. 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 Doing well today. He walked ~15 miles during an auction and developed severe left sided leg pain, hardly able to walk the next day and his urine turned dark red. He has recovered and urine has returned to normal straw yellow/clear color. Otherwise no changes in health. No swelling. ROS Review of Systems Denies urinary symptoms Denies leg swelling History: Past Medical History: Diagnosis Date BPH (benign prostatic hyperplasia) Coronary artery disease GERD (gastroesophageal reflux disease) Gout Hypertension Oral cancer Prostate cancer (CMS/HCC) Patient Active Problem List Diagnosis Stage 3 chronic kidney disease (CMS/HCC) Chronic kidney disease-mineral and bone disorder Coronary artery disease involving coronary bypass graft BPH (benign prostatic hyperplasia) Prostate cancer ([facility]/HCC) Essential hypertension Anemia due to stage 3b chronic kidney disease Microscopic hematuria Hyperkalemia Past Surgical History: Procedure Laterality Date CORONARY ARTERY BYPASS GRAFT MOUTH SURGERY PROSTATE SURGERY Family History Problem Relation Name Age of Onset Heart disease Mother Social History Socioeconomic History Marital status: Spouse name: Not on file Number of children: Not on file Years of education: Not on file Highest education level: Not on file Occupational History Not on file Tobacco Use Smoking status: Former Passive exposure: Past Smokeless tobacco: Never Substance and Sexual Activity Alcohol use: Not on file Drug use: Not on file Sexual activity: Not on file Other Topics Concern Not on file Social History Narrative Not on file Social Drivers of Health Financial Resource Strain: Not on file Food Insecurity: Not on file Transportation Needs: Not on file Physical Activity: Not on file Stress: Not on file Social Connections: Unknown (04/08/2023) Received from [facility] Family and Community Support Help with Day-to-Day Activities: Not on file Lonely or Isolated: Not on file Intimate Partner Violence: Unknown (04/08/2023) Received from [facility] Abuse Screen Unsafe at Home or Work/School: Not on file Feels Threatened by Someone?: Not on file Does Anyone Keep You from Contacting Others or Doint Things Outside the Home?: Not on file Physical Sign of Abuse Present: Not on file Housing Stability: Unknown (04/08/2023) Received from [facility] Housing Stability Current Living Arrangements: Not on file Potentially Unsafe Housing Conditions: Not on file No Known Allergies Medications: Current Medications: Current Outpatient Medications Medication Instructions albuterol 108 (90 Base) MCG/ACT inhaler INHALE 1 TO 2 PUFFS BY MOUTH EVERY 4 HOURS NEEDED FOR SHORTNESS OF BREATH OR WHEEZING aspirin 81 mg, Daily atorvastatin (LIPITOR) 20 mg, Daily famotidine (Pepcid) 40 MG tablet Daily furosemide (Lasix) 20 MG tablet No dose, route, or frequency recorded. lisinopril 2.5 MG tablet magnesium 60 mg, 2 times daily metoprolol tartrate (Lopressor) 25 MG tablet 2 times daily MULTIPLE VITAMIN PO Daily tamsulosin (FLOMAX) 0.4 mg, Daily Objective Visit Vitals BP 130/70 (BP Location: Right arm, Patient Position: Sitting, BP Cuff Size: Adult long) Pulse 60 Resp 18 Ht 1.753 m (5' 9 ) Wt 71.8 kg (158 lb 3.2 oz) SpO2 95% BMI 23.36 kg/m?? Smoking Status Former BSA 1.87 m?? Heart Rate: [60] 60 Resp: [18] 18 BP: (130)/(70) 130/70 Physical Exam: Physical Exam Constitutional: Appearance: Normal appearance. He is normal weight. HENT: Head: Normocephalic. Right Ear: External ear normal. Left Ear: External ear normal. Nose: Nose normal. Mouth/Throat: Mouth: Mucous membranes are moist. Pharynx: Oropharynx is clear. Eyes: Conjunctiva/sclera: Conjunctivae normal. Pupils: Pupils are equal, round, and reactive to light. Cardiovascular: Rate and Rhythm: Normal rate. Pulses: Normal pulses. Heart sounds: Normal heart sounds. Pulmonary: Effort: Pulmonary effort is normal. Abdominal: General: Abdomen is flat. Musculoskeletal: General: Normal range of motion. Cervical back: Normal range of motion. Right lower leg: No edema. Left lower leg: No edema. Skin: General: Skin is warm and dry. Capillary Refill: Capillary refill takes less than 2 seconds. Neurological: General: No focal deficit present. Mental Status: He is alert and oriented to person, place, and time. Mental status is at baseline. Psychiatric: Mood and Affect: Mood normal. Behavior: Behavior normal. Thought Content: Thought content normal. Judgment: Judgment normal. Laboratory: LAB RESULTS Renal Panel: Lab Results Component Value Date NA 143 03/27/2021 K 5.5 (H) 03/27/2021 CL 111 (H) 03/27/2021 CO2 24 03/13/2021 BUN 39 (H) 03/27/2021 CREATININE 1.76 (H) 03/27/2021 EGFR 37 (L) 03/27/2021 ALBUMIN 4.40 03/27/2021 CBC: Lab Results Component Value Date WBC 5.54 03/27/2021 RBC 4.28 03/27/2021 HGB 12.4 (L) 03/27/2021 HCT 37.7 03/27/2021 PLT 155 03/27/2021 MCV 88.1 03/27/2021 MCH 29.0 03/27/2021 MCHC 32.9 03/27/2021 RDW 12.9 03/27/2021 Iron studies: No results found for: FERRITIN , IRON , IRONSAT , TIBC Urine studies: No results found for: CAR , CAUR , CALCIUMUR , PHOSUR , [id number] , [id number] , CREATUR MBD: Lab Results Component Value Date PTH 104.7 03/13/2021 CALCIUM 9.3 03/27/2021 VITAMIN D 25 No results found for: VITD25 VITAMIN D 1,25 No results found for: VITD32 Paraproteinemia Labs: No results found for: SPEP , [id number] Nutritional: No results found for: PREALBUMIN , VITD25 Endocrine profile: No results found for: TESTOSTERONE , TESTOST , FSH , LH , PROLACTIN , TSH , [id number] , FREET4 , CORTISOL Laboratory studies from 09/25/2024 CBC: WBC 4.3 (L), HGB 12.7 (L), PLT 130 (L) Na 139, K 4.9, Cl 108, CO2 27, BUN 34, Creatinine 1.70, GFR 38 ml/min Ca 8.6, Phos 2.7, Alb 3.9 Urine creatinine 66, urine protein 114 (H) Ratio UPCR 1.7 mg/mg UA: 1+ protein, 1+ blood 3-5 RBC CBC: WBC 5.3, HGB 12.3, PLT 134 NA: 144, K 5.1, Cl 109, CO2 27, BUN 35, Cr 1.8, GFR 36, Glu 81, Ca 8.3, Alb 3.4, Phos 2.9 Ur cr 135, urmicroalb 573 ratio 424 UA: protien 2+, blood 3+, rbc 0-3 bact 3+ Ipth 144 vit d 35.3 Imaging: No recent kidney imaging MRI pelvis showed radiation seeds in prostate 01/09/2021 Impression & Plan: 84 y.o. M with PMH of prostate cancer (surgery and radiation 12/2020), BPH, CAD s/p CABG x3, SCC, GERD, gout, HTN, past nephrolithiasis x2 (last stone 1995), and CKD 3. #CKD Stage 3b - STABLE #Hyperkalemia - resolved #Persistent proteinuria Etiology: due to cardiovascular disease, prior heavy NSAID use Baseline serum creatinine: 1.7-2.0 Most recent Scr: 1.8 mg/dL eGFR 36 mL/min Electrolytes significant for hyperkalemia 5.1 is improved Normal acid/base, normal volume status Urine: +proteinuria w/ UPCR 0.55 --> 1.7 mg/mg --> UACR 442 Anatomy: has BPH on Flomax Risk factor reduction to slow progression of kidney disease: -BP Control goal BP <130/80 -Lifestyle management: ---Maintain healthy weight: Body mass index is 23.36 kg/m??. ---Diet recommendations: Heart healthy and Low sodium <2g/day ---Daily exercise 20-30 minutes as tolerated -Avoid NSAIDs -MARIO blockade: lisinopril 2.5mg daily -SGLT2 inhibitor: Stopped Jardiance due to COST #HTN in CKD -Controlled at goal <130/80 -lisinopril 2.5mg daily -metoprolol 25mg twice daily -furosemide 20mg daily #Anemia in CKD -Stable, at goal >10 g/dl #CKD Bone and Mineral Disease -check pth and vit d q6 months Impression, recommendations and plan: Status of kidney disease: STABLE -UA 3+ blood but negative RBC consistent with myoglobulinuria 2.2 rhabdomyolysis -Creatinine is 1.8 with eGFR at 36. Electroltes stable -Noted proteinuria. SPEP/FLK pending, sable kidney function. -continues to have hematuria w/ hx of prostate cancer/BPH, on aspirin on FLOMAX -Avoid NSAIDS RTC in 6 months with labs before visit Vishal Boogie MD Division of Nephrology [facility] ORDERS PLACED THIS ENCOUNTER Orders Placed This Encounter Procedures CBC W/O Differential Standing Status: Future Expected Date: 10/31/2025 Expiration Date: 11/05/2026 [facility] [place] [facility] [place] Immediate Urinalysis with reflex microscopic (Culture NOT Included) Standing Status: Future Expected Date: 10/31/2025 Expiration Date: 11/05/2026 [place] to patient [place] [facility] [place] Immediate Vitamin D 25 Hydroxy Standing Status: Future Expected Date: 10/31/2025 Expiration Date: 11/05/2026 Release to patient in MyChart: Immediate PTH Intact Total Standing Status: Future Expected Date: 10/31/2025 Expiration Date: 11/05/2026 Release to patient in MyChart: Immediate Albumin-creatinine ratio, urine, random Standing Status: Future Expected Date: 10/31/2025 Expiration Date: 11/05/2026 [facility] Protein, Random, Urine with Creatinine Standing Status: Future Expected Date: 10/31/2025 Expiration Date: 11/05/2026 [facility]: Immediate Renal Function Panel, Plasma Standing Status: Future Expected Date: 10/31/2025 Expiration Date: 11/05/2026 [facility] Immediate Problem List Items Addressed This Visit Stage 3 chronic kidney disease (CMS/HCC) Relevant Orders CBC W/O Differential Urinalysis with reflex microscopic (Culture NOT Included) Vitamin D 25 Hydroxy PTH Intact Total Albumin-creatinine ratio, urine, random Protein, Random, Urine with Creatinine Renal Function Panel, Plasma Chronic kidney disease-mineral and bone disorder BPH (benign prostatic hyperplasia) Anemia due to stage 3b chronic kidney disease Microscopic hematuria Hyperkalemia Exertional rhabdomyolysis - Primary Relevant Orders CBC W/O Differential Urinalysis with reflex microscopic (Culture NOT Included) Vitamin D 25 Hydroxy PTH Intact Total Albumin-creatinine ratio, urine, random Protein, Random, Urine with Creatinine Renal Function Panel, Plasma Other Visit Diagnoses Persistent proteinuria documented in this encounter Plan of Treatment Upcoming Encounters Date Type Department Care Team (Late st Contact Info) Description 11/09/2025 12:00 PM EDT Office Visit [address] [place] [address] Vishal Boogie MD [address] [place] [phone] Scheduled Orders Name Type Priority Associated Diagnoses Orde r Schedule CBC W/O Differential Lab Routine Exertional rhabdomyolysis Stage 3b chronic kidney disease (CMS/HCC) Expected: 10/31/2025 (Approximate), Expires: 11/05/2026 Urinalysis with reflex microscopic (Culture NOT Included) Lab Routine Exertional rhabdomyolysis Stage 3b chronic kidney disease (CMS/HCC) Expected: 10/31/2025 (Approximate), Expires: 11/05/2026 Vitamin D 25 Hydroxy Lab Routine Exertional rhabdomyolysis Stage 3b chronic kidney disease ([facility]/HCC) Expected: 10/31/2025 (Approximate), Expires: 11/05/2026 PTH Intact Total Lab Routine Exertional rhabdomyolysis Stage 3b chronic kidney disease (CMS/HCC) Expected: 10/31/2025 (Approximate), Expires: 11/05/2026 Albumin-creatinine ratio, urine, random Lab Routine Exertional rhabdomyolysis Stage 3b chronic kidney disease ([facility]/HCC) Expected: 10/31/2025 (Approximate), Expires: 11/05/2026 Protein, Random, Urine with Creatinine Lab Routine Exertional rhabdomyolysis Stage 3b chronic kidney disease (CMS/HCC) Expected: 10/31/2025 (Approximate), Expires: 11/05/2026 Renal Function Panel, Plasma Lab Routine Exertional rhabdomyolysis Stage 3b chronic kidney disease (CMS/HCC) Expected: 10/31/2025 (Approximate), Expires: 11/05/2026 documented as of this encounter Visit Diagnoses Diagnosis Exertional rhabdomyolysis- Primary Stage 3b chronic kidney disease ([facility]) Anemia due to stage 3b chronic kidney disease Microscopic hematuria Persistent proteinuria Hyperkalemia Hyperpotassemia Benign prostatic hyperplasia without lower urinary tract symptoms Chronic kidney disease-mineral and bone disorder documented in this encounter Additional Health Concerns Assessment Noted Time A fall risk assessment has been complete d for the patient 09/30/2023 1:05 PM EDT A Body Mass Index follow-up plan has been documented for the patient 05/04/2025 11:23 AM EST documented as of this encounter Care Teams Stitchdown Thread Laster Relationship Specialty [place] [id number] PCP - General 03/20/21 documented as of this encounter
--- OUTSIDE RECORDS SUMMARY | 2025-06-01 05:00 | XMS_ITS ---
[facility] [address] [facility] [address] [place] [id number] Care Team Providers Care Thermal Cutter Helper Name Role Phone Milind Corona Primary Care Provider Allergies No Known Allergies Results Component Value Reference Range Notes CBC Fingerstick (in house) Reviewed date:06/01/2025 01:12:19 PM Interpretation: Performing Lab: Notes/Report: wbc 4.7 3.5 - 10 lym 20.9% 15 - 50 mid 6.0% 2 - 15 gran 73.1% 35 - 80 rbc 4.29 3.5 - 5.5 hgb 12.7 11.5 - 16.5 hct 39.1 35 - 55 mcv 91.1 75 - 100 mch 29.5 25 - 35 mchc 32.4 31 - 38 plat 112 100 - 400 REASON FOR VISIT SOA Medications Medication SIG (Take, Route, Frequency, Duration) Notes Start Date End Date Status Famotidine 40 MG 1 tab(s) orally once a day (at bedtime); Duration: 90 days Active Albuterol Sulfate HFA 108 (90 Base) MCG/ACT INHALE 1 PUFF BY MOUTH EVERY 4 HOURS NEEDED; Duration: 34 Active Metoprolol Tartrate 25 MG 1 tab(s) orall y 2 times a day; Duration: 90 days Active Jardiance 10 MG 1 tablet Orally Once a day; Duration: 90 days 04/25/2025 Active Trelegy Ellipta 100-62.5-25 MCG/ACT 1 puff Inhalation Once a day 06/01/2025 Active Multiple Vitamin - 1 cap(s) orally once a day Active Tamsulosin HCl 0.4 MG 1 cap(s) orally tw ice a day; Duration: 90 days Active Lisinopril 2.5 MG 1 tab(s) orally once a day; Duration: 90 days Active Vital Signs Blood pressure systolic 114 mm Hg 06/01/20 25 Blood pressure diastolic 68 mm Hg 025 Heart Rate 55 /min 06/01/2025 Height 70 in 06/01/2025 Weight 165 lbs 06/01/2025 BMI 23.67 kg/m2 06/01/2025 Encounters Encounter Location Date Provider Diagnosis [facility] [address] [facility] [address] [facility] [address] [place] [phone] 06/01/2025 Milind Corona SOB (shortness of breath) R06.02 and Chronic obstructive pulmonary disease, unspecified COPD type J44.9 Assessments Encounter Date Diagnosis (ICD Code) Assessment Notes Treatment Notes Treatment Clinical Notes Section Notes 06/01/2025 SOB (shortness of breath) (ICD-10 - R06.02) Need to schedule the overnight oximetrey with Ludivina 06/01/2025 Chronic obstructive pulmonary disease, unspecified COPD type (ICD-10 - J44.9) Plan Of Treatment Medication Medication Name Sig Start Date Stop Date Notes Trelegy Ellipta 100-62.5-25 MCG/ACT 1 puff Inhalation Once a day 06/01/2025 Treatment Notes Assessment Notes SOB (shortness of breath) Need to schedu le the overnight oximetrey with Ludivina Next Appt Details Follow Up: as scheduled,and prn, Reason: Provider Name:Milind Hanley ry, 07/26/2025 10:00:00 AM, [address] [facility] [address] [facility], [address], [place], [phone], Progress Notes * Young COYDOB: [birth year] (84 yo M)Acc No.[id number]:06/01/2025 Progress Notes Patient: Young BORREGO Provider: Gonzalo Corona M.D. :1940 A ge:84 Y S ex:Male Date:06/01/2025 Address:[address] [place] [address] [place], [id number] Subjective: * Chief Complaints: * 1 . SOA. * HPI: E NT/respiratory: 84 year old male presents with c/o facial pain/pressure P t complains of head pressure and congestion for about a month. Pt states he is short of breath and feels like he cannot get enough oxygen. Pt has been using Albuterol inhaler. Denies : cough. 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 * Surgical History: C olonoscopy, Polyps Removal, Neg Path 2003, C-Scope, Normal/ Dr. Rm 11/2010, Circumcision- Dr. Agustin 09/2012, Coronary Artery Bypass Graft - 3 Vessels 04/2013, Lip Skin Cancer Biopsy Biopsy 09/17/2020, Buccal Mass Removal 04/22/2021, Cyst removal from mouth 08/19/2022. * Hospitalization/Major Diagno stic Procedure: B ack Pain- [facility] 04/09/2012, Heart Attack- [place] 05/08/2013, Kidney Stones , Dizziness- [facility] 10/18/2017, Dizziness- [facility] 10/19-, Unable to Urinate- Foly Cath- [facility] 08/20/2020, Unable to Urinate- Foly Fath- [facility] 04/22/2021. * Family History: [...] cap(s) orally once a day , Taking Tamsulosin HCl 0.4 MG Capsule 1 cap(s) orally twice a day , Taking Lisinopril 2.5 MG Tablet 1 tab(s) orally once a day , Taking Metoprolol Tartrate 25 MG Tablet 1 tab(s) orally 2 times a day , Taking Jardiance 10 MG Tablet 1 tablet Orally Once a day , Taking Famotidine 40 MG Tablet 1 tab(s) orally once a day (at bedtime) , Taking Albuterol Sulfate HFA 108 (90 Base) MCG/ACT Aerosol Solution INHALE 1 PUFF BY MOUTH EVERY 4 HOURS NEEDED , Discontinued Furosemide 20 MG Tablet 1 tab(s) orally once a day as needed , Medication List reviewed and reconciled with the patient * Allergies: N .K.D.A. Objective: * Vitals: W t: 165, Temp: 97.8, BP: 114/68, HR: 55, O2 Sat: 95% on RA, Nurse: donta, Ht: 70, BMI:23.67. * Examination: G eneral Examination: General Appearance: N AD. H eart: s inus bradycardia. L ungs: c lear to auscultation. E xtremities: n o leg edema. ? Assessment: * Assessment: 1. S OB (shortness of breath) - R06.02 (Primary) 2 . C hronic obstructive pulmonary disease, unspecified COPD type - J44.9 Plan: * Treatment: Value Reference Range w bc 4.7 3.5 - 10 * l ym 20.9% 15 - 50 * m id 6.0% 2 - 15 * g ran 73.1% 35 - 80 * r bc 4.29 3.5 - 5.5 * h gb 12.7 11.5 - 16.5 * h ct 39.1 35 - 55 * m cv 91.1 75 - 100 * m ch 29.5 25 - 35 * m chc 32.4 31 - 38 * p lat 112 100 - 400 * Lissette Norman 06/01/2025 10:45: 05 AM EST > Provider reviewed results while patient in office. Notes: Need to schedule the overnight oximetrey with Ludivina??2.?Chronic obstructive pulmonary disease, unspecified COPD type? Start Trelegy Ellipta Aerosol Powder Breath Activated, 100-62.5-25 MCG/ACT, 1 puff, Inhalation, Once a day.?? * Procedure Codes: G 2211 Complex e/[place], [address] CAPILLARY BLOOD DRAW, 92295 CBC WITH AUTO DIFF, G8783 BP SCR PRFRM RCMDD DEFIND SCR INTVL, G8752 MOST RECENT SYSTOLIC BP < 140MM HG, G8754 MOST RECENT DIASTOLIC BP < 90MM HG, 3074F SYST BP LT 130 MM HG, 3078F DIAST BP < 80 MM HG * Follow Up: a s scheduled,and prn * Images: Billing Information: * Visit Code: 62907 Office Visit, Est Pt., Level 3. * Procedure Codes: G2211 Complex e/[place]. [address] CAPILLARY BLOOD DRAW. 41086 CBC WITH AUTO DIFF. G8783 BP SCR PRFRM RCMDD DEFIND SCR INTVL. G8752 MOST RECENT SYSTOLIC BP < 140MM HG. G8754 MOST RECENT DIASTOLIC BP < 90MM HG. 3074F SYST BP LT 130 MM HG. 3078F DIAST BP < 80 MM HG. * Electronic signature of Janeth Corona MD on 06/25/2025 at 07:39 PM EST Sign off status: Pending * Provider: Gonzalo Corona M.D. Date: 08/02/2024 Generated for Mehdi brown/Ramsey/Amyitting on: 07:39 PM EST History and Physical Notes * HPI (History of Present Illness) Category Sub-Category Detail Notes Category Not es ENT/respiratory facial pain/pressure Pt complain s of head pressure and congestion for about a month. Pt states he is short of breath and feels like he cannot get enough oxygen. Pt has been using Albuterol inhaler cough Examination Category Sub-Category Detail Notes Category Not es General Examination Heart: sinus bradycardia Lungs: clear to auscultatio n Extremities: no leg edema General Appearance: NAD
[2025-06-25] VITALS (7 sets, daily range): BP systolic 152–182; BP diastolic 80–98; PULSE 66–90; RESP 20–25; TEMP 35.9–36.2; O2SAT 95–98
--- NOTE | 2025-06-25 19:32 | CT_ITS ---
PROCEDURE INFORMATION: Exam: CT Head Without Contrast Exam date and time: 06/25/2025 7:29 PM Age: 84 years old Clinical indication: Stroke-like symptoms; Right facial droop; Generalized weakness; Additional info: Possible stroke TECHNIQUE: Imaging protocol: Computed tomography of the head without contrast. Radiation optimization: All CT scans at this facility use at least one of these dose optimization techniques: automated exposure control; mA and/or kV adjustment per patient size (includes targeted exams where dose is matched to clinical indication); or iterative reconstruction. Other technique: STROKE PROTOCOL was implemented. COMPARISON: CT HEAD/BRAIN WO CON 04/04/2025 8:14 AM FINDINGS: Brain: There is hypodensity in the left frontal jesus radiata extending to the left basal ganglia and subinsular region suspicious for ischemia. There is a hyperdense M1 segment left MCA suspicious for thrombus. There is no mass effect or midline shift seen. No acute hemorrhage. Cerebral ventricles: No significant ventriculomegaly. Paranasal sinuses: Visualized paranasal sinuses are clear. Mastoid air cells: Mastoid air cells are well-aerated. Orbital cavities: Visualized portions of the orbits are unremarkable. Bones: No displaced calvarial fracture identified. Soft tissues: No acute soft tissue findings. IMPRESSION: There is a region of hypodensity in the left frontal deep white matter extending to the basal ganglia and subinsular region suspicious for acute ischemia. There is high density in the left MCA M1 segment suspicious for thrombus. CTA pending. ASSESSMENT: ASPECTS ([place] Stroke Program Early CT Score) is 6.
--- NOTE | 2025-06-25 19:32 | CT_ITS ---
PROCEDURE INFORMATION: Exam: CTA Head With Contrast, Arteriography Exam date and time: 06/25/2025 7:35 PM Age: 84 years old Clinical indication: Stroke-like symptoms; Right facial droop; Additional info: Possible stroke TECHNIQUE: Imaging protocol: Computed tomographic angiography of the head with contrast. Exam focused on the arteries. AI vessel analysis not performed. 3D rendering (Not supervised by radiologist): MIP and/or 3D reconstructed images were created by the technologist. Radiation optimization: All CT scans at this facility use at least one of these dose optimization techniques: automated exposure control; mA and/or kV adjustment per patient size (includes targeted exams where dose is matched to clinical indication); or iterative reconstruction. Contrast material: ISOVUE 370; Contrast volume: 80 ml; Contrast route: INTRAVENOUS (IV); COMPARISON: CT ANGIO HEAD 04/04/2025 8:16 AM FINDINGS: ANTERIOR CIRCULATION: Right internal carotid artery: Atherosclerotic changes right internal carotid artery with moderate stenosis. Right middle cerebral artery: Right middle cerebral artery is patent. No significant stenosis. No aneurysm. Right anterior cerebral artery: Right anterior cerebral artery is patent. No significant stenosis. No aneurysm. Anterior communicating artery: No anterior communicating artery aneurysm seen. 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 Left middle cerebral artery: The left MCA is occluded in the M1 segment proximally. In the distal M1 segment there is some faint opacification extending to the M2 branches likely from cortical collaterals. Left anterior cerebral artery: The left SHONA is occluded in the proximal A1 segment with patent distal vessel. POSTERIOR CIRCULATION: Right vertebral artery: Right vertebral artery is patent. No significant stenosis. No aneurysm. Left vertebral artery: Left vertebral artery is patent. No significant stenosis. No aneurysm. Basilar artery: The basilar artery is patent. No significant stenosis. No aneurysm. Right posterior cerebral artery: Right posterior cerebral artery is patent. No significant stenosis. No aneurysm. Left posterior cerebral artery: Left posterior cerebral artery is patent. No significant stenosis. No aneurysm. Veins: Visualized dural venous sinuses grossly patent on this study optimized for arterial assessment. Brain: Region of hypodensity in the left frontal lobe extending to the basal ganglia and subinsular region and also the left temporal lobe similar to the CT. There is no midline shift or significant mass effect. Cerebral ventricles: No significant ventriculomegaly. Bones/joints: No displaced calvarial fracture identified. Soft tissues: No acute soft tissue findings. 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 The left MCA is also occluded in the M1 segment proximally. In the distal M1 segment there is some faint opacification extending to the M2 branches likely from cortical collaterals. The left SHONA is occluded in the proximal A1 segment with patent distal vessel. PROCEDURE INFORMATION: Exam: CTA Neck With Contrast Exam date and time: 06/25/2025 7:35 PM Age: 84 years old Clinical indication: Stroke-like symptoms; Right facial droop; Additional info: Possible stroke TECHNIQUE: Imaging protocol: Computed tomographic angiography of the neck with contrast. Exam focused on the cervical segments of the vasculature. 3D rendering (Not supervised by radiologist): MIP and/or 3D reconstructed images were created by the technologist. Radiation optimization: All CT scans at this facility use at least one of these dose optimization techniques: automated exposure control; mA and/or kV adjustment per patient size (includes targeted exams where dose is matched to clinical indication); or iterative reconstruction. Contrast material: ISOVUE 370; Contrast volume: 80 ml; Contrast route: INTRAVENOUS (IV); COMPARISON: CT ANGIO NECK 04/04/2025 8:16 AM FINDINGS: Right common carotid artery: The right common carotid artery is widely patent. No stenosis. Right internal carotid artery: Atherosclerotic changes proximal right internal carotid artery are seen without significant stenosis. Right external carotid artery: Right external carotid artery has no visible occlusion. Left common carotid artery: The left common carotid artery is widely patent. No stenosis. Left internal carotid artery: There is 50% stenosis of the proximal left internal carotid artery related to atherosclerotic changes. The distal left cervical ICA is occluded. Beyond the most proximal portion the vessel becomes faintly opacified compared to the right side. Left external carotid artery: Left external carotid artery has no visible occlusion. Right vertebral artery: There is mild stenosis origin right vertebral artery without occlusion. Left vertebral artery: Left vertebral artery is patent. No significant stenosis. No aneurysm. Lymph nodes: Probable level 2 right-sided lymph node measuring 8 mm at the mandibular angle unchanged not enlarged by size criteria. Soft tissues: No acute soft tissue findings. Bones/joints: Degenerative bony changes. Previous sternotomy. Lungs: There is minimal left upper lobe atelectasis. Other findings: Visualized mediastinal vasculature patent. 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 There is 50% stenosis of the proximal left internal carotid artery at the bifurcation unchanged. REFERENCES: NASCET CRITERIA. The degree of stenosis in the cervical segment of the internal carotid artery is based on NASCET criteria. Normal is no stenosis. Mild is less than 50% stenosis. Moderate is 50-69% stenosis. Severe is 70% to 99% stenosis. Total occlusion is no detectable patent lumen.
--- OUTSIDE RECORDS SUMMARY | 2025-06-25 19:38 | XMS_ITS | Encounter Summary ---
Author Organization Healthcare Address [address] [place] [address] Care Team Providers Care Poured Pipe Maker Name Role Phone Milind Corona MD Primary Care Provider [phone] Encounter Details Date Type Department Care Team [...] Description 11/09/2025 12:00 PM EDT Office Visit [facility] [address] [place] [address] Vishal Boogie MD [address] [place] [phone] documented as of this encounter Visit Diagnoses Not on filedocumented in this encounter Additional Health Concerns Assessment Noted Time A fall risk assessment has been complete d for the patient 09/30/2023 1:05 PM EDT A Body Mass Index follow-up plan has been documented for the patient 05/04/2025 11:23 AM EST documented as of this encounter Care Teams Poured Pipe Maker Relationship Specialty Start Date End Date Milind Corona MD [id number] PCP - General 03/20/21 documented as of this encounter
--- OUTSIDE RECORDS SUMMARY | 2025-06-25 19:40 | XMS_ITS | Clinical Summary ---
Author Organization [facility] Address [address] [place] [address] Care Team Providers Care Building Supervisor Name Role Phone Milind Corona MD Primary Care Provider [phone] Allergies No known active allergies Medications metoprolol [...] VACCINE 01/26/2025 Insurance PETER [place] C [id number] [employer] Care Teams Building Supervisor Relationship Specialty Start Date End Date Milind Corona MD [address] [facility] [address] [place] [id number] PCP - General Family Medicine 12/05/20
--- OUTSIDE RECORDS SUMMARY | 2025-06-25 19:40 | XMS_ITS | Clinical Summary ---
Author Organization [facility] Address [address] [place] [address] Care Team Providers Care Winder Contort Operator Name Role Phone Milind Corona MD Primary Care Provider [phone] Allergies No known active allergies Medications aspirin [...] AM EST Office Visit [facility] [address] [place] [...] Description 11/09/2025 12:00 PM EDT Office Visit [facility] [address] [place] [address] Vishal Boogie MD [address] [place] [address] Health Maintenance Due Date Last Done Comments [facility]-Depression Screening 1938 [facility]-Medicare Annual Wellness (AWV) 1938 [facility]-/Child/Adol SDOH Screenings 1938 [facility]- SDOH Screenings 1956 [facility]-Adult SDOH Screenings 1956 [facility]-Zoster Vaccines (1 of 2) 1957 [facility]-RSV Vaccine: 60+ Years or (1 - 1-dose 75+ series) 2013 [facility]-DTaP,Tdap,and Td Vaccines (1 - Tdap) 01/19/2018 01/18/2018, 08/29/1996 [id number] Vaccine (3 - Moderna risk series) 10/02/2020 [...] to complete this topic Insurance AARON CABRERA [id number] [employer] MEDICARE Care Teams Winder Contort Operator Relationship Specialty [place] [id number] PCP - General 03/20/21
--- OUTSIDE RECORDS SUMMARY | 2025-06-25 19:40 | XMS_ITS ---
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 General Cancer Support & Resources [facility] [address] [facility], [address] [place] [address] Med Onc: Blueprint Engineer Onc: Ropeman: Alicia Garrett - Psychiatric Nurse Practitioner: Carole Chritsian APRN - Kick It! (A free smoking cessation program) Financial Counselor and Contact Information: [facility] Financial Counseling [phone] Principal Law Clerk Contact Information: Ilana White - Local Cancer Support Group and Contact Information: Nayan Boyle: This support group is open to anyone that has been diagnosed with cancer of any type. Meets at 6:30pm on the last Wednesday of each month. Location: [facility]; [address] [place] [address]. For more information call Sonia Hood @ . Prostate Cancer Support & Resources Local Resources [facility] Prostate Support Group: The mission of TOO is to provide hope and improve the lives of of those affected by prostate cancer through support, education, and advocacy/ awareness. The group meets the of each month at 6:30 p.m. [address], [address] [place], [place] [id number] Surveillance How Frequent? Medical Oncology visits 1 [...] advice of a doctor or other health child caregiver. Please use these recommendations to talk with your health care provider about an appropriate follow up care plan for you. Surveillance for Your Cancer Recommendation Frequency Comments Cancer surveillance visit with medical provider that is focused on detecting signs of recurrence ofyour cancer. For additional information, visit www.[employer].org or www.cancer.net/patient/Survivorship Frequency depends on type and [...] of cancer in the general population. The [employer] (ACS) recommends these screening guidelines for men: Recommendation Frequency Comments Colon and Rectal Cancer Screening For more information see the ACS document Colorectal Cancer: Early Detection. www.cancer.org/ssLINK/irctoumnhx-ydkkkz-whmwg-detection-rhiannon Options for colon cancer screening can be [...] see the ACS Document Testicular Cancer Detection: http://www.cancer.org/cancer/testicularcancer/detailedguide/hhrnkrkzbp-gwpoam-ya tection Men of any age can develop [...] more information, visit http://www.nhlbi.nih.gov/health/public/heart/obesity/lose_wt/index.htm www.win.niddk.nih.gov Call the [employer] Talk to your health care [...] Experts recommend at least 30 minutes of uyjdbczq-lu-zkzfnmzr activity per day, five days a week. [...] you can call a national hotline at 8(737)-QUIT-NOW. Have regular check-ups by a healthcare professional. For more information about healthy screening tests for men visit the U.S. Department of Health and Human Services. http://www.womenshealth.gov/gcgcvqkoy-ssqrv-hco-vaccines/fdpbatqxe-mtybw-bqx-men / For more information about adult vaccinations visit the CDC: http://www.cdc.gov/vaccines/recs/schedules/adult-schedule.htm Keep up-to-date on general health screening tests, including cholesterol, blood pressure and glucose (blood sugar) levels. Get an annual influenza vaccine (flu shot). Get vaccinated with the pneumococcal vaccine, which prevents a type of pneumonia, and re-vaccinatedas determined by your health care team. Don???t forget dental and eye health! The [employer] recommends adults have their eyes examined every two years until age 60, then annually. People who wear glasses or correctivelenses or are at high risk for eye problems (i.e., diabetics, family history of eye disease) shouldbe seen more frequently. The [employer] recommends adults see their dentist at least once a year. No information on file. No information on file.
--- OUTSIDE RECORDS SUMMARY | 2025-06-25 19:40 | XMS_ITS | Patient Health Record ---
Author [facility] [address] [facility] [address] [place] [id number] Care Team Providers Care Tip Bander Name Role Phone Cj Milind Primary Care Provider Reshma Gipson Unavailable [phone] Allergies No Known Allergies Results Component Value [...] employed in healthcare? No Is patient an [facility] employee? N Is patient currently hospitalized? No Is patient currently in ICU? No Date of Symptom onset Is patient a resident in a congregate care setting? No ADENOQIA Not Detected NotDetected CORONAHKU1 Not Detected NotDetected [id number] Not Detected NotDetected [id number] Not Detected NotDetected VYBYXDB19 Not Detected NotDetected METAPNEUMO Not Detected NotDetected RHINOENTER Not Detected NotDetected INFLUAPCR Not Detected NotDetected FLUAH1 Not Detected NotDetected [id number] Not Detected NotDetected INFLUAH3 Not Detected NotDetected [...] 24 Performing Lab: Notes/Report: Test performed by [email or web address] [address] [place] [address] , [address], [place] [address] Bob Boone MD, Area Supervisor CLIA: [id number] Sodium 139 135-145 mmol/L Potassium 5.4 3.5-5.3 [...] Growth Performing Lab: Notes/Report: Test performed by [email or web address] [address] [place] [address] , [address], [place] [address] Bob Boone MD, Area Supervisor CLIA: [id number] Specimen Source Urine - Void Culture, Urine See Below Final Report : No growth B-Type Natriuretic Peptide Reviewed date:11/09/2024 03:25:45 PM Interpretation:245.0 Performing Lab: Notes/Report: Test performed by [email or web address] [address] [place] [address] , [address], [place] [address] Bob Boone MD, Area Supervisor CLIA: [id number] B-Type Natriuretic Peptide 245.0 <2.0-100.0 pg/ mL [...] 34 Performing Lab: Notes/Report: Test performed by [email or web address] [address] [place] [address] , [address], [place] [address] Bob Boone MD, Area Supervisor CLIA: [id number] Sodium 141 135-145 mmol/L Potassium 5.8 3.5-5.3 mmol/L Chloride 110 97-108 mmol/L CO2 26 20-32 mmol/L Glucose 88 65-99 mg/dL BUN 34 8-23 mg/dL Creatinine 1.90 0.70-1.30 mg/dL Calcium 8.9 8.6-10.4 mg/dL eGFR by Creatinine 34 >59 mL/min/1.73m2 P-Phosphorus Reviewed date:04/12/2025 11:26:06 AM Interpretation:Normal Performing Lab: Notes/Report: Test performed by [email or web address] [address] [place] [address] , [address], [place] [address] Bob Boone MD, Area Supervisor CLIA: [id number] Phosphorus 2.7 2.5-4.5 mg/dL CBC Fingerstick (in [...] 112 100 - 400 H-BMP Reviewed date:04/23/2025 09:13:58 AM Interpretation: Performing Lab: Notes/Report: CBC Venipuncture (in house) Reviewed date:04/06/2025 09:08:00 [...] 2.29, eGFR 27 Performing Lab: Notes/Report: CLIA: [id number] Bob Boone MD, Area Supervisor [address] [place] [address] , [address] , [place] [address] Test performed by [email or web address], [facility] Sodium 144 135-145 mmol/L Potassium 5.5 3.5-5.3 mmol/L Chloride 107 97-108 mmol/L CO2 26 20-32 mmol/L Glucose 77 65-99 mg/dL BUN 38 8-23 mg/dL Creatinine 2.29 0.70-1.30 mg/dL Calcium 9.0 8.6-10.4 mg/dL eGFR by Creatinine 27 >59 mL/min/1.73m2 H-BMP Reviewed date:04/23/2025 09:13:28 AM Interpretation:K+ 5.3, [...] 103 74-100 mg/dl CA 8.4 8.4-10.2 mg/dl Reason For Referral Diagnosis 1 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) Referral Organization [facility] Referring Provider First Name Milind Referring Provider Last Name Cj Referring Provider Speciality Family [facility] tavonice Referred Provider Vishal Boogie Referred Provider Specialty Nephrology General Notes Heena Quan 2024 10:53:41 AM > faxed to [facility] Nephrology Referral Priority Routine Medications Medication [...] Status Risk Notes Problem Gastroesophageal reflux disease (693405771) GERD (gastroesophageal reflux disease) (K21.9) Active confirmed Problem Essential hypertension (16539468) Essential hypertension (I10) Active confirmed Problem Acute exacerbation of chronic obstructive airways disease (418329041) COPD with acute exacerbation (J44.1) Active confirmed Problem Acute exacerbation of chronic obstructive airways disease (447162069) COPD exacerbation (J44.1) Active confirmed Problem Cramp in lower leg associated with rest (209402743) Nocturnal leg cramps (G47.62) Active confirmed Problem Congestive heart failure (05614927) CHF (congestive heart failure) (I50.9) Active confirmed Problem Hypertensive heart AND chronic kidney disease with congestive heart failure (85360925173752) Hypertensive heart and chronic kidney disease with heart failure and stage 1 through stage 4 chronic kidney disease, or unspecified chronic kidney disease (I13.0) Active confirmed Problem Constipation (33413858) Constipation, unspecified constipation type (K59.00) Active confirmed Problem Hyperlipidemia (16108990) Hyperlipidemia, unspecified hyperlipidemia (E78.5) Active confirmed Problem Renal insufficiency (257008624) Renal insufficiency (N28.9) Active confirmed Problem COPD - Chronic obstructive pulmonary disease (94927358) Chronic obstructive pulmonary disease, unspecified COPD type (J44.9) Active confirmed Problem Atherosclerotic heart disease of [place] coronary artery without angina pectoris (733218651251252) Coronary artery disease involving [place] coronary artery of [place] heart without angina pectoris (I25.10) Active confirmed Problem Gastroesophageal reflux disease (903405850) Gastroesophageal reflux disease, esophagitis presence not specified (K21.9) Active confirmed Problem Atrial fibrillation (30431186) Atrial fibrillation, unspecified type (I48.91) Active confirmed Problem Seasonal allergic rhinitis (133216371) Seasonal rhinitis (J30.2) Active confirmed Problem Long-term current use of anticoagulant (197840182) Current use of group home anticoagulation (Z79.01) Active confirmed Problem Nephrolithiasis (22033104) Nephrolithiasis (N20.0) Active confirmed Problem Atrial fibrillation (27571628) Atrial fibrillation with RVR (I48.91) Active confirmed Problem Dyslipidemia (401698761) Dyslipidemia (E78.5) Active confirmed Problem 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, unspecified site (M1A.00X0) Active confirmed Problem Lower urinary tract symptoms due to benign prostatic hypertrophy (60826877401848) Benign prostatic hyperplasia with lower urinary tract symptoms (N40.1) Active confirmed Problem Urge incontinence of urine (06151736) Urge incontinence of urine (N39.41) Active confirmed Problem Chronic renal failure syndrome (78382681) Chronic kidney disease, unspecified CKD stage (N18.9) Active confirmed Problem Allergic rhinitis (96215064) Allergic rhinitis, unspecified seasonality, unspecified trigger (J30.9) Active confirmed Problem Persistent atrial fibrillation (915588316) Persistent atrial fibrillation (I48.19) Active confirmed Problem Chronic kidney disease stage 3B (disorder) (990585121) 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) Active confirmed Problem Chronic kidney disease stage 3A (487000808) Stage 3a chronic kidney disease (N18.31) Active confirmed Problem 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, 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 Vital Signs Heart Rate 55 /min 06/01/2025 Blood pressure diastolic 68 mm Hg 06/01/2025 Height 70 in 06/01/2025 Blood pressure systolic 114 mm Hg 06/01/2025 Weight 165 lbs 06/01/2025 BMI 23.67 kg/m2 06/01/2025 Encounters Encounter Location Date Provider Diagnosis [facility] [place] [facility] [address] [place], [place] [id number] 08/28/2024 Milind Justice Acute URI J06.9 [facility] [place] [facility] [address] [place] [id number] 11/08/2024 Reshma Crowdy Bronchitis J40 ; Confusion R41.0 ; Shortness of breath R06.02 ; Hematuria R31.9 ; Persistent atrial fibrillation I48.19 ; Stage 3b chronic kidney disease N18.32 ; Hyperlipidemia, unspecified hyperlipidemia E78.5 ; Essential hypertension I10 and BMI 21.0-21.9, adult Z68.21 [facility] [place] [facility] [address] [place], [place] [id number] 11/10/2024 Reshma Crowdy Acute URI J06.9 and Bronchitis J40 [facility] [address] [facility] [address] [place], [place] [id number] 04/05/2025 Milind Justice COPD with acute exacerbation J44.1 ; Renal insufficiency N28.9 ; CHF (congestive heart failure) I50.9 ; Chronic obstructive pulmonary disease, unspecified COPD type J44.9 ; Hypertensive heart and chronic kidney disease with heart failure and stage 1 through stage 4 chronic kidney disease, or unspecified chronic kidney disease I13.0 and BMI 22.0-22.9, adult Z68.22 [facility] [address] [facility] [address] [place], [place] [id number] 04/11/2025 Milind Justice COPD exacerbation J4 4.1 ; Stage 3b chronic kidney disease N18.32 and Essential hypertension I10 [facility] [address] [facility] [address] [place] [id number] 04/25/2025 Milind Justice Stage 3b chronic kid eduardo disease N18.32 [facility] [address] [facility] [address] [place] [id number] 05/02/2025 Milind Justice Pre-op exam Z01.818 ; 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 ; Coronary artery disease involving [place] coronary artery of [place] heart without angina pectoris I25.10 ; Essential hypertension I10 ; Hyperlipidemia, unspecified hyperlipidemia E78.5 ; Chronic obstructive pulmonary disease, unspecified COPD type J44.9 ; Atrial fibrillation, unspecified type I48.91 ; CHF (congestive heart failure) I50.9 and Stage 3a chronic kidney disease N18.31 [facility] [address] [facility] [address] [place] [id number] 06/01/2025 Milind Justice SOB (shortness of br eath) R06.02 and Chronic obstructive pulmonary disease, unspecified COPD type J44.9 [facility] [address] [place], [place] [id number] 07/25/2024 Milind Justice [facility] [address] [facility] [address] [place], [place] [id number] 09/25/2024 Milind Justice [facility] [address] [facility] [address] [place] [id number] 11/09/2024 Reshma Gipson [facility] [address] [place] [id number] 11/13/2024 Milind Justice Benign prostatic hyperplasia with lower urinary tract symptoms N40.1 [facility] [address] [place] [id number] 12/01/2024 Milind Justice Bronchitis J40 [facility] [address] [place] [id number] 12/15/2024 Milidn Justice [facility] [address] [place] [id number] 12/27/2024 Milind Justice [facility] [address] [place] [id number] 12/27/2024 Milind Justice [facility] [address] [place], [place] [id number] 04/03/2025 Milind Justice [facility] [address] [place] [id number] 04/06/2025 Milind Justice [facility] [address] [place] [id number] 04/12/2025 Milind Justice Hyperkalemia E87.5 [facility] [address] [place] [id number] 04/23/2025 Milind Justice Assessments Encounter Date Diagnosis (ICD Code) Assessment Notes Treatment Notes Treatment Clinical Notes Section Notes 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) 04/25/2025 Stage 3b chronic kidney disease (ICD-10 - N18.32) 12/01/2024 Bronchitis (ICD-10 - J40) 05/02/2025 Pre-op exam (ICD-10 - Z01.818) Results from recent testing at [facility] and cardiology not reviewed in office today. Patient has had cardiac clearance. He is of increased, but acceptable risk for proposed surgery. 08/28/2024 Acute URI (ICD-10 - J06.9) 11/08/2024 [...] lower urinary tract symptoms (ICD-10 - N40.1) 04/05/2025 COPD with acute exacerbation (ICD-10 - J44.1) 04/11/2025 COPD exacerbation (ICD-10 - J44.1) Clinically improved 04/11/2025 Stage 3b chronic kidney disease (ICD-10 - N18.32) 04/12/2025 Hyperkalemia (ICD-10 - E87.5) 06/01/2025 SOB (shortness of breath) (ICD-10 - R06.02) Need to schedule the overnight oximetrey with Ludivina 06/01/2025 Chronic obstructive pulmonary disease, unspecified COPD type (ICD-10 - J44.9) 04/05/2025 Renal insufficiency (ICD-10 - N28.9) 11/08/2024 Shortness of breath (ICD-10 - R06.02) 04/11/2025 Essential hypertension (ICD-10 - I10) 04/05/2025 CHF (congestive heart failure) (ICD-10 - I50.9) 05/02/2025 Coronary artery disease involving [place] coronary artery of [place] heart without angina pectoris (ICD-10 - I25.10) 05/02/2025 Essential hypertension (ICD-10 - I10) 11/08/2024 Hematuria (ICD-10 - R31.9) 04/05/2025 Chronic obstructive pulmonary disease, unspecified COPD type (ICD-10 - J44.9) 11/08/2024 Persistent atrial fibrillation (ICD-10 - I48.19) 04/05/2025 Hypertensive heart and chronic kidney disease [...] [address], [place], [place], [id number], Insurance Providers Payer Name Payer Address Payer Phone Subscriber Number Group Number Insured Name Patient Relationship to Insured Coverage Start Date Coverage End Date [employer] (MEDICAR E) [address] [address] [place] [address] [id number] [address] [place] Self - patient is the [...] carcinoma, lip C44.02 Prostate Cancer, Cyberknife Treatment Chronic Kidney Disease Atrial Fibrillation COPD Surgical History Surgery Date(Month/Year) Colonoscopy, Polyps Removal, Neg Path 20 04 C-Scope, Normal/ Dr. Rm 11/2010 Circumcision- Dr. Agustin 09/2012 Coronary Artery Bypass Graft - 3 Vessels 04/2013 Lip Skin Cancer Biopsy Biopsy 09/17/2020 Buccal Mass Removal 04/22/2021 Cyst removal from mouth 08/19/2022 Hospitalization History Reason Date(Month/Year) Unable to Urinate- Foly Fath- [facility] ER Unable to Urinate- Foly Cath- [facility] ER Dizziness- [facility] 10/19- Dizziness- [facility] [place] 10/18/2017 Kidney Stones Heart Attack- [facility] 05/08/2013 Back Pain- [facility] ER 04/09/2012
[2025-06-25] MEDS: 0.9 % SODIUM CHLORIDE 50 ML VIAL IV (19:43)
[2025-06-25] MEDS: IOPAMIDOL-370 (76%);100ML BOTTLE 80 ML IV (19:43)
--- NOTE | 2025-06-25 19:50 | ECG_ITS ---
APPROVED REPORT Exam: Resting ECG HR:84 bpm ECG Measurements Heart Rate 84 AXES QRSd 84 QRS 42 QT 367 T 77 QTc 408 Conclusion ATRIAL FIBRILLATION INDETERMINATE AXIS POSSIBLE RIGHT VENTRICULAR CONDUCTION DELAY [RSR (QR) IN V1/V2] NONSPECIFIC ST & T-WAVE ABNORMALITY ABNORMAL RHYTHM ECG Significant wandering baseline EKG Electronically signed by : ROBBY OVIEDO, 06/26/2025 08:41:17
[2025-06-25 19:53] LABS: Microscopic, Urine URINE MICROSCOPIC (MICROSCOPIC)
--- NOTE | 2025-06-25 19:53 | HMH.EDGENADL ---
Discharge Plan Disposition Patient Disposition: Xfer Other Prescriptions Prescriptions: No Action furosemide 20 mg tablet 20 mg PO DAILYP PRN (Reason: Edema) atorvastatin 20 mg tablet 20 mg PO DAILY lisinopril 2.5 MG tablet 2.5 mg PO HS metoprolol tartrate 25 MG tablet 25 mg PO BID tamsulosin 0.4 MG capsule 0.4 mg PO BID famotidine 40 mg tablet 40 mg PO HS Jardiance 10 mg tablet 10 mg PO DAILY Patient Comments: [NO ORIGINAL SIG] benzonatate 200 mg capsule 200 mg PO TID PRN (Reason: cough) Qty: 30 1RF Referrals Follow up/Referrals: Milind Corona MD [Primary Care Provider, Medical] - See instructions Clinical Impressions Clinical Impression: Acute ischemic left MCA stroke, Acute ischemic left SHONA stroke Print Language Print Language: Chinese Discharge ED Provider: Blue Dorsey General Adult HPI General Stated complaint: unconcious Time Seen by Provider: 06/25/25 19:32 Mode of Arrival: EMS History of Present Illness HPI narrative: Young Coy is an 84-year-old male with past medical history of, A-fib, CKD CHF who presents to the emergency department via EMS as a stroke alert. Per EMS, patient was found down in his barn prior to arrival with last known normal at around 4:00 this afternoon. They state that he has aphasic and unable to move the right side of his body. There is some blood around his mouth as well. On arrival, patient's NIH is 24. He is aphasic, has left gaze deviation, weakness in all extremities but more profound in the right upper and right lower extremities. Patient was taken to CT scanner immediately upon arrival. Related Data Home Medications ?Medication ?Instructions ?Recorded ?Confirmed lisinopril 2.5 mg tablet 2.5 mg PO HS 10/18/17 06/22/25 metoprolol tartrate 25 mg tablet 25 mg PO BID 10/18/17 06/22/25 tamsulosin 0.4 mg capsule 0.4 mg PO BID 01/02/19 06/22/25 furosemide 20 mg tablet 20 mg PO DAILYP PRN Edema 11/01/23 06/22/25 atorvastatin 20 mg tablet 20 mg PO DAILY 04/05/25 06/22/25 empagliflozin 10 mg tablet 10 mg PO DAILY 06/22/25 06/22/25 (Jardiance) famotidine 40 mg tablet 40 mg PO HS 06/22/25 06/22/25 Previous Rx's ?Medication ?Instructions ?Recorded benzonatate 200 mg capsule 200 mg PO TID PRN cough #30 caps 06/23/25 Allergies Allergy/AdvReac Type Severity Reaction Status Date / Time No Known Allergies Allergy Verified 06/04/25 14:15 [facility] Disclaimer: The information contained in this section may have been updated after the patient was seen, as this information can be updated by other users. Medical History (Updated 06/25/25 @ 21:02 by Blue Dorsey MD) On continuous oral anticoagulation Abnormal electrocardiogram [ECG] [EKG] Pulmonary arterial hypertension Mitral regurgitation Edema of both lower extremities Lesion of buccal mucosa Hyperkeratotic oral lesion Fatigue Abnormal findings on diagnostic imaging of heart and coronary circulation Chronic kidney disease Afib Coronary artery disease HLD (hyperlipidemia) Bradycardia Verrucous carcinoma of floor of mouth Difficulty swallowing Stopped smoking with greater than 30 pack year history Dyspnea on exertion Cough variant asthma Shortness of Breath Chronic cough Allergic rhinitis History of smoking 30 or more pack years History of lip cancer Dyspnea on exertion Coronary artery disease HTN (hypertension) Surgical History History of oral surgery History of coronary artery bypass graft History of prostate surgery History of open heart surgery Family History Family/Other Heart disease Social History (Updated 06/22/25 @ 04:49 by Katie Viera RN) Smoking Status: Unknown if ever smoked second hand exposure: No alcohol intake: never substance use type: denies use current occupational status: other Travel in the last 8 weeks?: None household members: spouse housing: house marital status: education level: high school service: Yes current occupational exposures/hazards: No caffeine: No special elizabeth needs: No agree to transfusion: No do you feel safe at home: Yes victim of physical abuse: No victim of emotional abuse: No victim of sexual abuse: No would you like helpful sources: No Have you lived/traveled outside [place] in past 30 days?: No Contact w/someone who lives/traveled outside US past 30 days?: No Exposure to someone with infectious disease in past 14 days?: No Do you have a fever (greater than 100.4 F or 38 C)?: No Have you tested positive for COVID-19?: No Exposed to someone with COVID-19 in past 14 days?: No Do you have a sore throat?: No Do you have a cough?: No Do you have any weakness?: No Do you have any diarrhea?: No Are you experiencing any unusual bleeding?: No Do you have any muscle aches/pain?: No Do you have any abdominal pain?: No Are you experiencing loss of taste or smell?: No Other Medical History Have you received the Flu Vaccine for this season: No Have you received the Pneumonia Vaccine: No ROS Obtained: Yes Systems reviewed as appropriate & no additional complaints except as documented Physical Exam General General appearance: other (awake) Comment: Awake, looking around the room Head Head exam: atraumatic Eye Eye exam: Present normal appearance ENT ENT exam: Present other (Dried blood around mouth) Chest Chest inspection: Present symmetric chest wall rise Respiratory Respiratory exam: Present normal lung sounds bilaterally; Absent respiratory distress, wheezes or stridor Cardiovascular Cardiovascular exam: Present regular rate and normal rhythm Abdominal Exam Abdominal exam: Present soft; Absent tenderness or guarding exam: Present deferred Extremities Exam Extremities exam: Present normal inspection Back Exam Back exam: Present normal inspection Neurological Exam Neurological exam: Present other (Awake, moving eyes spontaneously. Weakness in all extremities but more profound in the right upper and right lower extremities. Aphasic. Left gaze deviation. NIH of 20) Psychiatric Psychiatric exam: Present normal affect Skin Skin exam: Present warm and dry Medical Decision Making Medical Records Screening: Per USPSTF and CDC recommendations, given the prevalence of disease in our region, it is our hospital?s policy to screen for HIV and viral Hepatitis for all patients aged 18 and over and those with ongoing risk factors. Mayito Inquiry Pt receiving controlled substance: No Vital Signs: 06/25/25 19:50 06/25/25 19:58 06/25/25 20:00 Temperature 96.6 F L 96.6 F L 96.8 F L Temperature Source Core Core Pulse Rate 77 80 Pulse Rate [Right] 90 Respiratory Rate 25 H 20 20 Blood Pressure Blood Pressure [Right Arm] 182/98 H Blood Pressure Mean Blood Pressure Mean [Right Arm] 126 Blood Pressure Source [Right Arm] Manual Cuff/ Auscultation Blood Pressure Position [Right Arm] Supine 02 Sat by Pulse Oximetry 97 98 97 Oxygen Delivery Method Room Air Room Air 06/25/25 20:00 06/25/25 20:15 06/25/25 20:30 Temperature 97.2 F L 97.2 F L Temperature Source Pulse Rate 74 73 Pulse Rate [Right] Respiratory Rate 20 20 Blood Pressure 166/80 H Blood Pressure [Right Arm] Blood Pressure Mean 108 Blood Pressure Mean [Right Arm] Blood Pressure Source [Right Arm] Blood Pressure Position [Right Arm] 02 Sat by Pulse Oximetry 96 96 Oxygen Delivery Method Room Air 06/25/25 20:30 06/25/25 20:45 Temperature 97.2 F L Temperature Source Pulse Rate 66 Pulse Rate [Right] Respiratory Rate 20 Blood Pressure 152/84 H Blood Pressure [Right Arm] Blood Pressure Mean 106 Blood Pressure Mean [Right Arm] Blood Pressure Source [Right Arm] Blood Pressure Position [Right Arm] 02 Sat by Pulse Oximetry 95 Oxygen Delivery Method Room Air Lab Data Lab Results 06/25/25 19:48: WBC 6.1, RBC 4.00 L, Hgb 11.7 L, Hct 36.8 L, MCV 92.0, MCH 29.3, MCHC 31.8, RDW 13.8, Plt Count 132 L, MPV 10.4, Neut % (Auto) 87.9 H, Lymph % (Auto) 7.2 L, Randall % (Auto) 4.0, Eos % (Auto) 0.3, Baso % (Auto) 0.3, Neut # (Auto) 5.3, Lymph # (Auto) 0.4 L, Randall # (Auto) 0.2, Eos # (Auto) 0.0, Baso # (Auto) 0.0, Total Counted 100, Neutrophils % (Manual) 87 H, Lymphocytes % (Manual) 7 L, Monocytes % (Manual) 5, Basophils % (Manual) 1.0, Platelet Estimate Normal, RBC Morphology Not Reportable, Polychromasia 1+, Poikilocytosis 1+, Anisocytosis 1+, Microcytosis 1+, Macrocytosis 1+, Tear Drop Cells 1+, Ovalocytes 1+, Melinda Cells 1+, PT 13.3 H, INR 1.22 H, APTT 26.9, Sodium 138, Potassium 5.4 H, Chloride 110 H, Carbon Dioxide 20 L, Anion Gap 13.4, BUN 56 H, Creatinine 2.20 H, Estimated GFR 29 L, Est GFR ( Amer) 35 L, Glucose 130 H, Calcium 8.8, Total Bilirubin 0.5, AST 43, ALT 26, Alkaline Phosphatase 83, Total Protein 6.5, Albumin 3.8, Globulin 2.7, Albumin/Globulin Ratio 1.4, Triglycerides 44, Cholesterol 92 L, VLDL Cholesterol 9, HDL Cholesterol 55, Cholesterol/HDL Ratio 1.7, Plasma/Serum Alcohol < 10 06/25/25 : Urine Color Yellow, Urine Appearance Clear, Urine pH 6.0, Ur Specific [place] 1.020, Urine Protein 2+ A, Urine Glucose (UA) Negative, Urine Ketones Negative, Urine Blood 1+ A, Urine Nitrate Negative, Urine Bilirubin Negative, Urine Urobilinogen 0.2, Ur Leukocyte Esterase Negative, Urine RBC 3-5, Urine WBC 3-5, Ur Squamous Epith Cells 3-5, Urine Bacteria 1+, Urine Opiates Screen Negative, Urine Methadone Screen Negative, Ur Barbituates Screen Negative, Ur Phencyclidine Scrn Negative, Ur Amphetamines Screen Negative, U Benzodiazepines Scrn Negative, Urine Cocaine Screen Negative, U Marijuana (THC) Screen Negative 06/25/25 19:48 06/25/25 19:48 Orders (Tests/Meds): ED MEDICATIONS Generic Name Dose Route Start Last Admin Trade Name Freq PRN Reason Stop Dose Admin Sodium Chloride 10 ml 06/25/25 19:32 Sodium Chloride 0.9% 10ml Flush Syringe IV 07/25/25 19:31 NEEDED PRN Maintain IV Site Discontinued Medications Generic Name Dose Route Start Last Admin Trade Name Freq PRN Reason Stop Dose Admin Iopamidol 80 ml 06/25/25 19:42 06/25/25 19:43 Iopamidol-370 (76%);100ml Bottle IV 06/25/25 19:43 80 ml ONCE ONE Administration Sodium Chloride 50 ml 06/25/25 19:42 06/25/25 19:43 0.9 % Sodium Chloride 50 Ml Vial IV 06/25/25 19:43 50 ml ONCE ONE Administration ORDERS Category Date Time Status CT angio head Stat Cat Scan 06/25/25 19:[address] angio neck Stat Cat Scan 06/25/25 19:[address] head/brain wo con Stat Cat Scan 06/25/25 19:32 Completed Activated Partial Thrombo Time Stat Lab 06/25/25 19:48 Completed Complete Blood Count Auto Diff Stat Lab 06/25/25 19:48 Completed Comprehensive Metabolic Panel Stat Lab 06/25/25 19:48 Results Drug Screen,Urine Stat Lab 06/25/25 Completed Ethyl Alcohol Stat Lab 06/25/25 19:48 Completed Lipid Panel Stat Lab 06/25/25 19:48 Results Prothrombin Time INR Stat Lab 06/25/25 19:48 Completed Troponin I Q3H Lab 06/25/25 22:45 Ordered Troponin I Q3H Lab 06/26/25 01:45 Ordered Troponin I Stat Lab 06/25/25 19:48 Results Urinalysis and Microscopic Stat Lab 06/25/25 Completed ECG Request Stat Y 06/25/25 19:32 Ordered Medical Decision Narrative: Young Coy is an 84-year-old male with past medical history of, A-fib, CKD CHF who presents to the emergency department via EMS as a stroke alert. Per EMS, patient was found down in his barn prior to arrival with last known normal at around 4:00 this afternoon. They state that he has aphasic and unable to move the right side of his body. There is some blood around his mouth as well. On arrival, patient's NIH is 20. He is aphasic, has left gaze deviation, weakness in all extremities but more profound in the right upper and right lower extremities. Patient was taken to CT scanner immediately upon arrival. On arrival, patient is hypertensive blood pressure 175/87, heart rate 82 bpm, maintaining appropriate oxygen saturation on room air. Physical exam, stated above, revealed an ill-appearing male he was maintaining his airway appropriately. He is alert. He will follow commands such as gripping my hand with his left hand. He does have significant aphasia and left gaze deviation. He is weak in all extremities but more profoundly in the right upper and right lower extremities. NIH on arrival is 24. Stroke CTs and stroke labs were obtained. Patient CT imaging on my interpretation shows an occlusion at the proximal MCA M1 segment suspicious for thrombus. CTA show distal left ICA occlusion extends to the left MCA. There is also a left SHONA occlusion. No intracranial hemorrhage, mass or midline shift. Patient's images were immediately shared via viz. to [facility] neurology and I spoke with Dr. Casie Shaw who recommended transferring patient to the emergency [facility] emergency department for thrombectomy. Patient's spouse arrived shortly after and she states that she believes that he is currently taking a blood thinner but does not know which one. Per his prescribed medications, he is prescribed Xarelto. Given the possibility of him being on a blood thinner, I do not feel that he is a candidate for TNK at this time. Will try to arrange flight for thrombectomy. Patient is maintaining his airway at this time. EKG interpreted by me personally. A-fib with ventricular rate of 84 bpm. No STEMI. QTc of 408 Patient is hypertensive and mildly hypothermic on arrival temperature of 96.6, likely from being out in the barn exposed to the cold temperatures. Oxygen saturation 97% on room air. [facility] is flying at this time and is approximately 30 minutes out. Patient's daughter arrived shortly after and states that he has not been taking Xarelto for the past 6 months to year but thinks that his last known normal was actually around 2:00 as this is when patient's called her as the patient's had left the house to go to [place]. states that before she left for [facility], that is when she last saw him normal, still last known normal is actually around 2:00 this afternoon and he is outside of TNK window. I did explain this to family. Patient is INR mildly elevated 1.22, PT 13.3, PTT 26.9. Chronically elevated creatinine of 2.2, near baseline. Potassium mildly elevated 5.4 but no hyperacute T waves on EKG. Liver enzymes bilirubin within normal limits. Urinalysis with 1+ blood but no evidence of infection. Flight crew arrived at 2100. Patient still maintaining his airway at this time. Critical Care Critical Care Time Critical Care Time: Yes Attestation: On 06/25/25, the high probability of a clinically significant, sudden or life threatening deterioration of the following system(s) required my full and direct attention, intervention and personal management. The time I documented below is in addition to time spent performing reported procedures but includes the following listed in this critical care notation. Total Time Total Critical Care Time: 60
[2025-06-25 19:57] LABS: Hematocrit 36.8 % (42.0-52.0); Hemoglobin 11.7 g/dL (14.1-18.0); Immature Granulocytes % 0.3 %; Mean Corpuscular HGB Conc 31.8 g/dL (31.8-35.4); Mean Corpuscular Hemoglobin 29.3 pg (27.0-31.2); Mean Corpuscular Volume 92.0 fl (80-94); Nucleated Red Blood Cells % 0 %; Platelet Count 132 K/mm3 (142-424); Red Blood Count 4.00 M/mm3 (4.60-6.20); Red Cell Distribution Width-SD 47.0 fL; White Blood Count 6.1 K/mm3 (4.8-10.8)
[2025-06-25 20:09] LABS: Albumin Level 3.8 g/dl (3.5-5.0); Chloride 110 mmol/L (98-107); Potassium 5.4 mmoL/L (3.5-5.1); Sodium 138 mmol/L (136-145)
[2025-06-25 20:11] LABS: Bilirubin,Urine Negative (Negative); Color,Urine YELLOW (Yellow); Glucose,Urine (UA) Negative (Negative); Ketones,Urine Negative (Negative); Leukocyte Esterase,Urine Negative (Negative); PH,Urine 6.0 (5.0-8.5); Protein,Urine 2+ (Negative); Specific Gravity, Urine 1.020 (1.005-1.030); Urobilinogen,Urine 0.2 EU/dl (0.2)
[2025-06-25 20:12] LABS: Activated Partial Thrombo Time 26.9 seconds (22.8-30.6); Alanine Aminotransferase 26 U/L (12-78); Albumin/Globulin Ratio 1.4 (1.1-1.8); Alkaline Phosphatase 83 U/L (38-126); Anion Gap 13.4 mEq/L (5-15); Aspartate Amino Transferase 43 U/L (17-59); Bilirubin,Total 0.5 mg/dl (0.2-1.3); Blood Urea Nitrogen 56 mg/dl (9-20); Calcium 8.8 mg/dl (8.4-10.2); Carbon Dioxide 20 mmol/L (22.0-30.0); Cholesterol 92 mg/dl (140-200); Creatinine,Serum 2.20 mg/dl (0.66-1.25); Estimated Glomerular Filt Rate 29 ml/min (>60); GFR (African American) 35 ML/MIN (>60); Globulin 2.7 g/dL (1.3-3.2); Glucose 130 mg/dl (74-100); HDL Cholesterol 55 mg/dl (40-60); INR 1.22 (0.9-1.1); Prothrombin Time 13.3 seconds (10.1-12.5); Total Protein,Serum 6.5 g/dl (6.3-8.2); Triglycerides 44 mg/dl (30-150)
--- NOTE | 2025-06-25 20:17 | PC.NURSE ---
spoke with [facility], [place] [facility] accepted with 30 min eta
[2025-06-25 20:23] LABS: Amphetamine/Metha Screen,Urine Negative ng/ml (<1000); Barbiturates Screen,Urine Negative ng/ml (<200)
[2025-06-25 20:24] LABS: Benzodiazepines Screen,Urine Negative ng/ml (<200)
[2025-06-25 20:26] LABS: Methadone Screen,Urine Negative ng/ml (<300)
[2025-06-25 20:27] LABS: Opiate Screen,Urine Negative ng/ml (<300); Phencyclidine Screen,Urine Negative ng/ml (<25)
--- NOTE | 2025-06-25 20:27 | PC.NURSE ---
Pt's Jacqueline reports that the pt's LKN was around 1300, and pt's daughter reports that the pt is not taking his Xalerto. I called [facility] and gave report to EFREN Oliveira. Pt awaiting transport at this time.
[2025-06-25 20:30] LABS: Bacteria,Urine 1+ /lpf
[2025-06-25 20:38] LABS: Anisocytosis 1+; Macrocytosis 1+; Microcytosis 1+; Ovalocytes 1+; Poikilocytosis 1+; Total Cells Counted 100
[2025-06-25 20:39] LABS: Burr Cells 1+; Polychromasia 1+; Tear Drop Cells 1+
--- NOTE | 2025-06-25 20:58 | PC.NURSE ---
[facility] arrived
[2025-06-25 21:18] LABS: Troponin I 0.01 ng/ml (0.00-0.034)
== END 2025-06-25 21:17 | disposition other institution (70) ==
PROVIDERS: Emergency Provider Student in an Organized Health Care Education/Training Program; PCP Family Medicine
DX: I63.512 Cerebral infarction due to unspecified occlusion or stenosis of left middle cerebral artery (principal); I63.522 Cerebral infarction due to unspecified occlusion or stenosis of left anterior cerebral artery; I48.91 Unspecified atrial fibrillation; R47.01 Aphasia; R29.720 NIHSS score 20; I11.0 Hypertensive heart disease with heart failure; I50.9 Heart failure, unspecified; Z87.891 Personal history of nicotine dependence
CPT/HCPCS: 51702; 70450; 70496; 70498; 80053; 80061; 80307; 80320; 81001; 84484; 85007; 85025; 85610; 85730; 93005; 99285; 99291; Q9967